=== PATIENT | female | born 1945 | race African-American/Black ===

== ENCOUNTER 2016-04-17 10:21 | Emergency (ER) | payer MEDICARE, MEDICAID ==
--- NOTE | 2016-04-17 10:37 | ER Document Report ---
ED Medical Screen (RME) - General Stated Complaint: WEAKNESS Mode of Arrival: Ambulatory Information source: Patient Notes: 70-year-old female presents emergency department complaining of generalized weakness, dysuria, and states "have bumps on my private parts", over the last month. Denies vaginal bleeding or discharge. I have greeted and performed a rapid initial assessment of this patient. A comprehensive ED assessment and evaluation of the patient, analysis of test results and completion of the medical decision making process will be conducted by additional ED providers. TRAVEL OUTSIDE OF THE [place] IN LAST 30 DAYS: No - Related Data Allergies/Adverse Reactions: aluminum [Aluminum] Allergy (Intermediate, Verified 08/25/14 10:57) aspirin [Aspirin] Allergy (Intermediate, Verified 08/25/14 10:57) Sulfa (Sulfonamide Antibiotics) Allergy (Verified 08/25/14 10:57) Past Medical History - Past Medical History Cardiac Medical History: Reports: Hx Hypercholesterolemia, Hx Hypertension Pulmonary Medical History: Reports: Hx Asthma, Hx Bronchitis GI Medical History: Reports: Hx Gastroesophageal Reflux Disease Musculoskeltal Medical History: Reports Hx Arthritis Past Surgical History: Reports: Hx Hysterectomy, Hx Orthopedic Surgery - left foot - Immunizations Immunizations up to date: Yes Hx Diphtheria, Pertussis, Tetanus Vaccination: Yes Physical Exam - General General appearance: Appears well, Alert In distress: None - Respiratory Respiratory status: No respiratory distress - Cardiovascular Rhythm: Regular Pulses: Normal: Radial
[2016-04-17 11:29] LABS: APPEARANCE,URINE SLIGHTLY-CLOUDY; BILIRUBIN,URINE NEGATIVE (NEGATIVE); GLUCOSE, URINE NEGATIVE (NEGATIVE); KETONES,URINE NEGATIVE (NEGATIVE); LEUKOCYTE ESTERASE,URINE TRACE (NEGATIVE); NITRITE,URINE NEGATIVE (NEGATIVE); PROTEIN,URINE NEGATIVE (NEGATIVE); URINE SPECIFIC GRAVITY 1.016; UROBILINOGEN,URINE NEGATIVE mg/dL (<2.0)
[2016-04-17 12:38] LABS: ABSOLUTE EOSINOPHILS # (AUTO) 0.2 10^3/uL (0.0-0.6); ABSOLUTE LYMPHOCYTES (AUTO) 1.1 10^3/uL (0.5-4.7); ABSOLUTE MONOCYTES (AUTO) 0.5 10^3/uL (0.1-1.4); ABSOLUTE NEUT (AUTO) 2.3 10^3/uL (1.7-8.2); EOSINOPHILS % (AUTO) 5.6 % (0-6); HEMATOCRIT 37.5 % (36.0-47.0); HEMOGLOBIN 12.5 g/dL (12.0-15.5); LYMPHOCYTES % (AUTO) 26.8 % (13-45); MEAN CORPUSCULAR HEMOGLOBIN 30.5 pg (27.0-33.4); MEAN CORPUSCULAR HGB CONC 33.3 g/dL (32.0-36.0); MEAN CORPUSCULAR VOLUME 92 fl (80-97); MONOCYTES % (AUTO) 11.3 % (3-13); RED BLOOD COUNT 4.09 10^6/uL (3.72-5.28); RED CELL DISTRIBUTION WIDTH 13.7 % (11.5-14.0); SEGMENTED NEUTROPHILS % (AUTO) 55.3 % (42-78); WHITE BLOOD COUNT 4.2 10^3/uL (4.0-10.5)
--- NOTE | 2016-04-17 13:35 | ER Document Report ---
ED General - General Chief Complaint: Urinary Problem Stated Complaint: WEAKNESS Mode of Arrival: Ambulatory Information source: Patient Notes: Patient presents to the emergency department with complaints of feeling weak all over her body and some bumps on her private area that hurts every time she voids. She denies fever vomiting diarrhea. She reports that she has been cleaning the bumps with alcohol. Patient does report urinary frequency. Patient was supposed to be fitted for his sleep apnea machine today at 2:00 ordered by . firestop/containment worker at bedside reports patient has appointment with pcp, [facility], [place], next Thursday for same symptoms. TRAVEL OUTSIDE OF THE [place] IN LAST 30 DAYS: No - HPI Onset: Other - 2 weeks Onset/Duration: Persistent Quality of pain: Other - sore Severity: Severe Pain Level: 4 Associated symptoms: Weakness Exacerbated by: Denies Relieved by: Denies Similar symptoms previously: No Recently seen / treated by doctor: No - Related Data Allergies/Adverse Reactions: aluminum [Aluminum] Allergy (Intermediate, Verified 04/17/16 10:35) aspirin [Aspirin] Allergy (Intermediate, Verified 04/17/16 10:35) Sulfa (Sulfonamide Antibiotics) Allergy (Verified 04/17/16 10:35) Past Medical History - General Information source: Patient - Social History Smoking Status: Never Smoker Chew tobacco use (# tins/day): No Frequency of alcohol use: None Drug Abuse: None Lives with: Alone Family History: Reviewed & Not Pertinent Patient has suicidal ideation: No Patient has homicidal ideation: No - Past Medical History Cardiac Medical History: Reports: Hx Hypercholesterolemia, Hx Hypertension Pulmonary Medical History: Reports: Hx Asthma, Hx Bronchitis Renal/ Medical History: Denies: Hx Peritoneal Dialysis GI Medical History: Reports: Hx Gastroesophageal Reflux Disease Musculoskeltal Medical History: Reports Hx Arthritis Past Surgical History: Reports: Hx Hysterectomy, Hx Orthopedic Surgery - left foot - Immunizations Immunizations up to date: Yes Hx Diphtheria, Pertussis, Tetanus Vaccination: Yes Hx Pneumococcal Vaccination: 03/16/09 Review of Systems - Review of Systems Notes: Review HPI for review of systems., All other systems negative Physical Exam - Vital signs Vitals: Temp Pulse Resp BP Pulse Ox 97.5 F 71 20 102/64 99 04/17/16 10:40 04/17/16 10:40 04/17/16 10:40 04/17/16 10:40 04/17/16 10:40 - Notes Notes: PHYSICAL EXAMINATION: GENERAL: Well-appearing and in no acute distress nontoxic looking HEAD: Atraumatic, normocephalic. EYES: Pupils equal round and reactive to light, extraocular movements intact, sclera anicteric, conjunctiva are normal. ENT: nares patent, oropharynx clear without exudates. Moist mucous membranes. NECK: Normal range of motion, supple without lymphadenopathy LUNGS: CTAB and equal. No wheezes rales or rhonchi. HEART: Regular rate and rhythm without murmurs ABDOMEN: Soft, no tenderness. No guarding, no rebound BACK: Denies pain EXTREMITIES: Normal range of motion, no pitting edema. No cyanosis. NEUROLOGICAL: Cranial nerves grossly intact. Normal sensory/motor exams. PSYCH: Normal mood, normal affect. SKIN: Warm, Dry, normal turgor, no rashes or lesions noted - Genitourinary External exam: Normal - pt points to left labia area where "bumps" are, no obvious abscess, no irritation, no swelling/warmth, no induration noted Course - Re-evaluation Re-evalutation: 04/17/16 14:17 Patient's older adult social work specialist is at the bedside. Patient and older adult social work specialist updated on all labs. Patient ate almost 75% of her lunch. She is talking in clear voice alert and oriented, answering all questions appropriate. Urine with leukocytes and patient complains of urinary frequency will treat her for UTI. denies abdominal pain. 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 Pickett. 04/17/16 14:53 I have consulted the attending provider dr jc per [facility] guidelines - Vital Signs Vital signs: Temp Pulse Resp BP Pulse Ox 98.2 F 66 16 102/58 L 99 04/17/16 14:55 04/17/16 14:55 04/17/16 14:55 04/17/16 14:55 04/17/16 14:55 - Laboratory Result Diagrams: 04/17/16 12:25 04/17/16 13:58 Laboratory results interpreted by me: 04/17/16 10:56 Ur Leukocyte Esterase TRACE H Urine Ascorbic Acid 40 H Discharge - Discharge Clinical Impression: Weakness, Vaginal irritation Urinary tract infection Qualifiers: Urinary tract infection type: site unspecified Hematuria presence: without hematuria Qualified Code(s): N39.0 - Urinary tract infection, site not specified Condition: Stable Disposition: HOME, SELF-CARE Instructions: Urinary Tract Infection ([facility]), Urinary Anesthetic Agent ([facility]), Ciprofloxacin ([facility]) Additional Instructions: *You have been evaluated for weakness, urinary frequency, UTI *Take medication as prescribed *Clean yourself with a warm cloth, do not use alcohol *Push fluids *Follow up with your [facility] as scheduled Apr.22 *Plan urine recheck in one week *Return to ED for worsening condition, changes, needs Prescriptions: Ciprofloxacin HCl [Cipro 500 mg Tablet] 500 mg PO BID #10 tablet Referrals: [facility] [Provider Group] - 04/22/16
[2016-04-17 14:26] LABS: ALANINE AMINOTRANSFERASE 25 U/L (9-52); ALKALINE PHOSPHATASE 51 U/L (38-126); ANION GAP 11 (5-19); ASPARTATE AMINO TRANSFERASE 25 U/L (14-36); BILIRUBIN,TOTAL 0.3 mg/dL (0.2-1.3); BLOOD UREA NITROGEN 20 mg/dL (7-20); CALCIUM 9.5 mg/dL (8.4-10.2); CARBON DIOXIDE 27 mmol/L (22-30); CHLORIDE 105 mmol/L (98-107); CREATININE RESULT 0.65 mg/dL (0.52-1.25); GLUCOSE 79 mg/dL (75-110); POTASSIUM 4.2 mmol/L (3.6-5.0); SODIUM 142.7 mmol/L (137-145); TOTAL PROTEIN 6.5 g/dL (6.3-8.2)
[2016-04-17 15:01] VITALS: BP 102/58
== END 2016-04-17 15:12 | disposition home or self-care (01) ==
LOC: ER 10:21
DX: N39.0 Urinary tract infection, site not specified (principal); R53.1 Weakness; N89.8 Other specified noninflammatory disorders of vagina; D72.829 Elevated white blood cell count, unspecified; R35.0 Frequency of micturition; J45.909 Unspecified asthma, uncomplicated; I10 Essential (primary) hypertension; Z88.6 Allergy status to analgesic agent; Z88.2 Allergy status to sulfonamides; Z91.048 Other nonmedicinal substance allergy status; Z90.710 Acquired absence of both cervix and uterus
CPT/HCPCS: 36415; 80053; 81001; 85025; 87086; 99285

== ENCOUNTER → 2016-04-24 | Outpatient (CLI) | payer MEDICARE, MEDICAID ==
[2016-04-24 09:43] LABS: ABSOLUTE BASOPHILS # (AUTO) 0.1 10^3/uL (0.0-0.2); ABSOLUTE EOSINOPHILS # (AUTO) 0.2 10^3/uL (0.0-0.6); ABSOLUTE LYMPHOCYTES (AUTO) 0.9 10^3/uL (0.5-4.7); ABSOLUTE MONOCYTES (AUTO) 0.6 10^3/uL (0.1-1.4); ABSOLUTE NEUT (AUTO) 3.6 10^3/uL (1.7-8.2); EOSINOPHILS % (AUTO) 4.3 % (0-6); HEMATOCRIT 38.4 % (36.0-47.0); HEMOGLOBIN 12.7 g/dL (12.0-15.5); HGB HCT DIFFERENCE -0.3; LYMPHOCYTES % (AUTO) 16.2 % (13-45); MEAN CORPUSCULAR HEMOGLOBIN 30.2 pg (27.0-33.4); MEAN CORPUSCULAR VOLUME 92 fl (80-97); MONOCYTES % (AUTO) 10.8 % (3-13); RED BLOOD COUNT 4.19 10^6/uL (3.72-5.28); RED CELL DISTRIBUTION WIDTH 13.7 % (11.5-14.0); SEGMENTED NEUTROPHILS % (AUTO) 67.7 % (42-78); WHITE BLOOD COUNT 5.4 10^3/uL (4.0-10.5)
[2016-04-24 10:10] LABS: ALANINE AMINOTRANSFERASE 30 U/L (9-52); ALBUMIN 4.1 g/dL (3.5-5.0); ALKALINE PHOSPHATASE 48 U/L (38-126); ANION GAP 8 (5-19); ASPARTATE AMINO TRANSFERASE 26 U/L (14-36); BILIRUBIN,TOTAL 0.7 mg/dL (0.2-1.3); BLOOD UREA NITROGEN 18 mg/dL (7-20); CALCIUM 9.5 mg/dL (8.4-10.2); CARBON DIOXIDE 29 mmol/L (22-30); CHLORIDE 105 mmol/L (98-107); CHOLESTEROL 214.25 mg/dL (0-200); CREATININE RESULT 0.71 mg/dL (0.52-1.25); Direct HDL 83 mg/dL (>40); GLUCOSE 68 mg/dL (75-110); POTASSIUM 4.4 mmol/L (3.6-5.0); SODIUM 141.7 mmol/L (137-145); TOTAL PROTEIN 6.9 g/dL (6.3-8.2); TRIGLYCERIDES 77 mg/dL (<150)
[2016-04-24 10:21] LABS: DIRECT LDL 113 mg/dL (<100)
[2016-04-24 11:04] LABS: ERYTHROCYTE SEDIMENTATION RATE 12 mm/hr (0-30)
--- NOTE | 2016-04-24 13:23 | EKG REPORT ---
SEVERITY:- BORDERLINE ECG - SINUS RHYTHM BORDERLINE T ABNORMALITIES, ANTERIOR LEADS : Confirmed by: Fabrice Figueroa MD 24-Apr-2016 13:23:06
[2016-04-27 12:36] LABS: JO-1 ANTIBODY <0.2 AI (0.0-0.9)
== END ==
LOC: OD 08:43
DX: G30.8 Other Alzheimer's disease (principal); F02.81 Dementia in other diseases classified elsewhere, unspecified severity, with behavioral disturbance; N39.41 Urge incontinence; Z79.899 Other long term (current) drug therapy; R06.02 Shortness of breath
CPT/HCPCS: 36415; 71020; 80053; 80061; 82607; 83036; 84443; 85025; 85652; 86038; 86225; 86235; 93005; 93010

== ENCOUNTER → 2016-05-05 | Outpatient (CLI) | payer MEDICARE, MEDICAID | LOC: WI 09:05 | DX: N64.4 Mastodynia (principal) | CPT/HCPCS: 76641; G0204; 77066 ==

== ENCOUNTER 2016-05-20 05:37 | Emergency (ER) | payer MEDICARE, MEDICAID ==
--- NOTE | 2016-05-20 06:33 | ER Document Report ---
ED GI/ - General Mode of Arrival: Ambulatory Information source: Patient TRAVEL OUTSIDE OF THE [place] IN LAST 30 DAYS: No - HPI Patient complains to provider of: Other - see narrative Onset: Other - x2 months Timing/Duration: Persistent, Worse Quality of pain: Burning Location: Vaginal Similar symptoms previously: Yes Recently seen / treated by doctor: Yes - General Chief Complaint: Vaginal Pain Stated Complaint: URINARY ISSUES Notes: Patient is a 70-year-old female that presents to the emergency department today with complaints of vaginal irritation. Patient states that her vaginal area "[place], stings, and itches". Patient complains of dysuria. She states that she has had the symptoms for approximately 2 months and that it has been progressively getting worse. Patient states one month ago she was seen by her primary care physician's office for this but was not prescribed anything and she "cannot remember what was wrong". (PORSHA ANDRADE) - Related Data Allergies/Adverse Reactions: aluminum [Aluminum] Allergy (Intermediate, Verified 05/20/16 05:38) aspirin [Aspirin] Allergy (Intermediate, Verified 05/20/16 05:38) Sulfa (Sulfonamide Antibiotics) Allergy (Verified 05/20/16 05:38) Past Medical History - General Information source: Patient, [facility] Records - Social History Smoking Status: Former Smoker Cigarette use (# per day): No Chew tobacco use (# tins/day): No Frequency of alcohol use: None Drug Abuse: None Lives with: Family Family History: Reviewed & Not Pertinent Patient has suicidal ideation: No Patient has homicidal ideation: No - Past Medical History Cardiac Medical History: Reports: Hx Hypercholesterolemia, Hx Hypertension Pulmonary Medical History: Reports: Hx Asthma, Hx Bronchitis GI Medical History: Reports: Hx Gastroesophageal Reflux Disease Musculoskeltal Medical History: Reports Hx Arthritis Past Surgical History: Reports: Hx Hysterectomy, Hx Orthopedic Surgery - left foot - Immunizations Immunizations up to date: Yes Hx Diphtheria, Pertussis, Tetanus Vaccination: Yes Hx Pneumococcal Vaccination: 03/16/09 Review of Systems - Review of Systems Constitutional: No symptoms reported EENT: No symptoms reported Cardiovascular: No symptoms reported Respiratory: No symptoms reported Gastrointestinal: No symptoms reported Genitourinary: See HPI, Burning Female Genitourinary: See HPI, Other - vaginal itching Musculoskeletal: No symptoms reported Skin: No symptoms reported Hematologic/Lymphatic: No symptoms reported Neurological/Psychological: No symptoms reported -: Yes All other systems reviewed and negative Physical Exam - General General appearance: Appears well, Alert In distress: None - HEENT Head: Normocephalic, Atraumatic Eyes: Normal Extraocular movements intact: Yes - Respiratory Respiratory status: No respiratory distress Chest status: Nontender Breath sounds: Normal - Cardiovascular Rhythm: Regular Heart sounds: Normal auscultation Murmur: No - Abdominal Inspection: Normal Distension: No distension Tenderness: Nontender - Genitourinary External exam: Normal, Other - no lesions, skin break down, or swelling. No: Lesions, Laceration, Bruising - Extremities General upper extremity: Normal inspection, Normal ROM. No: Edema General lower extremity: Normal inspection, Normal ROM. No: Edema - Neurological Neuro grossly intact: Yes Cognition: Normal Speech: Normal - Psychological Associated symptoms: Normal affect, Normal mood - Skin Skin Temperature: Warm Skin Moisture: Dry Skin Color: Normal - Vital signs Vitals: Temp Pulse Resp BP Pulse Ox 97.4 F 66 16 116/83 100 05/20/16 05:42 05/20/16 05:42 05/20/16 05:42 05/20/16 05:42 05/20/16 05:42 Discharge - Discharge Clinical Impression: introitus pain Condition: Stable Disposition: HOME, SELF-CARE Additional Instructions: Your vaginal discomfort may be caused by age related atrophy. There may also be some yeast involvement but it is difficult to tell. You will be given a combination steroid and anti-fungal cream to use on the area to see if it improves how it feels. You should follow-up with [facility] for a more thorough examination and evaluation of your problem. Prescriptions: Nystatin/Triamcin [Mycolog-II Cream] 1 applic TP TID #30 tube Referrals: [facility] [Provider Group] - Follow up in 1 week Scribe Attestation: 05/20/16 07:33 I personally performed the services described in the documentation, reviewed and edited the documentation which was dictated to the scribe in my presence, and it accurately records my words and actions. (DEANDRA ARCHULETA) Scribe Documentation - Scribe Written by Dalia:: Dalia Ballard, 05/20/2016 0758 acting as scribe for :: Vidhi
[2016-05-20 06:49] LABS: APPEARANCE,URINE CLEAR; BILIRUBIN,URINE NEGATIVE (NEGATIVE); GLUCOSE, URINE NEGATIVE (NEGATIVE); KETONES,URINE NEGATIVE (NEGATIVE); LEUKOCYTE ESTERASE,URINE TRACE (NEGATIVE); NITRITE,URINE NEGATIVE (NEGATIVE); PROTEIN,URINE NEGATIVE (NEGATIVE); URINE SPECIFIC GRAVITY 1.019; UROBILINOGEN,URINE NEGATIVE mg/dL (<2.0)
[2016-05-20 09:01] VITALS: BP 121/79
== END 2016-05-20 08:00 | disposition home or self-care (01) ==
LOC: ER 05:37
DX: R10.2 Pelvic and perineal pain (principal); R39.198 Other difficulties with micturition; Z87.891 Personal history of nicotine dependence
CPT/HCPCS: 81001; 99283

== ENCOUNTER 2016-08-13 10:47 | Emergency (ER) | payer MEDICARE, MEDICAID ==
--- NOTE | 2016-08-13 11:16 | ER Document Report ---
ED Medical Screen (RME) - General Chief Complaint: Chemical Exposure Stated Complaint: SORE THROAT Time Seen by Provider: 08/13/16 11:10 Mode of Arrival: Ambulatory Information source: Patient Notes: This is a 71-year-old female with multiple medical problems to include hypertension and hyperlipidemia who presents with several complaints this morning. She states that she felt well until about an hour ago as she was leaving the [facility]. She states that she smelled a "bad odor". At this time she developed a headache as well as bilateral ear pain throat pain and some chest pain. She states she feels somewhat dizzy. No nausea or vomiting however she is spitting into a bag. She is somewhat of a poor historian. I have greeted and performed a rapid initial assessment of this patient. A comprehensive ED assessment and evaluation of the patient, analysis of test results and completion of the medical decision making process will be conducted by additional ED providers. TRAVEL OUTSIDE OF THE [place] IN LAST 30 DAYS: No - Related Data Allergies/Adverse Reactions: aluminum [Aluminum] Allergy (Intermediate, Verified 08/13/16 11:03) aspirin [Aspirin] Allergy (Intermediate, Verified 08/13/16 11:03) Sulfa (Sulfonamide Antibiotics) Allergy (Verified 08/13/16 11:03) Past Medical History - Past Medical History Cardiac Medical History: Reports: Hx Hypercholesterolemia, Hx Hypertension Pulmonary Medical History: Reports: Hx Asthma, Hx Bronchitis Renal/ Medical History: Denies: Hx Peritoneal Dialysis GI Medical History: Reports: Hx Gastroesophageal Reflux Disease Musculoskeltal Medical History: Reports Hx Arthritis Past Surgical History: Reports: Hx Hysterectomy, Hx Orthopedic Surgery - left foot - Immunizations Immunizations up to date: Yes Hx Diphtheria, Pertussis, Tetanus Vaccination: Yes Physical Exam - Vital signs Vitals: Temp Pulse Resp BP Pulse Ox 98.9 F 77 16 107/70 97 08/13/16 10:54 08/13/16 10:54 08/13/16 10:54 08/13/16 10:54 08/13/16 10:54 - General Notes: Frail elderly female who is pleasant and conversant and soft-spoken. Tolerating her secretions but occasionally spitting into a bag - Respiratory Respiratory status: No respiratory distress Breath sounds: Normal. No: Rales, Rhonchi, Wheezing - Cardiovascular Rhythm: Regular Heart sounds: Normal auscultation, S1 appreciated, S2 appreciated Course - Vital Signs Vital signs: Temp Pulse Resp BP Pulse Ox 98.9 F 77 16 107/70 97 08/13/16 10:54 08/13/16 10:54 08/13/16 10:54 08/13/16 10:54 08/13/16 10:54
--- NOTE | 2016-08-13 11:40 | ER Document Report ---
ED General - General Mode of Arrival: Ambulatory TRAVEL OUTSIDE OF THE [place] IN LAST 30 DAYS: No - HPI Onset: Just prior to arrival - Refer to HPI notes Similar symptoms previously: No Recently seen / treated by doctor: No <ROSINA SNELL - Last Filed: 08/13/16 11:55> <DEANDRA ARCHULETA - Last Filed: 08/13/16 13:23> - General Chief Complaint: Chemical Exposure Stated Complaint: SORE THROAT Time Seen by Provider: 08/13/16 11:10 Notes: Patient is a 71-year-old female presenting to the emergency department for multiple complaints. Patient states she was at the [facility] walking around the back of the building when she suddenly smiled a bad odor. Patient states she then had a headache, bilateral ear pain, sore throat, chest pain and dizziness. Patient denies any nausea or vomiting. Patient is a poor historian. Patient states she does not have a primary care physician. (ROSINA SNELL) - Related Data Allergies/Adverse Reactions: aluminum [Aluminum] Allergy (Intermediate, Verified 08/13/16 11:03) aspirin [Aspirin] Allergy (Intermediate, Verified 08/13/16 11:03) Sulfa (Sulfonamide Antibiotics) Allergy (Verified 08/13/16 11:03) Past Medical History - General Information source: Patient - Social History Smoking Status: Unknown if Ever Smoked Family History: None Patient has suicidal ideation: No Patient has homicidal ideation: No - Past Medical History Cardiac Medical History: Reports: Hx Hypercholesterolemia, Hx Hypertension Pulmonary Medical History: Reports: Hx Asthma, Hx Bronchitis GI Medical History: Reports: Hx Gastroesophageal Reflux Disease Musculoskeltal Medical History: Reports Hx Arthritis Past Surgical History: Reports: Hx Hysterectomy, Hx Orthopedic Surgery - left foot - Immunizations Immunizations up to date: Yes Hx Diphtheria, Pertussis, Tetanus Vaccination: Yes Hx Pneumococcal Vaccination: 03/16/09 <ROSINA SNELL - Last Filed: 08/13/16 11:55> Review of Systems - Review of Systems Constitutional: No symptoms reported EENT: See HPI Cardiovascular: See HPI Respiratory: No symptoms reported Gastrointestinal: No symptoms reported Genitourinary: No symptoms reported Female Genitourinary: No symptoms reported Musculoskeletal: No symptoms reported Skin: No symptoms reported Hematologic/Lymphatic: No symptoms reported Neurological/Psychological: See HPI, Headaches -: Yes All other systems reviewed and negative <ROSINA SNELL - Last Filed: 08/13/16 11:55> Physical Exam - Vital signs Interpretation: Normal - General General appearance: Appears well, Alert In distress: Mild - HEENT Head: Normocephalic, Atraumatic Eyes: Normal Pupils: PERRL Mucous membranes: Moist - Respiratory Respiratory status: No respiratory distress Chest status: Nontender Breath sounds: Normal Chest palpation: Normal - Cardiovascular Rhythm: Regular Heart sounds: Normal auscultation Murmur: No - Abdominal Inspection: Normal Distension: No distension Bowel sounds: Normal Tenderness: Nontender Organomegaly: No organomegaly - Back Back: Normal, Nontender - Extremities General upper extremity: Normal inspection, Normal ROM, Normal strength General lower extremity: Normal inspection, Edema - lower extremities are somewhat puffy but there is no pitting edema with palpation, Normal ROM, Normal strength - Neurological Neuro grossly intact: Yes Cognition: Normal Orientation: AAOx4 [place] Coma Scale Eye Opening: Spontaneous [place] Coma Scale Verbal: Oriented [place] Coma Scale Motor: Obeys Commands [place] Coma Scale Total: 15 Speech: Normal - Psychological Associated symptoms: Normal affect, Normal mood - Skin Skin Temperature: Warm Skin Moisture: Dry <WILFRED SNELLINE - Last Filed: 08/13/16 11:55> <DEANDRA ARCHULETA - Last Filed: 08/13/16 13:23> - Vital signs Vitals: Temp Pulse Resp BP Pulse Ox 98.9 F 77 16 107/70 97 08/13/16 10:54 08/13/16 10:54 08/13/16 10:54 08/13/16 10:54 08/13/16 10:54 Course - Laboratory Result Diagrams: 08/13/16 11:45 08/13/16 11:45 <WILFRED SNELLINE - Last Filed: 08/13/16 11:55> - Laboratory Result Diagrams: 08/13/16 11:45 08/13/16 11:45 - Diagnostic Test Radiology reviewed: Image reviewed, Reports reviewed - Chest x-ray is normal - EKG Interpretation by Ms EKG shows normal: Sinus rhythm, Intervals, QRS Complexes, ST-T Waves. abnormal : [place] - Borderline left axis deviation Rate: Normal - 67 Rhythm: NSR <DEANDRA ARCHULETA - Last Filed: 08/13/16 13:23> - Vital Signs Vital signs: Temp Pulse Resp BP Pulse Ox 98.9 F 77 16 107/70 97 08/13/16 10:54 08/13/16 10:54 08/13/16 11:13 08/13/16 10:54 08/13/16 10:54 - Laboratory Laboratory results interpreted by me: 08/13/16 08/13/16 11:45 12:00 Chloride 108 H BUN 27 H Ur Leukocyte Esterase TRACE H Urine Ascorbic Acid 40 H Discharge <ROSINA SNELL - Last Filed: 08/13/16 11:55> <DEANDRA ARCHULETA - Last Filed: 08/13/16 13:23> - Discharge Clinical Impression: Exposure to noxious odor Condition: Stable Disposition: HOME, SELF-CARE Additional Instructions: No harm was caused by the exposure to the bad odor you smelled today. You should continue taking your regular medications. Rest today. Follow-up with your primary care medical doctor if any further problems. RETURN TO THE EMERGENCY ROOM IF ANY NEW OR WORSENING SYMPTOMS. Scribe Attestation: 08/13/16 13:23 I personally performed the services described in the documentation, reviewed and edited the documentation which was dictated to the scribe in my presence, and it accurately records my words and actions. (DEANDRA ARCHULETA) Scribe Documentation - Scribe Written by Dalia:: Dalia Pabon, 08/13/16 11:54 acting as scribe for :: Vidhi <ROSINA SNELL - Last Filed: 08/13/16 11:55>
[2016-08-13 11:58] LABS: ABSOLUTE BASOPHILS # (AUTO) 0.1 10^3/uL (0.0-0.2); ABSOLUTE EOSINOPHILS # (AUTO) 0.1 10^3/uL (0.0-0.6); ABSOLUTE LYMPHOCYTES (AUTO) 0.7 10^3/uL (0.5-4.7); ABSOLUTE MONOCYTES (AUTO) 0.5 10^3/uL (0.1-1.4); ABSOLUTE NEUT (AUTO) 3.5 10^3/uL (1.7-8.2); BASOPHILS % (AUTO) 1.4 % (0-2); EOSINOPHILS % (AUTO) 1.8 % (0-6); HEMATOCRIT 39.4 % (36.0-47.0); HGB HCT DIFFERENCE -0.4; LYMPHOCYTES % (AUTO) 14.5 % (13-45); MEAN CORPUSCULAR HEMOGLOBIN 30.5 pg (27.0-33.4); MEAN CORPUSCULAR HGB CONC 32.9 g/dL (32.0-36.0); MEAN CORPUSCULAR VOLUME 93 fl (80-97); MONOCYTES % (AUTO) 9.7 % (3-13); RED BLOOD COUNT 4.25 10^6/uL (3.72-5.28); RED CELL DISTRIBUTION WIDTH 13.9 % (11.5-14.0); SEGMENTED NEUTROPHILS % (AUTO) 72.6 % (42-78); WHITE BLOOD COUNT 4.8 10^3/uL (4.0-10.5)
[2016-08-13 12:11] LABS: ALANINE AMINOTRANSFERASE 28 U/L (9-52); ALBUMIN 3.8 g/dL (3.5-5.0); ALKALINE PHOSPHATASE 42 U/L (38-126); ANION GAP 8 (5-19); ASPARTATE AMINO TRANSFERASE 23 U/L (14-36); BILIRUBIN,DIRECT 0.2 mg/dL (0.0-0.4); BILIRUBIN,TOTAL 0.4 mg/dL (0.2-1.3); BLOOD UREA NITROGEN 27 mg/dL (7-20); CALCIUM 9.7 mg/dL (8.4-10.2); CARBON DIOXIDE 27 mmol/L (22-30); CHLORIDE 108 mmol/L (98-107); CREATININE RESULT 0.74 mg/dL (0.52-1.25); GLUCOSE 80 mg/dL (75-110); POTASSIUM 4.6 mmol/L (3.6-5.0); SODIUM 142.8 mmol/L (137-145); TOTAL PROTEIN 6.7 g/dL (6.3-8.2)
--- NOTE | 2016-08-13 12:12 | RADIOLOGY REPORT (SQ) ---
EXAM DESCRIPTION: CHEST SINGLE VIEW COMPLETED DATE/TIME: 08/13/2016 12:02 pm REASON FOR STUDY: chest pain COMPARISON: 04/24/2016. EXAM PARAMETERS: NUMBER OF VIEWS: One view. TECHNIQUE: Single frontal radiographic view of the chest acquired. RADIATION DOSE: NA LIMITATIONS: None. FINDINGS: LUNGS AND PLEURA: No opacities, masses or pneumothorax. No pleural effusion. MEDIASTINUM AND HILAR STRUCTURES: No masses. Contour normal. HEART AND VASCULAR STRUCTURES: Heart normal in size. Normal vasculature. BONES: No acute findings. HARDWARE: None in the chest. OTHER: No other significant finding. IMPRESSION: NO ACUTE RADIOGRAPHIC FINDING IN THE CHEST. TECHNICAL DOCUMENTATION: JOB ID: [id number]
[2016-08-13 12:22] LABS: APPEARANCE,URINE SLIGHTLY-CLOUDY; BILIRUBIN,URINE NEGATIVE (NEGATIVE); GLUCOSE, URINE NEGATIVE (NEGATIVE); KETONES,URINE NEGATIVE (NEGATIVE); LEUKOCYTE ESTERASE,URINE TRACE (NEGATIVE); NITRITE,URINE NEGATIVE (NEGATIVE); PROTEIN,URINE NEGATIVE (NEGATIVE); URINE SPECIFIC GRAVITY 1.027; UROBILINOGEN,URINE NEGATIVE mg/dL (<2.0)
[2016-08-13 14:03] VITALS: BP 118/70
--- NOTE | 2016-08-14 10:00 | EKG REPORT ---
SEVERITY:- OTHERWISE NORMAL ECG - SINUS RHYTHM BORDERLINE LEFT AXIS DEVIATION : Confirmed by: Stu Gerard 14-Aug-2016 09:59:34
== END 2016-08-13 14:03 | disposition home or self-care (01) ==
LOC: EDBD → ER 10:47
DX: T75.89XA Other specified effects of external causes, initial encounter (principal); R51 Headache; H92.03 Otalgia, bilateral; J02.9 Acute pharyngitis, unspecified; R07.9 Chest pain, unspecified; R42 Dizziness and giddiness; X58.XXXA Exposure to other specified factors, initial encounter; Y93.01 Activity, walking, marching and hiking; Y92.89 Other specified places as the place of occurrence of the external cause; I10 Essential (primary) hypertension; J45.909 Unspecified asthma, uncomplicated; Z88.6 Allergy status to analgesic agent; Z88.2 Allergy status to sulfonamides; Z91.048 Other nonmedicinal substance allergy status
CPT/HCPCS: 36415; 71010; 80053; 81001; 85025; 93005; 93010; 99284

== ENCOUNTER 2016-09-09 09:27 | Emergency (ER) | payer MEDICARE, MEDICAID ==
[2016-09-09 09:35] VITALS: BP 103/74
--- NOTE | 2016-09-09 10:02 | ER Document Report ---
HPI - HPI Patient complains to provider of: Cough congestion sore throat for about a month. Onset: Other Onset/Duration: Intermittent Quality of pain: Achy Severity: Moderate Pain Level: 4 Context: 71-year-old female presents to ED for cough congestion sore throat for about a month. She states it is getting worse. Denies any fever. She has not been to a doctor in over a year because the doctor told her that she was have crazy and she did not want to go back to him to be told she was crazy. Associated Symptoms: Nonproductive cough, Rhinnorhea, Sinus pain/drainage, Sore throat Exacerbated by: Denies Relieved by: Denies Similar symptoms previously: Yes Recently seen / treated by doctor: No - ROS ROS below otherwise negative: Yes - CONSTITUTIONAL Constitutional: DENIES: Fever, Chills - EENT EENT: REPORTS: Sore Throat, Nasal Drainage-Purulent, Congestion - NEURO Neurology: DENIES: Headache, Weakness, Vision blurred, Dizzinesss / Vertigo - CARDIOVASCULAR Cardiovascular: DENIES: Chest pain - RESPIRATORY Respiratory: REPORTS: Coughing. DENIES: Trouble Breathing - GASTROINTESTINAL Gastrointestinal: DENIES: Abdominal Pain, Nausea, Patient vomiting, Diarrhea, Constipation, Black / Bloody Stools - URINARY Urinary: DENIES: Dysuria, Urgency, Frequency - REPRODUCTIVE Reproductive: DENIES: :, Postmenopausal, Abnormal bleeding / discharge - MUSCULOSKELETAL Musculoskeletal: DENIES: Extremity pain, Back Pain, Neck Pain, Swelling - DERM Skin Color: Normal Skin Problems: None Past Medical History - General Information source: Patient - Social History Smoking Status: Never Smoker Cigarette use (# per day): No Chew tobacco use (# tins/day): No Smoking Education Provided: No Frequency of alcohol use: None Drug Abuse: None Lives with: Alone Family History: Hypertension Patient has suicidal ideation: No Patient has homicidal ideation: No - Past Medical History Cardiac Medical History: Reports: Hx Hypercholesterolemia, Hx Hypertension Pulmonary Medical History: Reports: Hx Asthma, Hx Bronchitis EENT Medical History: Reports: None Neurological Medical History: Reports: None Endocrine Medical History: Reports: None Renal/ Medical History: Reports: None Malignancy Medical History: Reports: None GI Medical History: Reports: Hx Gastroesophageal Reflux Disease Musculoskeltal Medical History: Reports Hx Arthritis, Reports Hx Musculoskeletal Trauma Skin Medical History: Reports None Psychiatric Medical History: Reports: Other - She states the doctor told her she was half crazy but she does not know why Traumatic Medical History: Reports: None Infectious Medical History: Reports: None Past Surgical History: Reports: Hx Hysterectomy, Hx Orthopedic Surgery - left foot - Immunizations Immunizations up to date: Yes Hx Diphtheria, Pertussis, Tetanus Vaccination: Yes Hx Pneumococcal Vaccination: 03/16/09 Vertical Provider Document - CONSTITUTIONAL Agree With Documented VS: Yes Exam Limitations: No Limitations General Appearance: WD/WN, No Apparent Distress - INFECTION CONTROL TRAVEL OUTSIDE OF THE [place] IN LAST 30 DAYS: No - HEENT HEENT: Atraumatic, Normocephalic, PERRLA. negative: Normal ENT Exam - Nasal drainage postnasal drip nonproductive cough at this time - RESPIRATORY Respiratory: Breath Sounds Normal O2 Sat by Pulse Oximetry: 99 - CARDIOVASCULAR Cardiovascular: Regular Rate, Regular Rhythm, No Murmur - GI/ABDOMEN Gastrointestinal: Abdomen Soft, Abdomen Non-Tender, No Organomegaly, Normal Bowel Sounds - BACK Back: Normal Inspection - MUSCULOSKELETAL/EXTREMETIES Musculoskeletal/Extremeties: MAEW, FROM, Non-Tender - NEURO Level of Consciousness: Awake, Alert, Appropriate - DERM Integumentary: Warm, Dry, No Rash Course - Re-evaluation Re-evalutation: 09/09/16 11:00 X-rays and labs with patient. Patient was treated with some Tylenol. Patient was given a list of local doctors and she states she did not want to go back to her previous doctor. She was not able to tell me what his name was. Patient discharged home. - Vital Signs Vital signs: Temp Pulse Resp BP Pulse Ox 98.3 F 65 16 103/74 99 09/09/16 09:33 09/09/16 09:33 09/09/16 09:33 09/09/16 09:33 09/09/16 09:33 - Diagnostic Test Radiology reviewed: Image reviewed, Reports reviewed Discharge - Discharge Clinical Impression: Sore throat (viral), concern about her urine neg ua URI (upper respiratory infection) Qualifiers: URI type: unspecified URI Qualified Code(s): J06.9 - Acute upper respiratory infection, unspecified Condition: Stable Disposition: HOME, SELF-CARE Instructions: Family Physicians / Practices Additional Instructions: UPPER RESPIRATORY ILLNESS: You have a viral infection of the respiratory passages -- a "cold." This common infection causes nasal congestion, drainage, and often sore throat and cough. It is highly contagious. The disease usually lasts about 10 to 14 days. There is no "cure" for the viral infection -- it must run its course. If there is a complication, such as bacterial infection in the nose, sinuses, middle ear, or bronchial tubes, antibiotics may be required. The antibiotics won't affect the virus. Drink plenty of fluids. A humidifier may help. An expectorant medication or decongestant may make you more comfortable. Use acetaminophen or ibuprofen for fever or aches. See the doctor if fever persists over two days, if there is any significant worsening of your symptoms, or if you simply fail to improve as expected. SORE THROAT: Sore throats may be caused by viruses, bacteria, or fungi. Most are due to a virus, and must get better on their own. Bacterial sore throats, particularly those due to "strep," need treatment with antibiotics. If an antibiotic is prescribed, be sure to take the medication for a full 10 days. Failure to take the antibiotic can result in complications such as rheumatic fever. Sometimes, an injection of antibiotics is given instead of pills or liquid. This single "shot" is equal in effectiveness to the oral medication. To relieve symptoms, take acetaminophen for pain. Sip clear liquids frequently, or eat popsicles or ice chips. Anesthetic sprays or lozenges may help. Make sure the air in the room is not too dry. Avoid using decongestants or antihistamines. Call the doctor if there is no improvement in two days, or if you have difficulty breathing, increasing throat pain, high fever, rash, or frequent vomiting. DECONGESTANT MEDICATION: A decongestant medicine has been prescribed. Often this medicine is combined in the same tablet with an antihistamine or expectorant. This type of medicine is helpful in treating a bad cold or sinus condition, as well as in treatment of the nasal congestion of hay fever. It is not of much benefit for lung infections. Decongestant medicines are related to stimulants. They can cause an increase in blood pressure and heart rate. Persons with heart disease and high blood pressure should not take decongestants without discussing this with the physician. If you develop palpitations, chest pain, headache, or tremors, stop the medicine and consult your physician. COUGH-SUPPRESSANT & EXPECTORANT MEDICATION: You are to use a cough medication as needed for relief of symptoms. This medicine is a combination of an expectorant (to make the mucous thinner and more easily "coughed up") and a cough suppressant (to reduce the frequency of coughing). The cough-suppressant medicine is related to narcotics. You may experience mild nausea and sleepiness. Some patients who are very sensitive to narcotics may have stomach pain from this medicine. Taking the medicine with food reduces these side effects. Do not drive or work with machinery until you know how this medicine affects you. The expectorant should have no side effects. Iodine-containing expectorants (such as organidin) should not be taken by persons with active thyroid disease unless approved by your doctor. Call the doctor if you develop shortness of breath, hives, rash, itching, lightheadedness, or severe nausea and vomiting. USE OF ACETAMINOPHEN (Tylenol): Acetaminophen may be taken for pain relief or fever control. It's much safer than aspirin, offering a wider range of "safe" dosages. It is safe during . Some brand names are Tylenol, Panadol, Datril, Anacin 3, Tempra, and Liquiprin. Acetaminophen can be repeated every four hours. The following are maximum recommended dosages: >89 pounds or adults 650 mg to 900 mg Acetaminophen can be repeated every four hours. Maximum dose not to exceed 4000 mg a day. FOLLOW-UP CARE: If you have been referred to a physician for follow-up care, call the physician s office for an appointment as you were instructed or within the next two days. If you experience worsening or a significant change in your symptoms, notify the physician immediately or return to the Emergency Department at any time for re-evaluation.
--- NOTE | 2016-09-09 10:43 | RADIOLOGY REPORT (SQ) ---
EXAM DESCRIPTION: CHEST PA/LAT COMPLETED DATE/TIME: 09/09/2016 10:34 am REASON FOR STUDY: cough congestion COMPARISON: 09/21/2015 TECHNIQUE: Frontal and lateral radiographic views of the chest acquired. NUMBER OF VIEWS: Two view. LIMITATIONS: None. FINDINGS: LUNGS AND PLEURA: No opacities, masses or pneumothorax. No pleural effusion. Some overexp ansion the lung junior again noted. MEDIASTINUM AND HILAR STRUCTURES: No masses or contour abnormalities. HEART AND VASCULAR STRUCTURES: Heart normal size. No evidence for failure. BONES: Slight kyphosis thoracic spine. HARDWARE: None in the chest. OTHER: No other significant finding. IMPRESSION: No acute infiltrates. TECHNICAL DOCUMENTATION: JOB ID: [id number] [employer]- All Rights Reserved
[2016-09-09 10:44] LABS: APPEARANCE,URINE SLIGHTLY-CLOUDY; BILIRUBIN,URINE NEGATIVE (NEGATIVE); GLUCOSE, URINE NEGATIVE (NEGATIVE); KETONES,URINE NEGATIVE (NEGATIVE); LEUKOCYTE ESTERASE,URINE NEGATIVE (NEGATIVE); NITRITE,URINE NEGATIVE (NEGATIVE); PROTEIN,URINE NEGATIVE (NEGATIVE); URINE SPECIFIC GRAVITY 1.027; UROBILINOGEN,URINE NEGATIVE mg/dL (<2.0)
[2016-09-09] MEDS ORDERED: ACETAMINOPHEN 325 MG TABLET PO ONE (10:59)
== END 2016-09-09 11:05 | disposition home or self-care (01) ==
LOC: EDBD → ER 09:27
DX: J02.9 Acute pharyngitis, unspecified (principal); J06.9 Acute upper respiratory infection, unspecified; E78.00 Pure hypercholesterolemia, unspecified; I10 Essential (primary) hypertension; K21.9 Gastro-esophageal reflux disease without esophagitis
CPT/HCPCS: 99283; 87070; 87880; 87077; 81001; 71020; A9270

== ENCOUNTER 2016-09-16 10:34 | Emergency (ER) | payer MEDICARE, MEDICAID ==
[2016-09-16 10:46] VITALS: BP 115/78
--- NOTE | 2016-09-16 10:48 | ER Document Report ---
ED Skin Rash/Insect Bite/Abscs - General Chief Complaint: Foot Pain Stated Complaint: LEFT FOOT PAIN Time Seen by Provider: 09/16/16 10:41 Notes: The patient is a 71-year-old female who presents with a wound on the top of her left foot over the past 2 days. She thinks she scraped it across a bedpost. No history of diabetes. Denies redness, discharge, fevers, numbness or tingling. TRAVEL OUTSIDE OF THE [place] IN LAST 30 DAYS: No - Related Data Allergies/Adverse Reactions: aluminum [Aluminum] Allergy (Intermediate, Verified 09/09/16 09:32) aspirin [Aspirin] Allergy (Intermediate, Verified 09/09/16 09:32) Sulfa (Sulfonamide Antibiotics) Allergy (Verified 09/09/16 09:32) Past Medical History - General Information source: Patient - Social History Smoking Status: Unknown if Ever Smoked Family History: Hypertension Patient has suicidal ideation: No Patient has homicidal ideation: No - Past Medical History Cardiac Medical History: Reports: Hx Hypercholesterolemia, Hx Hypertension Pulmonary Medical History: Reports: Hx Asthma, Hx Bronchitis Renal/ Medical History: Denies: Hx Peritoneal Dialysis GI Medical History: Reports: Hx Gastroesophageal Reflux Disease Musculoskeltal Medical History: Reports Hx Arthritis, Reports Hx Musculoskeletal Trauma Past Surgical History: Reports: Hx Hysterectomy, Hx Orthopedic Surgery - left foot - Immunizations Immunizations up to date: Yes Hx Diphtheria, Pertussis, Tetanus Vaccination: Yes Hx Pneumococcal Vaccination: 03/16/09 Review of Systems - Review of Systems Notes: REVIEW OF SYSTEMS: CONSTITUTIONAL: -fevers, -chills EENT: -eye pain, -difficulty swallowing, -nasal congestion CARDIOVASCULAR:-chest pain, -syncope. RESPIRATORY: -cough, -SOB GASTROINTESTINAL: -abdominal pain, - nausea, -vomiting, -diarrhea GENITOURINARY: -dysuria, -hematuria MUSCULOSKELETAL: -back pain, -neck pain SKIN: +left foot skin avulsion HEMATOLOGIC: -easy bruising or bleeding. LYMPHATIC: -swollen, enlarged glands. NEUROLOGICAL: -altered mental status or loss of consciousness, -headache, - neurologic symptoms PSYCHIATRIC: -anxiety, -depression. ALL OTHER SYSTEMS REVIEWED AND NEGATIVE. Physical Exam - Vital signs Vitals: Temp Pulse Resp BP Pulse Ox 98.1 F 71 14 96/66 L 97 09/16/16 10:40 09/16/16 10:40 09/16/16 10:40 09/16/16 10:40 09/16/16 10:40 - Notes Notes: PHYSICAL EXAMINATION: GENERAL: Well-appearing, well-nourished and in no acute distress. HEAD: Atraumatic, normocephalic. EYES: Pupils equal round and reactive to light, extraocular movements intact, sclera anicteric, conjunctiva are normal. ENT: nares patent, oropharynx clear without exudates. Moist mucous membranes. NECK: Normal range of motion, supple without lymphadenopathy LUNGS: Breath sounds clear to auscultation bilaterally and equal. No wheezes rales or rhonchi. HEART: Regular rate and rhythm without murmurs ABDOMEN: Soft, nontender, normoactive bowel sounds. No guarding, no rebound. No masses appreciated. EXTREMITIES: Normal range of motion, no pitting or edema. No cyanosis. NEUROLOGICAL: Cranial nerves grossly intact. Normal speech, normal gait. Normal sensory and motor exams. PSYCH: Normal mood, normal affect. SKIN: Superficial skin avulsion over dorsal surface of left foot Course - Re-evaluation Re-evalutation: Patient with superficial skin avulsion over dorsal surface of left foot. Bacitracin applied and wound wrapped. Instructed her about wound care and given return precautions. - Vital Signs Vital signs: Temp Pulse Resp BP Pulse Ox 98.1 F 71 14 115/78 97 09/16/16 10:40 09/16/16 10:40 09/16/16 10:40 09/16/16 10:45 09/16/16 10:40 Discharge - Discharge Clinical Impression: Avulsion of skin Condition: Stable Disposition: HOME, SELF-CARE Additional Instructions: Apply bacitracin to your wound and keep it clean. Return to the ER if you notice any signs of infection, including redness, fevers or discharge from the wound.
[2016-09-16] MEDS ORDERED: BACITRACIN ZINC OINTMENT 15 GM TP ONE (10:53)
== END 2016-09-16 10:49 | disposition home or self-care (01) ==
LOC: EDBD 10:34 → ER 10:34
DX: S91.302A Unspecified open wound, left foot, initial encounter (principal); X58.XXXA Exposure to other specified factors, initial encounter; I10 Essential (primary) hypertension; J45.909 Unspecified asthma, uncomplicated; Z88.6 Allergy status to analgesic agent; Z88.2 Allergy status to sulfonamides; Z91.048 Other nonmedicinal substance allergy status
CPT/HCPCS: 99283; J3490

== ENCOUNTER 2016-10-13 11:32 | Emergency (ER) | payer MEDICARE, MEDICAID ==
--- NOTE | 2016-10-13 12:01 | ER Document Report ---
ED Medical Screen (RME) - General Chief Complaint: Urinary Frequency Stated Complaint: ALL OVER PAIN Time Seen by Provider: 10/13/16 11:58 Notes: Patient presents with multiple complaints. Patient states that her throat hurts and she has trouble talking. Also states she has nausea and abdominal pain. She also states that she has generalized weakness. She states she does not have a primary care physician. She states that her primary care physician told her that she was "crazy". She states that her primary care physician tried to place her in a chcf and therefore she no longer goes to her primary care physician. Patient states the main reason she came today was because she wanted to know if she could take TheraFlu for her throat. She denies taking any medications prescribed by a physician. 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 TRAVEL OUTSIDE OF THE [place] IN LAST 30 DAYS: No - Related Data Allergies/Adverse Reactions: aluminum [Aluminum] Allergy (Intermediate, Verified 10/13/16 11:43) aspirin [Aspirin] Allergy (Intermediate, Verified 10/13/16 11:43) Sulfa (Sulfonamide Antibiotics) Allergy (Verified 10/13/16 11:43) Past Medical History - Past Medical History Cardiac Medical History: Reports: Hx Hypercholesterolemia, Hx Hypertension Pulmonary Medical History: Reports: Hx Asthma, Hx Bronchitis Renal/ Medical History: Denies: Hx Peritoneal Dialysis GI Medical History: Reports: Hx Gastroesophageal Reflux Disease Musculoskeltal Medical History: Reports Hx Arthritis, Reports Hx Musculoskeletal Trauma Past Surgical History: Reports: Hx Hysterectomy, Hx Orthopedic Surgery - left foot - Immunizations Immunizations up to date: Yes Hx Diphtheria, Pertussis, Tetanus Vaccination: Yes Physical Exam - Vital signs Vitals: Temp Pulse Resp BP Pulse Ox 97.9 F 77 20 98/66 L 99 10/13/16 11:44 10/13/16 11:44 10/13/16 11:44 10/13/16 11:44 10/13/16 11:44 Course - Vital Signs Vital signs: Temp Pulse Resp BP Pulse Ox 97.9 F 77 20 98/66 L 99 10/13/16 11:44 10/13/16 11:44 10/13/16 11:44 10/13/16 11:44 10/13/16 11:44
[2016-10-13 12:36] LABS: ABSOLUTE EOSINOPHILS # (AUTO) 0.1 10^3/uL (0.0-0.6); ABSOLUTE LYMPHOCYTES (AUTO) 1.1 10^3/uL (0.5-4.7); ABSOLUTE MONOCYTES (AUTO) 0.6 10^3/uL (0.1-1.4); ABSOLUTE NEUT (AUTO) 4.2 10^3/uL (1.7-8.2); BASOPHILS % (AUTO) 0.4 % (0-2); EOSINOPHILS % (AUTO) 1.9 % (0-6); HEMATOCRIT 38.6 % (36.0-47.0); HEMOGLOBIN 13.2 g/dL (12.0-15.5); LYMPHOCYTES % (AUTO) 18.9 % (13-45); MEAN CORPUSCULAR HEMOGLOBIN 31.5 pg (27.0-33.4); MEAN CORPUSCULAR HGB CONC 34.1 g/dL (32.0-36.0); MEAN CORPUSCULAR VOLUME 92 fl (80-97); MONOCYTES % (AUTO) 9.1 % (3-13); RED BLOOD COUNT 4.18 10^6/uL (3.72-5.28); RED CELL DISTRIBUTION WIDTH 14.3 % (11.5-14.0); SEGMENTED NEUTROPHILS % (AUTO) 69.7 % (42-78); WHITE BLOOD COUNT 6.1 10^3/uL (4.0-10.5)
[2016-10-13 12:58] LABS: ALANINE AMINOTRANSFERASE 26 U/L (9-52); ALKALINE PHOSPHATASE 43 U/L (38-126); ANION GAP 8 (5-19); ASPARTATE AMINO TRANSFERASE 23 U/L (14-36); BILIRUBIN,DIRECT 0.2 mg/dL (0.0-0.4); BILIRUBIN,TOTAL 0.4 mg/dL (0.2-1.3); BLOOD UREA NITROGEN 28 mg/dL (7-20); CALCIUM 9.5 mg/dL (8.4-10.2); CARBON DIOXIDE 28 mmol/L (22-30); CHLORIDE 105 mmol/L (98-107); CREATININE RESULT 0.78 mg/dL (0.52-1.25); GLUCOSE 85 mg/dL (75-110); POTASSIUM 4.7 mmol/L (3.6-5.0); SODIUM 140.6 mmol/L (137-145); TOTAL PROTEIN 6.9 g/dL (6.3-8.2)
--- NOTE | 2016-10-13 13:52 | ER Document Report ---
ED General - General Chief Complaint: Urinary Frequency Stated Complaint: ALL OVER PAIN Time Seen by Provider: 10/13/16 11:58 Mode of Arrival: Medic Information source: Patient Notes: 71-year-old female presents with complaints of generalized body aches and urinary frequency. Patient denies any fevers or chills nausea vomiting or diarrhea. Patient states on arrival to the emergency department all her body aches have since resolved and she has not concerns TRAVEL OUTSIDE OF THE [place] IN LAST 30 DAYS: No - HPI Onset: Just prior to arrival Onset/Duration: Sudden Quality of pain: Achy Severity: Mild Pain Level: 1 Associated symptoms: Body/muscle aches Exacerbated by: Denies Relieved by: Denies Similar symptoms previously: No Recently seen / treated by doctor: No - Related Data Allergies/Adverse Reactions: aluminum [Aluminum] Allergy (Intermediate, Verified 10/13/16 11:43) aspirin [Aspirin] Allergy (Intermediate, Verified 10/13/16 11:43) Sulfa (Sulfonamide Antibiotics) Allergy (Verified 10/13/16 11:43) Past Medical History - Social History Smoking Status: Never Smoker Cigarette use (# per day): No Chew tobacco use (# tins/day): No Smoking Education Provided: No Frequency of alcohol use: None Drug Abuse: None Family History: Hypertension - Past Medical History Cardiac Medical History: Reports: Hx Hypercholesterolemia, Hx Hypertension Pulmonary Medical History: Reports: Hx Asthma, Hx Bronchitis Renal/ Medical History: Denies: Hx Peritoneal Dialysis GI Medical History: Reports: Hx Gastroesophageal Reflux Disease Musculoskeltal Medical History: Reports Hx Arthritis, Reports Hx Musculoskeletal Trauma Past Surgical History: Reports: Hx Hysterectomy, Hx Orthopedic Surgery - left foot - Immunizations Immunizations up to date: Yes Hx Diphtheria, Pertussis, Tetanus Vaccination: Yes Hx Pneumococcal Vaccination: 03/16/09 Review of Systems - Review of Systems Notes: REVIEW OF SYSTEMS: CONSTITUTIONAL : Denies fever, chills, or sweats. Denies recent illness. EENT: Denies eye, ear, throat, or mouth pain or symptoms. Denies nasal or sinus congestion or discharge. Denies throat, tongue, or mouth swelling or difficulty swallowing. CARDIOVASCULAR: Denies chest pain. Denies palpitations or racing or irregular heart beat. Denies ankle edema. RESPIRATORY: Denies cough, cold, or chest congestion. Denies shortness of breath, difficulty breathing, or wheezing. GASTROINTESTINAL: Denies abdominal pain or distention. Denies nausea, vomiting , or diarrhea. Denies blood in vomitus, stools, or per rectum. Denies black, tarry stools. Denies constipation. GENITOURINARY: Admits to urinary frequency g, frequency, blood in urine, or discharge. FEMALE GENITOURINARY: Denies vaginal bleeding, heavy or abnormal periods, irregular periods. Denies vaginal discharge or odor. MUSCULOSKELETAL: Admits to body aches SKIN: Denies rash, lesions or sores. HEMATOLOGIC : Denies easy bruising or bleeding. LYMPHATIC: Denies swollen, enlarged glands. NEUROLOGICAL: Denies confusion or altered mental status. Denies passing out or loss of consciousness. Denies dizziness or lightheadedness. Denies headache. Denies weakness or paralysis or loss of use of either side. Denies problems with gait or speech. Denies sensory loss, numbness, or tingling. Denies seizures. PSYCHIATRIC: Denies anxiety or stress. Denies depression, suicidal ideation, or homicidal ideation. ALL OTHER SYSTEMS REVIEWED AND NEGATIVE. PHYSICAL EXAMINATION: GENERAL: Well-appearing, well-nourished and in no acute distress. HEAD: Atraumatic, normocephalic. EYES: Pupils equal round and reactive to light, extraocular movements intact, conjunctiva are normal. ENT: Nares patent, oropharynx clear without exudates. Moist mucous membranes. NECK: Normal range of motion, supple without lymphadenopathy LUNGS: Breath sounds clear to auscultation bilaterally and equal. No wheezes rales or rhonchi. HEART: Regular rate and rhythm without murmurs ABDOMEN: Soft, nontender, nondistended abdomen. No guarding, no rebound. No masses appreciated. Female : deferred Musculoskeletal: Normal range of motion, no pitting or edema. No cyanosis. NEUROLOGICAL: Cranial nerves grossly intact. Normal speech, normal gait. Normal sensory, motor exams PSYCH: Normal mood, normal affect. SKIN: Warm, Dry, normal turgor, no rashes or lesions noted. Dictation was performed using [email or web address] recognition software Physical Exam - Vital signs Vitals: Temp Pulse Resp BP Pulse Ox 97.9 F 77 20 98/66 L 99 10/13/16 11:44 10/13/16 11:44 10/13/16 11:44 10/13/16 11:44 10/13/16 11:44 Course - Re-evaluation Re-evalutation: 10/13/16 13:52 pt notes no body aches at this time, pt denies any other symptoms at this time labs are normal , ua pending 10/13/16 16:17 Urinalysis no no significant abnormality, I am unsure of the cause of patient's symptoms but they have since resolved. I believe she is stable for discharge patient is happy with this plan After performing a Medical Screening Examination, I estimate there is LOW risk for ACUTE CORONARY SYNDROME, RESPIRATORY FAILURE, SEPSIS OR MENINGITIS, thus I consider the discharge disposition reasonable. I have reevaluated this patient multiple times and no significant life threatening changes are noted. The patient and I have discussed the diagnosis and risks, and we agree with discharging home with close follow-up. We also discussed returning to the Emergency Department immediately if new or worsening symptoms occur. We have discussed the symptoms which are most concerning (e.g., changing or worsening pain, trouble swallowing or breathing, neck stiffness, fever) that necessitate immediate return. - Vital Signs Vital signs: Temp Pulse Resp BP Pulse Ox 97.6 F 57 L 16 126/72 H 100 10/13/16 14:41 10/13/16 14:41 10/13/16 14:41 10/13/16 14:41 10/13/16 14:41 - Laboratory Result Diagrams: 10/13/16 12:15 10/13/16 12:15 Laboratory results interpreted by me: 10/13/16 10/13/16 10/13/16 12:15 12:15 13:41 RDW 14.3 H BUN 28 H Urine Ascorbic Acid 40 H Discharge - Discharge Clinical Impression: Body aches, Urinary frequency Condition: Stable Disposition: HOME, SELF-CARE Instructions: Myalagia (Muscle Pain) (OM) Referrals: MERCEDES MAZARIEGOS, [Primary Care Provider] - Follow up tomorrow
[2016-10-13 14:04] LABS: APPEARANCE,URINE SLIGHTLY-CLOUDY; BILIRUBIN,URINE NEGATIVE (NEGATIVE); GLUCOSE, URINE NEGATIVE (NEGATIVE); KETONES,URINE NEGATIVE (NEGATIVE); LEUKOCYTE ESTERASE,URINE NEGATIVE (NEGATIVE); NITRITE,URINE NEGATIVE (NEGATIVE); PROTEIN,URINE NEGATIVE (NEGATIVE); UROBILINOGEN,URINE NEGATIVE mg/dL (<2.0)
[2016-10-13 14:42] VITALS: BP 126/72
== END 2016-10-13 14:41 | disposition home or self-care (01) ==
LOC: ER 11:32
DX: R35.0 Frequency of micturition (principal); M79.1 Myalgia
CPT/HCPCS: 36415; 51701; 80053; 81001; 85025; 99283

== ENCOUNTER 2016-11-05 12:33 | Emergency (ER) | payer MEDICARE, MEDICAID ==
[2016-11-05 13:55] LABS: ABSOLUTE EOSINOPHILS # (AUTO) 0.1 10^3/uL (0.0-0.6); ABSOLUTE LYMPHOCYTES (AUTO) 0.9 10^3/uL (0.5-4.7); ABSOLUTE MONOCYTES (AUTO) 0.5 10^3/uL (0.1-1.4); ABSOLUTE NEUT (AUTO) 3.3 10^3/uL (1.7-8.2); BASOPHILS % (AUTO) 0.8 % (0-2); EOSINOPHILS % (AUTO) 2.2 % (0-6); HEMATOCRIT 38.1 % (36.0-47.0); HEMOGLOBIN 12.6 g/dL (12.0-15.5); HGB HCT DIFFERENCE -0.3; LYMPHOCYTES % (AUTO) 17.7 % (13-45); MEAN CORPUSCULAR HEMOGLOBIN 31.1 pg (27.0-33.4); MEAN CORPUSCULAR HGB CONC 33.2 g/dL (32.0-36.0); MEAN CORPUSCULAR VOLUME 94 fl (80-97); MONOCYTES % (AUTO) 10.8 % (3-13); RED BLOOD COUNT 4.07 10^6/uL (3.72-5.28); RED CELL DISTRIBUTION WIDTH 14.2 % (11.5-14.0); SEGMENTED NEUTROPHILS % (AUTO) 68.5 % (42-78); WHITE BLOOD COUNT 4.9 10^3/uL (4.0-10.5)
[2016-11-05 14:19] LABS: ALANINE AMINOTRANSFERASE 25 U/L (9-52); ALBUMIN 4.1 g/dL (3.5-5.0); ALKALINE PHOSPHATASE 46 U/L (38-126); ANION GAP 10 (5-19); ASPARTATE AMINO TRANSFERASE 20 U/L (14-36); BILIRUBIN,DIRECT 0.3 mg/dL (0.0-0.4); BILIRUBIN,TOTAL 0.3 mg/dL (0.2-1.3); BLOOD UREA NITROGEN 27 mg/dL (7-20); CALCIUM 9.6 mg/dL (8.4-10.2); CARBON DIOXIDE 25 mmol/L (22-30); CHLORIDE 108 mmol/L (98-107); CREATININE RESULT 0.78 mg/dL (0.52-1.25); GLUCOSE 75 mg/dL (75-110); POTASSIUM 4.3 mmol/L (3.6-5.0); SODIUM 142.5 mmol/L (137-145); TOTAL PROTEIN 6.9 g/dL (6.3-8.2)
[2016-11-05 17:17] LABS: APPEARANCE,URINE CLEAR; BILIRUBIN,URINE NEGATIVE (NEGATIVE); GLUCOSE, URINE NEGATIVE (NEGATIVE); KETONES,URINE NEGATIVE (NEGATIVE); LEUKOCYTE ESTERASE,URINE NEGATIVE (NEGATIVE); NITRITE,URINE NEGATIVE (NEGATIVE); PROTEIN,URINE NEGATIVE (NEGATIVE); URINE SPECIFIC GRAVITY 1.009; UROBILINOGEN,URINE NEGATIVE mg/dL (<2.0)
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
[2016-11-05 17:56] VITALS: BP 146/80
== END 2016-11-05 17:56 | disposition home or self-care (01) ==
LOC: ER 12:33
DX: R53.1 Weakness (principal); R09.82 Postnasal drip; R53.81 Other malaise; R07.0 Pain in throat; J45.909 Unspecified asthma, uncomplicated; I10 Essential (primary) hypertension; Z88.6 Allergy status to analgesic agent; Z88.2 Allergy status to sulfonamides; Z91.048 Other nonmedicinal substance allergy status
CPT/HCPCS: 36415; 80053; 81001; 85025; 99283

== ENCOUNTER 2016-11-20 16:47 | Emergency (ER) | payer MEDICARE, MEDICAID ==
[2016-11-20 17:50] LABS: ABSOLUTE EOSINOPHILS # (AUTO) 0.1 10^3/uL (0.0-0.6); ABSOLUTE LYMPHOCYTES (AUTO) 1.1 10^3/uL (0.5-4.7); ABSOLUTE MONOCYTES (AUTO) 0.5 10^3/uL (0.1-1.4); ABSOLUTE NEUT (AUTO) 3.1 10^3/uL (1.7-8.2); BASOPHILS % (AUTO) 0.8 % (0-2); EOSINOPHILS % (AUTO) 1.5 % (0-6); HEMATOCRIT 41.2 % (36.0-47.0); HEMOGLOBIN 13.4 g/dL (12.0-15.5); LYMPHOCYTES % (AUTO) 22.4 % (13-45); MEAN CORPUSCULAR HEMOGLOBIN 30.5 pg (27.0-33.4); MEAN CORPUSCULAR HGB CONC 32.4 g/dL (32.0-36.0); MEAN CORPUSCULAR VOLUME 94 fl (80-97); MONOCYTES % (AUTO) 9.6 % (3-13); RED BLOOD COUNT 4.38 10^6/uL (3.72-5.28); RED CELL DISTRIBUTION WIDTH 14.3 % (11.5-14.0); SEGMENTED NEUTROPHILS % (AUTO) 65.7 % (42-78); WHITE BLOOD COUNT 4.7 10^3/uL (4.0-10.5)
[2016-11-20 17:56] LABS: APPEARANCE,URINE CLEAR; BILIRUBIN,URINE NEGATIVE (NEGATIVE); GLUCOSE, URINE NEGATIVE (NEGATIVE); KETONES,URINE NEGATIVE (NEGATIVE); LEUKOCYTE ESTERASE,URINE NEGATIVE (NEGATIVE); NITRITE,URINE NEGATIVE (NEGATIVE); PROTEIN,URINE NEGATIVE (NEGATIVE); URINE SPECIFIC GRAVITY 1.008; UROBILINOGEN,URINE NEGATIVE mg/dL (<2.0)
[2016-11-20 18:10] LABS: ALANINE AMINOTRANSFERASE 27 U/L (9-52); ALBUMIN 4.2 g/dL (3.5-5.0); ALKALINE PHOSPHATASE 52 U/L (38-126); ANION GAP 12 (5-19); ASPARTATE AMINO TRANSFERASE 22 U/L (14-36); BILIRUBIN,DIRECT 0.3 mg/dL (0.0-0.4); BILIRUBIN,TOTAL 0.5 mg/dL (0.2-1.3); BLOOD UREA NITROGEN 16 mg/dL (7-20); CARBON DIOXIDE 25 mmol/L (22-30); CHLORIDE 102 mmol/L (98-107); CREATININE RESULT 0.71 mg/dL (0.52-1.25); GLUCOSE 82 mg/dL (75-110); POTASSIUM 4.3 mmol/L (3.6-5.0); SODIUM 139.4 mmol/L (137-145)
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
[2016-11-20 18:45] VITALS: BP 134/82
== END 2016-11-20 18:45 | disposition home or self-care (01) ==
LOC: ER 16:47
DX: R53.1 Weakness (principal); R10.9 Unspecified abdominal pain; R51 Headache; R53.83 Other fatigue
CPT/HCPCS: 36415; 80053; 81001; 85025; 99284

== ENCOUNTER 2016-12-03 14:34 | Emergency (ER) | payer MEDICARE, MEDICAID ==
--- NOTE | 2016-12-03 16:49 | ER Document Report ---
ED General - General Chief Complaint: Abdominal Pain Stated Complaint: NECK PAIN Time Seen by Provider: 12/03/16 16:46 Mode of Arrival: Ambulatory Information source: Patient Notes: Patient complains of various pains. She states that both eyes hurt her stomach hurts her left leg hurts and her neck hurts. She denies any vomiting or diarrhea. She also states that her breasts hurt. Patient states that she has not seen her primary care physician since her last visit. She states she is also had some congestion. The symptoms have been intermittent. Patient does not know of anything that makes them better or worse. She denies any radiation of the pain. The pain is mild to moderate. TRAVEL OUTSIDE OF THE [place] IN LAST 30 DAYS: No - Related Data Allergies/Adverse Reactions: aluminum [Aluminum] Allergy (Intermediate, Verified 12/03/16 14:54) aspirin [Aspirin] Allergy (Intermediate, Verified 12/03/16 14:54) Sulfa (Sulfonamide Antibiotics) Allergy (Verified 12/03/16 14:54) Past Medical History - General Information source: Patient - Social History Smoking Status: Never Smoker Cigarette use (# per day): No Chew tobacco use (# tins/day): No Frequency of alcohol use: None Drug Abuse: None Lives with: Alone Family History: Reviewed & Not Pertinent, Hypertension - Past Medical History Cardiac Medical History: Reports: Hx Hypercholesterolemia, Hx Hypertension Pulmonary Medical History: Reports: Hx Asthma, Hx Bronchitis Renal/ Medical History: Denies: Hx Peritoneal Dialysis GI Medical History: Reports: Hx Gastroesophageal Reflux Disease Musculoskeltal Medical History: Reports Hx Arthritis, Reports Hx Musculoskeletal Trauma Past Surgical History: Reports: Hx Hysterectomy, Hx Orthopedic Surgery - left foot - Immunizations Immunizations up to date: Yes Hx Diphtheria, Pertussis, Tetanus Vaccination: Yes Hx Pneumococcal Vaccination: 03/16/09 Review of Systems - Review of Systems Constitutional: Malaise, Weakness. denies: Chills, Fever EENT: Eye pain Cardiovascular: denies: Syncope, Dizziness Respiratory: denies: Cough, Short of breath Physical Exam - Vital signs Vitals: Temp Pulse Resp BP Pulse Ox 98.6 F 63 14 116/77 99 12/03/16 14:51 12/03/16 14:51 12/03/16 14:51 12/03/16 14:51 12/03/16 14:51 Interpretation: Normal - General General appearance: Appears well, Alert - HEENT Head: Normocephalic, Atraumatic Eyes: Normal Pupils: PERRL - Respiratory Respiratory status: No respiratory distress Chest status: Nontender Breath sounds: Normal Chest palpation: Normal - Cardiovascular Rhythm: Regular Heart sounds: Normal auscultation Murmur: No - Abdominal Inspection: Normal Distension: No distension Bowel sounds: Normal Tenderness: Nontender Organomegaly: No organomegaly - Back Back: Normal, Nontender - Extremities General upper extremity: Normal inspection, Nontender, Normal color, Normal ROM , Normal temperature General lower extremity: Normal inspection, Nontender, Normal color, Normal ROM , Normal temperature, Normal weight bearing. No: Lizzy's sign - Neurological Neuro grossly intact: Yes Cognition: Normal Orientation: AAOx4 Watson Coma Scale Eye Opening: Spontaneous Watson Coma Scale Verbal: Oriented Watson Coma Scale Motor: Obeys Commands Tristian Coma Scale Total: 15 Speech: Normal Motor strength normal: LUE, RUE, LLE, RLE Sensory: Normal - Psychological Associated symptoms: Normal affect, Normal mood - Skin Skin Temperature: Warm Skin Moisture: Dry Skin Color: Normal Course - Vital Signs Vital signs: Temp Pulse Resp BP Pulse Ox 98.6 F 63 14 116/77 99 12/03/16 14:51 12/03/16 14:51 12/03/16 14:51 12/03/16 14:51 12/03/16 14:51 Discharge - Discharge Clinical Impression: Abdominal pain Condition: Stable Disposition: HOME, SELF-CARE Instructions: Abdominal Pain ([facility]) Additional Instructions: Please follow-up with your primary care physician as soon as possible. Please discuss your breast pain with your primary doctor at your next visit.
[2016-12-03 17:31] VITALS: BP 132/88
== END 2016-12-03 17:03 | disposition home or self-care (01) ==
LOC: ER 14:34
DX: R10.9 Unspecified abdominal pain (principal); M54.2 Cervicalgia; R09.81 Nasal congestion
CPT/HCPCS: 99283

== ENCOUNTER 2016-12-06 12:30 | Emergency (ER) | payer OTHER, MEDICARE, MEDICAID ==
[2016-12-06] MEDS ORDERED: NORMAL SALINE 1000 ML 1,000 ML IV ONE (12:35)
[2016-12-06] MEDS ORDERED: NORMAL SALINE 500 ML IV ONE (12:35)
[2016-12-06 13:23] LABS: ABSOLUTE EOSINOPHILS # (AUTO) 0.1 10^3/uL (0.0-0.6); ABSOLUTE MONOCYTES (AUTO) 0.6 10^3/uL (0.1-1.4); ABSOLUTE NEUT (AUTO) 3.1 10^3/uL (1.7-8.2); BASOPHILS % (AUTO) 0.9 % (0-2); EOSINOPHILS % (AUTO) 1.9 % (0-6); HEMATOCRIT 37.1 % (36.0-47.0); HEMOGLOBIN 12.7 g/dL (12.0-15.5); LYMPHOCYTES % (AUTO) 20.2 % (13-45); MEAN CORPUSCULAR HEMOGLOBIN 31.5 pg (27.0-33.4); MEAN CORPUSCULAR HGB CONC 34.2 g/dL (32.0-36.0); MEAN CORPUSCULAR VOLUME 92 fl (80-97); RED BLOOD COUNT 4.03 10^6/uL (3.72-5.28); RED CELL DISTRIBUTION WIDTH 14.4 % (11.5-14.0); WHITE BLOOD COUNT 4.8 10^3/uL (4.0-10.5)
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
[2016-12-06 14:26] LABS: ALANINE AMINOTRANSFERASE 28 U/L (9-52); ALBUMIN 3.8 g/dL (3.5-5.0); ALKALINE PHOSPHATASE 41 U/L (38-126); ANION GAP 9 (5-19); ASPARTATE AMINO TRANSFERASE 27 U/L (14-36); BILIRUBIN,DIRECT 0.3 mg/dL (0.0-0.4); BILIRUBIN,TOTAL 0.5 mg/dL (0.2-1.3); BLOOD UREA NITROGEN 25 mg/dL (7-20); CALCIUM 9.7 mg/dL (8.4-10.2); CARBON DIOXIDE 26 mmol/L (22-30); CHLORIDE 106 mmol/L (98-107); CREATININE RESULT 0.73 mg/dL (0.52-1.25); GLUCOSE 76 mg/dL (75-110); LIPASE 149.3 U/L (23-300); POTASSIUM 5.1 mmol/L (3.6-5.0); SODIUM 140.9 mmol/L (137-145); TOTAL PROTEIN 6.5 g/dL (6.3-8.2)
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
--- NOTE | 2016-12-06 17:02 | EKG REPORT ---
SEVERITY:- BORDERLINE ECG - SINUS RHYTHM BORDERLINE LEFT AXIS DEVIATION BORDERLINE T ABNORMALITIES, ANTERIOR LEADS : Confirmed by: Fabrice Figueroa MD 06-Dec-2016 17:01:26
[2016-12-06] MEDS ORDERED: ACETAMINOPHEN 325 MG TABLET PO ONE (17:51)
[2016-12-06 20:37] LABS: APPEARANCE,URINE SLIGHTLY-CLOUDY; BILIRUBIN,URINE NEGATIVE (NEGATIVE); GLUCOSE, URINE NEGATIVE (NEGATIVE); KETONES,URINE 20 mg/dL (NEGATIVE); LEUKOCYTE ESTERASE,URINE NEGATIVE (NEGATIVE); NITRITE,URINE NEGATIVE (NEGATIVE); PROTEIN,URINE 30 mg/dL (NEGATIVE); URINE SPECIFIC GRAVITY 1.028; UROBILINOGEN,URINE NEGATIVE mg/dL (<2.0)
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
[2016-12-06 22:54] VITALS: BP 124/61
== END 2016-12-06 21:35 | disposition home or self-care (01) ==
LOC: ER 12:30
DX: F01.50 Vascular dementia, unspecified severity, without behavioral disturbance, psychotic disturbance, mood disturbance, and anxiety (principal); R07.9 Chest pain, unspecified; V87.7XXA Person injured in collision between other specified motor vehicles (traffic), initial encounter
CPT/HCPCS: 93005; 99285; 96360; 36415; 83690; 85025; 80053; 81001; 84484; 71010; 73560; 70450; 72125; 93010; J7030; J7040

== ENCOUNTER 2016-12-17 16:09 | Emergency (ER) | payer MEDICARE, MEDICAID ==
[2016-12-17] MEDS ORDERED: NORMAL SALINE 1000 ML 1,000 ML IV PRN (16:27)
--- NOTE | 2016-12-17 16:27 | ER Document Report ---
ED Medical Screen (RME) - General Chief Complaint: Cough Stated Complaint: COUGH Time Seen by Provider: 12/17/16 16:17 Mode of Arrival: Ambulatory Information source: Patient TRAVEL OUTSIDE OF THE [place] IN LAST 30 DAYS: No - HPI Patient complains to provider of: Chest pain, cough, dysuria, body aches Notes: 12/17/16 16:27 Patient is a 71-year-old female presenting to the emergency room for 2 week history of chest pain with nonproductive cough, body aches and dysuria - Related Data Allergies/Adverse Reactions: aluminum [Aluminum] Allergy (Intermediate, Verified 12/17/16 16:16) aspirin [Aspirin] Allergy (Intermediate, Verified 12/17/16 16:16) Sulfa (Sulfonamide Antibiotics) Allergy (Verified 12/17/16 16:16) Past Medical History - Social History Chew tobacco use (# tins/day): No Frequency of alcohol use: None Drug Abuse: None - Past Medical History Cardiac Medical History: Reports: Hx Hypercholesterolemia, Hx Hypertension Pulmonary Medical History: Reports: Hx Asthma, Hx Bronchitis Renal/ Medical History: Denies: Hx Peritoneal Dialysis GI Medical History: Reports: Hx Gastroesophageal Reflux Disease Musculoskeltal Medical History: Reports Hx Arthritis, Reports Hx Musculoskeletal Trauma Past Surgical History: Reports: Hx Hysterectomy, Hx Orthopedic Surgery - left foot - Immunizations Immunizations up to date: Yes Hx Diphtheria, Pertussis, Tetanus Vaccination: Yes History of Influenza Vaccine for 12/2016 - 05/2017 Season: No Physical Exam - Vital signs Vitals: Temp Pulse Resp BP Pulse Ox 98.2 F 71 14 99/71 L 98 12/17/16 16:16 12/17/16 16:16 12/17/16 16:16 12/17/16 16:16 12/17/16 16:16 Course - Vital Signs Vital signs: Temp Pulse Resp BP Pulse Ox 98.2 F 71 14 99/71 L 98 12/17/16 16:16 12/17/16 16:16 12/17/16 16:16 12/17/16 16:16 12/17/16 16:16
[2016-12-17 17:33] LABS: ABSOLUTE EOSINOPHILS # (AUTO) 0.1 10^3/uL (0.0-0.6); ABSOLUTE LYMPHOCYTES (AUTO) 1.4 10^3/uL (0.5-4.7); ABSOLUTE MONOCYTES (AUTO) 0.5 10^3/uL (0.1-1.4); BASOPHILS % (AUTO) 0.9 % (0-2); EOSINOPHILS % (AUTO) 2.5 % (0-6); HEMATOCRIT 39.2 % (36.0-47.0); HEMOGLOBIN 13.3 g/dL (12.0-15.5); HGB HCT DIFFERENCE 0.7; LYMPHOCYTES % (AUTO) 26.8 % (13-45); MEAN CORPUSCULAR HEMOGLOBIN 31.1 pg (27.0-33.4); MEAN CORPUSCULAR HGB CONC 33.8 g/dL (32.0-36.0); MEAN CORPUSCULAR VOLUME 92 fl (80-97); MONOCYTES % (AUTO) 10.2 % (3-13); RED BLOOD COUNT 4.26 10^6/uL (3.72-5.28); RED CELL DISTRIBUTION WIDTH 13.8 % (11.5-14.0); SEGMENTED NEUTROPHILS % (AUTO) 59.6 % (42-78)
[2016-12-17 17:50] LABS: ALANINE AMINOTRANSFERASE 26 U/L (9-52); ALBUMIN 4.3 g/dL (3.5-5.0); ALKALINE PHOSPHATASE 43 U/L (38-126); ANION GAP 8 (5-19); ASPARTATE AMINO TRANSFERASE 27 U/L (14-36); BILIRUBIN,DIRECT 0.4 mg/dL (0.0-0.4); BILIRUBIN,TOTAL 0.6 mg/dL (0.2-1.3); BLOOD UREA NITROGEN 21 mg/dL (7-20); CALCIUM 10.2 mg/dL (8.4-10.2); CARBON DIOXIDE 27 mmol/L (22-30); CHLORIDE 104 mmol/L (98-107); CREATINE KINASE 131 U/L (30-135); CREATININE RESULT 0.66 mg/dL (0.52-1.25); GLUCOSE 91 mg/dL (75-110); LIPASE 201.4 U/L (23-300); POTASSIUM 5.1 mmol/L (3.6-5.0); SODIUM 138.9 mmol/L (137-145); TOTAL PROTEIN 7.2 g/dL (6.3-8.2)
[2016-12-17 18:14] LABS: CREATINE KINASE MB 0.96 ng/mL (<4.55)
[2016-12-17 18:16] LABS: TROPONIN I < 0.012 ng/mL
--- NOTE | 2016-12-17 18:26 | RADIOLOGY REPORT (SQ) ---
EXAM DESCRIPTION: CHEST PA/LAT COMPLETED DATE/TIME: 12/17/2016 6:18 pm REASON FOR STUDY: cough COMPARISON: 09/09/2016 EXAM PARAMETERS: NUMBER OF VIEWS: two views TECHNIQUE: Digital Frontal and Lateral radiographic views of the chest acquired. RADIATION DOSE: NA LIMITATIONS: none FINDINGS: LUNGS AND PLEURA: The lungs are hyperexpanded. There are no infiltrates or effusions. Th ere is no mass. MEDIASTINUM AND HILAR STRUCTURES: No masses or contour abnormalities. HEART AND VASCULAR STRUCTURES: Heart normal size. No evidence for failure. BONES: No acute findings. HARDWARE: None in the chest. OTHER: No other significant finding. IMPRESSION: NO SIGNIFICANT RADIOGRAPHIC FINDING IN THE CHEST. TECHNICAL DOCUMENTATION: JOB ID: [id number] [employer]- All Rights Reserved
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
[2016-12-17 20:53] LABS: APPEARANCE,URINE CLOUDY; BILIRUBIN,URINE NEGATIVE (NEGATIVE); GLUCOSE, URINE NEGATIVE (NEGATIVE); KETONES,URINE NEGATIVE (NEGATIVE); LEUKOCYTE ESTERASE,URINE TRACE (NEGATIVE); NITRITE,URINE NEGATIVE (NEGATIVE); PROTEIN,URINE NEGATIVE (NEGATIVE); URINE SPECIFIC GRAVITY 1.019; UROBILINOGEN,URINE NEGATIVE mg/dL (<2.0)
[2016-12-17] MEDS ORDERED: DEXAMETHASONE 4 MG TABLET PO ONE (21:00)
[2016-12-17 22:12] VITALS: BP 123/81
== END 2016-12-17 22:12 | disposition home or self-care (01) ==
LOC: ER 16:09
DX: R07.89 Other chest pain (principal); J45.909 Unspecified asthma, uncomplicated; I10 Essential (primary) hypertension; Z88.6 Allergy status to analgesic agent; Z88.8 Allergy status to other drugs, medicaments and biological substances; Z91.048 Other nonmedicinal substance allergy status
CPT/HCPCS: 99284; 96360; 36415; 87086; 82553; 82550; 83690; 85025; 87088; 80053; 81001; 84484; 87186; 71020; A9270; J7030

== ENCOUNTER 2016-12-18 04:59 | Emergency (ER) | payer MEDICARE, MEDICAID ==
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
--- NOTE | 2016-12-18 09:14 | EKG REPORT ---
SEVERITY:- BORDERLINE ECG - SINUS RHYTHM BORDERLINE LEFT AXIS DEVIATION BORDERLINE R WAVE PROGRESSION, ANTERIOR LEADS BORDERLINE T ABNORMALITIES, DIFFUSE LEADS : Confirmed by: Tea Foley MD 18-Dec-2016 09:13:48
[2016-12-18 12:51] VITALS: BP 118/62
== END 2016-12-18 12:51 | disposition home or self-care (01) ==
LOC: ER 04:59
DX: R07.89 Other chest pain (principal); F03.90 Unspecified dementia, unspecified severity, without behavioral disturbance, psychotic disturbance, mood disturbance, and anxiety; R42 Dizziness and giddiness; E78.00 Pure hypercholesterolemia, unspecified; I10 Essential (primary) hypertension; Z88.6 Allergy status to analgesic agent; Z88.2 Allergy status to sulfonamides; Z90.710 Acquired absence of both cervix and uterus
CPT/HCPCS: 93005; 93010; 99283

== ENCOUNTER 2017-03-18 10:15 | Emergency (ER) | payer MEDICARE, MEDICAID ==
[2017-03-18] MEDS ORDERED: NORMAL SALINE 1000 ML 1,000 ML IV ONE (11:39)
--- NOTE | 2017-03-18 11:41 | ER Document Report ---
ED Medical Screen (RME) - General Chief Complaint: General Weakness Stated Complaint: WEAKNESS Time Seen by Provider: 03/18/17 11:38 Notes: Patient states that she has no heat in her house. She states she went to the [employer] to get assistance. She states while she was there she felt very weak and had generalized pain and felt that she may pass out. She denies any vomiting or diarrhea but does have nausea. TRAVEL OUTSIDE OF THE [place] IN LAST 30 DAYS: No - Related Data Allergies/Adverse Reactions: aluminum [Aluminum] Allergy (Intermediate, Verified 03/18/17 10:22) aspirin [Aspirin] Allergy (Intermediate, Verified 03/18/17 10:22) Sulfa (Sulfonamide Antibiotics) Allergy (Verified 03/18/17 10:22) Past Medical History - Past Medical History Cardiac Medical History: Reports: Hx Hypercholesterolemia, Hx Hypertension Pulmonary Medical History: Reports: Hx Asthma, Hx Bronchitis Renal/ Medical History: Denies: Hx Peritoneal Dialysis GI Medical History: Reports: Hx Gastroesophageal Reflux Disease Musculoskeltal Medical History: Reports Hx Arthritis, Reports Hx Musculoskeletal Trauma Past Surgical History: Reports: Hx Hysterectomy, Hx Orthopedic Surgery - left foot - Immunizations Immunizations up to date: Yes Hx Diphtheria, Pertussis, Tetanus Vaccination: Yes History of Influenza Vaccine for 12/2016 - 05/2017 Season: No Physical Exam - Vital signs Vitals: Temp Pulse Resp BP Pulse Ox 98.4 F 73 20 95/60 L 97 03/18/17 10:29 03/18/17 10:29 03/18/17 10:29 03/18/17 10:29 03/18/17 10:29 Course - Vital Signs Vital signs: Temp Pulse Resp BP Pulse Ox 98.4 F 73 20 95/60 L 97 03/18/17 10:29 03/18/17 10:29 03/18/17 10:29 03/18/17 10:29 03/18/17 10:29 Doctor's Discharge - Discharge Referrals: CAIT YAO MD [Primary Care Provider] - Follow up as needed
[2017-03-18 12:30] LABS: ABSOLUTE EOSINOPHILS # (AUTO) 0.1 10^3/uL (0.0-0.6); ABSOLUTE LYMPHOCYTES (AUTO) 0.9 10^3/uL (0.5-4.7); ABSOLUTE MONOCYTES (AUTO) 0.5 10^3/uL (0.1-1.4); ABSOLUTE NEUT (AUTO) 3.5 10^3/uL (1.7-8.2); BASOPHILS % (AUTO) 0.8 % (0-2); EOSINOPHILS % (AUTO) 2.6 % (0-6); HEMOGLOBIN 13.1 g/dL (12.0-15.5); LYMPHOCYTES % (AUTO) 18.2 % (13-45); MEAN CORPUSCULAR HEMOGLOBIN 30.4 pg (27.0-33.4); MEAN CORPUSCULAR HGB CONC 33.5 g/dL (32.0-36.0); MEAN CORPUSCULAR VOLUME 91 fl (80-97); MONOCYTES % (AUTO) 10.3 % (3-13); PLATELET COUNT 283 10^3/uL (150-450); SEGMENTED NEUTROPHILS % (AUTO) 68.1 % (42-78); TOTAL CELLS COUNTED % (AUTO) 100 %; WHITE BLOOD COUNT 5.1 10^3/uL (4.0-10.5)
[2017-03-18 12:49] LABS: ALANINE AMINOTRANSFERASE 22 U/L (9-52); ALBUMIN 3.8 g/dL (3.5-5.0); ALKALINE PHOSPHATASE 46 U/L (38-126); ANION GAP 8 (5-19); ASPARTATE AMINO TRANSFERASE 21 U/L (14-36); BILIRUBIN,DIRECT 0.2 mg/dL (0.0-0.4); BILIRUBIN,TOTAL 0.3 mg/dL (0.2-1.3); BLOOD UREA NITROGEN 21 mg/dL (7-20); CALCIUM 10.3 mg/dL (8.4-10.2); CARBON DIOXIDE 30 mmol/L (22-30); CHLORIDE 104 mmol/L (98-107); GLUCOSE 69 mg/dL (75-110); POTASSIUM 4.7 mmol/L (3.6-5.0); SODIUM 142.1 mmol/L (137-145); TOTAL PROTEIN 6.3 g/dL (6.3-8.2)
--- NOTE | 2017-03-18 14:00 | RADIOLOGY REPORT (SQ) ---
EXAM DESCRIPTION: CHEST PA/LAT COMPLETED DATE/TIME: 03/18/2017 12:56 pm REASON FOR STUDY: weak/low bp COMPARISON: Chest films 12/17/2016, 12/06/2016, 09/09/2016, 04/18/2015 EXAM PARAMETERS: NUMBER OF VIEWS: two views TECHNIQUE: Digital Frontal and Lateral radiographic views of the chest acquired. RADIATION DOSE: NA LIMITATIONS: none FINDINGS: LUNGS AND PLEURA: No opacities, masses or pneumothorax. No pleural effusion. MEDIASTINUM AND HILAR STRUCTURES: No masses or contour abnormalities. HEART AND VASCULAR STRUCTURES: Heart normal size. No evidence for failure. BONES: Osteopenic HARDWARE: None in the chest. OTHER: No other significant finding. IMPRESSION: NO SIGNIFICANT RADIOGRAPHIC FINDING IN THE CHEST. TECHNICAL DOCUMENTATION: JOB ID: [id number] [employer]- All Rights Reserved
[2017-03-18 14:49] LABS: APPEARANCE,URINE SLIGHTLY-CLOUDY; BILIRUBIN,URINE NEGATIVE (NEGATIVE); COLOR,URINE YELLOW; GLUCOSE, URINE NEGATIVE (NEGATIVE); KETONES,URINE NEGATIVE (NEGATIVE); LEUKOCYTE ESTERASE,URINE TRACE (NEGATIVE); NITRITE,URINE NEGATIVE (NEGATIVE); PROTEIN,URINE NEGATIVE (NEGATIVE); URINE SPECIFIC GRAVITY 1.025; UROBILINOGEN,URINE NEGATIVE mg/dL (<2.0)
--- NOTE | 2017-03-18 15:43 | ER Document Report ---
ED General - General Chief Complaint: General Weakness Stated Complaint: WEAKNESS Time Seen by Provider: 03/18/17 11:38 Notes: 71-year-old lady with multiple ED visits presents with generalized weakness. She is unable to fully characterize secondary to dementia. She was eating and drinking normally today, had normal urination without pain, denies headache shortness pain shortness of breath. She was seen in triage and some basic workup was ordered. She was observed in the ED for several hours after this, and I saw her after her lab results have been returned. TRAVEL OUTSIDE OF THE [place] IN LAST 30 DAYS: No - Related Data Allergies/Adverse Reactions: aluminum [Aluminum] Allergy (Intermediate, Verified 03/18/17 10:22) aspirin [Aspirin] Allergy (Intermediate, Verified 03/18/17 10:22) Sulfa (Sulfonamide Antibiotics) Allergy (Verified 03/18/17 10:22) Past Medical History - Social History Smoking Status: Never Smoker Chew tobacco use (# tins/day): No Frequency of alcohol use: None Drug Abuse: None Family History: Reviewed & Not Pertinent, Hypertension Patient has suicidal ideation: No Patient has homicidal ideation: No - Past Medical History Cardiac Medical History: Reports: Hx Hypercholesterolemia, Hx Hypertension Pulmonary Medical History: Reports: Hx Asthma, Hx Bronchitis Renal/ Medical History: Denies: Hx Peritoneal Dialysis GI Medical History: Reports: Hx Gastroesophageal Reflux Disease Musculoskeltal Medical History: Reports Hx Arthritis, Reports Hx Musculoskeletal Trauma Past Surgical History: Reports: Hx Hysterectomy, Hx Orthopedic Surgery - left foot - Immunizations Immunizations up to date: Yes Hx Diphtheria, Pertussis, Tetanus Vaccination: Yes Hx Pneumococcal Vaccination: 03/16/09 Review of Systems - Review of Systems Notes: REVIEW OF SYSTEMS GEN: Generalized weakness ENT: Denies sore throat, nasal discharge, ear pain EYES: Denies blurry vision, eye pain, discharge CV: Denies chest pain, palpitations, edema RESP: Denies cough, shortness of breath, wheezing GI: Denies abdominal pain, nausea, vomiting, diarrhea MSK: Denies joint pain/swelling, edema, SKIN: Denies rash, skin lesions LYMPH: Denies swollen glands/lymph nodes NEURO: Denies headache, focal weakness or numbness, dizziness PSYCH: Denies depression, suicidal or homicidal ideation PHYSICAL EXAMINATION General: No acute distress, well-nourished Head: Atraumatic, normocephalic ENT: Mouth normal, oropharynx moist, no exudates or tonsillar enlargement Eyes: Conjunctiva normal, pupils equal, lids normal Neck: No JVD, supple, no guarding CVS: Normal rate, regular rhythm, no murmurs Resp: No resp distress, equal and normal breath sounds bilaterally GI: Nondistended, soft, no tenderness to palpation, no rebound or guarding Ext: No deformities, no edema, normal range of motion in upper and lower ext Back: No CVA or midline TTP Skin: No rash, warm Lymphatic: No lymphadeopathy noted Neuro: Awake, alert. Face symmetric. GCS 15. Physical Exam - Vital signs Vitals: Temp Pulse Resp BP Pulse Ox 98.4 F 73 20 95/60 L 97 03/18/17 10:03/18/17 10:03/18/17 10:03/18/17 10:03/18/17 10:29 Course - Re-evaluation Re-evalutation: 03/18/17 15:42 71-year-old lady with frequent ED visits presents with fatigue. She has normal vital signs now although she was relatively hypotensive at triage. Extensive laboratory workup ordered at triage is negative. Neurologic exam is nonfocal. She seems to be at her baseline based on reading her chart. Differential would include fatigue dehydration dementia. Patient is stable for discharge at this time and does not require further workup. I have discussed with the patient there likely diagnosis, aftercare plan, follow-up plans and my usual and customary return precautions. They verbalized understanding of this. - Vital Signs Vital signs: Temp Pulse Resp BP Pulse Ox 98.4 F 73 20 95/60 L 97 03/18/17 10:29 03/18/17 10:29 03/18/17 10:29 03/18/17 10:03/18/17 10:29 - Laboratory Result Diagrams: 03/18/17 12:00 03/18/17 12:00 Laboratory results interpreted by me: 03/18/17 03/18/17 12:00 14:10 BUN 21 H Glucose 69 L Calcium 10.3 H Ur Leukocyte Esterase TRACE H - Diagnostic Test Radiology reviewed: Image reviewed, Reports reviewed Discharge - Discharge Clinical Impression: Fatigue Qualifiers: Fatigue type: other Qualified Code(s): R53.83 - Other fatigue Condition: Good Disposition: HOME, SELF-CARE Instructions: Weakness ([facility]) Referrals: CAIT YAO MD [Primary Care Provider] - Follow up as needed
[2017-03-18 16:47] VITALS: BP 122/73
--- NOTE | 2017-03-18 19:10 | EKG REPORT ---
SEVERITY:- NORMAL ECG - SINUS RHYTHM : Confirmed by: Stu Gerard 18-Mar-2017 19:09:52
== END 2017-03-18 16:45 | disposition home or self-care (01) ==
LOC: ER 10:15
DX: R53.83 Other fatigue (principal); R53.1 Weakness
CPT/HCPCS: 93005; 99285; 96360; 36415; 85025; 80053; 81001; 84484; 71046; 93010; J7030

== ENCOUNTER 2017-05-26 13:56 | Emergency (ER) | payer MEDICARE, MEDICAID ==
--- NOTE | 2017-05-26 14:28 | ER Document Report ---
ED Medical Screen (RME) - General Chief Complaint: Headache Stated Complaint: HEAD PAIN, WEAKNESS, DIZZY Time Seen by Provider: 05/26/17 14:21 Mode of Arrival: Wheelchair Information source: Patient Notes: 71-year-old female who is been here multiple times with similar eyes generalized complaints presents with complaints of headache neck soreness abdominal pain generalized malaise. Patient is unclear of when the symptoms started states she does not feel good I have greeted and performed a rapid initial assessment of this patient. A comprehensive ED assessment and evaluation of the patient, analysis of test results and completion of the medical decision making process will be conducted by additional ED providers. PHYSICAL EXAMINATION: GENERAL: Well-appearing, well-nourished and in no acute distress. HEAD: Atraumatic, normocephalic. EYES: Pupils equal round extraocular movements intact, conjunctiva are normal. ENT: Nares patent NECK: Normal range of motion LUNGS: No respiratory distress Musculoskeletal: Normal range of motion NEUROLOGICAL: Normal speech, normal gait. PSYCH: Normal mood, normal affect. SKIN: Warm, Dry, normal turgor, no rashes or lesions noted. TRAVEL OUTSIDE OF THE [place] IN LAST 30 DAYS: No - Related Data Allergies/Adverse Reactions: aluminum [Aluminum] Allergy (Intermediate, Verified 05/26/17 14:00) aspirin [Aspirin] Allergy (Intermediate, Verified 05/26/17 14:00) Sulfa (Sulfonamide Antibiotics) Allergy (Verified 05/26/17 14:00) Past Medical History - Social History Chew tobacco use (# tins/day): No Frequency of alcohol use: None Drug Abuse: None - Past Medical History Cardiac Medical History: Reports: Hx Hypercholesterolemia, Hx Hypertension Pulmonary Medical History: Reports: Hx Asthma, Hx Bronchitis Renal/ Medical History: Denies: Hx Peritoneal Dialysis GI Medical History: Reports: Hx Gastroesophageal Reflux Disease Musculoskeltal Medical History: Reports Hx Arthritis, Reports Hx Musculoskeletal Trauma Past Surgical History: Reports: Hx Hysterectomy, Hx Orthopedic Surgery - left foot - Immunizations Immunizations up to date: Yes Hx Diphtheria, Pertussis, Tetanus Vaccination: Yes History of Influenza Vaccine for 12/2016 - 05/2017 Season: No Physical Exam - Vital signs Vitals: Temp Pulse Resp BP Pulse Ox 97.8 F 62 16 124/71 98 05/26/17 14:01 05/26/17 14:01 05/26/17 14:01 05/26/17 14:01 05/26/17 14:01 Course - Vital Signs Vital signs: Temp Pulse Resp BP Pulse Ox 97.8 F 62 16 124/71 98 05/26/17 14:01 05/26/17 14:01 05/26/17 14:01 05/26/17 14:01 05/26/17 14:01 Doctor's Discharge - Discharge Referrals: CAIT YAO MD [Primary Care Provider] - Follow up as needed
[2017-05-26 15:00] LABS: ABSOLUTE EOSINOPHILS # (AUTO) 0.1 10^3/uL (0.0-0.6); ABSOLUTE MONOCYTES (AUTO) 0.4 10^3/uL (0.1-1.4); EOSINOPHILS % (AUTO) 2.2 % (0-6); HEMATOCRIT 38.3 % (36.0-47.0); HEMOGLOBIN 12.5 g/dL (12.0-15.5); LYMPHOCYTES % (AUTO) 21.4 % (13-45); MEAN CORPUSCULAR HEMOGLOBIN 30.1 pg (27.0-33.4); MEAN CORPUSCULAR HGB CONC 32.7 g/dL (32.0-36.0); MEAN CORPUSCULAR VOLUME 92 fl (80-97); MONOCYTES % (AUTO) 9.9 % (3-13); PLATELET COUNT 200 10^3/uL (150-450); RED BLOOD COUNT 4.15 10^6/uL (3.72-5.28); RED CELL DISTRIBUTION WIDTH 14.5 % (11.5-14.0); SEGMENTED NEUTROPHILS % (AUTO) 65.5 % (42-78); TOTAL CELLS COUNTED % (AUTO) 100 %; WHITE BLOOD COUNT 4.5 10^3/uL (4.0-10.5)
[2017-05-26] MEDS ORDERED: PROCHLORPERAZINE EDISYLATE INJ 10 MG/2 ML VIAL IV ONE (15:10)
[2017-05-26] MEDS ORDERED: NORMAL SALINE 500 ML IV ONE (15:10)
[2017-05-26] MEDS ORDERED: ONDANSETRON HCL INJ/PF 4 MG/2 ML SDV IV ONE (15:10)
[2017-05-26 15:44] LABS: ALANINE AMINOTRANSFERASE 32 U/L (9-52); ALBUMIN 3.9 g/dL (3.5-5.0); ALKALINE PHOSPHATASE 42 U/L (38-126); ANION GAP 8 (5-19); ASPARTATE AMINO TRANSFERASE 21 U/L (14-36); BILIRUBIN,DIRECT 0.1 mg/dL (0.0-0.4); BILIRUBIN,TOTAL 0.4 mg/dL (0.2-1.3); BLOOD UREA NITROGEN 24 mg/dL (7-20); CALCIUM 9.7 mg/dL (8.4-10.2); CARBON DIOXIDE 27 mmol/L (22-30); CHLORIDE 105 mmol/L (98-107); GLUCOSE 85 mg/dL (75-110); POTASSIUM 4.3 mmol/L (3.6-5.0); SODIUM 139.8 mmol/L (137-145); TOTAL PROTEIN 6.4 g/dL (6.3-8.2)
[2017-05-26 16:10] LABS: APPEARANCE,URINE SLIGHTLY-CLOUDY; BILIRUBIN,URINE NEGATIVE (NEGATIVE); COLOR,URINE YELLOW; GLUCOSE, URINE NEGATIVE (NEGATIVE); KETONES,URINE TRACE mg/dL (NEGATIVE); LEUKOCYTE ESTERASE,URINE MODERATE (NEGATIVE); NITRITE,URINE NEGATIVE (NEGATIVE); PROTEIN,URINE NEGATIVE (NEGATIVE); UROBILINOGEN,URINE NEGATIVE mg/dL (<2.0)
--- NOTE | 2017-05-26 16:13 | ER Document Report ---
ED General - General Chief Complaint: Headache Stated Complaint: HEAD PAIN, WEAKNESS, DIZZY Time Seen by Provider: 05/26/17 14:21 Mode of Arrival: Wheelchair TRAVEL OUTSIDE OF THE [place] IN LAST 30 DAYS: No - HPI Patient complains to provider of: Headache Notes: Patient coming in for evaluation of headache feeling unwell nausea vomiting. States ongoing for the last 3 days. Patient's also having some intermittent dizziness. States symptoms similar to previous visits. Denies any trauma denies any fevers chills patient resting comfortably upon my evaluation denies any changes to her medications. Patient moving all 4 extremities no signs of significant pathology nontoxic upon my evaluation - Related Data Allergies/Adverse Reactions: aluminum [Aluminum] Allergy (Intermediate, Verified 05/26/17 14:00) aspirin [Aspirin] Allergy (Intermediate, Verified 05/26/17 14:00) Sulfa (Sulfonamide Antibiotics) Allergy (Verified 05/26/17 14:00) Past Medical History - General Information source: Patient - Social History Smoking Status: Never Smoker Chew tobacco use (# tins/day): No Frequency of alcohol use: None Drug Abuse: None Family History: Reviewed & Not Pertinent, Hypertension Patient has suicidal ideation: No Patient has homicidal ideation: No - Past Medical History Cardiac Medical History: Reports: Hx Hypercholesterolemia, Hx Hypertension Pulmonary Medical History: Reports: Hx Asthma, Hx Bronchitis Renal/ Medical History: Denies: Hx Peritoneal Dialysis GI Medical History: Reports: Hx Gastroesophageal Reflux Disease Musculoskeltal Medical History: Reports Hx Arthritis, Reports Hx Musculoskeletal Trauma Past Surgical History: Reports: Hx Hysterectomy, Hx Orthopedic Surgery - left foot - Immunizations Immunizations up to date: Yes Hx Diphtheria, Pertussis, Tetanus Vaccination: Yes Hx Pneumococcal Vaccination: 03/16/09 Review of Systems - Review of Systems Constitutional: No symptoms reported EENT: No symptoms reported Cardiovascular: No symptoms reported Respiratory: No symptoms reported Gastrointestinal: Nausea, Vomiting Genitourinary: No symptoms reported Female Genitourinary: No symptoms reported Musculoskeletal: No symptoms reported Skin: No symptoms reported Hematologic/Lymphatic: No symptoms reported Neurological/Psychological: No symptoms reported -: Yes All other systems reviewed and negative Physical Exam - Vital signs Vitals: Temp Pulse Resp BP Pulse Ox 97.8 F 62 16 124/71 98 05/26/17 14:01 05/26/17 14:01 05/26/17 14:01 05/26/17 14:01 05/26/17 14:01 Interpretation: Normal - General General appearance: Appears well, Alert - HEENT Head: Normocephalic, Atraumatic Eyes: Normal Pupils: PERRL - Respiratory Respiratory status: No respiratory distress Chest status: Nontender Breath sounds: Normal Chest palpation: Normal - Cardiovascular Rhythm: Regular Heart sounds: Normal auscultation Murmur: No - Abdominal Inspection: Normal Distension: No distension Bowel sounds: Normal Tenderness: Nontender Organomegaly: No organomegaly - Back Back: Normal, Nontender - Extremities General upper extremity: Normal inspection, Nontender, Normal color, Normal ROM , Normal temperature General lower extremity: Normal inspection, Nontender, Normal color, Normal ROM , Normal temperature, Normal weight bearing. No: Lizzy's sign - Neurological Neuro grossly intact: Yes Cognition: Normal Orientation: AAOx4 [place] Coma Scale Eye Opening: Spontaneous [place] Coma Scale Verbal: Oriented [place] Coma Scale Motor: Obeys Commands [place] Coma Scale Total: 15 Speech: Normal Motor strength normal: LUE, RUE, LLE, RLE Sensory: Normal - Psychological Associated symptoms: Normal affect, Normal mood - Skin Skin Temperature: Warm Skin Moisture: Dry Skin Color: Normal Course - Re-evaluation Re-evalutation: 05/26/17 16:16 Patient laboratory studies not show any significant pathology except for leukocyte esterase and a few white blood cells on her urinalysis reviewed previous urinalysis and urine culture she had similar findings last year and actually did grow out E. coli which may be related to her symptoms. Because of documented dementia will go ahead and treat the patient with Keflex will send urine culture. Otherwise laboratory studies look within normal limits. Patient will be discharged home. - Vital Signs Vital signs: Temp Pulse Resp BP Pulse Ox 98.1 F 61 16 125/69 100 05/26/17 19:09 05/26/17 19:09 05/26/17 19:09 05/26/17 19:09 05/26/17 19:09 - Laboratory Result Diagrams: 05/26/17 14:48 05/26/17 14:48 Laboratory results interpreted by me: 05/26/17 05/26/17 05/26/17 14:48 14:48 15:06 RDW 14.5 H BUN 24 H Urine Ketones TRACE H Ur Leukocyte Esterase MODERATE H Urine Ascorbic Acid 40 H Discharge - Discharge Clinical Impression: Feeling unwell UTI (urinary tract infection) Qualifiers: Urinary tract infection type: site unspecified Hematuria presence: without hematuria Qualified Code(s): N39.0 - Urinary tract infection, site not specified Disposition: HOME, SELF-CARE Instructions: Cephalexin ([facility]), Urinary Tract Infection ([facility]), Weakness ([facility]) Additional Instructions: Laboratory studies did not show any critcal etiology for your symptoms. You did have what looks to be a slight urinary tract infection along with some dehydration.. We will start you on a antibiotic and also sending home with nausea medication. Please continue fluid intake to stay hydrated. Return to ER symptoms worsen follow-up with your primary care physician. SHe may take Tylenol for pain control Prescriptions: Ondansetron [Zofran Odt 4 mg Tablet] 4 mg PO Q4HP PRN #30 tab.rapdis PRN Reason: Cephalexin Monohydrate [Keflex 500 mg Capsule] 500 mg PO QID #20 capsule Referrals: CAIT YAO MD [Primary Care Provider] - Follow up as needed
[2017-05-26] MEDS ORDERED: CEPHALEXIN 500 MG CAPSULE PO ONE (16:15)
[2017-05-26 19:11] VITALS: BP 125/69
--- NOTE | 2017-05-26 20:00 | EKG REPORT ---
SEVERITY:- BORDERLINE ECG - SINUS RHYTHM BORDERLINE T ABNORMALITIES, DIFFUSE LEADS : Confirmed by: Fabrice Figueroa MD 26-May-2017 19:59:57
== END 2017-05-26 19:10 | disposition home or self-care (01) ==
LOC: ER 13:56
DX: R51 Headache (principal); N39.0 Urinary tract infection, site not specified; R11.2 Nausea with vomiting, unspecified; R42 Dizziness and giddiness; I10 Essential (primary) hypertension; J45.909 Unspecified asthma, uncomplicated; F03.90 Unspecified dementia, unspecified severity, without behavioral disturbance, psychotic disturbance, mood disturbance, and anxiety; Z91.048 Other nonmedicinal substance allergy status; Z88.6 Allergy status to analgesic agent; Z88.2 Allergy status to sulfonamides
CPT/HCPCS: 93005; 99285; 96361; 96374; 96375; 36415; 87086; 85025; 87088; 80053; 81001; 87186; 93010; A9270; J0780; J2405; J7040

== ENCOUNTER 2017-06-13 14:56 | Emergency (ER) | payer MEDICARE, MEDICAID ==
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
[2017-06-13 16:56] LABS: ABSOLUTE EOSINOPHILS # (AUTO) 0.1 10^3/uL (0.0-0.6); ABSOLUTE MONOCYTES (AUTO) 0.6 10^3/uL (0.1-1.4); ABSOLUTE NEUT (AUTO) 5.1 10^3/uL (1.7-8.2); BASOPHILS % (AUTO) 0.5 % (0-2); EOSINOPHILS % (AUTO) 1.5 % (0-6); HEMOGLOBIN 13.1 g/dL (12.0-15.5); LYMPHOCYTES % (AUTO) 14.6 % (13-45); MEAN CORPUSCULAR HEMOGLOBIN 30.5 pg (27.0-33.4); MEAN CORPUSCULAR HGB CONC 32.9 g/dL (32.0-36.0); MEAN CORPUSCULAR VOLUME 93 fl (80-97); MONOCYTES % (AUTO) 9.1 % (3-13); PLATELET COUNT 234 10^3/uL (150-450); RED BLOOD COUNT 4.31 10^6/uL (3.72-5.28); RED CELL DISTRIBUTION WIDTH 14.4 % (11.5-14.0); SEGMENTED NEUTROPHILS % (AUTO) 74.3 % (42-78); TOTAL CELLS COUNTED % (AUTO) 100 %; WHITE BLOOD COUNT 6.9 10^3/uL (4.0-10.5)
[2017-06-13 17:18] LABS: ALANINE AMINOTRANSFERASE 26 U/L (9-52); ALBUMIN 3.9 g/dL (3.5-5.0); ALKALINE PHOSPHATASE 41 U/L (38-126); ANION GAP 6 (5-19); ASPARTATE AMINO TRANSFERASE 19 U/L (14-36); BILIRUBIN,DIRECT 0.1 mg/dL (0.0-0.4); BILIRUBIN,TOTAL 0.3 mg/dL (0.2-1.3); BLOOD UREA NITROGEN 21 mg/dL (7-20); CALCIUM 9.8 mg/dL (8.4-10.2); CARBON DIOXIDE 30 mmol/L (22-30); CHLORIDE 107 mmol/L (98-107); GLUCOSE 94 mg/dL (75-110); SODIUM 143.4 mmol/L (137-145); TOTAL PROTEIN 6.4 g/dL (6.3-8.2)
[2017-06-13 17:19] LABS: APPEARANCE,URINE CLEAR; COLOR,URINE YELLOW; GLUCOSE, URINE NEGATIVE (NEGATIVE)
[2017-06-13 17:20] LABS: BILIRUBIN,URINE NEGATIVE (NEGATIVE); KETONES,URINE NEGATIVE (NEGATIVE); LEUKOCYTE ESTERASE,URINE NEGATIVE (NEGATIVE); NITRITE,URINE NEGATIVE (NEGATIVE); PROTEIN,URINE NEGATIVE (NEGATIVE); URINE SPECIFIC GRAVITY 1.027; UROBILINOGEN,URINE NEGATIVE mg/dL (<2.0)
[2017-06-13 17:47] VITALS: BP 120/69
== END 2017-06-13 17:51 | disposition home or self-care (01) ==
LOC: ER 14:56
DX: M54.9 Dorsalgia, unspecified (principal); M54.2 Cervicalgia; J02.9 Acute pharyngitis, unspecified; R10.9 Unspecified abdominal pain; M79.1 Myalgia; G89.29 Other chronic pain; I10 Essential (primary) hypertension; R35.0 Frequency of micturition; J45.909 Unspecified asthma, uncomplicated; Z91.048 Other nonmedicinal substance allergy status; Z88.6 Allergy status to analgesic agent; Z88.2 Allergy status to sulfonamides
CPT/HCPCS: 36415; 80053; 81001; 85025; 99283

== ENCOUNTER 2017-06-27 11:05 | Emergency (ER) | payer MEDICARE, MEDICAID ==
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
[2017-06-27 13:48] LABS: APPEARANCE,URINE CLOUDY; BILIRUBIN,URINE NEGATIVE (NEGATIVE); COLOR,URINE BROWN; GLUCOSE, URINE NEGATIVE (NEGATIVE); KETONES,URINE NEGATIVE (NEGATIVE); LEUKOCYTE ESTERASE,URINE MODERATE (NEGATIVE); NITRITE,URINE NEGATIVE (NEGATIVE); PROTEIN,URINE 100 mg/dL (NEGATIVE); URINE SPECIFIC GRAVITY 1.017; UROBILINOGEN,URINE NEGATIVE mg/dL (<2.0)
[2017-06-27] MEDS ORDERED: CEFTRIAXONE INJ 1000 MG VIAL IM ONE (14:25)
[2017-06-27] MEDS ORDERED: LIDOCAINE 1% INJ-PF (10 MG/ML) 30 ML SDV INFIL ONE (14:25)
--- NOTE | 2017-06-27 14:27 | ER Document Report ---
ED General - General Chief Complaint: Urinary Problem Stated Complaint: BLOOD IN URINE Time Seen by Provider: 06/27/17 11:17 TRAVEL OUTSIDE OF THE [place] IN LAST 30 DAYS: No - HPI Patient complains to provider of: Hematuria Notes: Patient coming in for hematuria. Patient denies fevers chills nausea vomiting diarrhea denies any flank pain. Patient otherwise looks very well upon my evaluation. Patient states this see her doctor a few days agoHad a urinalysis performed which here in the ER came reviewed the urine culture does show infection. Patient is unaware if she started any antibiotics. Urine culture done on the shows Proteus species. - Related Data Allergies/Adverse Reactions: aluminum [Aluminum] Allergy (Intermediate, Verified 06/27/17 11:22) aspirin [Aspirin] Allergy (Intermediate, Verified 06/27/17 11:22) iodine Allergy (Verified 06/27/17 11:22) Sulfa (Sulfonamide Antibiotics) Allergy (Verified 06/27/17 11:22) Past Medical History - Social History Smoking Status: Never Smoker Chew tobacco use (# tins/day): No Frequency of alcohol use: None Drug Abuse: None Family History: Reviewed & Not Pertinent, Hypertension Patient has suicidal ideation: No Patient has homicidal ideation: No - Past Medical History Cardiac Medical History: Reports: Hx Hypercholesterolemia, Hx Hypertension Pulmonary Medical History: Reports: Hx Asthma, Hx Bronchitis Renal/ Medical History: Denies: Hx Peritoneal Dialysis GI Medical History: Reports: Hx Gastroesophageal Reflux Disease Musculoskeltal Medical History: Reports Hx Arthritis, Reports Hx Musculoskeletal Trauma Past Surgical History: Reports: Hx Hysterectomy, Hx Orthopedic Surgery - left foot - Immunizations Immunizations up to date: Yes Hx Diphtheria, Pertussis, Tetanus Vaccination: Yes Hx Pneumococcal Vaccination: 03/16/09 Review of Systems - Review of Systems Constitutional: No symptoms reported EENT: No symptoms reported Cardiovascular: No symptoms reported Respiratory: No symptoms reported Gastrointestinal: No symptoms reported Genitourinary: No symptoms reported Female Genitourinary: No symptoms reported Musculoskeletal: No symptoms reported Skin: No symptoms reported Hematologic/Lymphatic: No symptoms reported Neurological/Psychological: No symptoms reported Physical Exam - Vital signs Vitals: Temp Pulse Resp BP Pulse Ox 98.1 F 66 16 109/63 97 06/27/17 11:11 06/27/17 11:11 06/27/17 11:11 06/27/17 11:11 06/27/17 11:11 Interpretation: Normal - General General appearance: Appears well, Alert - HEENT Head: Normocephalic, Atraumatic Eyes: Normal Pupils: PERRL - Respiratory Respiratory status: No respiratory distress Chest status: Nontender Breath sounds: Normal Chest palpation: Normal - Cardiovascular Rhythm: Regular Heart sounds: Normal auscultation Murmur: No - Abdominal Inspection: Normal Distension: No distension Bowel sounds: Normal Tenderness: Nontender Organomegaly: No organomegaly - Back Back: Normal, Nontender - Extremities General upper extremity: Normal inspection, Nontender, Normal color, Normal ROM , Normal temperature General lower extremity: Normal inspection, Nontender, Normal color, Normal ROM , Normal temperature, Normal weight bearing. No: Lizzy's sign - Neurological Neuro grossly intact: Yes Cognition: Normal Orientation: AAOx4 [place] Coma Scale Eye Opening: Spontaneous [place] Coma Scale Verbal: Oriented [place] Coma Scale Motor: Obeys Commands [place] Coma Scale Total: 15 Speech: Normal Motor strength normal: LUE, RUE, LLE, RLE Sensory: Normal - Psychological Associated symptoms: Normal affect, Normal mood - Skin Skin Temperature: Warm Skin Moisture: Dry Skin Color: Normal Course - Re-evaluation Re-evalutation: 06/27/17 15:14 Patient with hematuria along with greater than 182 WBCs and we will reculture this urine I will go ahead and start the patient on Keflex as it is sensitive according to the last culture 2 days ago and will also give the patient a dose of IM Rocephin. Again patient has no CVA tenderness no fevers otherwise looks nontoxic here in ER good candidate for outpatient treatment of her urinary tract infection patient is to follow-up with your PCP for further evaluation - Vital Signs Vital signs: Temp Pulse Resp BP Pulse Ox 98.1 F 66 16 109/63 97 06/27/17 11:11 06/27/17 11:11 06/27/17 11:11 06/27/17 11:11 06/27/17 11:11 - Laboratory Laboratory results interpreted by me: 06/27/17 13:13 Urine Protein 100 H Urine Blood LARGE H Ur Leukocyte Esterase MODERATE H Urine Ascorbic Acid 40 H Discharge - Discharge Clinical Impression: UTI (urinary tract infection) Qualifiers: Urinary tract infection type: site unspecified Hematuria presence: with hematuria Qualified Code(s): N39.0 - Urinary tract infection, site not specified Condition: Good Disposition: HOME, SELF-CARE Instructions: Cephalexin ([facility]), Urinary Tract Infection ([facility]) Additional Instructions: Your urinalysis today shows signs of blood along with possible infection. He recently had a urine culture performed which does show infection. I will send another culture and we will place you on antibiotic called Keflex. Please take on the Keflex until it is gone. Make sure that you follow-up with your primary care physician for further evaluation. Prescriptions: Cephalexin Monohydrate [Keflex 500 mg Capsule] 500 mg PO Q6H 10 Days capsule
[2017-06-27 15:21] VITALS: BP 127/76
== END 2017-06-27 15:20 | disposition home or self-care (01) ==
LOC: ER 11:05
DX: N39.0 Urinary tract infection, site not specified (principal); R31.9 Hematuria, unspecified; E78.00 Pure hypercholesterolemia, unspecified; I10 Essential (primary) hypertension; Z88.6 Allergy status to analgesic agent; Z88.2 Allergy status to sulfonamides; Z90.710 Acquired absence of both cervix and uterus
CPT/HCPCS: 99284; 96372; 51701; 81001; J0696

== ENCOUNTER 2017-07-14 13:32 | Emergency (ER) | payer MEDICARE, MEDICAID ==
[2017-07-14 13:38] VITALS: BP 115/74
[2017-07-14] MEDS ORDERED: IBUPROFEN 600 MG TABLET PO ONE (14:05)
[2017-07-14] MEDS ORDERED: ACETAMINOPHEN 325 MG TABLET PO ONE (14:05)
--- NOTE | 2017-07-14 14:10 | ER Document Report ---
ED Neck/Back Problem - General Chief Complaint: Neck Pain < 24hrs old Stated Complaint: NECK PAIN Time Seen by Provider: 07/14/17 14:02 Notes: Patient is a 72-year-old female who presents with bilateral lateral neck pain after waking up. She says the pain is worse when she looks either way or when she touches her lateral neck. She denies numbness, tingling, head injury, difficulty walking, fevers, rash, chest pain or shortness of breath. TRAVEL OUTSIDE OF THE [place] IN LAST 30 DAYS: No - Related Data Allergies/Adverse Reactions: aluminum [Aluminum] Allergy (Intermediate, Verified 07/14/17 13:33) aspirin [Aspirin] Allergy (Intermediate, Verified 07/14/17 13:33) iodine Allergy (Verified 07/14/17 13:33) Sulfa (Sulfonamide Antibiotics) Allergy (Verified 07/14/17 13:33) Home Medications: multivitamin Past Medical History - General Information source: Patient - Social History Smoking Status: Never Smoker Chew tobacco use (# tins/day): No Frequency of alcohol use: None Drug Abuse: None Family History: Reviewed & Not Pertinent, Hypertension Patient has suicidal ideation: No Patient has homicidal ideation: No - Past Medical History Cardiac Medical History: Reports: Hx Hypercholesterolemia, Hx Hypertension Pulmonary Medical History: Reports: Hx Asthma, Hx Bronchitis Renal/ Medical History: Denies: Hx Peritoneal Dialysis GI Medical History: Reports: Hx Gastroesophageal Reflux Disease Musculoskeltal Medical History: Reports Hx Arthritis, Reports Hx Musculoskeletal Trauma Past Surgical History: Reports: Hx Hysterectomy, Hx Orthopedic Surgery - left foot - Immunizations Immunizations up to date: Yes Hx Diphtheria, Pertussis, Tetanus Vaccination: Yes Hx Pneumococcal Vaccination: 03/16/09 Review of Systems - Review of Systems Notes: REVIEW OF SYSTEMS: CONSTITUTIONAL: -fevers, -chills EENT: -eye pain, -difficulty swallowing, -nasal congestion CARDIOVASCULAR: -chest pain, -syncope. RESPIRATORY: -cough, -SOB GASTROINTESTINAL: -abdominal pain, -nausea, -vomiting, -diarrhea GENITOURINARY: -dysuria, -hematuria MUSCULOSKELETAL: -back pain, +neck pain SKIN: -rash or skin lesions. HEMATOLOGIC: -easy bruising or bleeding. LYMPHATIC: -swollen, enlarged glands. NEUROLOGICAL: -altered mental status or loss of consciousness, -headache, - neurologic symptoms PSYCHIATRIC: -anxiety, -depression. ALL OTHER SYSTEMS REVIEWED AND NEGATIVE. Physical Exam - Vital signs Vitals: Temp Pulse Resp BP Pulse Ox 98.7 F 59 L 16 115/74 98 07/14/17 13:37 07/14/17 13:37 07/14/17 13:37 07/14/17 13:37 07/14/17 13:37 - Notes Notes: PHYSICAL EXAMINATION: GENERAL: Well-appearing, well-nourished and in no acute distress. HEAD: Atraumatic, normocephalic. EYES: Pupils equal round and reactive to light, extraocular movements intact, sclera anicteric, conjunctiva are normal. ENT: nares patent, oropharynx clear without exudates. Moist mucous membranes. NECK: Normal range of motion, supple without lymphadenopathy, tenderness over bilateral upper traps, no midline tenderness. No bruits. LUNGS: Breath sounds clear to auscultation bilaterally and equal. No wheezes rales or rhonchi. HEART: Regular rate and rhythm without murmurs ABDOMEN: Soft, nontender, normoactive bowel sounds. No guarding, no rebound. No masses appreciated. EXTREMITIES: Normal range of motion, no pitting or edema. No cyanosis. Strong distal pulses. NEUROLOGICAL: Cranial nerves grossly intact. Normal speech, normal gait. Normal sensory and motor exams. PSYCH: Normal mood, normal affect. SKIN: Warm, Dry, normal turgor, no rashes or lesions noted. Course - Re-evaluation Re-evalutation: Patient's pain is consistent with neck strain started after she was sleeping. She has tenderness over bilateral upper traps. No midline tenderness and she does not have bruits to suggest carotid injury. Strong distal pulses. Instructed patient about using Tylenol, anti-inflammatories and heating pads to help with her symptoms. - Vital Signs Vital signs: Temp Pulse Resp BP Pulse Ox 98.7 F 59 L 16 115/74 98 07/14/17 13:37 07/14/17 13:37 07/14/17 13:37 07/14/17 13:37 07/14/17 13:37 Discharge - Discharge Clinical Impression: Strain of neck Qualifiers: Encounter type: initial encounter Qualified Code(s): S16.1XXA - Strain of muscle, fascia and tendon at neck level, initial encounter Condition: Stable Disposition: HOME, SELF-CARE Additional Instructions: Neck Injury (Cervical Strain) You have a neck strain. This is an injury to the muscles and ligaments in the neck. There is no evidence of a fracture of the neck bones. Also, no injury to the spinal cord or nerve roots was detected. Usually, stiffness and pain INCREASE for the first 24-48 hours after the injury. The pain will gradually resolve and the neck will become more mobile. Most patients are back at work or school within a few days. Typically, complete healing takes about two or three weeks. The usual initial treatment is rest and cold packs. A neck collar may be placed to keep the muscles of the neck at rest. Antiinflammatory and muscle relaxing medication are often used to reduce the spasm and irritation. You should call the doctor, or go to the hospital, if you develop numbness or weakness in any extremity, problems with your bladder or bowel, or pain radiating down the arms.
== END 2017-07-14 14:13 | disposition home or self-care (01) ==
LOC: ER 13:32
DX: S16.1XXA Strain of muscle, fascia and tendon at neck level, initial encounter (principal); M54.2 Cervicalgia; X58.XXXA Exposure to other specified factors, initial encounter; I10 Essential (primary) hypertension; J45.909 Unspecified asthma, uncomplicated; Z88.8 Allergy status to other drugs, medicaments and biological substances; Z88.6 Allergy status to analgesic agent; Z88.2 Allergy status to sulfonamides
CPT/HCPCS: 99283; A9270 ×2

== ENCOUNTER 2017-08-21 16:31 | Emergency (ER) | payer MEDICARE, MEDICAID ==
[2017-08-21 16:38] VITALS: BP 106/75
[2017-08-21 18:42] LABS: ABSOLUTE BASOPHILS # (AUTO) 0.1 10^3/uL (0.0-0.2); ABSOLUTE EOSINOPHILS # (AUTO) 0.1 10^3/uL (0.0-0.6); ABSOLUTE LYMPHOCYTES (AUTO) 1.3 10^3/uL (0.5-4.7); ABSOLUTE MONOCYTES (AUTO) 0.5 10^3/uL (0.1-1.4); ABSOLUTE NEUT (AUTO) 2.9 10^3/uL (1.7-8.2); BASOPHILS % (AUTO) 1.1 % (0-2); EOSINOPHILS % (AUTO) 2.4 % (0-6); HEMATOCRIT 38.8 % (36.0-47.0); HEMOGLOBIN 13.2 g/dL (12.0-15.5); LYMPHOCYTES % (AUTO) 26.1 % (13-45); MEAN CORPUSCULAR HEMOGLOBIN 30.9 pg (27.0-33.4); MEAN CORPUSCULAR VOLUME 91 fl (80-97); MONOCYTES % (AUTO) 10.1 % (3-13); PLATELET COUNT 220 10^3/uL (150-450); RED BLOOD COUNT 4.26 10^6/uL (3.72-5.28); RED CELL DISTRIBUTION WIDTH 15.1 % (11.5-14.0); SEGMENTED NEUTROPHILS % (AUTO) 60.3 % (42-78); TOTAL CELLS COUNTED % (AUTO) 100 %; WHITE BLOOD COUNT 4.8 10^3/uL (4.0-10.5)
--- NOTE | 2017-08-21 19:02 | ER Document Report ---
ED General - General Chief Complaint: Sore Throat Stated Complaint: SORE THROAT/ABDOMINAL PAIN Time Seen by Provider: 08/21/17 18:06 Mode of Arrival: Ambulatory Notes: Vision is a 72-year-old female that has 2 complaints. She states that she has had a sore throat with some mild congestion for 3 weeks as well as some intermittent diffuse abdominal discomfort. She states that the pain has no obvious aggravating or relieving factors. She states she has pain either before or after she eats and therefore is not related to food. She denies any dysuria, diarrhea, with 2 normal light-colored brown stools today. Patient denies any back pain, with a history of a hysterectomy. Patient denies any chest pain at this time. She denies any shortness of breath. Regarding her throat, the patient states she feels as if she has had a sore throat for 3 weeks. She has had no fever. She is able to swallow and actually states she drank 2 cups of water while she was here in the emergency department before I evaluated her. She feels like there is "phlegm". She denies any feeling of swelling. She denies any lip swelling, facial swelling, or posterior neck pain. TRAVEL OUTSIDE OF THE [place] IN LAST 30 DAYS: No - HPI Onset: Other - See above Onset/Duration: Gradual Quality of pain: No pain Severity: Mild Pain Level: 1 Associated symptoms: Other - See above Exacerbated by: Denies Relieved by: Denies Similar symptoms previously: Yes Recently seen / treated by doctor: No - Related Data Allergies/Adverse Reactions: aluminum [Aluminum] Allergy (Intermediate, Verified 08/21/17 16:33) aspirin [Aspirin] Allergy (Intermediate, Verified 08/21/17 16:33) iodine Allergy (Verified 08/21/17 16:33) Sulfa (Sulfonamide Antibiotics) Allergy (Verified 08/21/17 16:33) Past Medical History - General Information source: Patient - Social History Smoking Status: Unknown if Ever Smoked Cigarette use (# per day): No Chew tobacco use (# tins/day): No Smoking Education Provided: No Frequency of alcohol use: None Family History: Reviewed & Not Pertinent, Hypertension - Past Medical History Cardiac Medical History: Reports: Hx Hypercholesterolemia, Hx Hypertension Pulmonary Medical History: Reports: Hx Asthma, Hx Bronchitis Renal/ Medical History: Denies: Hx Peritoneal Dialysis GI Medical History: Reports: Hx Gastroesophageal Reflux Disease Musculoskeltal Medical History: Reports Hx Arthritis, Reports Hx Musculoskeletal Trauma Past Surgical History: Reports: Hx Hysterectomy, Hx Orthopedic Surgery - left foot - Immunizations Immunizations up to date: Yes Hx Diphtheria, Pertussis, Tetanus Vaccination: Yes Hx Pneumococcal Vaccination: 03/16/09 Review of Systems - Review of Systems Constitutional: denies: Fever EENT: Nose congestion. denies: Eye discharge, Nose discharge Cardiovascular: denies: Chest pain, Palpitations Respiratory: denies: Short of breath Gastrointestinal: denies: Vomiting Genitourinary: denies: Dysuria Musculoskeletal: denies: Leg swelling Skin: Other - no hives. denies: Rash Neurological/Psychological: Other - no slurred speech -: Yes All other systems reviewed and negative Physical Exam - Vital signs Vitals: Temp Pulse Resp BP Pulse Ox 98.4 F 70 16 106/75 98 08/21/17 16:36 08/21/17 16:36 08/21/17 16:36 08/21/17 16:36 08/21/17 16:36 Notes: Reviewed vital signs and nursing note as charted by RN. CONSTITUTIONAL: Alert and oriented and responds appropriately to questions. Well -appearing; well-nourished HEAD: Normocephalic; atraumatic EYES: PERRL; Conjunctivae clear, sclerae non-icteric ENT: Normal nose; no rhinorrhea; moist mucous membranes; I do not detect any lip swelling, tongue swelling, or posterior pharyngeal swelling. No peritonsillar swelling noted. Midline uvula. Minimal erythema with no obvious exudate NECK: Supple without meningismus; non-tender; no cervical or supraclavicular lymphadenopathy, no masses CARD: Regular rate and rhythm; no murmurs, no clicks, no rubs, no gallops; symmetric distal pulses RESP: Normal chest excursion without splinting or tachypnea; breath sounds clear and equal bilaterally; no wheezes, no rhonchi, no rales ABD/GI: Normal bowel sounds; mildly distended; minimally tender to all 4 quadrants of the abdomen, no rebound, no guarding; no palpable organomegaly, abdominal bruits or masses BACK: The back appears normal and is non-tender to palpation, there is no CVA tenderness GI/: With athletic team physician present I performed a rectal examination. No gross blood. Hemoccult is pending. No pain with digital insertion EXT: Normal ROM in all joints; non-tender to palpation, no edema SKIN: Normal color for age and race; warm; no acute lesions noted NEURO: Moves all extremities equally; Motor and sensory function intact PSYCH: The patient's mood and manner are appropriate. Grooming and personal hygiene are appropriate. Course - Re-evaluation Re-evalutation: Given the above history and physical examination, I will order basic labs, EKG, liver panel, lipase, urinalysis, rapid strep, and a CT scan of the abdomen and pelvis. I do not have any distinct focal mass of the tenderness on my examination of the abdomen. Given the patient's age, I will proceed directly to CT scan. Regarding the patient's throat, I do not see any obvious allergic reaction signs , lymphadenopathy, neck stiffness, posterior pharyngeal lesions. I did perform a rapid strep. 08/21/17 19:02 EKG shows a heart of 58, normal sinus rhythm, poor R-wave progression, flattening T waves inferiorly and laterally. Previous EKG shows no appreciable change. - Vital Signs Vital signs: Temp Pulse Resp BP Pulse Ox 98.4 F 70 16 106/75 98 08/21/17 16:36 08/21/17 16:36 08/21/17 16:36 08/21/17 16:36 08/21/17 16:36 - Laboratory Result Diagrams: 08/21/17 18:09 08/21/17 18:09 Laboratory results interpreted by me: 08/21/17 18:09 RDW 15.1 H
[2017-08-21 20:02] LABS: APPEARANCE,URINE CLEAR; BILIRUBIN,URINE NEGATIVE (NEGATIVE); COLOR,URINE STRAW; GLUCOSE, URINE NEGATIVE (NEGATIVE); KETONES,URINE NEGATIVE (NEGATIVE); LEUKOCYTE ESTERASE,URINE LARGE (NEGATIVE); NITRITE,URINE NEGATIVE (NEGATIVE); PROTEIN,URINE NEGATIVE (NEGATIVE); URINE SPECIFIC GRAVITY 1.008; UROBILINOGEN,URINE NEGATIVE mg/dL (<2.0)
--- NOTE | 2017-08-21 20:21 | RADIOLOGY REPORT (SQ) ---
EXAM DESCRIPTION: CT ABD/PELVIS NO ORAL OR IV COMPLETED DATE/TIME: 08/21/2017 8:03 pm REASON FOR STUDY: 41, abdominal pain diffusely COMPARISON: 02/05/2013 TECHNIQUE: CT scan of the abdomen and pelvis performed without intravenous or oral contrast. Images reviewed with lung, soft tissue, and bone windows. Reconstructed coronal and sagittal MPR images revi ewed. All images stored on PACS. All CT scanners at this facility use dose modulation, iterative reconstruction, and/or weight based d osing when appropriate to reduce radiation dose to as low as reasonably achievable (ALARA). [facility]: Dose Right [facility]: CareDose [facility]: Dose Right [facility]: Teradose 4D [facility]: Smart [employer] RADIATION DOSE: CT Rad equipment meets quality standard of care and radiation dose reduction techniq ues were employed. CTDIvol: 5.2 mGy. DLP: 241 mGy-cm.mGy. LIMITATIONS: None. FINDINGS: LOWER CHEST: No significant findings. No nodules or infiltrates. NON-CONTRASTED LIVER, SPLEEN, ADRENALS: Evaluation limited by lack of IV contrast. No identified sign ificant masses. PANCREAS: No masses. No peripancreatic inflammatory changes. GALLBLADDER: No identified stones by CT criteria. No inflammatory changes to suggest cholecystitis. RIGHT KIDNEY AND URETER: No suspicious masses. Assessment limited by lack of IV contrast. No signif icant calcifications. No hydronephrosis or hydroureter. LEFT KIDNEY AND URETER: No suspicious masses. Assessment limited by lack of IV contrast. No signifi cant calcifications. No hydronephrosis or hydroureter. AORTA AND RETROPERITONEUM: Atherosclerotic calcifications. No aneurysm. No retroperitoneal masses or adenopathy. BOWEL AND PERITONEAL CAVITY: Moderate to severe fecal retention. No obvious masses or inflammatory c hanges. No free fluid. APPENDIX: Normal. PELVIS, BLADDER, AND ABDOMINAL WALL:No abnormal masses. No free fluid. Bladder normal. BONES: Stable degenerative change including grade 1 anterolisthesis of L4 on L5. No fracture or susp icious osseous lesion. OTHER: No other significant finding. IMPRESSION: MODERATE TO SEVERE FECAL RETENTION. NO DEFINITE ACUTE INFLAMMATORY CHANGE. NO URINARY TRACT CALCULI OR HYDRONEPHROSIS. CHRONIC CHANGES ABOVE. COMMENT: Quality ID # [id number]: Final reports with documentation of one or more dose reduction techniques (e.g., Automated exposure control, adjustment of the mA and/or kV according to patient size, use of iterative reconstruction technique) TECHNICAL DOCUMENTATION: JOB ID: [id number] [employer]- All Rights Reserved Reading location - IP/workstation name: [email or web address]
[2017-08-21] MEDS ORDERED: MINERAL OIL 30 ML UDCUP PR ONE (21:09)
[2017-08-21] MEDS ORDERED: LACTULOSE SYRUP 20 GM/30 ML UDCUP PO ONE (21:09)
[2017-08-21 21:19] LABS: ALANINE AMINOTRANSFERASE 21 U/L (9-52); ALBUMIN 3.7 g/dL (3.5-5.0); ALKALINE PHOSPHATASE 41 U/L (38-126); ANION GAP 8 (5-19); ASPARTATE AMINO TRANSFERASE 26 U/L (14-36); BILIRUBIN,DIRECT 0.2 mg/dL (0.0-0.4); BILIRUBIN,TOTAL 0.4 mg/dL (0.2-1.3); BLOOD UREA NITROGEN 17 mg/dL (7-20); CALCIUM 9.5 mg/dL (8.4-10.2); CARBON DIOXIDE 29 mmol/L (22-30); CHLORIDE 101 mmol/L (98-107); GLUCOSE 81 mg/dL (75-110); LIPASE 229.7 U/L (23-300); POTASSIUM 4.5 mmol/L (3.6-5.0); SODIUM 137.8 mmol/L (137-145); TOTAL PROTEIN 6.5 g/dL (6.3-8.2)
--- NOTE | 2017-08-21 21:30 | ER Document Report ---
Doctor's Note Notes: 08/21/17 21:29 The patient was seen originally by Dr. Romero for sore throat and abdominal pain. Her evaluation is essentially unremarkable with the exception that her CT scan does show severe fecal retention. Her urinalysis does also show findings consistent with a possible urinary tract infection although she denies dysuria. A urine culture has been sent but will withhold antibiotics at this time point as I believe the risks outweigh the benefits. Patient has received lactulose as well as a enema here in the emergency department with relief of some of her abdominal pain and stool impaction. I have recommended a MiraLAX prep at home as well as close outpatient follow-up. At this time will discharge with return precautions and follow-up recommendations. Verbal discharge instructions given a the bedside and opportunity for questions given. Medication warnings reviewed. Patient is in agreement with this plan and has verbalized understanding of return precautions and the need for primary care follow-up in the next 24-72 hours.
--- NOTE | 2017-08-22 16:23 | EKG REPORT ---
SEVERITY:- BORDERLINE ECG - SINUS RHYTHM CONSIDER ANTERIOR INFARCT : Confirmed by: Tea Foley MD 22-Aug-2017 16:21:38
== END 2017-08-21 23:33 | disposition home or self-care (01) ==
LOC: ER 16:31
DX: J02.9 Acute pharyngitis, unspecified (principal); R10.84 Generalized abdominal pain; K59.00 Constipation, unspecified; R09.81 Nasal congestion; E78.00 Pure hypercholesterolemia, unspecified; I10 Essential (primary) hypertension; Z88.2 Allergy status to sulfonamides; Z88.6 Allergy status to analgesic agent; Z90.710 Acquired absence of both cervix and uterus
CPT/HCPCS: 93005; 99284; 36415; 87070; 87086; 87880; 83605; 83690; 85025; 82272; 87077; 87088; 80053; 81001; 84484; 87186; 74176; 93010; A9270; J3490

== ENCOUNTER → 2017-08-28 | Outpatient (CLI) | payer MEDICARE, MEDICAID ==
[2017-08-28 07:40] LABS: ABSOLUTE EOSINOPHILS # (AUTO) 0.1 10^3/uL (0.0-0.6); ABSOLUTE LYMPHOCYTES (AUTO) 0.9 10^3/uL (0.5-4.7); ABSOLUTE MONOCYTES (AUTO) 0.5 10^3/uL (0.1-1.4); ABSOLUTE NEUT (AUTO) 2.7 10^3/uL (1.7-8.2); BASOPHILS % (AUTO) 0.9 % (0-2); EOSINOPHILS % (AUTO) 2.7 % (0-6); HEMATOCRIT 37.9 % (36.0-47.0); HEMOGLOBIN 12.7 g/dL (12.0-15.5); LYMPHOCYTES % (AUTO) 21.3 % (13-45); MEAN CORPUSCULAR HEMOGLOBIN 30.7 pg (27.0-33.4); MEAN CORPUSCULAR HGB CONC 33.5 g/dL (32.0-36.0); MEAN CORPUSCULAR VOLUME 92 fl (80-97); PLATELET COUNT 191 10^3/uL (150-450); RED BLOOD COUNT 4.13 10^6/uL (3.72-5.28); RED CELL DISTRIBUTION WIDTH 14.5 % (11.5-14.0); SEGMENTED NEUTROPHILS % (AUTO) 64.1 % (42-78); TOTAL CELLS COUNTED % (AUTO) 100 %; WHITE BLOOD COUNT 4.2 10^3/uL (4.0-10.5)
[2017-08-28 08:00] LABS: BLOOD UREA NITROGEN 21 mg/dL (7-20); CALCIUM 9.5 mg/dL (8.4-10.2); GLUCOSE 76 mg/dL (75-110)
[2017-08-28 08:01] LABS: ALANINE AMINOTRANSFERASE 28 U/L (9-52); ALBUMIN 4.1 g/dL (3.5-5.0); ALKALINE PHOSPHATASE 40 U/L (38-126); ANION GAP 7 (5-19); ASPARTATE AMINO TRANSFERASE 29 U/L (14-36); BILIRUBIN,DIRECT 0.2 mg/dL (0.0-0.4); BILIRUBIN,TOTAL 0.5 mg/dL (0.2-1.3); CARBON DIOXIDE 29 mmol/L (22-30); CHLORIDE 106 mmol/L (98-107); CHOLESTEROL 199.57 mg/dL (0-200); POTASSIUM 4.5 mmol/L (3.6-5.0); SODIUM 141.7 mmol/L (137-145); TOTAL PROTEIN 6.8 g/dL (6.3-8.2); TRIGLYCERIDES 57 mg/dL (<150)
[2017-08-28 08:11] LABS: DIRECT LDL 101 mg/dL (<100)
== END ==
LOC: LAB 07:14
PROVIDERS: ATTEND Family Medicine Geriatric Medicine
DX: I10 Essential (primary) hypertension (principal); Z79.899 Other long term (current) drug therapy; E55.9 Vitamin D deficiency, unspecified
CPT/HCPCS: 36415; 80053; 80061; 82306; 84443; 85025

== ENCOUNTER 2017-09-05 11:10 | Emergency (ER) | payer MEDICARE, MEDICAID ==
[2017-09-05 11:16] VITALS: BP 120/65
--- NOTE | 2017-09-05 11:51 | ER Document Report ---
ED Medical Screen (RME) - General Chief Complaint: Productive Cough Stated Complaint: COUGH Time Seen by Provider: 09/05/17 11:17 Mode of Arrival: Ambulatory Information source: Patient Notes: 72-year-old female presents with complaints of productive cough of one-month duration hand pain foot pain for 2 month duration patient noted to be here multiple times with similar types of complaints and extensive history of anxiety I have greeted and performed a rapid initial assessment of this patient. A comprehensive ED assessment and evaluation of the patient, analysis of test results and completion of the medical decision making process will be conducted by additional ED providers. PHYSICAL EXAMINATION: GENERAL: Well-appearing, well-nourished and in no acute distress. HEAD: Atraumatic, normocephalic. EYES: Pupils equal round extraocular movements intact, conjunctiva are normal. ENT: Nares patent NECK: Normal range of motion LUNGS: No respiratory distress Musculoskeletal: Normal range of motion NEUROLOGICAL: Normal speech, normal gait. PSYCH: Normal mood, normal affect. SKIN: Warm, Dry, normal turgor, no rashes or lesions noted. TRAVEL OUTSIDE OF THE [place] IN LAST 30 DAYS: No - Related Data Allergies/Adverse Reactions: aluminum [Aluminum] Allergy (Intermediate, Verified 09/05/17 11:11) aspirin [Aspirin] Allergy (Intermediate, Verified 09/05/17 11:11) iodine Allergy (Verified 09/05/17 11:11) Sulfa (Sulfonamide Antibiotics) Allergy (Verified 09/05/17 11:11) Past Medical History - Social History Chew tobacco use (# tins/day): No Frequency of alcohol use: None Drug Abuse: None - Past Medical History Cardiac Medical History: Reports: Hx Hypercholesterolemia, Hx Hypertension Pulmonary Medical History: Reports: Hx Asthma, Hx Bronchitis Renal/ Medical History: Denies: Hx Peritoneal Dialysis GI Medical History: Reports: Hx Gastroesophageal Reflux Disease Musculoskeltal Medical History: Reports Hx Arthritis, Reports Hx Musculoskeletal Trauma Past Surgical History: Reports: Hx Hysterectomy, Hx Orthopedic Surgery - left foot - Immunizations Immunizations up to date: Yes Hx Diphtheria, Pertussis, Tetanus Vaccination: Yes History of Influenza Vaccine for 12/2016 - 05/2017 Season: No Physical Exam - Vital signs Vitals: Temp Pulse Resp BP Pulse Ox 97.6 F 62 18 120/65 99 09/05/17 11:15 09/05/17 11:15 09/05/17 11:15 09/05/17 11:15 09/05/17 11:15 Course - Vital Signs Vital signs: Temp Pulse Resp BP Pulse Ox 97.6 F 62 18 120/65 99 09/05/17 11:15 09/05/17 11:15 09/05/17 11:15 09/05/17 11:15 09/05/17 11:15 - Laboratory Result Diagrams: 09/05/17 11:32 09/05/17 11:32 Doctor's Discharge - Discharge Referrals: TRINA GARCIA MD [Primary Care Provider] - Follow up as needed
[2017-09-05 11:52] LABS: ABSOLUTE EOSINOPHILS # (AUTO) 0.2 10^3/uL (0.0-0.6); ABSOLUTE LYMPHOCYTES (AUTO) 0.8 10^3/uL (0.5-4.7); ABSOLUTE MONOCYTES (AUTO) 0.7 10^3/uL (0.1-1.4); ABSOLUTE NEUT (AUTO) 2.4 10^3/uL (1.7-8.2); BASOPHILS % (AUTO) 0.9 % (0-2); EOSINOPHILS % (AUTO) 4.4 % (0-6); HEMATOCRIT 35.4 % (36.0-47.0); LYMPHOCYTES % (AUTO) 18.7 % (13-45); MEAN CORPUSCULAR HEMOGLOBIN 30.6 pg (27.0-33.4); MEAN CORPUSCULAR HGB CONC 33.8 g/dL (32.0-36.0); MEAN CORPUSCULAR VOLUME 91 fl (80-97); MONOCYTES % (AUTO) 17.2 % (3-13); PLATELET COUNT 195 10^3/uL (150-450); RED BLOOD COUNT 3.91 10^6/uL (3.72-5.28); RED CELL DISTRIBUTION WIDTH 14.5 % (11.5-14.0); SEGMENTED NEUTROPHILS % (AUTO) 58.8 % (42-78); TOTAL CELLS COUNTED % (AUTO) 100 %
--- NOTE | 2017-09-05 11:57 | RADIOLOGY REPORT (SQ) ---
EXAM DESCRIPTION: CHEST 2 VIEWS COMPLETED DATE/TIME: 09/05/2017 11:45 am REASON FOR STUDY: productive cough COMPARISON: 06/22/2017 TECHNIQUE: Frontal and lateral radiographic views of the chest acquired. NUMBER OF VIEWS: Two view. LIMITATIONS: None. FINDINGS: LUNGS AND PLEURA: No opacities, masses or pneumothorax. No pleural effusion. MEDIASTINUM AND HILAR STRUCTURES: No masses or contour abnormalities. HEART AND VASCULAR STRUCTURES: Heart normal size. No evidence for failure. BONES: No acute findings. HARDWARE: None in the chest. OTHER: No other significant finding. IMPRESSION: NO SIGNIFICANT RADIOGRAPHIC FINDING IN THE CHEST. TECHNICAL DOCUMENTATION: JOB ID: [id number] [employer]- All Rights Reserved Reading location - IP/workstation name: [email or web address]
[2017-09-05 12:13] LABS: ALANINE AMINOTRANSFERASE 24 U/L (9-52); ALBUMIN 3.7 g/dL (3.5-5.0); ALKALINE PHOSPHATASE 39 U/L (38-126); ANION GAP 9 (5-19); ASPARTATE AMINO TRANSFERASE 24 U/L (14-36); BILIRUBIN,DIRECT 0.3 mg/dL (0.0-0.4); BILIRUBIN,TOTAL 0.3 mg/dL (0.2-1.3); BLOOD UREA NITROGEN 20 mg/dL (7-20); CALCIUM 9.3 mg/dL (8.4-10.2); CARBON DIOXIDE 27 mmol/L (22-30); CHLORIDE 108 mmol/L (98-107); GLUCOSE 72 mg/dL (75-110); POTASSIUM 4.6 mmol/L (3.6-5.0); SODIUM 143.8 mmol/L (137-145); TOTAL PROTEIN 6.4 g/dL (6.3-8.2)
--- NOTE | 2017-09-05 12:32 | ER Document Report ---
ED Respiratory Problem - General Chief Complaint: Productive Cough Stated Complaint: COUGH Time Seen by Provider: 09/05/17 11:17 Mode of Arrival: Ambulatory Information source: Patient - Rule Notes: Patient is a 72-year-old female who presents to the ER today for approximately 1 month of productive cough, sinus congestion. Patient denies any fevers but admits to chills. Patient denies any shortness of breath or wheezing, denies any history of COPD or asthma. Patient denies any nausea, vomiting, chest pain or diarrhea. She has not taken anything for her symptoms. TRAVEL OUTSIDE OF THE [place] IN LAST 30 DAYS: No - Related Data Allergies/Adverse Reactions: aluminum [Aluminum] Allergy (Intermediate, Verified 09/05/17 11:11) aspirin [Aspirin] Allergy (Intermediate, Verified 09/05/17 11:11) iodine Allergy (Verified 09/05/17 11:11) Sulfa (Sulfonamide Antibiotics) Allergy (Verified 09/05/17 11:11) Past Medical History - General Information source: Patient - Social History Smoking Status: Never Smoker Chew tobacco use (# tins/day): No Frequency of alcohol use: None Drug Abuse: None Family History: Reviewed & Not Pertinent, Hypertension Patient has suicidal ideation: No Patient has homicidal ideation: No - Past Medical History Cardiac Medical History: Reports: Hx Hypercholesterolemia, Hx Hypertension Pulmonary Medical History: Reports: Hx Asthma, Hx Bronchitis Renal/ Medical History: Denies: Hx Peritoneal Dialysis GI Medical History: Reports: Hx Gastroesophageal Reflux Disease Musculoskeltal Medical History: Reports Hx Arthritis, Reports Hx Musculoskeletal Trauma Past Surgical History: Reports: Hx Hysterectomy, Hx Orthopedic Surgery - left foot - Immunizations Immunizations up to date: Yes Hx Diphtheria, Pertussis, Tetanus Vaccination: Yes Hx Pneumococcal Vaccination: 03/16/09 Review of Systems - Review of Systems Constitutional: See HPI EENT: See HPI Cardiovascular: No symptoms reported Respiratory: See HPI Gastrointestinal: No symptoms reported Genitourinary: No symptoms reported Female Genitourinary: No symptoms reported Musculoskeletal: No symptoms reported Skin: No symptoms reported Hematologic/Lymphatic: No symptoms reported Neurological/Psychological: No symptoms reported Physical Exam - Vital signs Vitals: Temp Pulse Resp BP Pulse Ox 97.6 F 62 18 120/65 99 09/05/17 11:15 09/05/17 11:15 09/05/17 11:15 09/05/17 11:15 09/05/17 11:15 - Notes Notes: PHYSICAL EXAMINATION: GENERAL: Well-appearing and in no acute distress. HEAD: Atraumatic, normocephalic. EYES: Pupils equal round and reactive to light, extraocular movements intact, sclera anicteric, conjunctiva are normal. ENT: ear canals without erythema or foreign body, TMs pearly somers with good bony landmarks, nares patent, oropharynx clear without exudates. Moist mucous membranes. NECK: Normal range of motion, supple without lymphadenopathy LUNGS: CTAB and equal. No wheezes rales or rhonchi. HEART: Regular rate and rhythm without murmurs ABDOMEN: Soft, no tenderness. No guarding, no rebound BACK: no vertebral tenderness, normal ROM GI/: no CVA tenderness EXTREMITIES: Normal range of motion, no pitting edema. No cyanosis. NEUROLOGICAL: Cranial nerves grossly intact. Normal sensory/motor exams. PSYCH: Normal mood, normal affect. SKIN: Warm, Dry, normal turgor, no rashes or lesions noted Course - Re-evaluation Re-evalutation: 09/05/17 17:45 Lab work is all unremarkable today, chest x-ray negative for any acute pathology. With 1 month of productive cough I will place patient on antibiotic. I will also provide her with something for the cough. - Vital Signs Vital signs: Temp Pulse Resp BP Pulse Ox 97.6 F 62 18 120/65 99 09/05/17 11:15 09/05/17 11:15 09/05/17 11:15 09/05/17 11:15 09/05/17 11:15 - Laboratory Result Diagrams: 09/05/17 11:32 09/05/17 11:32 Laboratory results interpreted by me: 09/05/17 09/05/17 11:32 11:32 Hct 35.4 L RDW 14.5 H Monocytes % 17.2 H Chloride 108 H Glucose 72 L Discharge - Discharge Clinical Impression: Bronchitis Sinusitis Qualifiers: Sinusitis location: unspecified location Chronicity: acute Recurrence: non- recurrent Qualified Code(s): J01.90 - Acute sinusitis, unspecified Condition: Stable Disposition: HOME, SELF-CARE Additional Instructions: Return immediately for any new or worsening symptoms. Follow up with primary care provider, call tomorrow to make followup appointment. Prescriptions: Azithromycin [Zithromax 250 mg Tablet] 250 mg PO ASDIR PRN #6 tablet PRN Reason: Guaifenesin/D-Methorphan Hb [Robitussin-Dm Syrup 10 Ml Udcup] 10 ml PO Q4 PRN # 120 ml PRN Reason: Referrals: TRINA GARCIA MD [Primary Care Provider] - Follow up as needed
== END 2017-09-05 12:39 | disposition home or self-care (01) ==
LOC: ER 11:10
DX: J01.90 Acute sinusitis, unspecified (principal); J40 Bronchitis, not specified as acute or chronic; I10 Essential (primary) hypertension; E78.00 Pure hypercholesterolemia, unspecified; Z88.6 Allergy status to analgesic agent; Z88.2 Allergy status to sulfonamides; Z90.710 Acquired absence of both cervix and uterus
CPT/HCPCS: 36415; 71046; 80053; 85025; 99283

== ENCOUNTER → 2017-09-22 | Outpatient (CLI) | payer MEDICARE, MEDICAID ==
--- NOTE | 2017-09-22 17:49 | RADIOLOGY REPORT (SQ) ---
EXAM DESCRIPTION: HAND RIGHT 3 VIEWS COMPLETED DATE/TIME: 09/22/2017 4:57 pm REASON FOR STUDY: RIGHT WRIST PAIN M25.531 PAIN IN RIGHT WRIST COMPARISON: None. EXAM PARAMETERS: NUMBER OF VIEWS: Three views. TECHNIQUE: AP, lateral and oblique radiographic images acquired of the right hand. LIMITATIONS: None. FINDINGS: MINERALIZATION: Normal. BONES: No acute fracture or dislocation. No worrisome bone lesions. No significant osteophytes. JOINTS: No erosions. No francisco-articular osteopenia. No chondrocalcinosis. SOFT TISSUES: No swelling. No calcifications. OTHER: No other significant finding. IMPRESSION: NEGATIVE STUDY OF THE RIGHT HAND. NO EXPLANATION FOR PAIN. TECHNICAL DOCUMENTATION: JOB ID: [id number] [employer]- All Rights Reserved Reading location - IP/workstation name: [email or web address]
--- NOTE | 2017-09-22 17:50 | RADIOLOGY REPORT (SQ) ---
EXAM DESCRIPTION: WRIST RIGHT 3 VIEWS COMPLETED DATE/TIME: 09/22/2017 4:57 pm REASON FOR STUDY: RIGHT WRIST PAIN M25.531 PAIN IN RIGHT WRIST COMPARISON: None. NUMBER OF VIEWS: Three views. TECHNIQUE: AP, lateral, and oblique radiographic images acquired of the right wrist. LIMITATIONS: None. FINDINGS: MINERALIZATION: Normal. BONES: No acute fracture or dislocation. No worrisome bone lesions. Normal alignment. No significant osteophytes. JOINTS: No erosions. No francisco-articular osteopenia. No chondrocalcinosis. SOFT TISSUES: No swelling. No calcifications. OTHER: No other significant finding. IMPRESSION: NEGATIVE STUDY OF THE RIGHT WRIST. NO EXPLANATION FOR PAIN. TECHNICAL DOCUMENTATION: JOB ID: [id number] [employer]- All Rights Reserved Reading location - IP/workstation name: [email or web address]
[2017-09-23 07:57] LABS: ALANINE AMINOTRANSFERASE 23 U/L (9-52); CHOLESTEROL 205.06 mg/dL (0-200); TRIGLYCERIDES 63 mg/dL (<150); URIC ACID 2.8 mg/dL (2.5-7.5)
[2017-09-23 08:08] LABS: DIRECT LDL 117 mg/dL (<100)
== END ==
LOC: OD 15:54
PROVIDERS: ATTEND Family Medicine Geriatric Medicine
DX: M25.531 Pain in right wrist (principal); E78.5 Hyperlipidemia, unspecified
CPT/HCPCS: 36415; 80061; 84460; 84550

== ENCOUNTER 2017-10-08 18:05 | Emergency (ER) | payer MEDICARE, MEDICAID ==
[2017-10-08 19:03] LABS: APPEARANCE,URINE CLEAR; BILIRUBIN,URINE NEGATIVE (NEGATIVE); COLOR,URINE YELLOW; GLUCOSE, URINE NEGATIVE (NEGATIVE); KETONES,URINE NEGATIVE (NEGATIVE); LEUKOCYTE ESTERASE,URINE SMALL (NEGATIVE); NITRITE,URINE NEGATIVE (NEGATIVE); PROTEIN,URINE NEGATIVE (NEGATIVE); UROBILINOGEN,URINE NEGATIVE mg/dL (<2.0)
[2017-10-08 19:07] LABS: ABSOLUTE EOSINOPHILS # (AUTO) 0.1 10^3/uL (0.0-0.6); ABSOLUTE LYMPHOCYTES (AUTO) 1.3 10^3/uL (0.5-4.7); ABSOLUTE MONOCYTES (AUTO) 0.5 10^3/uL (0.1-1.4); ABSOLUTE NEUT (AUTO) 2.2 10^3/uL (1.7-8.2); EOSINOPHILS % (AUTO) 2.3 % (0-6); HEMATOCRIT 38.6 % (36.0-47.0); HEMOGLOBIN 12.9 g/dL (12.0-15.5); LYMPHOCYTES % (AUTO) 32.1 % (13-45); MEAN CORPUSCULAR HEMOGLOBIN 30.7 pg (27.0-33.4); MEAN CORPUSCULAR HGB CONC 33.5 g/dL (32.0-36.0); MEAN CORPUSCULAR VOLUME 92 fl (80-97); MONOCYTES % (AUTO) 11.2 % (3-13); PLATELET COUNT 220 10^3/uL (150-450); RED BLOOD COUNT 4.22 10^6/uL (3.72-5.28); RED CELL DISTRIBUTION WIDTH 14.4 % (11.5-14.0); SEGMENTED NEUTROPHILS % (AUTO) 53.4 % (42-78); TOTAL CELLS COUNTED % (AUTO) 100 %; WHITE BLOOD COUNT 4.2 10^3/uL (4.0-10.5)
--- NOTE | 2017-10-08 19:44 | ER Document Report ---
ED General - General Chief Complaint: Shortness Of Breath Stated Complaint: COUGH Time Seen by Provider: 10/08/17 18:16 Mode of Arrival: Ambulatory Information source: Patient Notes: Chief complaint: Sore throat, cough congestion History of complain:( obtained from----patient) 72 years old female presents today with sore throat cough and congestion. Denies any fever chills denies any difficulty in breathing. Denies any chest pain. She also having frequency of urination. No dysuria. Onset: As above gradual Duration: Gradual Severity: Mild to moderate Quality: Unknown Context: Noncontributory Exacerbating factor and relieving factors: As above REVIEW OF SYSTEMS: CONSTITUTIONAL : Denies fever, chills, or sweats. Denies recent illness. EENT: Denies eye, ear, throat, or mouth pain or symptoms. Denies nasal or sinus congestion or discharge. Denies throat, tongue, or mouth swelling or difficulty swallowing. CARDIOVASCULAR: Denies chest pain. Denies palpitations or racing or irregular heart beat. Denies ankle edema. RESPIRATORY: Denies cough, cold, or chest congestion. Denies shortness of breath, difficulty breathing, or wheezing. GASTROINTESTINAL: Denies distention. Denies nausea, vomiting, or diarrhea. Denies blood in vomitus, stools, or per rectum. Denies black, tarry stools. Denies constipation. GENITOURINARY: Denies difficulty urinating, painful urination, burning, frequency, blood in urine, or discharge. FEMALE GENITOURINARY: Denies vaginal bleeding, heavy or abnormal periods, irregular periods. Denies vaginal discharge or odor. MUSCULOSKELETAL: Bilateral lower leg edema SKIN: Denies rash, lesions or sores. HEMATOLOGIC : Denies easy bruising or bleeding. LYMPHATIC: Denies swollen, enlarged glands. NEUROLOGICAL: Denies confusion or altered mental status. Denies passing out or loss of consciousness. Denies dizziness or lightheadedness. Denies headache. Denies weakness or paralysis or loss of use of either side. Denies problems with gait or speech. Denies sensory loss, numbness, or tingling. Denies seizures. PSYCHIATRIC: Denies anxiety or stress. Denies depression, suicidal ideation, or homicidal ideation. ALL OTHER SYSTEMS REVIEWED AND NEGATIVE. PHYSICAL EXAMINATION: GENERAL: Well-appearing, well-nourished and in no acute distress. HEAD: Atraumatic, normocephalic. EYES: Pupils equal round and reactive to light, extraocular movements intact, conjunctiva are normal. ENT: Nares patent, oropharynx clear without exudates. Moist mucous membranes. NECK: Normal range of motion, supple without lymphadenopathy LUNGS: Breath sounds clear to auscultation bilaterally and equal. No wheezes rales or rhonchi. HEART: Regular rate and rhythm without murmurs ABDOMEN: Soft, nontender, nondistended abdomen. No guarding, no rebound. No masses appreciated. Examination of genitals-deferred Musculoskeletal: Bilateral lower leg edema chronic NEUROLOGICAL: Cranial nerves grossly intact. Normal speech, normal gait. Normal sensory, motor exams PSYCH: Normal mood, normal affect. SKIN: Not appear to be dry normal turgor Dictation was performed using [employer] voice recognition software TRAVEL OUTSIDE OF THE [place] IN LAST 30 DAYS: No - HPI Notes: Dictated - Related Data Allergies/Adverse Reactions: aluminum [Aluminum] Allergy (Intermediate, Verified 09/05/17 11:11) aspirin [Aspirin] Allergy (Intermediate, Verified 09/05/17 11:11) iodine Allergy (Verified 09/05/17 11:11) Sulfa (Sulfonamide Antibiotics) Allergy (Verified 09/05/17 11:11) Past Medical History - Social History Smoking Status: Unknown if Ever Smoked Chew tobacco use (# tins/day): No Frequency of alcohol use: None Drug Abuse: None Family History: Reviewed & Not Pertinent, Hypertension Patient has suicidal ideation: No Patient has homicidal ideation: No - Past Medical History Cardiac Medical History: Reports: Hx Hypercholesterolemia, Hx Hypertension Pulmonary Medical History: Reports: Hx Asthma, Hx Bronchitis Renal/ Medical History: Denies: Hx Peritoneal Dialysis GI Medical History: Reports: Hx Gastroesophageal Reflux Disease Musculoskeletal Medical History: Reports Hx Arthritis, Reports Hx Musculoskeletal Trauma Past Surgical History: Reports: Hx Hysterectomy, Hx Orthopedic Surgery - left foot - Immunizations Immunizations up to date: Yes Hx Diphtheria, Pertussis, Tetanus Vaccination: Yes Hx Pneumococcal Vaccination: 03/16/09 Review of Systems - Review of Systems Notes: Dictated Physical Exam - Vital signs Vitals: Temp Pulse Resp BP Pulse Ox 97.5 F 74 16 108/70 98 10/08/17 18:19 10/08/17 18:19 10/08/17 18:19 10/08/17 18:19 10/08/17 18:19 - Notes Notes: Dictated Course - Vital Signs Vital signs: Temp Pulse Resp BP Pulse Ox 97.5 F 74 16 108/70 98 10/08/17 18:19 10/08/17 18:19 10/08/17 18:19 10/08/17 18:19 10/08/17 18:19 - Laboratory Result Diagrams: 10/08/17 18:45 Laboratory results interpreted by me: 10/08/17 10/08/17 18:30 18:45 RDW 14.4 H Ur Leukocyte Esterase SMALL H Urine Ascorbic Acid 40 H Discharge - Discharge Clinical Impression: URI (upper respiratory infection) Pharyngitis Qualifiers: Pharyngitis/tonsillitis etiology: unspecified etiology Qualified Code(s): J02.9 - Acute pharyngitis, unspecified Condition: Fair Disposition: HOME, SELF-CARE Instructions: Upper Respiratory Illness ([facility]) Prescriptions: Amoxicillin 500 mg PO TID #30 capsule Referrals: TRINA GARCIA MD [Primary Care Provider] - Follow up as needed
[2017-10-08 20:15] VITALS: BP 114/75
== END 2017-10-08 20:15 | disposition home or self-care (01) ==
LOC: ER 18:05 → EDBD 18:05 → ER 20:15
DX: J06.9 Acute upper respiratory infection, unspecified (principal); J02.9 Acute pharyngitis, unspecified; R06.02 Shortness of breath; E78.00 Pure hypercholesterolemia, unspecified; I10 Essential (primary) hypertension; Z88.6 Allergy status to analgesic agent; Z88.2 Allergy status to sulfonamides; Z90.710 Acquired absence of both cervix and uterus
CPT/HCPCS: 36415; 81001; 85025; 87070; 87880; 99283

== ENCOUNTER 2017-11-11 08:49 | Emergency (ER) | payer MEDICARE, MEDICAID ==
[2017-11-11 08:55] VITALS: BP 125/74
[2017-11-11] MEDS ORDERED: ACETAMINOPHEN 325 MG TABLET PO ONE (09:16)
--- NOTE | 2017-11-11 09:19 | ER Document Report ---
ED General - General Chief Complaint: Leg Pain Stated Complaint: LEG PAIN, SORE THROAT Time Seen by Provider: 11/11/17 09:15 Mode of Arrival: Ambulatory Information source: Patient Notes: Chief complaint: Sore throat, leg pain History of complain:( obtained from----patient) 72 years old female lives alone , has psychiatric illness, presents today with sore throat, lower back pain and bilateral knee pain. But able to ambulate. No recent injuries. Denies any fever chills. Denies any difficulty in breathing. Denies any other constitutional symptoms. Onset: As above gradual Duration: Last few days Severity: Moderate Quality: Sharp Context: Unknown Exacerbating factor and relieving factors: Walking REVIEW OF SYSTEMS: CONSTITUTIONAL : Denies fever, chills, or sweats. Denies recent illness. EENT: Denies eye, ear, throat, or mouth pain or symptoms. Denies nasal or sinus congestion or discharge. Denies throat, tongue, or mouth swelling or difficulty swallowing. CARDIOVASCULAR: Denies chest pain. Denies palpitations or racing or irregular heart beat. Denies ankle edema. RESPIRATORY: Denies cough, cold, or chest congestion. Denies shortness of breath, difficulty breathing, or wheezing. GASTROINTESTINAL: Denies distention. Denies nausea, vomiting, or diarrhea. Denies blood in vomitus, stools, or per rectum. Denies black, tarry stools. Denies constipation. GENITOURINARY: Denies difficulty urinating, painful urination, burning, frequency, blood in urine, or discharge. FEMALE GENITOURINARY: Denies vaginal bleeding, heavy or abnormal periods, irregular periods. Denies vaginal discharge or odor. MUSCULOSKELETAL: Denies back or neck pain or stiffness. Denies joint pain or swelling. SKIN: Denies rash, lesions or sores. HEMATOLOGIC : Denies easy bruising or bleeding. LYMPHATIC: Denies swollen, enlarged glands. NEUROLOGICAL: Denies confusion or altered mental status. Denies passing out or loss of consciousness. Denies dizziness or lightheadedness. Denies headache. Denies weakness or paralysis or loss of use of either side. Denies problems with gait or speech. Denies sensory loss, numbness, or tingling. Denies seizures. PSYCHIATRIC: ALL OTHER SYSTEMS REVIEWED AND NEGATIVE. PHYSICAL EXAMINATION: GENERAL: Elderly, unhygienic, and in no acute distress. HEAD: Atraumatic, normocephalic. EYES: Pupils equal round and reactive to light, extraocular movements intact, conjunctiva are normal. ENT: Nares patent, oropharynx erythematous without exudates. Moist mucous membranes. NECK: Normal range of motion, supple without lymphadenopathy LUNGS: Breath sounds clear to auscultation bilaterally and equal. No wheezes rales or rhonchi. HEART: Regular rate and rhythm without murmurs ABDOMEN: Soft, nontender, nondistended abdomen. No guarding, no rebound. No masses appreciated. Examination of genitals-deferred Musculoskeletal: Normal range of motion, no pitting or edema. No cyanosis. Bilateral knee shows no swelling no erythema. Able to flex and extend. Bilateral paralumbar muscular tenderness noted. NEUROLOGICAL: Cranial nerves grossly intact. Normal speech, normal gait. Normal sensory, motor exams PSYCH: Normal mood, normal affect. SKIN: Warm, Dry, normal turgor, no rashes or lesions noted. Dictation was performed using [employer] voice recognition software TRAVEL OUTSIDE OF THE [place] IN LAST 30 DAYS: No - HPI Notes: Dictated - Related Data Allergies/Adverse Reactions: aluminum [Aluminum] Allergy (Intermediate, Verified 11/11/17 08:50) aspirin [Aspirin] Allergy (Intermediate, Verified 11/11/17 08:50) iodine Allergy (Verified 11/11/17 08:50) Sulfa (Sulfonamide Antibiotics) Allergy (Verified 11/11/17 08:50) Past Medical History - Social History Smoking Status: Never Smoker Frequency of alcohol use: None Drug Abuse: None Lives with: Alone Family History: Reviewed & Not Pertinent, Hypertension Patient has suicidal ideation: No Patient has homicidal ideation: No - Past Medical History Cardiac Medical History: Reports: Hx Hypercholesterolemia, Hx Hypertension Pulmonary Medical History: Reports: Hx Asthma, Hx Bronchitis Renal/ Medical History: Denies: Hx Peritoneal Dialysis GI Medical History: Reports: Hx Gastroesophageal Reflux Disease Musculoskeletal Medical History: Reports Hx Arthritis, Reports Hx Musculoskeletal Trauma Past Surgical History: Reports: Hx Hysterectomy, Hx Orthopedic Surgery - left foot - Immunizations Immunizations up to date: Yes Hx Diphtheria, Pertussis, Tetanus Vaccination: Yes Hx Pneumococcal Vaccination: 03/16/09 Review of Systems - Review of Systems Notes: Dictated Physical Exam - Vital signs Vitals: Temp Pulse Resp BP Pulse Ox 98.7 F 64 16 125/74 97 11/11/17 08:53 11/11/17 08:53 11/11/17 08:53 11/11/17 08:53 11/11/17 08:53 - Notes Notes: Dictated Course - Vital Signs Vital signs: Temp Pulse Resp BP Pulse Ox 98.7 F 64 16 125/74 97 11/11/17 08:53 11/11/17 08:53 11/11/17 08:53 11/11/17 08:53 11/11/17 08:53 Discharge - Discharge Clinical Impression: Arthritis due to other bacteria, left knee Pharyngitis Qualifiers: Pharyngitis/tonsillitis etiology: unspecified etiology Qualified Code(s): J02.9 - Acute pharyngitis, unspecified Condition: Fair Disposition: HOME, SELF-CARE Instructions: Sore Throat ([facility]), Arthralgia ([facility]) Prescriptions: Amoxicillin 1 tab PO TID #30 tab Hydrocodone/Acetaminophen [Hydrocodon-Acetaminophen 5-325] 1 each PO BID #10 tablet Referrals: TRINA GARCIA MD [Primary Care Provider] - Follow up as needed
== END 2017-11-11 10:12 | disposition home or self-care (01) ==
LOC: ER 08:49
DX: M00.862 Arthritis due to other bacteria, left knee (principal); J02.9 Acute pharyngitis, unspecified; E78.00 Pure hypercholesterolemia, unspecified; I10 Essential (primary) hypertension; Z90.710 Acquired absence of both cervix and uterus; Z88.2 Allergy status to sulfonamides
CPT/HCPCS: 99283; 87070; 87880; A9270

== ENCOUNTER 2017-12-09 17:22 | Emergency (ER) | payer MEDICARE, MEDICAID ==
[2017-12-09] MEDS ORDERED: ALBUTEROL SULFATE 0.083% NEB 2.5 MG/3 ML AMPUL NEB ONE (17:54)
[2017-12-09] MEDS ORDERED: BENZONATATE 100 MG CAPSULE PO ONE (17:55)
[2017-12-09 18:37] LABS: ABSOLUTE EOSINOPHILS # (AUTO) 0.1 10^3/uL (0.0-0.6); ABSOLUTE MONOCYTES (AUTO) 0.5 10^3/uL (0.1-1.4); ABSOLUTE NEUT (AUTO) 2.2 10^3/uL (1.7-8.2); BASOPHILS % (AUTO) 1.1 % (0-2); EOSINOPHILS % (AUTO) 1.4 % (0-6); LYMPHOCYTES % (AUTO) 25.4 % (13-45); MEAN CORPUSCULAR HEMOGLOBIN 30.4 pg (27.0-33.4); MEAN CORPUSCULAR HGB CONC 33.4 g/dL (32.0-36.0); MEAN CORPUSCULAR VOLUME 91 fl (80-97); MONOCYTES % (AUTO) 12.4 % (3-13); PLATELET COUNT 186 10^3/uL (150-450); RED BLOOD COUNT 4.28 10^6/uL (3.72-5.28); RED CELL DISTRIBUTION WIDTH 13.8 % (11.5-14.0); SEGMENTED NEUTROPHILS % (AUTO) 59.7 % (42-78); TOTAL CELLS COUNTED % (AUTO) 100 %; WHITE BLOOD COUNT 3.8 10^3/uL (4.0-10.5)
--- NOTE | 2017-12-09 18:47 | RADIOLOGY REPORT (SQ) ---
EXAM DESCRIPTION: CHEST 2 VIEWS COMPLETED DATE/TIME: 12/09/2017 6:38 pm REASON FOR STUDY: cough COMPARISON: 09/05/2017 EXAM PARAMETERS: NUMBER OF VIEWS: two views TECHNIQUE: Digital Frontal and Lateral radiographic views of the chest acquired. RADIATION DOSE: NA LIMITATIONS: none FINDINGS: LUNGS AND PLEURA: No opacities, masses or pneumothorax. No pleural effusion. MEDIASTINUM AND HILAR STRUCTURES: No masses or contour abnormalities. HEART AND VASCULAR STRUCTURES: Heart normal size. No evidence for failure. BONES: No acute findings. HARDWARE: None in the chest. OTHER: No other significant finding. IMPRESSION: NO ACUTE RADIOGRAPHIC FINDING IN THE CHEST. TECHNICAL DOCUMENTATION: JOB ID: [id number] Door 6- All Rights Reserved Reading location - IP/workstation name: [email or web address]
[2017-12-09 18:58] LABS: ANION GAP 7 (5-19); BLOOD UREA NITROGEN 23 mg/dL (7-20); CALCIUM 9.5 mg/dL (8.4-10.2); CARBON DIOXIDE 29 mmol/L (22-30); CHLORIDE 104 mmol/L (98-107); GLUCOSE 82 mg/dL (75-110); POTASSIUM 4.3 mmol/L (3.6-5.0); SODIUM 139.9 mmol/L (137-145)
[2017-12-09] MEDS ORDERED: ALBUTEROL SULFATE HFA (90 MCG/PUFF) 8 GM MDI (1 MDI/ER DISP) IH PRN (19:15)
[2017-12-09] MEDS ORDERED: AZITHROMYCIN 250 MG TABLET PO ONE (19:15)
--- NOTE | 2017-12-09 19:19 | ER Document Report ---
ED General - General Chief Complaint: Cough Stated Complaint: THROAT PAIN, COUGH Time Seen by Provider: 12/09/17 17:39 Mode of Arrival: Ambulatory Information source: Patient, [facility] Records Notes: 72-year-old female with hypertension, hyperlipidemia, asthma, bronchitis presents with complaint of cough, sore throat. Patient states cough started 6 weeks prior to arrival. She describes it as intermittent, productive. Patient states that she has had associated sore throat. She denies fever, chills. She does state that with coughing only she experiences some chest discomfort that she describes as burning and shortness of breath. Patient denies sick contacts. TRAVEL OUTSIDE OF THE [place] IN LAST 30 DAYS: No - HPI Onset: Other Onset/Duration: Persistent Quality of pain: Burning Severity: Mild Associated symptoms: Chest pain, Productive cough, Shortness of breath Exacerbated by: Denies Relieved by: Denies Similar symptoms previously: Yes Recently seen / treated by doctor: No - Related Data Allergies/Adverse Reactions: aluminum [Aluminum] Allergy (Intermediate, Verified 11/11/17 08:50) aspirin [Aspirin] Allergy (Intermediate, Verified 11/11/17 08:50) iodine Allergy (Verified 11/11/17 08:50) Sulfa (Sulfonamide Antibiotics) Allergy (Verified 11/11/17 08:50) Past Medical History - General Information source: Patient, [facility] Records - Social History Smoking Status: Never Smoker Frequency of alcohol use: None Drug Abuse: None Lives with: Alone Family History: Reviewed & Not Pertinent, Hypertension Patient has suicidal ideation: No Patient has homicidal ideation: No - Past Medical History Cardiac Medical History: Reports: Hx Hypercholesterolemia, Hx Hypertension Pulmonary Medical History: Reports: Hx Asthma, Hx Bronchitis Renal/ Medical History: Denies: Hx Peritoneal Dialysis GI Medical History: Reports: Hx Gastroesophageal Reflux Disease Musculoskeletal Medical History: Reports Hx Arthritis, Reports Hx Musculoskeletal Trauma Past Surgical History: Reports: Hx Hysterectomy, Hx Orthopedic Surgery - left foot - Immunizations Immunizations up to date: Yes Hx Diphtheria, Pertussis, Tetanus Vaccination: Yes Hx Pneumococcal Vaccination: 03/16/09 Review of Systems - Review of Systems Notes: REVIEW OF SYSTEMS: CONSTITUTIONAL : Denies fever, chills, or sweats. Denies recent illness. Denies weight loss, recent hospitalizations. EENT: Denies visual changes, eye pain. Denies sore throat, oral lesions, difficulty swallowing. CARDIOVASCULAR: Denies palpitations. Denies lower extremity edema. RESPIRATORY: + Cough, congestion, shortness of breath GASTROINTESTINAL: Denies abdominal pain or distention. Denies nausea, vomiting , or diarrhea. Denies blood in vomitus, stools, or per rectum. Denies black, tarry stools. Denies constipation. GENITOURINARY: Denies difficulty urinating, painful urination, frequency, blood in urine, or vaginal discharge. MUSCULOSKELETAL: Denies back or neck pain or stiffness. Denies joint pain or swelling. SKIN: Denies rash, lesions or sores. HEMATOLOGIC : Denies easy bruising or bleeding. LYMPHATIC: Denies swollen glands. NEUROLOGICAL: Denies confusion or altered mental status. Denies loss of consciousness. Denies dizziness or lightheadedness. Denies headache. Denies weakness or paralysis. Denies problems difficulty with ambulation, slurred speech. Denies sensory loss, numbness, or tingling. Denies seizures. PSYCHIATRIC: Denies anxiety or stress. Denies depression, suicidal ideation, or homicidal ideation. Denies visual or auditory hallucinations. Physical Exam - Vital signs Vitals: Temp Pulse Resp BP Pulse Ox 98.2 F 64 16 109/76 100 12/09/17 17:43 12/09/17 17:43 12/09/17 17:43 12/09/17 17:43 12/09/17 17:43 Interpretation: Normal. No: Hypoxic - Notes Notes: PHYSICAL EXAMINATION: GENERAL: Well-appearing, well-nourished and in no acute distress. HEAD: Atraumatic, normocephalic. EYES: Pupils equal round and reactive to light, extraocular movements intact, conjunctiva are normal. ENT: Nares patent, oropharynx mild erythema without exudates. Moist mucous membranes. NECK: Normal range of motion, supple + anterior cervical lymphadenopathy LUNGS: No respiratory distress. No accessory muscle use. Mild expiratory wheezing HEART: Regular rate and rhythm without murmurs ABDOMEN: Soft, nontender, nondistended abdomen. No guarding, no rebound. No masses appreciated. Female : deferred Musculoskeletal: Normal range of motion, no pitting or edema. No cyanosis. NEUROLOGICAL: Cranial nerves grossly intact. Normal speech, normal gait. Normal sensory, motor exams PSYCH: Normal mood, normal affect. SKIN: Warm, Dry, normal turgor, no rashes or lesions noted. Course - Re-evaluation Re-evalutation: Laboratory 12/09/17 12/09/17 18:15 18:15 WBC 3.8 L RBC 4.28 Hgb 13.0 Hct 39.0 MCV 91 MCH 30.4 MCHC 33.4 RDW 13.8 Plt Count 186 Seg Neutrophils % 59.7 Lymphocytes % 25.4 Monocytes % 12.4 Eosinophils % 1.4 Basophils % 1.1 Absolute Neutrophils 2.2 Absolute Lymphocytes 1.0 Absolute Monocytes 0.5 Absolute Eosinophils 0.1 Absolute Basophils 0.0 Sodium 139.9 Potassium 4.3 Chloride 104 Carbon Dioxide 29 Anion Gap 7 BUN 23 H Creatinine 0.76 Est GFR ( Amer) > 60 Est GFR (Non-Af Amer) > 60 Glucose 82 Calcium 9.5 Chest X-Ray 12/09/17 17:55 IMPRESSION: NO ACUTE RADIOGRAPHIC FINDING IN THE CHEST. 72-year-old female presents with cough and sore throat that have been present for approximately 6 weeks. Upon arrival vitals were reviewed and within. Patient does not appear toxic or dehydrated. She is in no acute distress. Exam is significant for some mild expiratory wheezing. Patient did undergo an albuterol breathing treatment. Chest x-ray findings discussed with the patient. Exam is consistent with bronchitis. CBC and BMP are unremarkable. Patient provided an albuterol MDI in the department and was started on azithromycin and Tessalon Perles for home. 12/09/17 19:32 Patient received a breathing treatment, Tessalon Perles and azithromycin during her ED course. On reevaluation she reports feeling better. Chest x-ray is without evidence of pneumonia. Patient provided the opportunity to ask questions, and express concerns. Discharge instructions discussed. Patient is agreeable with discharge home. Return indications explained and discussed with the patient who displays understanding. Patient encouraged to return to the emergency department immediately with any concerns. Results were discussed with the patient at this point, after careful consideration I feel that that patient can be discharged from the emergency department, the patient was educated treatments and reasons to return to the emergency department based on their presumed diagnosis as noted above, they were advised to followup with a primary care physician in 2-3 days. Patient was agreeable to plan of care. Dictation on this chart was performed using voice recognition software and may result in unintended grammatical, spelling, syntax or errors. CBC and BMP unremarkable 12/09/17 19:44 12/11/17 08:26 12/11/17 08:26 - Vital Signs Vital signs: Temp Pulse Resp BP Pulse Ox 98.2 F 64 16 118/80 100 12/09/17 17:43 12/09/17 17:43 12/09/17 17:43 12/09/17 19:44 12/09/17 17:43 - Laboratory Result Diagrams: 12/09/17 18:15 12/09/17 18:15 Laboratory results interpreted by me: 12/09/17 12/09/17 18:15 18:15 WBC 3.8 L BUN 23 H - Diagnostic Test Radiology reviewed: Image reviewed, Reports reviewed Discharge - Discharge Clinical Impression: URI with cough and congestion, Lymphadenopathy, Bronchitis Pharyngitis Qualifiers: Pharyngitis/tonsillitis etiology: other specified organisms Qualified Code(s): J02.8 - Acute pharyngitis due to other specified organisms Condition: Good Disposition: HOME, SELF-CARE Instructions: Bronchitis With Bronchospasm (Wheezing) ([facility]), Sore Throat ([facility]) , Upper Respiratory Illness ([facility]), Viral Syndrome ([facility]) Additional Instructions: You were seen for symptoms most consistent with bronchitis. This can take up to 12 weeks to fully resolve. This is generally due to a viral infection. Please follow-up with your primary doctor in the next 2-3 days. Return if you develop worsening cough, vomiting, fever >100.4, pass out, begin coughing blood, or have any other symptoms that are concerning to you. Please use the medications prescribed today as directed. Most prescribed medications have multiple side effects. The safest thing to do is when filling your prescription please speak to your pharmacist regarding possible interactions with your normal home medications and over the counter medications such as Ibuprofen, Tylenol, Benadryl.. If you experience any symptoms that cause you discomfort or concern you should discontinue the medication immediately and return to the emergency room or call your primary care physician. Follow up with your physician tomorrow for further care or return to the ED IMMEDIATELY if symptoms worsen or new concerns occur. If you cannot afford to follow up with your primary care physician a list of low cost clinics have been provided at the end of your discharge papers as well. Prescriptions: Benzonatate [Tessalon Perle 100 mg Capsule] 200 mg PO Q8HP PRN #20 cap PRN Reason: Azithromycin 250 mg PO DAILY #4 tablet Referrals: TRINA GARCIA MD [Primary Care Provider] - Follow up as needed
[2017-12-09 19:44] VITALS: BP 118/80
== END 2017-12-09 19:45 | disposition home or self-care (01) ==
LOC: ER 17:22
DX: J06.9 Acute upper respiratory infection, unspecified (principal); J40 Bronchitis, not specified as acute or chronic; J02.8 Acute pharyngitis due to other specified organisms; R59.1 Generalized enlarged lymph nodes; I10 Essential (primary) hypertension; E78.00 Pure hypercholesterolemia, unspecified; Z88.6 Allergy status to analgesic agent; Z88.2 Allergy status to sulfonamides
CPT/HCPCS: 94640; 99284; 36415; 85025; 80048; 71046; A9270 ×3; J3490

== ENCOUNTER 2017-12-26 11:45 | Emergency (ER) | payer MEDICARE, MEDICAID ==
--- NOTE | 2017-12-26 12:15 | ER Document Report ---
HPI - HPI Patient complains to provider of: Left knee pain Onset: Last week Onset/Duration: Intermittent Pain Level: 3 Context: 72-year-old female who lives alone is complaining of intermittent left knee pain. She points to the superior medial aspect of the knee. She was seen in November 2016 for knee pain in both knee x-rays showed some degenerative changes. No fever. She does ambulate. Associated Symptoms: None Exacerbated by: Walking Relieved by: Denies - ROS ROS below otherwise negative: Yes Systems Reviewed and Negative: Yes All other systems reviewed and negative - REPRODUCTIVE Reproductive: DENIES: : Past Medical History - General Information source: Patient - Social History Smoking Status: Never Smoker Lives with: Alone Family History: Reviewed & Not Pertinent, Hypertension - Past Medical History Cardiac Medical History: Reports: Hx Hypercholesterolemia, Hx Hypertension Pulmonary Medical History: Reports: Hx Asthma, Hx Bronchitis Renal/ Medical History: Denies: Hx Peritoneal Dialysis GI Medical History: Reports: Hx Gastroesophageal Reflux Disease Musculoskeletal Medical History: Reports Hx Arthritis, Reports Hx Musculoskeletal Trauma Past Surgical History: Reports: Hx Hysterectomy, Hx Orthopedic Surgery - left foot - Immunizations Immunizations up to date: Yes Hx Diphtheria, Pertussis, Tetanus Vaccination: Yes Hx Pneumococcal Vaccination: 03/16/09 Vertical Provider Document - CONSTITUTIONAL Agree With Documented VS: Yes Exam Limitations: No Limitations General Appearance: No Apparent Distress - INFECTION CONTROL TRAVEL OUTSIDE OF THE [place] IN LAST 30 DAYS: No - NECK Neck: Supple - MUSCULOSKELETAL/EXTREMETIES Musculoskeletal/Extremeties: MAEW, FROM, Non-Tender, No Edema. negative: Eccymosis Notes: No effusion, red, not warm - NEURO Level of Consciousness: Awake - DERM Integumentary: No Rash Course - Re-evaluation Re-evalutation: 12/26/17 13:24 X-rays negative per radiologist there is no fracture, the x-ray that was obtained December 06, 2016 showed bulky lateral compartment osteophytes high- grade lateral compartment joint space narrowing. The radiologist today did not mention this. I will refer the patient to an orthopedic doctor. Patient's pulse is 59 upon presentation and she has had pulses all the way down to 49 in previous ER visits - Vital Signs Vital signs: Temp Pulse Resp BP Pulse Ox 98.4 F 54 L 16 113/64 99 12/26/17 11:51 12/26/17 11:51 12/26/17 11:51 12/26/17 11:51 12/26/17 11:51 Discharge - Discharge Clinical Impression: chronic intermittent left knee pain Condition: Good Disposition: HOME, SELF-CARE Instructions: Acetaminophen, Arthralgia ([facility]) Additional Instructions: Take Tylenol 4 times a day for pain See your doctor for follow-up Referrals: MARLINE SOTO MD [ACTIVE STAFF] - 12/28/17 (Call Thursday for appointment as soon as possible)
--- NOTE | 2017-12-26 13:21 | RADIOLOGY REPORT (SQ) ---
EXAM DESCRIPTION: KNEE LEFT 4 VIEW COMPLETED DATE/TIME: 12/26/2017 1:05 pm REASON FOR STUDY: increased left knee pain COMPARISON: None. EXAM PARAMETERS: NUMBER OF VIEWS: Four views. TECHNIQUE: AP, lateral and both oblique radiographic images acquired of the left knee. LIMITATIONS: None. FINDINGS: MINERALIZATION: Osteopenia. BONES: No acute fracture or dislocation. No worrisome bone lesions. JOINTS: No effusion. SOFT TISSUES: No significant soft tissue swelling. No radiopaque foreign body. OTHER: No other significant finding. IMPRESSION: NO FRACTURE. TECHNICAL DOCUMENTATION: JOB ID: [id number] [employer]- All Rights Reserved Reading location - IP/workstation name: [email or web address]
[2017-12-26 14:02] VITALS: BP 112/62
== END 2017-12-26 13:53 | disposition home or self-care (01) ==
LOC: ER 11:45
DX: M25.562 Pain in left knee (principal); G89.29 Other chronic pain; E78.00 Pure hypercholesterolemia, unspecified; I10 Essential (primary) hypertension; Z90.710 Acquired absence of both cervix and uterus
CPT/HCPCS: 99283

== ENCOUNTER 2017-12-30 17:01 | Emergency (ER) | payer MEDICARE, MEDICAID ==
[2017-12-30] MEDS ORDERED: BUPIVACAINE HCL 0.75% INJ/PF (7.5 MG/1 ML) 10 ML SDV INJ ONE (17:47)
[2017-12-30] MEDS ORDERED: METHYLPREDNISOLONE ACETATE INJ 80 MG/1 ML VIAL IM ONE (17:58)
[2017-12-30] MEDS ORDERED: METHYLPREDNISOLONE ACETATE INJ 40 MG/1 ML ML ONE (18:00)
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
--- NOTE | 2017-12-30 18:31 | RADIOLOGY REPORT (SQ) ---
EXAM DESCRIPTION: KNEE LEFT 4 VIEW COMPLETED DATE/TIME: 12/30/2017 6:17 pm REASON FOR STUDY: pain left knee pain COMPARISON: None. NUMBER OF VIEWS: Four views. TECHNIQUE: AP, lateral, and both oblique radiographic images acquired of the left knee. LIMITATIONS: None. FINDINGS: MINERALIZATION: Osteopenia. BONES: No acute fracture or dislocation. No worrisome bone lesions. JOINT: There is joint space narrowing in all compartments this is most marked in the lateral compartm ent. There are prominent lateral osteophytes. SOFT TISSUES: No soft tissue swelling. No radio-opaque foreign body. OTHER: No other significant finding. IMPRESSION: Advanced osteoarthritic changes. No acute fracture or dislocation. TECHNICAL DOCUMENTATION: JOB ID: [id number] [employer]- All Rights Reserved Reading location - IP/workstation name: [email or web address]
[2017-12-30 18:54] VITALS: BP 129/89
== END 2017-12-30 18:54 | disposition home or self-care (01) ==
LOC: ER 17:01
PROC: 0M9P3ZZ Drainage of Left Knee Bursa and Ligament, Percutaneous Approach (ICD-10-PCS; principal; 2017-12-30)
DX: M25.462 Effusion, left knee (principal); M17.0 Bilateral primary osteoarthritis of knee; M25.562 Pain in left knee; M79.89 Other specified soft tissue disorders; I10 Essential (primary) hypertension; J45.909 Unspecified asthma, uncomplicated
CPT/HCPCS: 99283; 96372; 73564; 20610; J3490; J1040

== ENCOUNTER 2018-01-02 14:50 | Emergency (ER) | payer MEDICARE, MEDICAID ==
[2018-01-02 14:57] VITALS: BP 99/62
[2018-01-02] MEDS ORDERED: LIDOCAINE 5% (700 MG) TRANSDERMAL ADH..PATCH TP ONE (15:11)
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
== END 2018-01-02 15:28 | disposition home or self-care (01) ==
LOC: ER 14:50
DX: M17.12 Unilateral primary osteoarthritis, left knee (principal); M79.605 Pain in left leg; E78.00 Pure hypercholesterolemia, unspecified; I10 Essential (primary) hypertension; Z88.6 Allergy status to analgesic agent; Z88.2 Allergy status to sulfonamides; Z90.710 Acquired absence of both cervix and uterus
CPT/HCPCS: 99283

== ENCOUNTER 2018-01-04 12:26 | Emergency (ER) | payer MEDICARE, MEDICAID ==
[2018-01-04] MEDS ORDERED: IPRATROPIUM/ALBUTEROL 0.5-2.5 MG/3 ML AMPUL NEB ONE (13:09)
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
[2018-01-04 14:17] LABS: ABSOLUTE EOSINOPHILS # (AUTO) 0.1 10^3/uL (0.0-0.6); ABSOLUTE LYMPHOCYTES (AUTO) 1.3 10^3/uL (0.5-4.7); ABSOLUTE MONOCYTES (AUTO) 0.5 10^3/uL (0.1-1.4); ABSOLUTE NEUT (AUTO) 3.5 10^3/uL (1.7-8.2); BASOPHILS % (AUTO) 0.7 % (0-2); EOSINOPHILS % (AUTO) 1.7 % (0-6); HEMATOCRIT 39.7 % (36.0-47.0); HEMOGLOBIN 13.3 g/dL (12.0-15.5); LYMPHOCYTES % (AUTO) 23.9 % (13-45); MEAN CORPUSCULAR HEMOGLOBIN 30.5 pg (27.0-33.4); MEAN CORPUSCULAR HGB CONC 33.4 g/dL (32.0-36.0); MEAN CORPUSCULAR VOLUME 91 fl (80-97); PLATELET COUNT 227 10^3/uL (150-450); RED BLOOD COUNT 4.34 10^6/uL (3.72-5.28); RED CELL DISTRIBUTION WIDTH 14.9 % (11.5-14.0); SEGMENTED NEUTROPHILS % (AUTO) 64.7 % (42-78); TOTAL CELLS COUNTED % (AUTO) 100 %; WHITE BLOOD COUNT 5.4 10^3/uL (4.0-10.5)
[2018-01-04 14:30] LABS: ALANINE AMINOTRANSFERASE 20 U/L (9-52); ALBUMIN 4.1 g/dL (3.5-5.0); ALKALINE PHOSPHATASE 46 U/L (38-126); ANION GAP 9 (5-19); ASPARTATE AMINO TRANSFERASE 25 U/L (14-36); BILIRUBIN,DIRECT 0.1 mg/dL (0.0-0.4); BILIRUBIN,TOTAL 0.4 mg/dL (0.2-1.3); BLOOD UREA NITROGEN 21 mg/dL (7-20); CALCIUM 9.7 mg/dL (8.4-10.2); CARBON DIOXIDE 28 mmol/L (22-30); CHLORIDE 103 mmol/L (98-107); GLUCOSE 73 mg/dL (75-110); POTASSIUM 4.4 mmol/L (3.6-5.0); SODIUM 140.1 mmol/L (137-145); TOTAL PROTEIN 6.9 g/dL (6.3-8.2)
--- NOTE | 2018-01-04 14:30 | RADIOLOGY REPORT (SQ) ---
EXAM DESCRIPTION: CHEST SINGLE VIEW COMPLETED DATE/TIME: 01/04/2018 2:18 pm REASON FOR STUDY: cough COMPARISON: 12/09/2017 EXAM PARAMETERS: NUMBER OF VIEWS: One view. TECHNIQUE: Single frontal radiographic view of the chest acquired. RADIATION DOSE: NA LIMITATIONS: None. FINDINGS: LUNGS AND PLEURA: Hyperexpansion of the lungs. No infiltrate or effusion. No mass. MEDIASTINUM AND HILAR STRUCTURES: No masses. Contour normal. HEART AND VASCULAR STRUCTURES: Heart normal in size. Normal vasculature. BONES: No acute findings. HARDWARE: None in the chest. OTHER: No other significant finding. IMPRESSION: Chronic lung changes with no acute cardiopulmonary disease. TECHNICAL DOCUMENTATION: JOB ID: [id number] [employer]- All Rights Reserved Reading location - IP/workstation name: [email or web address]
[2018-01-04 18:38] LABS: A TYPE INFLUENZA AG NEGATIVE (NEGATIVE); B INFLUENZA AG NEGATIVE (NEGATIVE)
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
[2018-01-04 19:21] VITALS: BP 123/74
--- NOTE | 2018-01-05 08:27 | EKG REPORT ---
SEVERITY:- NORMAL ECG - SINUS RHYTHM : Confirmed by: Stu Gerard 05-Jan-2018 08:27:25
== END 2018-01-04 19:24 | disposition home or self-care (01) ==
LOC: ER 12:26
DX: B34.9 Viral infection, unspecified (principal); R53.1 Weakness; R11.0 Nausea; R10.13 Epigastric pain; R05 Cough; Z88.6 Allergy status to analgesic agent; Z88.2 Allergy status to sulfonamides; Z90.710 Acquired absence of both cervix and uterus
CPT/HCPCS: 93005; 94640; 99285; 36415; 85025; 80053; 84484; 87804; 71045; 93010; A9270; J7620

== ENCOUNTER 2018-02-05 09:35 | Emergency (ER) | payer MEDICARE, MEDICAID ==
[2018-02-05 09:47] VITALS: BP 126/66
--- NOTE | 2018-02-05 10:26 | ER Document Report ---
ED Extremity Problem, Lower - General Chief Complaint: Knee Pain Stated Complaint: KNEE PAIN Time Seen by Provider: 02/05/18 10:09 Mode of Arrival: Ambulatory Information source: Patient, [facility] Records Notes: 72-year-old female patient with chronic osteoarthritis problems in the left knee. She comes emergency room today complaining of the left knee hurting and swelling. It was hurting more this morning when she first got up when it was quite cold outside. It is not quite so painful now. TRAVEL OUTSIDE OF THE [place] IN LAST 30 DAYS: No - Related Data Allergies/Adverse Reactions: aluminum [Aluminum] Allergy (Intermediate, Verified 02/05/18 09:40) aspirin [Aspirin] Allergy (Intermediate, Verified 02/05/18 09:40) iodine Allergy (Verified 02/05/18 09:40) Sulfa (Sulfonamide Antibiotics) Allergy (Verified 02/05/18 09:40) Past Medical History - General Information source: Patient, [facility] Records - Social History Smoking Status: Never Smoker Cigarette use (# per day): No Chew tobacco use (# tins/day): No Smoking Education Provided: No Frequency of alcohol use: None Lives with: Alone Family History: Reviewed & Not Pertinent, Hypertension Patient has suicidal ideation: No Patient has homicidal ideation: No - Past Medical History Cardiac Medical History: Reports: Hx Hypercholesterolemia, Hx Hypertension Pulmonary Medical History: Reports: Hx Asthma, Hx Bronchitis GI Medical History: Reports: Hx Gastroesophageal Reflux Disease Musculoskeletal Medical History: Reports Hx Arthritis, Reports Hx Musculoskeletal Trauma Past Surgical History: Reports: Hx Hysterectomy, Hx Orthopedic Surgery - left foot - Immunizations Immunizations up to date: Yes Hx Diphtheria, Pertussis, Tetanus Vaccination: Yes Hx Pneumococcal Vaccination: 03/16/09 Review of Systems - Review of Systems Constitutional: No symptoms reported EENT: No symptoms reported Cardiovascular: No symptoms reported Respiratory: No symptoms reported Gastrointestinal: No symptoms reported Genitourinary: No symptoms reported Female Genitourinary: Post menopausal Musculoskeletal: Joint pain Skin: No symptoms reported Hematologic/Lymphatic: No symptoms reported Neurological/Psychological: No symptoms reported Physical Exam - Vital signs Vitals: Temp Pulse Resp BP Pulse Ox 97.4 F 60 16 126/66 H 98 02/05/18 09:44 02/05/18 09:44 02/05/18 09:44 02/05/18 09:44 02/05/18 09:44 Interpretation: Normal - General General appearance: Appears well, Alert - HEENT Head: Normocephalic, Atraumatic Eyes: Normal Pupils: PERRL Neck: Normal - Respiratory Respiratory status: No respiratory distress Breath sounds: Normal - Cardiovascular Rhythm: Regular Heart sounds: Normal auscultation Murmur: No - Abdominal Inspection: Normal - Back Back: Normal - Extremities General upper extremity: Normal inspection General lower extremity: Other - Left knee is a little swollen and tender to palpate. Patient reports it was worse earlier this morning. There is no erythema, or warmth noted. - Neurological Neuro grossly intact: Yes - Psychological Associated symptoms: Normal affect, Normal mood, Other - I have known this patient for many years through the emergency room. She has always been somewhat mentally slow. I cannot tell if she is really any different than her baseline over the last 30 years, or if she is perhaps becoming somewhat demented now. - Skin Skin Temperature: Warm Skin Moisture: Dry Skin Color: Normal Course - Vital Signs Vital signs: Temp Pulse Resp BP Pulse Ox 97.4 F 60 16 126/66 H 98 02/05/18 09:44 02/05/18 09:44 02/05/18 09:44 02/05/18 09:44 02/05/18 09:44 Discharge - Discharge Clinical Impression: Osteoarthritis of left knee Qualifiers: Osteoarthritis type: primary Qualified Code(s): M17.12 - Unilateral primary osteoarthritis, left knee Condition: Stable Disposition: HOME, SELF-CARE Additional Instructions: Osteoarthritis of The Left Knee: Your symptoms are due to osteoarthritis. Osteoarthritis is inflammation caused by "wear and tear" of the joints. There is no cure for osteoarthritis, but medicine can help the pain and stiffness. It's important to keep the joints moving. Move the joints through their full range daily. Light exercise helps, but if exercise hurts, switch to a non-impact exercise like swimming. Local warmth may help ease pain. Call or return if any joint becomes severely swollen or increasingly painful, or if you have fever or spreading redness. Call the [facility] for Surgery and asked to have an appointment scheduled with Dr. Soto to evaluate and treat your left knee arthritis. Referrals: MARLINE SOTO MD [ACTIVE STAFF] - Follow up in 3-5 days (Call the office on Thursday to schedule an appointment with Dr. Soto.)
== END 2018-02-05 10:28 | disposition home or self-care (01) ==
LOC: ER 09:35
DX: M17.12 Unilateral primary osteoarthritis, left knee (principal); M25.562 Pain in left knee; M79.89 Other specified soft tissue disorders; I10 Essential (primary) hypertension; J45.909 Unspecified asthma, uncomplicated
CPT/HCPCS: 99283

== ENCOUNTER 2018-02-28 15:28 | Emergency (ER) | payer MEDICARE, MEDICAID ==
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
--- NOTE | 2018-02-28 21:06 | RADIOLOGY REPORT (SQ) ---
EXAM DESCRIPTION: XR KNEE 4 OR MORE VIEWS COMPLETED DATE/TME: 02/28/2018 20:10 CLINICAL HISTORY: 72 years, Female, fall Findings: Bony alignment is anatomic. No fracture or dislocation. Severe lateral tibiofemoral compartment degenerative changes. No significant joint effusion. Bones are osteopenic. Soft tissues are unremarkable. IMPRESSION: No fracture. Severe degenerative changes.
--- NOTE | 2018-02-28 21:14 | RADIOLOGY REPORT (SQ) ---
EXAM DESCRIPTION: XR KNEE 4 OR MORE VIEWS COMPLETED DATE/TME: 02/28/2018 20:10 CLINICAL HISTORY: 72 years, Female, fall COMPARISON: Bilateral knee x-ray performed on 09/21/2015 NUMBER OF VIEWS: Four TECHNIQUE: One AP, two oblique and one lateral view of the right knee joint. LIMITATIONS: None. FINDINGS: Knee joint alignment is maintained. No fracture. Mild to moderate tricompartmental knee joint degenerative changes, worse on the lateral compartment with narrowing of the joint space and osteophyte formation. Findings are progressed when compared to previous x-ray on 09/21/2015. Are No suprapatellar joint effusion. Vascular calcifications are noted. IMPRESSION: 1. No acute osseous finding of the right knee joint. 2. Mild to moderate right knee joint degenerative changes, progressed when compared to x-ray performed back on 09/21/2015. copyright 2010 [employer]- All Rights Reserved
--- NOTE | 2018-02-28 21:19 | RADIOLOGY REPORT (SQ) ---
EXAM DESCRIPTION: XR FOOT 3 OR MORE VIEWS BILATERAL COMPLETED DATE/TME: 02/28/2018 20:11 CLINICAL HISTORY: 72 years, Female, fall Findings: Bony alignment is anatomic. No fracture or dislocation. Soft tissues are unremarkable. IMPRESSION: No fracture.
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
[2018-02-28 22:59] VITALS: BP 114/73
== END 2018-02-28 23:01 | disposition home or self-care (01) ==
LOC: ER 15:28
DX: M17.0 Bilateral primary osteoarthritis of knee (principal); J06.9 Acute upper respiratory infection, unspecified; M79.10 Myalgia, unspecified site; M79.672 Pain in left foot; M79.671 Pain in right foot; Z88.6 Allergy status to analgesic agent
CPT/HCPCS: 99283

== ENCOUNTER 2018-05-12 16:21 | Emergency (ER) | payer MEDICARE, MEDICAID ==
--- NOTE | 2018-05-12 16:54 | ER Document Report ---
ED Medical Screen (RME) - General Chief Complaint: Congestion Stated Complaint: BACK PAIN,SORE THROAT,EYE PAIN Time Seen by Provider: 05/12/18 16:54 TRAVEL OUTSIDE OF THE [place] IN LAST 30 DAYS: No - HPI Notes: 05/12/18 16:59 Patient is a 72-year-old female with no significant cardiopulmonary medical history presents the emergency department complaining of nasal congestion/discharge, sore throat, dry nonproductive cough, hoarseness in her voice over the last day. Denies any headache, fever, neck pain, chest pain, palpitations, syncope, shortness of breath, wheeze, dyspnea, abdominal pain, nausea/vomiting/diarrhea, urinary retention, dysuria, hematuria, or rash. I have treated and performed a rapid initial assessment of this patient. A comprehensive ED assessment and evaluation of the patient, analysis of test results and completion of medical decision making process will be conducted by additional ED providers. PHYSICAL EXAMINATION: GENERAL: Well-appearing, well-nourished and in no acute distress. A&Ox4. pt does not want to speak above a very soft whisper HEAD: Atraumatic, normocephalic. EYES: Pupils equal round and reactive to light, extraocular movements intact, sclera anicteric, conjunctiva are normal. ENT: Nares patent and with clear discharge. sounds congested in the nose. oropharynx no erythema without exudates. No tonsilar hypertrophy with mild erythema no exudate. No palatine shift. Uvula midline. No tongue protrusion. No drooling or airway compromise. Moist mucous membranes. No sinus tenderness. NECK: Normal range of motion, supple without lymphadenopathy. No rigidity/meningismus. LUNGS: Breath sounds clear to auscultation bilaterally and equal. No wheezes rales or rhonchi. No retractions HEART: Regular rate and rhythm without murmurs, rubs, gallops. PSYCH: Normal mood, normal affect. SKIN: Warm, Dry, normal turgor, no rashes or lesions noted. - Related Data Allergies/Adverse Reactions: aluminum [Aluminum] Allergy (Intermediate, Verified 05/12/18 16:26) aspirin [Aspirin] Allergy (Intermediate, Verified 05/12/18 16:26) iodine Allergy (Verified 05/12/18 16:26) Sulfa (Sulfonamide Antibiotics) Allergy (Verified 05/12/18 16:26) Past Medical History - Past Medical History Cardiac Medical History: Reports: Hx Hypercholesterolemia, Hx Hypertension Pulmonary Medical History: Reports: Hx Asthma, Hx Bronchitis Renal/ Medical History: Denies: Hx Peritoneal Dialysis GI Medical History: Reports: Hx Gastroesophageal Reflux Disease Musculoskeltal Medical History: Reports Hx Arthritis, Reports Hx Musculoskeletal Trauma Past Surgical History: Reports: Hx Hysterectomy, Hx Orthopedic Surgery - left foot - Immunizations Immunizations up to date: Yes Hx Diphtheria, Pertussis, Tetanus Vaccination: Yes History of Influenza Vaccine for 12/2016 - 05/2017 Season: No Physical Exam - Vital signs Vitals: Temp Pulse Resp BP Pulse Ox 98.9 F 70 16 124/77 100 05/12/18 16:42 05/12/18 16:42 05/12/18 16:42 05/12/18 16:42 05/12/18 16:42 Course - Vital Signs Vital signs: Temp Pulse Resp BP Pulse Ox 98.9 F 70 16 124/77 100 05/12/18 16:42 05/12/18 16:42 05/12/18 16:42 05/12/18 16:42 05/12/18 16:42
[2018-05-12] MEDS ORDERED: LIDOCAINE 2% VISCOUS SOLN 20 ML UDCUP PO ONE (17:29)
--- NOTE | 2018-05-12 17:31 | ER Document Report ---
HPI - HPI Patient complains to provider of: Sore throat, congestion Time Seen by Provider: 05/12/18 16:54 Onset: This morning Onset/Duration: Gradual Quality of pain: Achy Pain Level: 5 Context: Patient presents with sore throat, congestion dry cough that started today. Patient refuses to talk and is communicating only by writing down her symptoms on paperwork. Patient spitting out her saliva. Associated Symptoms: Body/muscle aches, Nonproductive cough, Rhinnorhea, Sore throat. denies: Fever, Nausea, Vomiting Exacerbated by: Denies Relieved by: Denies Similar symptoms previously: No Recently seen / treated by doctor: No - ROS ROS below otherwise negative: Yes Systems Reviewed and Negative: Yes All other systems reviewed and negative - CONSTITUTIONAL Constitutional: DENIES: Fever, Chills - EENT EENT: REPORTS: Sore Throat, Congestion - CARDIOVASCULAR Cardiovascular: DENIES: Chest pain - RESPIRATORY Respiratory: REPORTS: Coughing. DENIES: Trouble Breathing - GASTROINTESTINAL Gastrointestinal: DENIES: Nausea, Patient vomiting - REPRODUCTIVE Reproductive: DENIES: : - MUSCULOSKELETAL Musculoskeletal: DENIES: Back Pain - DERM Skin Color: Normal Skin Problems: None Past Medical History - General Information source: Patient - Social History Smoking Status: Never Smoker Chew tobacco use (# tins/day): No Frequency of alcohol use: None Drug Abuse: None Lives with: Alone Family History: Reviewed & Not Pertinent, Hypertension Patient has suicidal ideation: No Patient has homicidal ideation: No - Past Medical History Cardiac Medical History: Reports: Hx Hypercholesterolemia, Hx Hypertension Pulmonary Medical History: Reports: Hx Asthma, Hx Bronchitis Renal/ Medical History: Denies: Hx Peritoneal Dialysis GI Medical History: Reports: Hx Gastroesophageal Reflux Disease Musculoskeletal Medical History: Reports Hx Arthritis, Reports Hx Musculoskeletal Trauma Past Surgical History: Reports: Hx Hysterectomy, Hx Orthopedic Surgery - left foot - Immunizations Immunizations up to date: Yes Hx Diphtheria, Pertussis, Tetanus Vaccination: Yes Hx Pneumococcal Vaccination: 03/16/09 Vertical Provider Document - CONSTITUTIONAL Agree With Documented VS: Yes Exam Limitations: No Limitations General Appearance: WD/WN, No Apparent Distress - INFECTION CONTROL TRAVEL OUTSIDE OF THE [place] IN LAST 30 DAYS: No - HEENT HEENT: Atraumatic, Normocephalic, Pharyngeal Tenderness, Pharyngeal Erythema. negative: Pharyngeal Exudate - NECK Neck: Normal Inspection, Supple. negative: Lymphadenopathy-Left, Lymphadenopathy-Right - RESPIRATORY Respiratory: Breath Sounds Normal, No Respiratory Distress - CARDIOVASCULAR Cardiovascular: Regular Rate, Regular Rhythm - MUSCULOSKELETAL/EXTREMETIES Musculoskeletal/Extremeties: MAEW - NEURO Level of Consciousness: Awake, Alert, Appropriate Motor/Sensory: No Motor Deficit - DERM Integumentary: Warm, Dry, No Rash Course - Re-evaluation Re-evalutation: 05/12/18 17:30 Patient refuses to attempt speech. Patient continually spitting out saliva. Patient repeatedly writing that her throat hurts and that her nose is stuffed up and she wants treatment to relieve this. 05/12/18 18:03 Patient did answer a few short questions, speech sounded normal, patient managing oral secretions. 05/12/18 19:47 Patient reports feeling much better after Afrin nasal spray in addition to the oral lidocaine to help with her throat discomfort. Patient is talking with normal voice and managing oral secretions. Patient advised of incidental finding of a frontal lobe mass noted on CT scan. Patient will be given a copy of the scan report and encouraged to follow-up with her primary doctor who appears to be Dr. Garsia based on patient's previous visits. Patient lives alone and her emergency contact was unable to be reached as her number had been d isconnected. Consulted with Dr. Connolly guarding patient CT report. Does not recommend any additional testing here but recommends outpatient follow-up with patient's primary doctor. - Vital Signs Vital signs: Temp Pulse Resp BP Pulse Ox 98.9 F 70 16 124/77 100 05/12/18 16:42 05/12/18 16:42 05/12/18 16:42 05/12/18 16:42 05/12/18 16:42 - Laboratory Result Diagrams: 05/12/18 17:52 05/12/18 17:52 Laboratory results interpreted by me: 05/12/18 19:49 Labs- Entire Visit 05/12/18 05/12/18 05/12/18 17:52 17:52 17:52 WBC 6.3 RBC 4.50 Hgb 13.7 Hct 41.7 MCV 93 MCH 30.6 MCHC 33.0 RDW 14.2 H Plt Count 177 Seg Neutrophils % 78.2 H Lymphocytes % 12.0 L Monocytes % 7.6 Eosinophils % 1.7 Basophils % 0.5 Absolute Neutrophils 4.9 Absolute Lymphocytes 0.8 Absolute Monocytes 0.5 Absolute Eosinophils 0.1 Absolute Basophils 0.0 Sodium 143.4 Potassium 4.6 Chloride 106 Carbon Dioxide 30 Anion Gap 7 BUN 23 H Creatinine 0.66 Est GFR ( Amer) > 60 Est GFR (Non-Af Amer) > 60 Glucose 86 Calcium 9.6 Monotest NEGATIVE Influenza A (Rapid) Influenza B (Rapid) Group A Strep Rapid 05/12/18 05/12/18 17:52 17:52 WBC RBC Hgb Hct MCV MCH MCHC RDW Plt Count Seg Neutrophils % Lymphocytes % Monocytes % Eosinophils % Basophils % Absolute Neutrophils Absolute Lymphocytes Absolute Monocytes Absolute Eosinophils Absolute Basophils Sodium Potassium Chloride Carbon Dioxide Anion Gap BUN Creatinine Est GFR ( Amer) Est GFR (Non-Af Amer) Glucose Calcium Monotest Influenza A (Rapid) NEGATIVE Influenza B (Rapid) NEGATIVE Group A Strep Rapid NEGATIVE - Diagnostic Test Radiology reviewed: Image reviewed Discharge - Discharge Clinical Impression: Sore throat (viral), Nasal congestion, Left frontal lobe mass Condition: Stable Disposition: HOME, SELF-CARE Instructions: Acetaminophen, Growth or Mass, Pending Workup ([facility]), Sore Throat ([facility]), Upper Respiratory Illness ([facility]) Additional Instructions: Return immediately for any new or worsening symptoms Followup with your primary care provider, Dr Garsia, call tomorrow to make a followup appointment Your CT scan today showed that you have a mass in your brain on the left side. You should follow-up with your primary doctor so that they can further evaluate this and make referrals for you. It is important that you have timely follow-up regarding this finding. Throat culture is pending, we will call if you need any different treatment Only use the Afrin nasal spray 1 spray into each nostril twice a day for 3 days. Do not use the Afrin nasal spray after 3 days as it can cause nasal congestion symptoms at that time. You may take [id number] Coricidin HBP as directed to help with sinus congestion symptoms. Take Tylenol [id number] to help with your pain symptoms. A referral will be made toward assortment planner Rolando Munoz who will be in contact with you. Her office number is [phone]. Referrals: TRINA GARSIA MD [COMMUNITY BASED STAFF] - Follow up tomorrow
--- NOTE | 2018-05-12 17:37 | RADIOLOGY REPORT (SQ) ---
EXAM DESCRIPTION: CHEST 2 VIEWS COMPLETED DATE/TIME: 05/12/2018 5:23 pm REASON FOR STUDY: cough COMPARISON: 01/04/2018 EXAM PARAMETERS: NUMBER OF VIEWS: two views TECHNIQUE: Digital Frontal and Lateral radiographic views of the chest acquired. RADIATION DOSE: NA LIMITATIONS: none FINDINGS: LUNGS AND PLEURA: No opacities, masses or pneumothorax. No pleural effusion. MEDIASTINUM AND HILAR STRUCTURES: No masses or contour abnormalities. HEART AND VASCULAR STRUCTURES: Heart normal size. No evidence for failure. BONES: No acute findings. HARDWARE: None in the chest. OTHER: No other significant finding. IMPRESSION: NO ACUTE RADIOGRAPHIC FINDING IN THE CHEST. TECHNICAL DOCUMENTATION: JOB ID: [id number] [employer]- All Rights Reserved Reading location - IP/workstation name: [email or web address]
[2018-05-12] MEDS ORDERED: OXYMETAZOLINE HCL 0.05% NASAL SPRAY 15 ML BOTTLE NASL ONE (17:55)
[2018-05-12 18:12] LABS: ABSOLUTE EOSINOPHILS # (AUTO) 0.1 10^3/uL (0.0-0.6); ABSOLUTE LYMPHOCYTES (AUTO) 0.8 10^3/uL (0.5-4.7); ABSOLUTE MONOCYTES (AUTO) 0.5 10^3/uL (0.1-1.4); ABSOLUTE NEUT (AUTO) 4.9 10^3/uL (1.7-8.2); BASOPHILS % (AUTO) 0.5 % (0-2); EOSINOPHILS % (AUTO) 1.7 % (0-6); HEMATOCRIT 41.7 % (36.0-47.0); HEMOGLOBIN 13.7 g/dL (12.0-15.5); MEAN CORPUSCULAR HEMOGLOBIN 30.6 pg (27.0-33.4); MEAN CORPUSCULAR VOLUME 93 fl (80-97); MONOCYTES % (AUTO) 7.6 % (3-13); PLATELET COUNT 177 10^3/uL (150-450); RED CELL DISTRIBUTION WIDTH 14.2 % (11.5-14.0); SEGMENTED NEUTROPHILS % (AUTO) 78.2 % (42-78); TOTAL CELLS COUNTED % (AUTO) 100 %; WHITE BLOOD COUNT 6.3 10^3/uL (4.0-10.5)
[2018-05-12 18:25] LABS: ANION GAP 7 (5-19); BLOOD UREA NITROGEN 23 mg/dL (7-20); CALCIUM 9.6 mg/dL (8.4-10.2); CARBON DIOXIDE 30 mmol/L (22-30); CHLORIDE 106 mmol/L (98-107); GLUCOSE 86 mg/dL (75-110); POTASSIUM 4.6 mmol/L (3.6-5.0); SODIUM 143.4 mmol/L (137-145)
[2018-05-12 18:52] LABS: A TYPE INFLUENZA AG NEGATIVE (NEGATIVE); B INFLUENZA AG NEGATIVE (NEGATIVE)
--- NOTE | 2018-05-12 19:28 | RADIOLOGY REPORT (SQ) ---
EXAM DESCRIPTION: CT SOFT TISSUE NECK WITH COMPLETED DATE/TIME: 05/12/2018 7:05 pm REASON FOR STUDY: throat pain, diff speaking/swallowing COMPARISON: None. TECHNIQUE: Post IV contrasted scanning from skull base through lung apices with review of bone, soft tissue and lung windows. Reconstructed coronal and sagittal MPR images reviewed. All images stored on PACS. All CT scanners at this facility use dose modulation, iterative reconstruction, and/or weight based d osing when appropriate to reduce radiation dose to as low as reasonably achievable (ALARA). [facility]: Dose Right [facility]: CareDose [facility]: Dose Right [facility]: Teradose 4D [facility]: [employer] CONTRAST TYPE AND DOSE: contrast/concentration: Isovue 350.00 mg/ml; Total Contrast Delivered: 75.0 ml; Total Saline Delivered: 55.0 ml RENAL FUNCTION: BUN 23 creatinine 0.66 RADIATION DOSE: CT Rad equipment meets quality standard of care and radiation dose reduction techniq ues were employed. CTDIvol: 6.0 mGy. DLP: 180 mGy-cm. . LIMITATIONS: None. FINDINGS: SKULL BASE: There is a partially calcified 22 x 27 mm mass in the base of the left frontal lobe. There does not appear to be significant associated edema. MAJOR SALIVARY GLANDS: No solid or cystic masses. No inflammatory changes. LYMPHADENOPATHY: No adenopathy. MUCOSAL MASSES OR ASYMMETRY: No mucosal masses or asymmetry. LARYNX/CORDS: No abnormal findings. VASCULAR STRUCTURES: The major vessels are patent. LUNG APICES: Clear. BONES: Degenerative disc changes at C4-5 and C5-6. THYROID: Normal size. No masses. PARANASAL SINUSES: Clear. OTHER: No other significant finding. IMPRESSION: 1. 22 x 27 mm mass in the base of the left frontal lobe appears to be partially calcifi ed. May represent a meningioma. There does not appear to be peritumoral edema. Other neoplasms are not excluded. 2. No significant finding is seen in the neck. TECHNICAL DOCUMENTATION: JOB ID: [id number] Quality ID # [id number]: Final reports with documentation of one or more dose reduction techniques (e.g., Au tomated exposure control, adjustment of the mA and/or kV according to patient size, use of iterative reconstruction technique) 2010 [employer]- All Rights Reserved Reading location - IP/workstation name: [email or web address]
[2018-05-12 20:13] VITALS: BP 138/76
== END 2018-05-12 20:13 | disposition home or self-care (01) ==
LOC: ER 16:21
DX: J02.8 Acute pharyngitis due to other specified organisms (principal); B97.89 Other viral agents as the cause of diseases classified elsewhere; R22.0 Localized swelling, mass and lump, head; R09.81 Nasal congestion; R05 Cough; M79.10 Myalgia, unspecified site; J34.89 Other specified disorders of nose and nasal sinuses; I10 Essential (primary) hypertension; J45.909 Unspecified asthma, uncomplicated
CPT/HCPCS: 99284; 36415; 87070; 87880; 85025; 86308; 80048; 87804; 71046; 70491; J3490 ×2

== ENCOUNTER → 2018-06-08 | Outpatient (CLI) | payer MEDICARE, MEDICAID ==
[2018-06-08 11:11] LABS: ABSOLUTE EOSINOPHILS # (AUTO) 0.1 10^3/uL (0.0-0.6); ABSOLUTE MONOCYTES (AUTO) 0.4 10^3/uL (0.1-1.4); ABSOLUTE NEUT (AUTO) 2.6 10^3/uL (1.7-8.2); BASOPHILS % (AUTO) 0.7 % (0-2); EOSINOPHILS % (AUTO) 3.4 % (0-6); HEMATOCRIT 38.9 % (36.0-47.0); HEMOGLOBIN 13.1 g/dL (12.0-15.5); LYMPHOCYTES % (AUTO) 24.3 % (13-45); MEAN CORPUSCULAR HEMOGLOBIN 30.9 pg (27.0-33.4); MEAN CORPUSCULAR HGB CONC 33.8 g/dL (32.0-36.0); MEAN CORPUSCULAR VOLUME 91 fl (80-97); MONOCYTES % (AUTO) 10.5 % (3-13); PLATELET COUNT 212 10^3/uL (150-450); RED BLOOD COUNT 4.25 10^6/uL (3.72-5.28); RED CELL DISTRIBUTION WIDTH 14.4 % (11.5-14.0); SEGMENTED NEUTROPHILS % (AUTO) 61.1 % (42-78); TOTAL CELLS COUNTED % (AUTO) 100 %; WHITE BLOOD COUNT 4.2 10^3/uL (4.0-10.5)
--- NOTE | 2018-06-08 11:18 | RADIOLOGY REPORT (SQ) ---
EXAM DESCRIPTION: CHEST PA/LATERAL COMPLETED DATE/TIME: 06/08/2018 11:00 am REASON FOR STUDY: WHEEZING COMPARISON: 05/12/2018 EXAM PARAMETERS: NUMBER OF VIEWS: two views TECHNIQUE: Digital Frontal and Lateral radiographic views of the chest acquired. RADIATION DOSE: NA LIMITATIONS: none FINDINGS: LUNGS AND PLEURA: No opacities, masses or pneumothorax. No pleural effusion. MEDIASTINUM AND HILAR STRUCTURES: No masses or contour abnormalities. HEART AND VASCULAR STRUCTURES: Heart normal size. No evidence for failure. BONES: No acute findings. HARDWARE: None in the chest. OTHER: No other significant finding. IMPRESSION: NO SIGNIFICANT RADIOGRAPHIC FINDING IN THE CHEST. TECHNICAL DOCUMENTATION: JOB ID: [id number] [employer]- All Rights Reserved Reading location - IP/workstation name: [email or web address]
[2018-06-08 11:31] LABS: ALANINE AMINOTRANSFERASE 17 U/L (9-52); ALKALINE PHOSPHATASE 44 U/L (38-126); ANION GAP 9 (5-19); ASPARTATE AMINO TRANSFERASE 23 U/L (14-36); BILIRUBIN,DIRECT 0.2 mg/dL (0.0-0.4); BILIRUBIN,TOTAL 0.6 mg/dL (0.2-1.3); BLOOD UREA NITROGEN 24 mg/dL (7-20); CARBON DIOXIDE 28 mmol/L (22-30); CHLORIDE 104 mmol/L (98-107); GLUCOSE 67 mg/dL (75-110); POTASSIUM 4.4 mmol/L (3.6-5.0); SODIUM 140.9 mmol/L (137-145)
== END ==
LOC: OD 10:18
PROVIDERS: ATTEND Family Medicine Geriatric Medicine
DX: I10 Essential (primary) hypertension (principal); E78.5 Hyperlipidemia, unspecified; J30.9 Allergic rhinitis, unspecified; R06.2 Wheezing; Z79.899 Other long term (current) drug therapy
CPT/HCPCS: 36415; 71046; 80053; 84443; 85025

== ENCOUNTER → 2018-06-09 | Outpatient (CLI) | payer MEDICARE, MEDICAID ==
[2018-06-09 10:15] LABS: TRIGLYCERIDES 48 mg/dL (<150)
[2018-06-09 10:26] LABS: DIRECT LDL 114 mg/dL (<100)
== END ==
LOC: OD 08:44
PROVIDERS: ATTEND Family Medicine Geriatric Medicine
DX: I10 Essential (primary) hypertension (principal); E78.5 Hyperlipidemia, unspecified; J30.9 Allergic rhinitis, unspecified; Z79.899 Other long term (current) drug therapy
CPT/HCPCS: 80061

== ENCOUNTER 2018-09-03 11:19 | Emergency (ER) | payer MEDICARE, MEDICAID ==
--- NOTE | 2018-09-03 12:32 | ER Document Report ---
ED Medical Screen (RME) - General Chief Complaint: Dizziness Stated Complaint: DIZZINESS Time Seen by Provider: 09/03/18 12:15 Primary Care Provider: TRINA GARCIA MD [Primary Care Provider] - Follow up as needed Mode of Arrival: Ambulatory Information source: Patient Notes: Patient presents today complaining of cold symptoms that she has had for several months. Patient states today she developed dizziness. Patient had abdominal pain earlier today at home but states the abdominal pain is since resolved. Patient also reports right arm pain and headache. Patient denies any nausea or vomiting. Patient poor historian I have greeted and performed a rapid initial assessment of this patient. A comprehensive ED assessment and evaluation of the patient, analysis of test results and completion of the medical decision making process will be conducted by additional ED providers. TRAVEL OUTSIDE OF THE [place] IN LAST 30 DAYS: No - Related Data Allergies/Adverse Reactions: aluminum [Aluminum] Allergy (Intermediate, Verified 05/12/18 16:26) aspirin [Aspirin] Allergy (Intermediate, Verified 05/12/18 16:26) iodine Allergy (Verified 05/12/18 16:26) Sulfa (Sulfonamide Antibiotics) Allergy (Verified 05/12/18 16:26) Past Medical History - Past Medical History Cardiac Medical History: Reports: Hx Hypercholesterolemia, Hx Hypertension Pulmonary Medical History: Reports: Hx Asthma, Hx Bronchitis Renal/ Medical History: Denies: Hx Peritoneal Dialysis GI Medical History: Reports: Hx Gastroesophageal Reflux Disease Musculoskeltal Medical History: Reports Hx Arthritis, Reports Hx Musculoskeletal Trauma Past Surgical History: Reports: Hx Hysterectomy, Hx Orthopedic Surgery - left foot - Immunizations Immunizations up to date: Yes Hx Diphtheria, Pertussis, Tetanus Vaccination: Yes History of Influenza Vaccine for 12/2016 - 05/2017 Season: No Physical Exam - Vital signs Vitals: Temp Pulse Resp BP Pulse Ox 98.1 F 57 L 16 108/73 100 09/03/18 11:36 09/03/18 11:36 09/03/18 11:36 09/03/18 11:36 09/03/18 11:36 - General General appearance: Alert Notes: Patient with productive cough, respirations unlabored. Course - Vital Signs Vital signs: Temp Pulse Resp BP Pulse Ox 98.1 F 57 L 16 108/73 100 09/03/18 11:36 09/03/18 11:36 09/03/18 11:36 09/03/18 11:36 09/03/18 11:36 Doctor's Discharge - Discharge Referrals: TRINA GARCIA MD [Primary Care Provider] - Follow up as needed
--- NOTE | 2018-09-03 13:14 | RADIOLOGY REPORT (SQ) ---
EXAM DESCRIPTION: CHEST 2 VIEWS COMPLETED DATE/TIME: 09/03/2018 1:02 pm REASON FOR STUDY: cough COMPARISON: 06/08/2018 EXAM PARAMETERS: NUMBER OF VIEWS: two views TECHNIQUE: Digital Frontal and Lateral radiographic views of the chest acquired. RADIATION DOSE: NA LIMITATIONS: none FINDINGS: LUNGS AND PLEURA: Hyperexpansion of the lungs. No infiltrate, effusion, or mass. MEDIASTINUM AND HILAR STRUCTURES: No masses or contour abnormalities. HEART AND VASCULAR STRUCTURES: Heart normal size. No evidence for failure. BONES: No acute findings. HARDWARE: None in the chest. OTHER: No other significant finding. IMPRESSION: Chronic lung changes with no acute cardiopulmonary finding. TECHNICAL DOCUMENTATION: JOB ID: [id number] [employer]- All Rights Reserved Reading location - IP/workstation name: [email or web address]
--- NOTE | 2018-09-03 13:21 | RADIOLOGY REPORT (SQ) ---
EXAM DESCRIPTION: CT HEAD WITHOUT COMPLETED DATE/TIME: 09/03/2018 1:07 pm REASON FOR STUDY: LOO COMPARISON: None. TECHNIQUE: Axial images acquired through the brain without intravenous contrast. Images reviewed wi th bone, brain and subdural windows. Additional sagittal and coronal reconstructions were generated. Images stored on PACS. All CT scanners at this facility use dose modulation, iterative reconstruction, and/or weight based d osing when appropriate to reduce radiation dose to as low as reasonably achievable (ALARA). [facility]: Dose Right [facility]: CareDose [facility]: Dose Right [facility]: Teradose 4D [facility]: [employer] RADIATION DOSE: CT Rad equipment meets quality standard of care and radiation dose reduction techniq ues were employed. CTDIvol: 53.2 mGy. DLP: 1124 mGy-cm. mGy. LIMITATIONS: None. FINDINGS: VENTRICLES: Prominent ventricles secondary to involutional atrophy. CEREBRUM: Stable 26.9 mm calcified left basal meningioma. No hemorrhage. No midline shift. No evid ence for acute infarction. 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 Few scattered areas of low density in the wh ite matter most likely chronic small vessel ischemic changes. CEREBELLUM: No masses. No hemorrhage. No alteration of density. No evidence for acute infarction. EXTRAAXIAL SPACES: No fluid collections. No masses. ORBITS AND GLOBE: No intra- or extraconal masses. Normal contour of globe without masses. CALVARIUM: No fracture. PARANASAL SINUSES: No fluid or mucosal thickening. SOFT TISSUES: No mass or hematoma. OTHER: No other significant finding. IMPRESSION: Mild involutional changes with mild chronic microvascular ischemia. Stable calcified me ningioma. 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 No acute intracranial imaging findings. EVIDENCE OF ACUTE STROKE: NO. COMMENT: Quality ID # [id number]: Final reports with documentation of one or more dose reduction techniques (e.g., Automated exposure control, adjustment of the mA and/or kV according to patient size, use of iterative reconstruction technique) TECHNICAL DOCUMENTATION: JOB ID: [id number] [employer]- All Rights Reserved Reading location - IP/workstation name: [email or web address]
[2018-09-03 13:35] LABS: ABSOLUTE BASOPHILS # (AUTO) 0.1 10^3/uL (0.0-0.2); ABSOLUTE EOSINOPHILS # (AUTO) 0.2 10^3/uL (0.0-0.6); ABSOLUTE LYMPHOCYTES (AUTO) 1.2 10^3/uL (0.5-4.7); ABSOLUTE MONOCYTES (AUTO) 0.4 10^3/uL (0.1-1.4); ABSOLUTE NEUT (AUTO) 3.4 10^3/uL (1.7-8.2); BASOPHILS % (AUTO) 1.1 % (0-2); EOSINOPHILS % (AUTO) 3.9 % (0-6); HEMATOCRIT 40.8 % (36.0-47.0); HEMOGLOBIN 13.7 g/dL (12.0-15.5); LYMPHOCYTES % (AUTO) 22.7 % (13-45); MEAN CORPUSCULAR HGB CONC 33.6 g/dL (32.0-36.0); MEAN CORPUSCULAR VOLUME 92 fl (80-97); MONOCYTES % (AUTO) 7.7 % (3-13); PLATELET COUNT 265 10^3/uL (150-450); RED BLOOD COUNT 4.43 10^6/uL (3.72-5.28); RED CELL DISTRIBUTION WIDTH 14.4 % (11.5-14.0); SEGMENTED NEUTROPHILS % (AUTO) 64.6 % (42-78); TOTAL CELLS COUNTED % (AUTO) 100 %; WHITE BLOOD COUNT 5.2 10^3/uL (4.0-10.5)
[2018-09-03 15:49] LABS: ALANINE AMINOTRANSFERASE 26 U/L (9-52); ALBUMIN 4.2 g/dL (3.5-5.0); ALKALINE PHOSPHATASE 43 U/L (38-126); ANION GAP 6 (5-19); ASPARTATE AMINO TRANSFERASE 27 U/L (14-36); BILIRUBIN,DIRECT 0.2 mg/dL (0.0-0.4); BILIRUBIN,TOTAL 0.4 mg/dL (0.2-1.3); BLOOD UREA NITROGEN 22 mg/dL (7-20); CALCIUM 9.9 mg/dL (8.4-10.2); CARBON DIOXIDE 29 mmol/L (22-30); CHLORIDE 104 mmol/L (98-107); GLUCOSE 81 mg/dL (75-110); LIPASE 129.5 U/L (23-300); POTASSIUM 4.9 mmol/L (3.6-5.0); SODIUM 138.9 mmol/L (137-145); TOTAL PROTEIN 7.1 g/dL (6.3-8.2)
--- NOTE | 2018-09-03 16:48 | ER Document Report ---
ED General - General Chief Complaint: Dizziness Stated Complaint: DIZZINESS Time Seen by Provider: 09/03/18 12:15 Primary Care Provider: TRINA GARCIA MD [Primary Care Provider] - Follow up in 3-5 days Mode of Arrival: Ambulatory Information source: Patient Notes: This is a pleasant 73-year-old female who presents to the emergency room with dizziness and some nausea this morning. She states that her symptoms have resolved. She denies any fever, chills, dysuria or abdominal pain. She denies any headache. TRAVEL OUTSIDE OF THE [place] IN LAST 30 DAYS: No - HPI Onset: This morning Onset/Duration: Gradual Quality of pain: No pain Severity: None Pain Level: Denies Associated symptoms: denies: Chest pain, Fever, Nausea, Vomiting, Shortness of breath Exacerbated by: Denies Relieved by: Denies Similar symptoms previously: Yes Recently seen / treated by doctor: No - Related Data Allergies/Adverse Reactions: aluminum [Aluminum] Allergy (Intermediate, Verified 05/12/18 16:26) aspirin [Aspirin] Allergy (Intermediate, Verified 05/12/18 16:26) iodine Allergy (Verified 05/12/18 16:26) Sulfa (Sulfonamide Antibiotics) Allergy (Verified 05/12/18 16:26) Past Medical History - General Information source: Patient - Social History Smoking Status: Never Smoker Cigarette use (# per day): No Chew tobacco use (# tins/day): No Frequency of alcohol use: None Drug Abuse: None Lives with: Alone Family History: Reviewed & Not Pertinent, Hypertension Patient has suicidal ideation: No Patient has homicidal ideation: No - Past Medical History Cardiac Medical History: Reports: Hx Hypercholesterolemia, Hx Hypertension Pulmonary Medical History: Reports: Hx Asthma, Hx Bronchitis Renal/ Medical History: Denies: Hx Peritoneal Dialysis GI Medical History: Reports: Hx Gastroesophageal Reflux Disease Musculoskeletal Medical History: Reports Hx Arthritis, Reports Hx Musculoskeletal Trauma Past Surgical History: Reports: Hx Hysterectomy, Hx Orthopedic Surgery - left foot - Immunizations Immunizations up to date: Yes Hx Diphtheria, Pertussis, Tetanus Vaccination: Yes Hx Pneumococcal Vaccination: 03/16/09 Review of Systems - Review of Systems Constitutional: denies: Chills, Fever EENT: No symptoms reported Cardiovascular: No symptoms reported Respiratory: No symptoms reported Gastrointestinal: No symptoms reported Genitourinary: No symptoms reported Female Genitourinary: No symptoms reported Musculoskeletal: No symptoms reported Skin: No symptoms reported Hematologic/Lymphatic: No symptoms reported Neurological/Psychological: See HPI Physical Exam - Vital signs Vitals: Temp Pulse Resp BP Pulse Ox 98.1 F 57 L 16 108/73 100 09/03/18 11:36 09/03/18 11:36 09/03/18 11:36 09/03/18 11:36 09/03/18 11:36 Notes: Physical exam: GENERAL: She is alert and oriented x3, no acute distress HEAD: Atraumatic, normocephalic. EYES: Pupils equal round and reactive to light, extraocular movements intact, sclera anicteric, conjunctiva are normal. ENT: TMs normal, nares patent, oropharynx clear without exudates. Moist mucous membranes. NECK: Normal range of motion, supple without obvious mass or JVD. LUNGS: Breath sounds clear to auscultation bilaterally and equal. No wheezes rales or rhonchi. HEART: Regular rate and rhythm without murmurs, rubs or gallops. ABDOMEN: Soft, normoactive bowel sounds. No tenderness to palpation. No guarding, no rebound. No masses appreciated. EXTREMITIES: Normal range of motion, no pitting or edema. No clubbing or cyanosis. NEUROLOGICAL: Cranial nerves II through XII grossly intact. Normal speech, moving all extremities. PSYCH: Normal mood, normal affect. SKIN: Warm, Dry, normal turgor, no rashes or lesions noted. Course - Vital Signs Vital signs: Temp Pulse Resp BP Pulse Ox 98.1 F 57 L 16 108/73 100 09/03/18 11:36 09/03/18 11:36 09/03/18 11:36 09/03/18 11:36 09/03/18 11:36 - Laboratory Result Diagrams: 09/03/18 13:15 09/03/18 15:02 Laboratory results interpreted by me: 09/03/18 09/03/18 13:15 15:02 RDW 14.4 H BUN 22 H - Diagnostic Test Radiology reviewed: Image reviewed, Reports reviewed - CT the head shows chronic changes without acute change. - EKG Interpretation by Nv Rate: Normal Rhythm: NSR - EKG shows normal sinus rhythm with a ventricular rate of 57, no acute ST-T wave changes Discharge - Discharge Clinical Impression: Dizziness resolved Condition: Stable Disposition: HOME, SELF-CARE Additional Instructions: I want you to follow-up with your doctor in the next 3 to 5 days. Return to the ER for any worsening dizziness, nausea any abdominal pain or any concerns or getting worse. Referrals: TRINA GARCIA MD [Primary Care Provider] - Follow up in 3-5 days
[2018-09-03 17:06] VITALS: BP 143/85
--- NOTE | 2018-09-03 19:17 | EKG REPORT ---
SEVERITY:- BORDERLINE ECG - SINUS RHYTHM CONSIDER ANTERIOR INFARCT BORDERLINE T ABNORMALITIES, ANTERIOR LEADS : Confirmed by: Tea Foley MD 03-Sep-2018 19:17:03
== END 2018-09-03 16:53 | disposition home or self-care (01) ==
LOC: ER 11:19
DX: R42 Dizziness and giddiness (principal); R11.0 Nausea; I10 Essential (primary) hypertension; E78.00 Pure hypercholesterolemia, unspecified; Z88.6 Allergy status to analgesic agent; Z88.2 Allergy status to sulfonamides; Z90.710 Acquired absence of both cervix and uterus
CPT/HCPCS: 36415; 70450; 71046; 80053; 83690; 84484; 85025; 93005; 93010; 99284

== ENCOUNTER 2018-09-06 06:56 | Emergency (ER) | payer MEDICARE, MEDICAID ==
[2018-09-06 08:24] LABS: ABSOLUTE EOSINOPHILS # (AUTO) 0.1 10^3/uL (0.0-0.6); ABSOLUTE LYMPHOCYTES (AUTO) 0.8 10^3/uL (0.5-4.7); ABSOLUTE MONOCYTES (AUTO) 0.6 10^3/uL (0.1-1.4); ABSOLUTE NEUT (AUTO) 7.5 10^3/uL (1.7-8.2); BASOPHILS % (AUTO) 0.5 % (0-2); EOSINOPHILS % (AUTO) 1.6 % (0-6); HEMATOCRIT 40.4 % (36.0-47.0); HEMOGLOBIN 13.4 g/dL (12.0-15.5); LYMPHOCYTES % (AUTO) 8.5 % (13-45); MEAN CORPUSCULAR HEMOGLOBIN 30.8 pg (27.0-33.4); MEAN CORPUSCULAR HGB CONC 33.3 g/dL (32.0-36.0); MEAN CORPUSCULAR VOLUME 93 fl (80-97); MONOCYTES % (AUTO) 6.4 % (3-13); PLATELET COUNT 193 10^3/uL (150-450); RED BLOOD COUNT 4.36 10^6/uL (3.72-5.28); TOTAL CELLS COUNTED % (AUTO) 100 %; WHITE BLOOD COUNT 9.1 10^3/uL (4.0-10.5)
[2018-09-06 08:31] LABS: APPEARANCE,URINE SLIGHTLY-CLOUDY; BILIRUBIN,URINE NEGATIVE (NEGATIVE); COLOR,URINE YELLOW; GLUCOSE, URINE NEGATIVE (NEGATIVE); KETONES,URINE NEGATIVE (NEGATIVE); LEUKOCYTE ESTERASE,URINE NEGATIVE (NEGATIVE); NITRITE,URINE NEGATIVE (NEGATIVE); PROTEIN,URINE NEGATIVE (NEGATIVE); URINE SPECIFIC GRAVITY 1.021; UROBILINOGEN,URINE NEGATIVE mg/dL (<2.0)
--- NOTE | 2018-09-06 08:46 | RADIOLOGY REPORT (SQ) ---
EXAM DESCRIPTION: ACUTE ABDOMEN SERIES COMPLETED DATE/TIME: 09/06/2018 8:34 am REASON FOR STUDY: abd pain COMPARISON: None. NUMBER OF VIEWS: Three views. TECHNIQUE: Frontal chest, supine abdomen and upright/decubitus abdomen radiographic images acquired. LIMITATIONS: None. FINDINGS: CHEST: Lungs clear of infiltrates. FREE AIR: None. No abnormal gas collections. BOWEL GAS PATTERN: Abundant gas and fecal material throughout nondilated colon. CALCIFICATIONS: No suspicious calcifications. HARDWARE: None in the abdomen. SOFT TISSUES: No gross mass or suggestion of organomegaly. BONES: No acute fracture. No worrisome bone lesions. OTHER: No other significant finding. IMPRESSION: Fecal retention. No obstruction. TECHNICAL DOCUMENTATION: JOB ID: [id number] [employer]- All Rights Reserved Reading location - IP/workstation name: [email or web address]
[2018-09-06] MEDS ORDERED: MINERAL OIL 30 ML UDCUP PR ONE (08:50)
[2018-09-06] MEDS ORDERED: MAGNESIUM CITRATE 296 ML BOTTLE PO ONE (08:50)
[2018-09-06 08:52] LABS: ALANINE AMINOTRANSFERASE 24 U/L (9-52); ALKALINE PHOSPHATASE 48 U/L (38-126); ANION GAP 6 (5-19); ASPARTATE AMINO TRANSFERASE 23 U/L (14-36); BILIRUBIN,DIRECT 0.2 mg/dL (0.0-0.4); BILIRUBIN,TOTAL 0.5 mg/dL (0.2-1.3); BLOOD UREA NITROGEN 19 mg/dL (7-20); CALCIUM 9.3 mg/dL (8.4-10.2); CARBON DIOXIDE 29 mmol/L (22-30); CHLORIDE 106 mmol/L (98-107); GLUCOSE 78 mg/dL (75-110); POTASSIUM 4.2 mmol/L (3.6-5.0); SODIUM 140.9 mmol/L (137-145)
[2018-09-06 13:59] VITALS: BP 128/71
--- NOTE | 2018-09-06 14:25 | ER Document Report ---
Entered by KIERRA FERNÁNDEZ SCRIBE 09/06/18 0758 Acting as scribe for:DEANDRA ARCHULETA MD ED General - General Chief Complaint: Abdominal Pain Stated Complaint: ABDOMINAL PAIN Time Seen by Provider: 09/06/18 07:49 Primary Care Provider: TRINA GARCIA MD [Primary Care Provider] - Follow up as needed Notes: Patient is a 73-year-old female presenting to the emergency department complaining of abdominal pain with associated nausea. Patient states that the pain began late last night. Patient states that her last bowel movement was yesterday. TRAVEL OUTSIDE OF THE [place] IN LAST 30 DAYS: No - Related Data Allergies/Adverse Reactions: aluminum [Aluminum] Allergy (Intermediate, Verified 05/12/18 16:26) aspirin [Aspirin] Allergy (Intermediate, Verified 05/12/18 16:26) iodine Allergy (Verified 05/12/18 16:26) Sulfa (Sulfonamide Antibiotics) Allergy (Verified 05/12/18 16:26) Past Medical History - General Information source: Patient - Social History Smoking Status: Never Smoker Cigarette use (# per day): No Chew tobacco use (# tins/day): No Frequency of alcohol use: None Drug Abuse: None Family History: Reviewed & Not Pertinent, Hypertension - Past Medical History Cardiac Medical History: Reports: Hx Hypercholesterolemia, Hx Hypertension Pulmonary Medical History: Reports: Hx Asthma, Hx Bronchitis GI Medical History: Reports: Hx Gastroesophageal Reflux Disease Musculoskeletal Medical History: Reports Hx Arthritis, Reports Hx Musculoskeletal Trauma Past Surgical History: Reports: Hx Hysterectomy, Hx Orthopedic Surgery - left foot - Immunizations Immunizations up to date: Yes Hx Diphtheria, Pertussis, Tetanus Vaccination: Yes Hx Pneumococcal Vaccination: 03/16/09 Review of Systems - Review of Systems Constitutional: No symptoms reported EENT: No symptoms reported Cardiovascular: No symptoms reported Respiratory: No symptoms reported Gastrointestinal: See HPI, Abdominal pain, Nausea Genitourinary: No symptoms reported Female Genitourinary: No symptoms reported Musculoskeletal: No symptoms reported Skin: No symptoms reported Hematologic/Lymphatic: No symptoms reported Neurological/Psychological: No symptoms reported -: Yes All other systems reviewed and negative Physical Exam - Vital signs Vitals: Temp Pulse Resp BP Pulse Ox 97.9 F 60 16 124/72 99 09/06/18 07:05 09/06/18 07:05 09/06/18 07:05 09/06/18 07:05 09/06/18 07:05 - Notes Notes: Physical Exam: General: Alert, appears well. HEENT: Normocephalic. Atraumatic. PERRL. Extraocular movements intact. Oropharynx clear. Neck: Supple. Non-tender. Respiratory: No respiratory distress. Clear and equal breath sounds bilaterally. Cardiovascular: Regular rate and rhythm. Abdominal: Diffuse abdominal tenderness to palpation. No distension. Normal Bowel Sounds. Back: Non-tender. No deformity or step off. Extremities: Moves all four extremities. Upper extremities: Normal inspection. Normal ROM. Lower extremities: Normal inspection. No edema. Normal ROM. Neurological: Normal cognition. AAOx4. Normal speech. Psychological: Normal affect. Normal Mood. Skin: Warm. Dry. Normal color. Course - Re-evaluation Re-evalutation: 09/06/18 13:12 The patient has had a bottle of mag citrate, and a soapsuds with mineral oil enema. She reports she has had good results from the enema and her abdomen is feeling better. - Vital Signs Vital signs: Temp Pulse Resp BP Pulse Ox 97.9 F 60 16 124/72 99 09/06/18 07:05 09/06/18 07:05 09/06/18 07:05 09/06/18 07:05 09/06/18 07:05 - Laboratory Result Diagrams: 09/06/18 08:16 09/06/18 08:16 Laboratory results interpreted by me: 09/06/18 09/06/18 08:16 08:16 Seg Neutrophils % 83.0 H Lymphocytes % 8.5 L Urine Ascorbic Acid 40 H Discharge - Discharge Clinical Impression: Abdominal pain Qualifiers: Abdominal location: generalized Qualified Code(s): R10.84 - Generalized abdominal pain Constipation Qualifiers: Constipation type: unspecified constipation type Qualified Code(s): K59.00 - Constipation, unspecified Condition: Stable Disposition: HOME, SELF-CARE Additional Instructions: Abdominal Pain There are many causes of abdominal pain. Pain can mean a serious problem requiring surgery (such as appendicitis). It can also be an innocent problem that goes away on its own (such as a viral infection). Often, time must pass to determine the cause of pain. The physician does not feel that hospitalization is necessary, at present. Things may change within the next 24 hours. Call the doctor or come back for re- examination if any problems occur, such as: (1) Pain that becomes more severe, steady, or becomes concentrated in one specific area. Also, pain that is more severe with movement or coughing. (2) Vomiting that persists or becomes more frequent. (3) Blood in the vomitus, urine, or bowel movements. Blood in the stool may have a tarry or black appearance. (4) Shaking chills or fever greater than 100 degrees F. (5) The abdomen becomes more distended or swollen. (6) Bowel movements cease. (7) Failure to improve as expected. Constipation Constipation is a common problem. It is especially likely as you get older. Constipation is a common cause of abdominal pain, but sometimes causes no symptoms at all. Causes of constipation include certain medications, de hydration, diets, inactivity, and low-fiber intake. Rarely, it can be a symptom of underlying disease. The physician has evaluated you for this. Avoid constipation by eating a diet high in fiber, fruits, and vegetables. Drink plenty of liquids. Get regular exercise. If possible, avoid constipating medicines like narcotic pain medication. Some vitamin tablets can cause constipation. Stool softeners may be needed for difficult cases. An excellent stool softener is Konsyl which is available at [employer], and [employer] drug store. Just add a teaspoon to a glass of pineapple or orange juice daily or twice a day if needed. Laxatives are useful for occasional constipation. You should use them only when necessary. Too-frequent use can make your bowels dependent on them. Some over the counter laxatives available without prescription are: Milk of Magnesia, 1-2 tablespoons twice a day Dulcolax, 5 mg pill or 10 mg suppository. Citrate of Magnesia, 4-5 ounces a day for a day or two For acute constipation, Fleet's Enemas and Dulcolax suppositories are helpful. Chronic, [employer]modal customer [employer] use of laxatives or enemas is not a good idea. Your bowel may become dependant on them. You do not need to have a bowel movement every day. Many people do fine with a bowel movement every three or four days. You should call your doctor or return for re-evaluation if you pass blood in the stool, or if you develop fever or increasing abdominal pain. Your evaluation today suggests that your abdominal discomfort is most likely due to some degree of constipation. Take 1 dose of MiraLAX every day with a large glass of water to help prevent constipation. Drink plenty of fluids throughout the day in the evening. Follow-up with your primary care provider if not improving. RETURN TO THE EMERGENCY ROOM IF ANY NEW OR WORSENING SYMPTOMS. Referrals: TRINA GARCIA MD [Primary Care Provider] - Follow up as needed Scribe Attestation: 09/06/18 08:33 I personally performed the services described in the documentation, reviewed and edited the documentation which was dictated to the scribe in my presence, and it accurately records my words and actions. I personally performed the services described in the documentation, reviewed and edited the documentation which was dictated to the scribe in my presence, and it accurately records my words and actions.
== END 2018-09-06 14:15 | disposition home or self-care (01) ==
LOC: ER 06:56
DX: K59.00 Constipation, unspecified (principal); R10.84 Generalized abdominal pain; R10.817 Generalized abdominal tenderness; R11.0 Nausea; I10 Essential (primary) hypertension; J45.909 Unspecified asthma, uncomplicated; Z91.048 Other nonmedicinal substance allergy status; Z88.8 Allergy status to other drugs, medicaments and biological substances; Z88.2 Allergy status to sulfonamides
CPT/HCPCS: 99284; 36415; 85025; 80053; 81001; 74022; J3490 ×2

== ENCOUNTER 2018-09-07 11:28 | Emergency (ER) | payer MEDICARE, MEDICAID ==
[2018-09-07] MEDS ORDERED: HYDROCORTISONE ACETATE 25 MG SUPP.RECT PR ONE (12:21)
--- NOTE | 2018-09-07 12:27 | ER Document Report ---
ED General - General Chief Complaint: Constipation Stated Complaint: URINARY PROBLEM Time Seen by Provider: 09/07/18 12:11 Primary Care Provider: TRINA GARCIA MD [Primary Care Provider] - Follow up tomorrow Mode of Arrival: Ambulatory Information source: Patient, [facility] Records Notes: 73-year-old female with hypertension, hyperlipidemia, reflux presents with rectal pain. Patient was seen yesterday for constipation and was administered a soapsuds enema and mag citrate and states that she has had rectal pain since that time. Patient had resolution of her constipation and reports 2 nonbloody bowel movements this morning. She states her abdominal pain has resolved but she feels sore in her rectal area. She denies any blood from the rectum. TRAVEL OUTSIDE OF THE [place] IN LAST 30 DAYS: No - HPI Onset: Yesterday Onset/Duration: Gradual Quality of pain: Burning Severity: Mild Pain Level: 1 Associated symptoms: None. denies: Chest pain, Nausea, Vomiting, Shortness of breath Exacerbated by: Other - Bowel movement Relieved by: Denies Similar symptoms previously: No Recently seen / treated by doctor: No - Related Data Allergies/Adverse Reactions: aluminum [Aluminum] Allergy (Intermediate, Verified 09/07/18 11:34) aspirin [Aspirin] Allergy (Intermediate, Verified 09/07/18 11:34) iodine Allergy (Verified 09/07/18 11:34) Sulfa (Sulfonamide Antibiotics) Allergy (Verified 09/07/18 11:34) Past Medical History - General Information source: Patient - Social History Smoking Status: Never Smoker Frequency of alcohol use: None Drug Abuse: None Lives with: Alone Family History: Reviewed & Not Pertinent, Hypertension - Past Medical History Cardiac Medical History: Reports: Hx Hypercholesterolemia, Hx Hypertension Pulmonary Medical History: Reports: Hx Asthma, Hx Bronchitis Renal/ Medical History: Denies: Hx Peritoneal Dialysis GI Medical History: Reports: Hx Gastroesophageal Reflux Disease Musculoskeletal Medical History: Reports Hx Arthritis, Reports Hx Musculoskeletal Trauma Past Surgical History: Reports: Hx Hysterectomy, Hx Orthopedic Surgery - left foot - Immunizations Immunizations up to date: Yes Hx Diphtheria, Pertussis, Tetanus Vaccination: Yes Hx Pneumococcal Vaccination: 03/16/09 Review of Systems - Review of Systems Notes: REVIEW OF SYSTEMS: CONSTITUTIONAL : Denies fever, chills, or sweats. Denies recent illness. Denies weight loss, recent hospitalizations. EENT: Denies visual changes, eye pain. Denies sore throat, oral lesions, difficulty swallowing. CARDIOVASCULAR: Denies chest pain. Denies palpitations. Denies lower extremity edema. RESPIRATORY: Denies cough. Denies shortness of breath, wheezing. GASTROINTESTINAL: Denies abdominal pain or distention. Denies nausea, vomiting, or diarrhea. Denies blood in vomitus, stools, or per rectum. Denies black, tarry stools. Denies constipation. GENITOURINARY: Denies difficulty urinating, painful urination, frequency, blood in urine, or vaginal discharge. MUSCULOSKELETAL: Denies back or neck pain or stiffness. Denies joint pain or swelling. SKIN: Denies rash, lesions or sores. HEMATOLOGIC : Denies easy bruising or bleeding. LYMPHATIC: Denies swollen glands. NEUROLOGICAL: Denies confusion or altered mental status. Denies loss of consciousness. Denies dizziness or lightheadedness. Denies headache. Denies weakness or paralysis. Denies problems difficulty with ambulation, slurred speech. Denies sensory loss, numbness, or tingling. Denies seizures. PSYCHIATRIC: Denies anxiety or stress. Denies depression, suicidal ideation, or homicidal ideation. Denies visual or auditory hallucinations. Physical Exam - Vital signs Vitals: Temp Pulse Resp BP Pulse Ox 98.1 F 57 L 16 108/73 96 09/07/18 11:50 09/07/18 11:50 09/07/18 11:50 09/07/18 11:50 09/07/18 11:50 - Notes Notes: PHYSICAL EXAMINATION: GENERAL: Well-appearing, well-nourished and in no acute distress. HEAD: Atraumatic, normocephalic. EYES: Pupils equal round and reactive to light, extraocular movements intact, conjunctiva are normal. ENT: Nares patent, oropharynx clear without exudates. Moist mucous membranes. NECK: Normal range of motion, supple without lymphadenopathy LUNGS: Breath sounds clear to auscultation bilaterally and equal. No wheezes rales or rhonchi. HEART: Regular rate and rhythm without murmurs ABDOMEN: Soft, nontender, nondistended abdomen. No guarding, no rebound. No masses appreciated. Female rectal: Small external hemorrhoid, no perianal tenderness, fluctuance no masses on rectal exam no active bleeding. Musculoskeletal: Normal range of motion, no pitting or edema. No cyanosis. NEUROLOGICAL: Cranial nerves grossly intact. Normal speech, normal gait. Normal sensory, motor exams PSYCH: Normal mood, normal affect. SKIN: Warm, Dry, normal turgor, no rashes or lesions noted. Course - Re-evaluation Re-evalutation: Temp Pulse Resp BP Pulse Ox 98.1 F 57 L 16 108/73 96 09/07/18 11:50 09/07/18 11:50 09/07/18 11:50 09/07/18 11:50 09/07/18 11:50 09/07/18 12:26 73-year-old female presents with rectal pain. Was seen yesterday for constipation and did receive a soapsuds enema and mag citrate. No significant findings on rectal exam. Patient has a soft abdominal exam. we will give the patient Anusol for rectal irritation. 09/07/18 17:37 Patient was evaluated and treated as appropriate for the patient's presenting symptoms and complaint, with consideration of any critical or life threatening conditions that may be associated with their obtained history and exam as noted above. All results were discussed with patient. Patient provided the opportunity to ask questions, and express concerns. Patient was educated on treatments based on their presumed diagnosis as noted above. At this time we will discharge the patient with return precautions and follow-up recommendations. Verbal discharge instructions given a the bedside. Medication warnings reviewed. Patient is in agreement with this plan and has verbalized understanding of return precautions. After careful consideration I feel that that patient can be safely discharged fr om the emergency department, they were advised to followup with a primary care physician in 2-3 days. Dictation on this chart was performed using voice recognition software and may result in unintended grammatical, spelling, syntax or errors. - Vital Signs Vital signs: Temp Pulse Resp BP Pulse Ox 98.5 F 77 16 152/81 H 98 09/07/18 14:57 09/07/18 14:57 09/07/18 14:57 09/07/18 14:57 09/07/18 14:57 Discharge - Discharge Clinical Impression: Rectal pain Condition: Good Disposition: HOME, SELF-CARE Additional Instructions: Your pain is likely due to the enema that you received yesterday. Please follow-up with your primary care physician if pain does not resolve within the next 24 to 48 hours. Follow up with your [id number] hours for further care or return to the ED IMMEDIATELY if symptoms worsen or you have any concerns. If you cannot afford to follow up with your primary care physician a list of low cost clinics have been provided at the end of your discharge papers as well. Most prescribed medications have multiple side effects. The safest thing to do is when filling your prescription speak to your pharmacist regarding possible interactions with your normal home medications and over the counter medications such as Ibuprofen, Tylenol, Benadryl. If you experience any symptoms that cause you discomfort or concern you should discontinue the medication immediately and return to the emergency room or call your primary care physician. Prescriptions: Phenylephrine HCl/Witch Shara [Preparation H Cooling Gel] 51 gm TP BID #1 g el..gm. Forms: Elevated Blood Pressure Referrals: TRINA GARCIA MD [Primary Care Provider] - Follow up tomorrow
[2018-09-07 14:58] VITALS: BP 152/81
== END 2018-09-07 15:28 | disposition home or self-care (01) ==
LOC: ER 11:28
DX: K64.4 Residual hemorrhoidal skin tags (principal); K62.89 Other specified diseases of anus and rectum; I10 Essential (primary) hypertension; J45.909 Unspecified asthma, uncomplicated; Z91.048 Other nonmedicinal substance allergy status; Z88.8 Allergy status to other drugs, medicaments and biological substances; Z88.2 Allergy status to sulfonamides
CPT/HCPCS: 99283; J3490

== ENCOUNTER 2018-11-08 16:07 | Emergency (ER) | payer MEDICARE, MEDICAID ==
--- NOTE | 2018-11-08 17:29 | ER Document Report ---
ED Medical Screen (RME) - General Chief Complaint: Abdominal Pain Stated Complaint: BACK/HIP/FOOT PAIN Time Seen by Provider: 11/08/18 17:20 TRAVEL OUTSIDE OF THE [place] IN LAST 30 DAYS: No - HPI Notes: 11/08/18 17:31 73-year-old female to the emergency department with complaints of pain from her head down to her feet. She states that this is been ongoing for the past 2 weeks. She states that she will get headache and that her neck will start to hurt and that she has left-sided breast pain and then it goes into her hips all the way down to the soles of her feet. She states that she is taken over-the- counter medicine but it has not helped. She admits that she also feels weak. She states that her left breast pain does not increase with big deep breath or movement. She states that she has not been short of breath or diaphoretic. She has not seen a primary care physician in a very long time. She lives alone. She admits that she has been having some difficulty with her memory lately. She admits that she has been urinating more frequently. She denies any frequent falls. I performed a medical screening exam on this patient. Will obtain labs to evaluate her pain. On exam she has no tenderness to palpation in any of the areas that she says she is hurting. She is eccentrically dressed. We will have her bedded and followed by mainside provider. - Related Data Allergies/Adverse Reactions: aluminum [Aluminum] Allergy (Intermediate, Verified 09/07/18 11:34) aspirin [Aspirin] Allergy (Intermediate, Verified 09/07/18 11:34) iodine Allergy (Verified 09/07/18 11:34) Sulfa (Sulfonamide Antibiotics) Allergy (Verified 09/07/18 11:34) Past Medical History - Past Medical History Cardiac Medical History: Reports: Hx Hypercholesterolemia, Hx Hypertension Pulmonary Medical History: Reports: Hx Asthma, Hx Bronchitis Renal/ Medical History: Denies: Hx Peritoneal Dialysis GI Medical History: Reports: Hx Gastroesophageal Reflux Disease Musculoskeltal Medical History: Reports Hx Arthritis, Reports Hx Musculoskeletal Trauma Past Surgical History: Reports: Hx Hysterectomy, Hx Orthopedic Surgery - left foot - Immunizations Immunizations up to date: Yes Hx Diphtheria, Pertussis, Tetanus Vaccination: Yes History of Influenza Vaccine for 12/2016 - 05/2017 Season: No Physical Exam - Vital signs Vitals: Temp Pulse Resp BP Pulse Ox 98.6 F 67 16 113/78 95 11/08/18 16:30 11/08/18 16:30 11/08/18 16:30 11/08/18 16:30 11/08/18 16:30 Course - Vital Signs Vital signs: Temp Pulse Resp BP Pulse Ox 98.6 F 67 16 113/78 95 11/08/18 16:30 11/08/18 16:30 11/08/18 16:30 11/08/18 16:30 11/08/18 16:30
[2018-11-08 18:01] LABS: APPEARANCE,URINE CLEAR; BILIRUBIN,URINE NEGATIVE (NEGATIVE); COLOR,URINE YELLOW; GLUCOSE, URINE NEGATIVE (NEGATIVE); KETONES,URINE NEGATIVE (NEGATIVE); LEUKOCYTE ESTERASE,URINE NEGATIVE (NEGATIVE); NITRITE,URINE NEGATIVE (NEGATIVE); PROTEIN,URINE NEGATIVE (NEGATIVE); URINE SPECIFIC GRAVITY 1.016; UROBILINOGEN,URINE NEGATIVE mg/dL (<2.0)
[2018-11-08 18:34] LABS: ABSOLUTE EOSINOPHILS # (AUTO) 0.1 10^3/uL (0.0-0.6); ABSOLUTE LYMPHOCYTES (AUTO) 1.1 10^3/uL (0.5-4.7); ABSOLUTE MONOCYTES (AUTO) 0.6 10^3/uL (0.1-1.4); ABSOLUTE NEUT (AUTO) 3.4 10^3/uL (1.7-8.2); BASOPHILS % (AUTO) 0.9 % (0-2); EOSINOPHILS % (AUTO) 1.7 % (0-6); HEMATOCRIT 37.1 % (36.0-47.0); HEMOGLOBIN 12.4 g/dL (12.0-15.5); LYMPHOCYTES % (AUTO) 21.2 % (13-45); MEAN CORPUSCULAR HEMOGLOBIN 30.5 pg (27.0-33.4); MEAN CORPUSCULAR HGB CONC 33.4 g/dL (32.0-36.0); MEAN CORPUSCULAR VOLUME 91 fl (80-97); PLATELET COUNT 197 10^3/uL (150-450); RED BLOOD COUNT 4.06 10^6/uL (3.72-5.28); SEGMENTED NEUTROPHILS % (AUTO) 64.2 % (42-78); TOTAL CELLS COUNTED % (AUTO) 100 %; WHITE BLOOD COUNT 5.3 10^3/uL (4.0-10.5)
[2018-11-08 18:52] LABS: ALKALINE PHOSPHATASE 37 U/L (38-126); ANION GAP 5 (5-19); ASPARTATE AMINO TRANSFERASE 26 U/L (14-36); BILIRUBIN,DIRECT 0.2 mg/dL (0.0-0.4); BILIRUBIN,TOTAL 0.3 mg/dL (0.2-1.3); BLOOD UREA NITROGEN 24 mg/dL (7-20); CALCIUM 9.5 mg/dL (8.4-10.2); CARBON DIOXIDE 29 mmol/L (22-30); CHLORIDE 103 mmol/L (98-107); GLUCOSE 86 mg/dL (75-110); POTASSIUM 4.7 mmol/L (3.6-5.0); TOTAL PROTEIN 6.7 g/dL (6.3-8.2)
--- NOTE | 2018-11-08 18:54 | RADIOLOGY REPORT (SQ) ---
EXAM DESCRIPTION: CHEST 2 VIEWS COMPLETED DATE/TIME: 11/08/2018 6:44 pm REASON FOR STUDY: cough COMPARISON: 09/03/2018 EXAM PARAMETERS: NUMBER OF VIEWS: two views TECHNIQUE: Digital Frontal and Lateral radiographic views of the chest acquired. RADIATION DOSE: NA LIMITATIONS: none FINDINGS: LUNGS AND PLEURA: No opacities, masses or pneumothorax. No pleural effusion. Hyperinflati on with flattening of the hemidiaphragm. MEDIASTINUM AND HILAR STRUCTURES: No masses or contour abnormalities. HEART AND VASCULAR STRUCTURES: Heart normal size. No evidence for failure. Aortic atherosclerosis. BONES: No acute findings. HARDWARE: None in the chest. OTHER: No other significant finding. IMPRESSION: No focal consolidation or other evidence of acute cardiopulmonary process. Emphysematou s change. TECHNICAL DOCUMENTATION: JOB ID: [id number] [employer]- All Rights Reserved Reading location - IP/workstation name: [email or web address]
--- NOTE | 2018-11-08 18:55 | RADIOLOGY REPORT (SQ) ---
EXAM DESCRIPTION: T SPINE AP/LAT COMPLETED DATE/TIME: 11/08/2018 6:44 pm REASON FOR STUDY: back pain COMPARISON: None. NUMBER OF VIEWS: Two views. TECHNIQUE: AP and lateral radiographic images acquired of the thoracic spine. LIMITATIONS: None. FINDINGS: MINERALIZATION: Normal. ALIGNMENT: Exaggerated thoracic kyphosis. VERTEBRAE: No fracture or bone lesion. Maintained height, normal segmentation. Mild stable anterior wedging of the thoracolumbar junction, likely physiologic. DISCS: Mild multilevel disc height loss and endplate change. HARDWARE: None in the spine. MEDIASTINUM AND SOFT TISSUES: Normal heart size and aortic contour. No soft tissue abnormality. VISUALIZED LUNG BURTON: Clear. OTHER: No other significant finding. IMPRESSION: 1. No evidence of acute bony abnormality. 2. Multilevel thoracic spondylosis TECHNICAL DOCUMENTATION: JOB ID: [id number] [email or web address]- All Rights Reserved Reading location - IP/workstation name: [email or web address]
--- NOTE | 2018-11-08 19:59 | ER Document Report ---
ED General - General Chief Complaint: Abdominal Pain Stated Complaint: BACK/HIP/FOOT PAIN Time Seen by Provider: 11/08/18 17:20 Mode of Arrival: Ambulatory Information source: Patient TRAVEL OUTSIDE OF THE [place] IN LAST 30 DAYS: No - HPI Notes: Patient presents with multiple complaints. These include back pain chest pain abdominal pain hip pain and leg pain. She states she is unsure what makes them better but it does seem to get worse with movement. She denies any known falls or trauma. She does have multiple visits to the emergency department. She states she has had a nonproductive cough. She is also had some runny nose. She has had no fevers or rashes. Patient states the pain is mild to moderate. Is intermittent. It radiates throughout the left side of her body. She also has had some weakness. - Related Data Allergies/Adverse Reactions: aluminum [Aluminum] Allergy (Intermediate, Verified 09/07/18 11:34) aspirin [Aspirin] Allergy (Intermediate, Verified 09/07/18 11:34) iodine Allergy (Verified 09/07/18 11:34) Sulfa (Sulfonamide Antibiotics) Allergy (Verified 09/07/18 11:34) Past Medical History - General Information source: Patient - Social History Smoking Status: Never Smoker Frequency of alcohol use: None Drug Abuse: None Family History: Reviewed & Not Pertinent, Hypertension Patient has suicidal ideation: No Patient has homicidal ideation: No - Past Medical History Cardiac Medical History: Reports: Hx Hypercholesterolemia, Hx Hypertension Pulmonary Medical History: Reports: Hx Asthma, Hx Bronchitis Renal/ Medical History: Denies: Hx Peritoneal Dialysis GI Medical History: Reports: Hx Gastroesophageal Reflux Disease Musculoskeletal Medical History: Reports Hx Arthritis, Reports Hx Musculos keletal Trauma Past Surgical History: Reports: Hx Hysterectomy, Hx Orthopedic Surgery - left foot - Immunizations Immunizations up to date: Yes Hx Diphtheria, Pertussis, Tetanus Vaccination: Yes Hx Pneumococcal Vaccination: 03/16/09 Review of Systems - Review of Systems Constitutional: Malaise, Weakness Cardiovascular: Chest pain. denies: Dyspnea Respiratory: Cough. denies: Short of breath Neurological/Psychological: Weakness. denies: Dementia -: Yes All other systems reviewed and negative Physical Exam - Vital signs Vitals: Temp Pulse Resp BP Pulse Ox 98.6 F 67 16 113/78 95 11/08/18 16:30 11/08/18 16:30 11/08/18 16:30 11/08/18 16:30 11/08/18 16:30 Interpretation: Normal - General General appearance: Appears well, Alert - HEENT Head: Normocephalic, Atraumatic Eyes: Normal Pupils: PERRL - Respiratory Respiratory status: No respiratory distress Chest status: Nontender Breath sounds: Normal Chest palpation: Normal - Cardiovascular Rhythm: Regular Heart sounds: Normal auscultation Murmur: No - Abdominal Inspection: Normal Distension: No distension Bowel sounds: Normal Tenderness: Nontender Organomegaly: No organomegaly - Back Back: Normal, Tender - Mild tenderness to palpation of the thoracic spine. No step-offs or deformities. - Extremities General upper extremity: Normal inspection, Nontender, Normal color, Normal ROM, Normal temperature General lower extremity: Normal inspection, Nontender, Normal color, Normal ROM, Normal temperature, Normal weight bearing. No: Lizyz's sign - Neurological Neuro grossly intact: Yes Cognition: Normal Orientation: AAOx4 [place] Coma Scale Eye Opening: Spontaneous [place] Coma Scale Verbal: Oriented [place] Coma Scale Motor: Obeys Commands [place] Coma Scale Total: 15 Speech: Normal Motor strength normal: LUE, RUE, LLE, RLE Sensory: Normal - Psychological Associated symptoms: Normal affect, Normal mood - Skin Skin Temperature: Warm Skin Moisture: Dry Skin Color: Normal Course - Vital Signs Vital signs: Temp Pulse Resp BP Pulse Ox 98.6 F 67 16 113/78 95 11/08/18 16:30 11/08/18 16:30 11/08/18 16:30 11/08/18 16:30 11/08/18 16:30 - Laboratory Result Diagrams: 11/08/18 18:15 11/08/18 18:15 Laboratory results interpreted by me: 11/08/18 18:15 BUN 24 H Alkaline Phosphatase 37 L 11/08/18 19:56 Laboratory 11/08/18 11/08/18 11/08/18 17:49 18:15 18:15 WBC 5.3 RBC 4.06 Hgb 12.4 Hct 37.1 MCV 91 MCH 30.5 MCHC 33.4 RDW 14.0 Plt Count 197 Lymph % (Auto) 21.2 [place] % (Auto) 12.0 Eos % (Auto) 1.7 Baso % (Auto) 0.9 Absolute Neuts (auto) 3.4 Absolute Lymphs (auto) 1.1 Absolute Monos (auto) 0.6 Absolute Eos (auto) 0.1 Absolute Basos (auto) 0.0 Seg Neutrophils % 64.2 Sodium 137.3 Potassium 4.7 Chloride 103 Carbon Dioxide 29 Anion Gap 5 BUN 24 H Creatinine 0.68 Est GFR ( Amer) > 60 Est GFR (MDRD) Non-Af > 60 Glucose 86 Calcium 9.5 Magnesium 2.1 Total Bilirubin 0.3 Direct Bilirubin 0.2 Neonat Total Bilirubin Not Reportable Neonat Direct Bilirubin Not Reportable Neonat Indirect Bili Not Reportable AST 26 ALT 16 Alkaline Phosphatase 37 L Troponin I Total Protein 6.7 Albumin 4.0 Urine Color YELLOW Urine Appearance CLEAR Urine pH 6.0 Ur Specific [place] 1.016 Urine Protein NEGATIVE Urine Glucose (UA) NEGATIVE Urine Ketones NEGATIVE Urine Blood NEGATIVE Urine Nitrite NEGATIVE Urine Bilirubin NEGATIVE Urine Urobilinogen NEGATIVE Ur Leukocyte Esterase NEGATIVE Urine WBC (Auto) 1 Urine RBC (Auto) 1 Urine Mucus (Auto) RARE Urine Ascorbic Acid NEGATIVE 11/08/18 18:15 WBC RBC Hgb Hct MCV MCH MCHC RDW Plt Count Lymph % (Auto) [place] % (Auto) Eos % (Auto) Baso % (Auto) Absolute Neuts (auto) Absolute Lymphs (auto) Absolute Monos (auto) Absolute Eos (auto) Absolute Basos (auto) Seg Neutrophils % Sodium Potassium Chloride Carbon Dioxide Anion Gap BUN Creatinine Est GFR ( Amer) Est GFR (MDRD) Non-Af Glucose Calcium Magnesium Total Bilirubin Direct Bilirubin Neonat Total Bilirubin Neonat Direct Bilirubin Neonat Indirect Bili AST ALT Alkaline Phosphatase Troponin I < 0.012 Total Protein Albumin Urine Color Urine Appearance Urine pH Ur Specific [place] Urine Protein Urine Glucose (UA) Urine Ketones Urine Blood Urine Nitrite Urine Bilirubin Urine Urobilinogen Ur Leukocyte Esterase Urine WBC (Auto) Urine RBC (Auto) Urine Mucus (Auto) Urine Ascorbic Acid Laboratory 11/08/18 11/08/18 11/08/18 17:49 18:15 18:15 WBC 5.3 RBC 4.06 Hgb 12.4 Hct 37.1 MCV 91 MCH 30.5 MCHC 33.4 RDW 14.0 Plt Count 197 Lymph % (Auto) 21.2 [place] % (Auto) 12.0 Eos % (Auto) 1.7 Baso % (Auto) 0.9 Absolute Neuts (auto) 3.4 Absolute Lymphs (auto) 1.1 Absolute Monos (auto) 0.6 Absolute Eos (auto) 0.1 Absolute Basos (auto) 0.0 Seg Neutrophils % 64.2 Sodium 137.3 Potassium 4.7 Chloride 103 Carbon Dioxide 29 Anion Gap 5 BUN 24 H Creatinine 0.68 Est GFR ( Amer) > 60 Est GFR (MDRD) Non-Af > 60 Glucose 86 Calcium 9.5 Magnesium 2.1 Total Bilirubin 0.3 Direct Bilirubin 0.2 Neonat Total Bilirubin Not Reportable Neonat Direct Bilirubin Not Reportable Neonat Indirect Bili Not Reportable AST 26 ALT 16 Alkaline Phosphatase 37 L Troponin I Total Protein 6.7 Albumin 4.0 Urine Color YELLOW Urine Appearance CLEAR Urine pH 6.0 Ur Specific [place] 1.016 Urine Protein NEGATIVE Urine Glucose (UA) NEGATIVE Urine Ketones NEGATIVE Urine Blood NEGATIVE Urine Nitrite NEGATIVE Urine Bilirubin NEGATIVE Urine Urobilinogen NEGATIVE Ur Leukocyte Esterase NEGATIVE Urine WBC (Auto) 1 Urine RBC (Auto) 1 Urine Mucus (Auto) RARE Urine Ascorbic Acid NEGATIVE 11/08/18 18:15 WBC RBC Hgb Hct MCV MCH MCHC RDW Plt Count Lymph % (Auto) [place] % (Auto) Eos % (Auto) Baso % (Auto) Absolute Neuts (auto) Absolute Lymphs (auto) Absolute Monos (auto) Absolute Eos (auto) Absolute Basos (auto) Seg Neutrophils % Sodium Potassium Chloride Carbon Dioxide Anion Gap BUN Creatinine Est GFR ( Amer) Est GFR (MDRD) Non-Af Glucose Calcium Magnesium Total Bilirubin Direct Bilirubin Neonat Total Bilirubin Neonat Direct Bilirubin Neonat Indirect Bili AST ALT Alkaline Phosphatase Troponin I < 0.012 Total Protein Albumin Urine Color Urine Appearance Urine pH Ur Specific [place] Urine Protein Urine Glucose (UA) Urine Ketones Urine Blood Urine Nitrite Urine Bilirubin Urine Urobilinogen Ur Leukocyte Esterase Urine WBC (Auto) Urine RBC (Auto) Urine Mucus (Auto) Urine Ascorbic Acid - Diagnostic Test Radiology reviewed: Image reviewed, Reports reviewed Radiology results interpreted by me: 11/08/18 19:56 Chest X-Ray 11/08/18 18:16 IMPRESSION: No focal consolidation or other evidence of acute cardiopulmonary process. Emphysematous change. Thoracic Spine X-Ray 11/08/18 18:16 IMPRESSION: 1. No evidence of acute bony abnormality. 2. Multilevel thoracic spondylosis - EKG Interpretation by Me EKG shows normal: Sinus rhythm Rate: Bradycardia - 52 Rhythm: NSR When compared to previous EKG there are: No significant change Discharge - Discharge Clinical Impression: Weakness Condition: Stable Disposition: HOME, SELF-CARE Instructions: Abdominal Pain ([facility]), Weakness ([facility]) Additional Instructions: Please call your primary doctor as soon as possible to arrange follow-up
[2018-11-08 20:08] VITALS: BP 110/71
--- NOTE | 2018-11-09 07:11 | EKG REPORT ---
SEVERITY:- BORDERLINE ECG - SINUS BRADYCARDIA BORDERLINE R WAVE PROGRESSION, ANTERIOR LEADS BORDERLINE T ABNORMALITIES, DIFFUSE LEADS POSSIBLE OLD ANTERIOR INFARCT. : Confirmed by: Fabrice Figueroa MD 09-Nov-2018 07:10:52
== END 2018-11-08 20:08 | disposition home or self-care (01) ==
LOC: ER 16:07
DX: R53.1 Weakness (principal); R10.9 Unspecified abdominal pain; M54.9 Dorsalgia, unspecified; R07.9 Chest pain, unspecified; M25.559 Pain in unspecified hip; R09.89 Other specified symptoms and signs involving the circulatory and respiratory systems; R05 Cough
CPT/HCPCS: 36415; 71046; 72070; 80053; 81001; 83735; 84484; 85025; 93005; 93010; 99284

== ENCOUNTER 2018-11-12 17:07 | Emergency (ER) | payer MEDICARE, MEDICAID ==
--- NOTE | 2018-11-12 18:16 | ER Document Report ---
ED Medical Screen (RME) - General Chief Complaint: Abdominal Pain Stated Complaint: ABDOMINAL PAIN Time Seen by Provider: 11/12/18 18:03 Mode of Arrival: Ambulatory Information source: Patient Notes: Patient is a 73-year-old female presented to the emergency department with multiple symptoms today. Patient reports abdominal pain over the last 3 months. She denies any nausea, vomiting or diarrhea with this. She also reports complaints of productive cough. She denies any fever or chills. Exam: Lung sounds clear and equal bilaterally. Heart sounds S1-S2 present with no ectopy noted. I have greeted and performed a rapid initial assessment of this patient. A comprehensive ED assessment and evaluation of the patient, analysis of test results and completion of the medical decision making process will be conducted by additional ED providers. I have specifically instructed the patient or family members with the patient to immediately return to any nursing staff should anything change in the patient's condition or with their chief complaint. This medical record was dictated with voice recognizing software. There may be grammatical, syntax errors that are unintended. TRAVEL OUTSIDE OF THE [place] IN LAST 30 DAYS: No - Related Data Allergies/Adverse Reactions: aluminum [Aluminum] Allergy (Intermediate, Verified 11/12/18 17:11) aspirin [Aspirin] Allergy (Intermediate, Verified 11/12/18 17:11) iodine Allergy (Verified 11/12/18 17:11) Sulfa (Sulfonamide Antibiotics) Allergy (Verified 11/12/18 17:11) Past Medical History - Past Medical History Cardiac Medical History: Reports: Hx Hypercholesterolemia, Hx Hypertension Pulmonary Medical History: Reports: Hx Asthma, Hx Bronchitis Renal/ Medical History: Denies: Hx Peritoneal Dialysis GI Medical History: Reports: Hx Gastroesophageal Reflux Disease Musculoskeltal Medical History: Reports Hx Arthritis, Reports Hx Musculoskeletal Trauma Past Surgical History: Reports: Hx Hysterectomy, Hx Orthopedic Surgery - left foot - Immunizations Immunizations up to date: Yes Hx Diphtheria, Pertussis, Tetanus Vaccination: Yes History of Influenza Vaccine for 12/2016 - 05/2017 Season: No Physical Exam - Vital signs Vitals: Temp Pulse Resp BP Pulse Ox 99.5 F 79 18 105/66 99 11/12/18 17:13 11/12/18 17:13 11/12/18 17:13 11/12/18 17:13 11/12/18 17:13 Course - Vital Signs Vital signs: Temp Pulse Resp BP Pulse Ox 99.5 F 79 18 105/66 99 11/12/18 17:13 11/12/18 17:13 11/12/18 17:13 11/12/18 17:13 11/12/18 17:13
--- NOTE | 2018-11-12 19:16 | RADIOLOGY REPORT (SQ) ---
EXAM DESCRIPTION: ACUTE ABDOMEN SERIES COMPLETED DATE/TIME: 11/12/2018 6:49 pm REASON FOR STUDY: abd pain, cough COMPARISON: 09/06/2018 NUMBER OF VIEWS: Three views. TECHNIQUE: Frontal chest, supine abdomen and upright/decubitus abdomen radiographic images acquired. LIMITATIONS: None. FINDINGS: CHEST: Lungs clear of infiltrates. FREE AIR: None. No abnormal gas collections. BOWEL GAS PATTERN: Nonobstructive pattern. No dilated loops or air fluid levels. CONSTIPATION: moderate. CALCIFICATIONS: No suspicious calcifications. HARDWARE: None in the abdomen. SOFT TISSUES: No gross mass or suggestion of organomegaly. BONES: No acute fracture. No worrisome bone lesions. OTHER: No other significant finding. IMPRESSION: NO RADIOGRAPHIC EVIDENCE FOR ACUTE ABDOMINAL DISEASE. CONSTIPATION. TECHNICAL DOCUMENTATION: JOB ID: [id number] [place]-72 2010 [employer]- All Rights Reserved Reading location - IP/workstation name: [email or web address]
[2018-11-12 19:43] LABS: APPEARANCE,URINE SLIGHTLY-CLOUDY; BILIRUBIN,URINE NEGATIVE (NEGATIVE); COLOR,URINE YELLOW; GLUCOSE, URINE NEGATIVE (NEGATIVE); KETONES,URINE NEGATIVE (NEGATIVE); LEUKOCYTE ESTERASE,URINE LARGE (NEGATIVE); NITRITE,URINE NEGATIVE (NEGATIVE); PROTEIN,URINE NEGATIVE (NEGATIVE); URINE SPECIFIC GRAVITY 1.019; UROBILINOGEN,URINE NEGATIVE mg/dL (<2.0)
[2018-11-12 20:22] LABS: ABSOLUTE EOSINOPHILS # (AUTO) 0.1 10^3/uL (0.0-0.6); ABSOLUTE LYMPHOCYTES (AUTO) 0.6 10^3/uL (0.5-4.7); ABSOLUTE MONOCYTES (AUTO) 0.9 10^3/uL (0.1-1.4); ABSOLUTE NEUT (AUTO) 3.9 10^3/uL (1.7-8.2); BASOPHILS % (AUTO) 0.5 % (0-2); EOSINOPHILS % (AUTO) 2.1 % (0-6); HEMATOCRIT 36.8 % (36.0-47.0); HEMOGLOBIN 12.2 g/dL (12.0-15.5); LYMPHOCYTES % (AUTO) 10.5 % (13-45); MEAN CORPUSCULAR HEMOGLOBIN 30.4 pg (27.0-33.4); MEAN CORPUSCULAR HGB CONC 33.1 g/dL (32.0-36.0); MEAN CORPUSCULAR VOLUME 92 fl (80-97); MONOCYTES % (AUTO) 16.5 % (3-13); PLATELET COUNT 180 10^3/uL (150-450); RED BLOOD COUNT 4.01 10^6/uL (3.72-5.28); RED CELL DISTRIBUTION WIDTH 14.1 % (11.5-14.0); SEGMENTED NEUTROPHILS % (AUTO) 70.4 % (42-78); TOTAL CELLS COUNTED % (AUTO) 100 %; WHITE BLOOD COUNT 5.6 10^3/uL (4.0-10.5)
[2018-11-12 20:36] LABS: ALKALINE PHOSPHATASE 42 U/L (38-126); ANION GAP 6 (5-19); ASPARTATE AMINO TRANSFERASE 32 U/L (14-36); BILIRUBIN,DIRECT 0.2 mg/dL (0.0-0.4); BILIRUBIN,TOTAL 0.5 mg/dL (0.2-1.3); BLOOD UREA NITROGEN 17 mg/dL (7-20); CALCIUM 9.2 mg/dL (8.4-10.2); CARBON DIOXIDE 30 mmol/L (22-30); CHLORIDE 102 mmol/L (98-107); GLUCOSE 88 mg/dL (75-110); POTASSIUM 4.4 mmol/L (3.6-5.0); TOTAL PROTEIN 7.1 g/dL (6.3-8.2)
[2018-11-12] MEDS ORDERED: DICYCLOMINE HCL 20 MG TABLET PO ONE (20:56)
[2018-11-12] MEDS ORDERED: ACETAMINOPHEN 325 MG TABLET PO ONE (20:56)
[2018-11-12] MEDS ORDERED: MINERAL OIL ENEMA 133 ML PR ONE (20:56)
[2018-11-12] MEDS ORDERED: NITROFURANTOIN MONOHYD/M-CRYST 100 MG CAPSULE PO ONE (21:26)
--- NOTE | 2018-11-12 21:41 | ER Document Report ---
ED General - General Chief Complaint: Abdominal Pain Stated Complaint: ABDOMINAL PAIN Time Seen by Provider: 11/12/18 18:03 Mode of Arrival: Ambulatory Information source: Patient, [facility] Records Notes: 73-year-old female with hypertension, hyperlipidemia, reflux presents with multiple complaints including 3 months of intermittent abdominal pain, upper back pain, cough. Patient's abdominal pain is generalized, described as an aching pain. She reports that she had 2 bowel movements today and denies any black or bloody stools. Patient's back pain is reproducible with palpation to the paraspinal musculature of the thoracic spine. Patient's cough is reported as intermittent, nonproductive. She denies any fever, chills, nausea, vomiting, chest pain, shortness of breath. TRAVEL OUTSIDE OF THE [place] IN LAST 30 DAYS: No - HPI Onset: Other Onset/Duration: Intermittent Quality of pain: Achy Severity: Mild Associated symptoms: Nonproductive cough, Other - Abdominal pain, back pain. denies: Chest pain, Diarrhea, Fever, Headache, Nausea, Vomiting, Shortness of breath Exacerbated by: Denies Relieved by: Denies Similar symptoms previously: Yes Recently seen / treated by doctor: Yes - Related Data Allergies/Adverse Reactions: aluminum [Aluminum] Allergy (Intermediate, Verified 11/12/18 17:11) aspirin [Aspirin] Allergy (Intermediate, Verified 11/12/18 17:11) iodine Allergy (Verified 11/12/18 17:11) Sulfa (Sulfonamide Antibiotics) Allergy (Verified 11/12/18 17:11) Past Medical History - General Information source: Patient - Social History Smoking Status: Never Smoker Frequency of alcohol use: None Drug Abuse: None Lives with: Family Family History: Reviewed & Not Pertinent, Hypertension Patient has suicidal ideation: No Patient has homicidal ideation: No - Past Medical History Cardiac Medical History: Reports: Hx Hypercholesterolemia, Hx Hypertension Pulmonary Medical History: Reports: Hx Asthma, Hx Bronchitis Renal/ Medical History: Denies: Hx Peritoneal Dialysis GI Medical History: Reports: Hx Gastroesophageal Reflux Disease Musculoskeletal Medical History: Reports Hx Arthritis, Reports Hx Musculoskeletal Trauma Past Surgical History: Reports: Hx Hysterectomy, Hx Orthopedic Surgery - left foot - Immunizations Immunizations up to date: Yes Hx Diphtheria, Pertussis, Tetanus Vaccination: Yes Hx Pneumococcal Vaccination: 03/16/09 Review of Systems - Review of Systems Notes: REVIEW OF SYSTEMS: CONSTITUTIONAL : Denies fever, chills, or sweats. Denies recent illness. Denies weight loss, recent hospitalizations. EENT: Denies visual changes, eye pain. Denies sore throat, oral lesions, difficulty swallowing. CARDIOVASCULAR: Denies chest pain. Denies palpitations. Denies lower extremity edema. RESPIRATORY: + cough. Denies shortness of breath, wheezing. GASTROINTESTINAL: Denies abdominal distention. Denies nausea, vomiting, or diarrhea. Denies blood in vomitus, stools, or per rectum. Denies black, tarry stools. Denies constipation. GENITOURINARY: Denies difficulty urinating, painful urination, frequency, blood in urine, or vaginal discharge. MUSCULOSKELETAL: Denies neck pain or stiffness. Denies joint pain or swelling. SKIN: Denies rash, lesions or sores. HEMATOLOGIC : Denies easy bruising or bleeding. LYMPHATIC: Denies swollen glands. NEUROLOGICAL: Denies confusion or altered mental status. Denies loss of consciousness. Denies dizziness or lightheadedness. Denies headache. Denies weakness or paralysis. Denies problems difficulty with ambulation, slurred speech. Denies sensory loss, numbness, or tingling. Denies seizures. PSYCHIATRIC: Denies anxiety or stress. Denies depression, suicidal ideation, or homicidal ideation. Denies visual or auditory hallucinations. Physical Exam - Vital signs Vitals: Temp Pulse Resp BP Pulse Ox 99.5 F 79 18 105/66 99 11/12/18 17:13 11/12/18 17:13 11/12/18 17:13 11/12/18 17:13 11/12/18 17:13 - Notes Notes: PHYSICAL EXAMINATION: GENERAL: Well-appearing, well-nourished and in no acute distress. HEAD: Atraumatic, normocephalic. EYES: Pupils equal round and reactive to light, extraocular movements intact, conjunctiva are normal. ENT: Nares patent, oropharynx clear without exudates. Moist mucous membranes. NECK: Normal range of motion, supple without lymphadenopathy LUNGS: Breath sounds clear to auscultation bilaterally and equal. No wheezes rales or rhonchi. HEART: Regular rate and rhythm without murmurs ABDOMEN: Soft, nontender, nondistended abdomen. No guarding, no rebound. No masses appreciated. Female : deferred Musculoskeletal: Normal range of motion, no pitting or edema. No cyanosis. Tenderness with palpation to the paraspinal musculature of the thoracic spine. NEUROLOGICAL: Cranial nerves grossly intact. Normal speech, normal gait. Normal sensory, motor exams PSYCH: Normal mood, normal affect. SKIN: Warm, Dry, normal turgor, no rashes or lesions noted. Course - Re-evaluation Re-evalutation: 11/13/18 03:24 Laboratory 11/12/18 11/12/18 11/12/18 19:26 20:06 20:06 WBC 5.6 RBC 4.01 Hgb 12.2 Hct 36.8 MCV 92 MCH 30.4 MCHC 33.1 RDW 14.1 H Plt Count 180 Lymph % (Auto) 10.5 L [place] % (Auto) 16.5 H Eos % (Auto) 2.1 Baso % (Auto) 0.5 Absolute Neuts (auto) 3.9 Absolute Lymphs (auto) 0.6 Absolute Monos (auto) 0.9 Absolute Eos (auto) 0.1 Absolute Basos (auto) 0.0 Seg Neutrophils % 70.4 Sodium 137.7 Potassium 4.4 Chloride 102 Carbon Dioxide 30 Anion Gap 6 BUN 17 Creatinine 0.72 Est GFR ( Amer) > 60 Est GFR (MDRD) Non-Af > 60 Glucose 88 Calcium 9.2 Total Bilirubin 0.5 Direct Bilirubin 0.2 Neonat Total Bilirubin Not Reportable Neonat Direct Bilirubin Not Reportable Neonat Indirect Bili Not Reportable AST 32 ALT 16 Alkaline Phosphatase 42 Total Protein 7.1 Albumin 4.0 Lipase 113.9 Urine Color YELLOW Urine Appearance SLIGHTLY-CLOUDY Urine pH 6.0 Ur Specific [place] 1.019 Urine Protein NEGATIVE Urine Glucose (UA) NEGATIVE Urine Ketones NEGATIVE Urine Blood NEGATIVE Urine Nitrite NEGATIVE Urine Bilirubin NEGATIVE Urine Urobilinogen NEGATIVE Ur Leukocyte Esterase LARGE H Urine WBC (Auto) 2 Urine RBC (Auto) 1 Squamous Epi Cells Auto 1 Urine Mucus (Auto) OCC Urine Ascorbic Acid 40 H Acute Abdomen Series 11/12/18 18:13 IMPRESSION: NO RADIOGRAPHIC EVIDENCE FOR ACUTE ABDOMINAL DISEASE. CONSTIPATION. Temp Pulse Resp BP Pulse Ox 98.8 F 63 16 116/73 100 11/12/18 23:22 11/12/18 23:22 11/12/18 23:22 11/12/18 23:22 11/12/18 23:22 ED Course History: 73-year-old female with multiple complaints including cough, abdominal pain and back pain. Patient evaluated. Vital signs were reviewed. Patient is within normal limits. Previous medical records and nursing notes reviewed. Patient does not appear toxic or dehydrated they are in no acuted distress Exam Findings: Benign abdominal exam. Tenderness with palpation to the paraspinal musculature of the thoracic spine. Lab Findings: CBC is without leukocytosis or anemia. CMP shows no electrolte a bnormalities and normal renal function. Urinalysis consistent with urinary tract infection. Urine culture pending. Abdominal series consistent with constipation. No evidence of pneumonia. Patient Interventions/Monitor: Tylenol, fleets enema. Revaluation: Reports resolution of all pain. MDM: Patient presents with symptoms consistent with an acute cystitis. Vitals wnl. No history of fever, flank pain, or constitution symptoms to suggest ascending infection at this time. Patient is well in appearance, tolerating oral intake without difficulty. No focal abdominal tenderness to suggest acute a ppendicitis, biliary pathology, acute pancreatitis, tubo-ovarian abscesses, or pelvic inflammatory disease. Patient will be started on antibiotics at this time. A culture has been sent. They will be discharged with return precautions and follow-up recommendations. Disposition: Discharge home with Macrobid 11/13/18 03:25 - Vital Signs Vital signs: Temp Pulse Resp BP Pulse Ox 98.8 F 63 16 116/73 100 11/12/18 23:22 11/12/18 23:22 11/12/18 23:22 11/12/18 23:22 11/12/18 23:22 - Laboratory Result Diagrams: 11/12/18 20:06 11/12/18 20:06 Laboratory results interpreted by me: 11/12/18 11/12/18 19:26 20:06 RDW 14.1 H Lymph % (Auto) 10.5 L [place] % (Auto) 16.5 H Ur Leukocyte Esterase LARGE H Urine Ascorbic Acid 40 H - Diagnostic Test Radiology reviewed: Image reviewed, Reports reviewed Discharge - Discharge Clinical Impression: Constipation Qualifiers: Constipation type: unspecified constipation type Qualified Code(s): K59.00 - Constipation, unspecified Thoracic back pain Qualifiers: Chronicity: chronic Back pain laterality: left Qualified Code(s): M54.6 - Pain in thoracic spine Urinary tract infection Qualifiers: Urinary tract infection type: site unspecified Hematuria presence: without hematuria Qualified Code(s): N39.0 - Urinary tract infection, site not specified Condition: Good Disposition: HOME, SELF-CARE Instructions: Abdominal Pain ([facility]), Chronic Back Pain ([facility]), Constipation ([facility]), Nitrofurantoin ([facility]), Urinary Tract Infection ([facility]) Additional Instructions: Your urine shows findings consistent with a urinary tract infection. Please take all the antibiotics as directed even if your symptoms have improved. Please follow-up with your primary care physician as needed. Return to emergency room if you develop fever >101F, persistent vomiting, become lethargic, have severe pain in your sides, or any other symptoms that are concerning to you. Follow up with your [id number] hours for further care or return to the ED IMMEDIATELY if symptoms worsen or you have any concerns. If you cannot afford to follow up with your primary care physician a list of low cost clinics have been provided at the end of your discharge papers as well. Most prescribed medications have multiple side effects. The safest thing to do is when filling your prescription speak to your pharmacist regarding possible interactions with your normal home medications and over the counter medications such as Ibuprofen, Tylenol, Benadryl. If you experience any symptoms that cause you discomfort or concern you should discontinue the medication immediately and return to the emergency room or call your primary care physician. Recommendations: It is recommended to followup with a primary care doctor within the next 2 days. If you do not have a primary care doctor or you are unable to get an apointment during that time, I left the number for some internal medicine physicians that are affiliated with this [facility]. Dr. Ruth Kovacs [address], [place] [address] [phone] Dr Rutherford Address: [address] , [place] [address] Dr Ji Address: [address] , [place] [address] Prescriptions: Nitrofurantoin Macrocrystal [Macrodantin] 100 mg PO BID #10 capsule
[2018-11-12 23:31] VITALS: BP 116/73
== END 2018-11-12 23:31 | disposition home or self-care (01) ==
LOC: ER 17:07
DX: K59.00 Constipation, unspecified (principal); M54.6 Pain in thoracic spine; N39.0 Urinary tract infection, site not specified; E78.00 Pure hypercholesterolemia, unspecified; E78.5 Hyperlipidemia, unspecified; I10 Essential (primary) hypertension; Z90.710 Acquired absence of both cervix and uterus; Z88.2 Allergy status to sulfonamides
CPT/HCPCS: 99284; 36415; 87086; 83690; 85025; 80053; 81001; 74022; A9270 ×3; J3490; J8499

== ENCOUNTER 2018-12-22 12:38 | Emergency (ER) | payer MEDICARE, MEDICAID ==
[2018-12-22 13:12] VITALS: BP 125/75
--- NOTE | 2018-12-22 13:27 | ER Document Report ---
ED Medical Screen (RME) - General Chief Complaint: Urinary Frequency Stated Complaint: URINARY FREQUENCY Time Seen by Provider: 12/22/18 13:22 Notes: Patient is a 73-year-old female presents emergency department with urinary frequency. She denies any dysuria, but states that after her abdominal exam, she ended up having some pain. She has had her symptoms for the past 2 to 3 weeks. Denies any fever, body aches, or chills. Denies any back pain. Exam: Soft mildly tender abdomen. I have greeted and performed a rapid initial assessment of this patient. A comprehensive ED assessment and evaluation of the patient, analysis of test resu lts and completion of medical decision making process will be conducted by an additional ED providers. TRAVEL OUTSIDE OF THE [place] IN LAST 30 DAYS: No - Related Data Allergies/Adverse Reactions: aluminum [Aluminum] Allergy (Intermediate, Verified 11/12/18 17:11) aspirin [Aspirin] Allergy (Intermediate, Verified 11/12/18 17:11) iodine Allergy (Verified 11/12/18 17:11) Sulfa (Sulfonamide Antibiotics) Allergy (Verified 11/12/18 17:11) Past Medical History - Social History Frequency of alcohol use: None Drug Abuse: None - Past Medical History Cardiac Medical History: Reports: Hx Hypercholesterolemia, Hx Hypertension Pulmonary Medical History: Reports: Hx Asthma, Hx Bronchitis Renal/ Medical History: Denies: Hx Peritoneal Dialysis GI Medical History: Reports: Hx Gastroesophageal Reflux Disease Musculoskeltal Medical History: Reports Hx Arthritis, Reports Hx Musculoskeletal Trauma Past Surgical History: Reports: Hx Hysterectomy, Hx Orthopedic Surgery - left foot - Immunizations Immunizations up to date: Yes Hx Diphtheria, Pertussis, Tetanus Vaccination: Yes Physical Exam - Vital signs Vitals: Temp Pulse Resp BP Pulse Ox 97.6 F 60 20 125/75 98 12/22/18 13:10 12/22/18 13:10 12/22/18 13:10 12/22/18 13:10 12/22/18 13:10 Course - Vital Signs Vital signs: Temp Pulse Resp BP Pulse Ox 97.6 F 60 20 125/75 98 12/22/18 13:10 12/22/18 13:10 12/22/18 13:10 12/22/18 13:10 12/22/18 13:10
[2018-12-22 14:03] LABS: APPEARANCE,URINE TURBID; BILIRUBIN,URINE NEGATIVE (NEGATIVE); COLOR,URINE YELLOW; GLUCOSE, URINE NEGATIVE (NEGATIVE); KETONES,URINE TRACE mg/dL (NEGATIVE); PROTEIN,URINE NEGATIVE (NEGATIVE); URINE SPECIFIC GRAVITY 1.028; UROBILINOGEN,URINE NEGATIVE mg/dL (<2.0)
[2018-12-22 14:30] LABS: ABSOLUTE MONOCYTES (AUTO) 0.4 10^3/uL (0.1-1.4); ABSOLUTE NEUT (AUTO) 2.5 10^3/uL (1.7-8.2); BASOPHILS % (AUTO) 0.9 % (0-2); EOSINOPHILS % (AUTO) 0.8 % (0-6); HEMATOCRIT 37.7 % (36.0-47.0); HEMOGLOBIN 12.7 g/dL (12.0-15.5); LYMPHOCYTES % (AUTO) 24.7 % (13-45); MEAN CORPUSCULAR HEMOGLOBIN 31.1 pg (27.0-33.4); MEAN CORPUSCULAR HGB CONC 33.7 g/dL (32.0-36.0); MEAN CORPUSCULAR VOLUME 92 fl (80-97); PLATELET COUNT 182 10^3/uL (150-450); RED BLOOD COUNT 4.08 10^6/uL (3.72-5.28); RED CELL DISTRIBUTION WIDTH 14.7 % (11.5-14.0); SEGMENTED NEUTROPHILS % (AUTO) 63.6 % (42-78); TOTAL CELLS COUNTED % (AUTO) 100 %
[2018-12-22 14:48] LABS: ALKALINE PHOSPHATASE 44 U/L (38-126); ANION GAP 5 (5-19); ASPARTATE AMINO TRANSFERASE 24 U/L (14-36); BILIRUBIN,DIRECT 0.1 mg/dL (0.0-0.4); BILIRUBIN,TOTAL 0.7 mg/dL (0.2-1.3); BLOOD UREA NITROGEN 22 mg/dL (7-20); CALCIUM 9.3 mg/dL (8.4-10.2); CARBON DIOXIDE 28 mmol/L (22-30); CHLORIDE 107 mmol/L (98-107); GLUCOSE 84 mg/dL (75-110)
--- NOTE | 2018-12-22 17:05 | ER Document Report ---
ED General - General TRAVEL OUTSIDE OF THE [place] IN LAST 30 DAYS: No - Related Data Home Medications: Multivitamins <TERESO HARVEY - Last Filed: 12/22/18 16:59> <ALEXIS MATAMOROS - Last Filed: 12/22/18 17:30> - General Chief Complaint: Urinary Frequency Stated Complaint: URINARY FREQUENCY Time Seen by Provider: 12/22/18 13:22 - HPI Notes: Patient is a 73-year-old female who presents to the emergency department for evaluation of urinary urgency. She states that she feels like she has to urinate frequently. Is been ongoing for about the last 4 to 6 weeks. She denies any fevers or chills. No nausea or vomiting. She states that she had some abdominal pain after her initial exam in triage, but states that that is gone now. She has not had any abdominal pain otherwise. She denies any gross hematuria. No vaginal discharge. No other acute complaints or concerns. (TERESO HARVEY) - Related Data Allergies/Adverse Reactions: aluminum [Aluminum] Allergy (Intermediate, Verified 11/12/18 17:11) aspirin [Aspirin] Allergy (Intermediate, Verified 11/12/18 17:11) iodine Allergy (Verified 11/12/18 17:11) Sulfa (Sulfonamide Antibiotics) Allergy (Verified 11/12/18 17:11) Past Medical History - General Information source: Patient - Social History Smoking Status: Never Smoker Frequency of alcohol use: None Drug Abuse: None Family History: Reviewed & Not Pertinent, Hypertension Patient has suicidal ideation: No Patient has homicidal ideation: No - Past Medical History Cardiac Medical History: Reports: Hx Hypercholesterolemia, Hx Hypertension Pulmonary Medical History: Reports: Hx Asthma, Hx Bronchitis Renal/ Medical History: Denies: Hx Peritoneal Dialysis GI Medical History: Reports: Hx Gastroesophageal Reflux Disease Musculoskeletal Medical History: Reports Hx Arthritis, Reports Hx Musculoskeletal Trauma Past Surgical History: Reports: Hx Hysterectomy, Hx Orthopedic Surgery - left foot - Immunizations Immunizations up to date: Yes Hx Diphtheria, Pertussis, Tetanus Vaccination: Yes Hx Pneumococcal Vaccination: 03/16/09 <TERESO HARVEY - Last Filed: 12/22/18 16:59> Review of Systems - Review of Systems Constitutional: No symptoms reported EENT: No symptoms reported Cardiovascular: No symptoms reported Respiratory: No symptoms reported Gastrointestinal: No symptoms reported Genitourinary: See HPI Female Genitourinary: No symptoms reported Musculoskeletal: No symptoms reported Skin: No symptoms reported Neurological/Psychological: No symptoms reported <TERESO HARVEY - Last Filed: 12/22/18 16:59> Physical Exam <MACKATTERESO Stout - Last Filed: 12/22/18 16:59> - Vital signs Vitals: Temp Pulse Resp BP Pulse Ox 97.6 F 60 20 125/75 98 12/22/18 13:10 12/22/18 13:10 12/22/18 13:10 12/22/18 13:10 12/22/18 13:10 - Notes Notes: Vital signs reviewed, please refer to chart. Head is normocephalic, atraumatic. Pupils equal round, reactive to light. Neck is supple without meningismus. Heart is regular rate and rhythm. Lungs are clear to auscultation bilaterally. Abdomen is soft, nontender, normoactive bowel sounds throughout. Extremities without cyanosis, clubbing. Posterior calves are nontender. Peripheral pulses are equal. Skin is warm and dry. (TERESO HARVEY) Course - Laboratory Result Diagrams: 12/22/18 14:20 12/22/18 14:20 <TERESO HARVEY - Last Filed: 12/22/18 16:59> - Laboratory Result Diagrams: 12/22/18 14:20 12/22/18 14:20 <ALEXIS MATAMOROS - Last Filed: 12/22/18 17:30> - Re-evaluation Re-evalutation: 12/22/18 17:03 Patient presents emergency department for evaluation. She had initial examinati on through triage, laboratory investigations obtained. Her urine failed to reveal any signs of significant infection. Given her symptoms, I did go ahead and order culture. Her labs reveal no leukocytosis, normal renal function. My suspicion at this point is that the patient may be suffering from some urge incontinence. I strongly encouraged her to follow-up with primary care, there are medications that might be able to help her symptoms. She voiced understanding to this. She was told that she would be contacted if her urine culture became positive and she voiced understanding to this as well. She will return to the emergency department for worsening or new concerning symptoms of any sort. (TERESO HARVEY) - Vital Signs Vital signs: Temp Pulse Resp BP Pulse Ox 97.6 F 60 20 125/75 98 12/22/18 13:10 12/22/18 13:10 12/22/18 13:10 12/22/18 13:10 12/22/18 13:10 - Laboratory Laboratory results interpreted by me: 12/22/18 12/22/18 12/22/18 12:48 14:20 14:20 RDW 14.7 H BUN 22 H Urine Ketones TRACE H Discharge <TERESO HARVEY - Last Filed: 12/22/18 16:59> <ALEXIS MATAMOROS - Last Filed: 12/22/18 17:30> - Discharge Clinical Impression: Urinary urgency Condition: Stable Disposition: HOME, SELF-CARE Instructions: Family Physicians / Practices Additional Instructions: There are no signs of infection in your urine today. It has been sent for culture, and you will be contacted if any bacteria grow. Otherwise, I suspect you have urinary urge incontinence. There are medications that may be helpful. You should follow-up with primary care and inquire about these. If you develop fevers, vomiting, abdominal pain, or any other new or concerning symptoms, return immediately to the emergency department for repeat evaluation.
== END 2018-12-22 17:15 | disposition home or self-care (01) ==
LOC: ER 12:38
DX: R39.15 Urgency of urination (principal); R35.0 Frequency of micturition; E78.00 Pure hypercholesterolemia, unspecified; I10 Essential (primary) hypertension; Z88.6 Allergy status to analgesic agent; Z88.2 Allergy status to sulfonamides; Z90.710 Acquired absence of both cervix and uterus
CPT/HCPCS: 36415; 80053; 81001; 85025; 87086; 99283

== ENCOUNTER 2019-04-08 10:40 | Emergency (ER) | payer MEDICARE, MEDICAID ==
--- NOTE | 2019-04-08 11:10 | ER Document Report ---
ED Medical Screen (RME) - General Chief Complaint: Foot Pain Stated Complaint: FOOT PAIN - LEFT/OVERALL PAIN Time Seen by Provider: 04/08/19 11:03 Mode of Arrival: Ambulatory Information source: Patient Notes: Patient presents complaining of bilateral foot pain off and on. Patient also complains of left knee joint pain. Patient states that she has migrating pain to the lower extremities. Patient also reports abdominal tenderness that just started today. Patient denies any nausea vomiting or diarrhea. Patient denies any fever. Patient denies any significant medical history. I have greeted and performed a rapid initial assessment of this patient. A comprehensive ED assessment and evaluation of the patient, analysis of test results and completion of the medical decision making process will be conducted by additional ED providers. TRAVEL OUTSIDE OF THE [place] IN LAST 30 DAYS: No - Related Data Allergies/Adverse Reactions: aluminum [Aluminum] Allergy (Intermediate, Verified 04/08/19 11:04) aspirin [Aspirin] Allergy (Intermediate, Verified 04/08/19 11:04) iodine Allergy (Verified 04/08/19 11:04) Sulfa (Sulfonamide Antibiotics) Allergy (Verified 04/08/19 11:04) Past Medical History - Past Medical History Cardiac Medical History: Reports: Hx Hypercholesterolemia, Hx Hypertension Pulmonary Medical History: Reports: Hx Asthma, Hx Bronchitis Renal/ Medical History: Denies: Hx Peritoneal Dialysis GI Medical History: Reports: Hx Gastroesophageal Reflux Disease Musculoskeltal Medical History: Reports Hx Arthritis, Reports Hx Musculoskeletal Trauma Past Surgical History: Reports: Hx Hysterectomy, Hx Orthopedic Surgery - left foot - Immunizations Immunizations up to date: Yes Hx Diphtheria, Pertussis, Tetanus Vaccination: Yes Physical Exam - Vital signs Vitals: Temp Pulse Resp BP Pulse Ox 98.3 F 72 16 104/70 100 04/08/19 10:58 04/08/19 10:58 04/08/19 10:58 04/08/19 10:58 04/08/19 10:58 - General General appearance: Appears well, Alert Notes: Left knee joint tenderness - Abdominal Tenderness: Tender - Generalized abdomen Course - Vital Signs Vital signs: Temp Pulse Resp BP Pulse Ox 98.3 F 72 16 104/70 100 04/08/19 10:58 04/08/19 10:58 04/08/19 10:58 04/08/19 10:58 04/08/19 10:58
[2019-04-08 11:48] LABS: ABSOLUTE EOSINOPHILS # (AUTO) 0.1 10^3/uL (0.0-0.6); ABSOLUTE MONOCYTES (AUTO) 0.4 10^3/uL (0.1-1.4); ABSOLUTE NEUT (AUTO) 2.9 10^3/uL (1.7-8.2); EOSINOPHILS % (AUTO) 2.8 % (0-6); HEMATOCRIT 38.2 % (36.0-47.0); HEMOGLOBIN 12.9 g/dL (12.0-15.5); LYMPHOCYTES % (AUTO) 22.4 % (13-45); MEAN CORPUSCULAR HEMOGLOBIN 31.2 pg (27.0-33.4); MEAN CORPUSCULAR HGB CONC 33.8 g/dL (32.0-36.0); MEAN CORPUSCULAR VOLUME 92 fl (80-97); MONOCYTES % (AUTO) 9.7 % (3-13); PLATELET COUNT 216 10^3/uL (150-450); RED BLOOD COUNT 4.14 10^6/uL (3.72-5.28); RED CELL DISTRIBUTION WIDTH 14.1 % (11.5-14.0); SEGMENTED NEUTROPHILS % (AUTO) 64.1 % (42-78); TOTAL CELLS COUNTED % (AUTO) 100 %; WHITE BLOOD COUNT 4.5 10^3/uL (4.0-10.5)
[2019-04-08 11:56] LABS: APPEARANCE,URINE CLEAR; BILIRUBIN,URINE NEGATIVE (NEGATIVE); COLOR,URINE YELLOW; GLUCOSE, URINE NEGATIVE (NEGATIVE); KETONES,URINE NEGATIVE (NEGATIVE); LEUKOCYTE ESTERASE,URINE SMALL (NEGATIVE); NITRITE,URINE NEGATIVE (NEGATIVE); PROTEIN,URINE NEGATIVE (NEGATIVE); URINE SPECIFIC GRAVITY 1.021; UROBILINOGEN,URINE NEGATIVE mg/dL (<2.0)
[2019-04-08 12:17] LABS: ALBUMIN 3.8 g/dL (3.5-5.0); ALKALINE PHOSPHATASE 43 U/L (38-126); ANION GAP 8 (5-19); ASPARTATE AMINO TRANSFERASE 26 U/L (14-36); BILIRUBIN,DIRECT 0.2 mg/dL (0.0-0.4); BILIRUBIN,TOTAL 0.4 mg/dL (0.2-1.3); BLOOD UREA NITROGEN 18 mg/dL (7-20); CALCIUM 9.3 mg/dL (8.4-10.2); CARBON DIOXIDE 30 mmol/L (22-30); CHLORIDE 103 mmol/L (98-107); POTASSIUM 4.3 mmol/L (3.6-5.0); TOTAL PROTEIN 6.8 g/dL (6.3-8.2)
[2019-04-08 12:20] LABS: GLUCOSE 59 mg/dL (75-110)
[2019-04-08 15:18] VITALS: BP 117/67
--- NOTE | 2019-04-08 18:06 | ER Document Report ---
Entered by JENNIFER CRANE SCRIBE 04/08/19 [id number] Acting as scribe for:DEANDRA ARCHULETA MD ED General - General Chief Complaint: Abdominal Pain Stated Complaint: FOOT PAIN - LEFT/OVERALL PAIN Time Seen by Provider: 04/08/19 11:03 Mode of Arrival: Ambulatory Information source: Patient Notes: 73 year old female presents to the ED with generalized pain. She stated "her whole body is bothering her" and that "it all stopped as soon as you walked in" referring to the pain. Patient complained of right big toe pain, neck pain, abdominal pain, foot pain and knee pain, however all pain reported is better now. TRAVEL OUTSIDE OF THE [place] IN LAST 30 DAYS: No - Related Data Allergies/Adverse Reactions: aluminum [Aluminum] Allergy (Intermediate, Verified 04/08/19 11:04) aspirin [Aspirin] Allergy (Intermediate, Verified 04/08/19 11:04) iodine Allergy (Verified 04/08/19 11:04) Sulfa (Sulfonamide Antibiotics) Allergy (Verified 04/08/19 11:04) Home Medications: pt denies Rx medication Past Medical History - General Information source: Patient - Social History Smoking Status: Never Smoker Chew tobacco use (# tins/day): No Frequency of alcohol use: None Drug Abuse: None Family History: Reviewed & Not Pertinent, Hypertension Patient has suicidal ideation: No Patient has homicidal ideation: No - Past Medical History Cardiac Medical History: Reports: Hx Hypercholesterolemia, Hx Hypertension Pulmonary Medical History: Reports: Hx Asthma, Hx Bronchitis GI Medical History: Reports: Hx Gastroesophageal Reflux Disease Musculoskeletal Medical History: Reports Hx Arthritis, Reports Hx Musculoskel etal Trauma Past Surgical History: Reports: Hx Hysterectomy, Hx Orthopedic Surgery - left foot - Immunizations Immunizations up to date: Yes Hx Diphtheria, Pertussis, Tetanus Vaccination: Yes Hx Pneumococcal Vaccination: 03/16/09 Review of Systems - Review of Systems Constitutional: No symptoms reported EENT: No symptoms reported Cardiovascular: No symptoms reported Respiratory: No symptoms reported Gastrointestinal: See HPI, Abdominal pain Genitourinary: No symptoms reported Female Genitourinary: No symptoms reported Musculoskeletal: See HPI, Muscle pain, Neck pain, Other - Foot pain Skin: No symptoms reported Hematologic/Lymphatic: No symptoms reported Neurological/Psychological: No symptoms reported -: Yes All other systems reviewed and negative Physical Exam - Vital signs Vitals: Temp Pulse Resp BP Pulse Ox 98.3 F 72 16 104/70 100 04/08/19 10:58 04/08/19 10:58 04/08/19 10:58 04/08/19 10:58 04/08/19 10:58 - Notes Notes: General: Alert, appears well. HEENT: Normocephalic. Atraumatic. PERRL. Extraocular movements intact. Oropharynx clear. Neck: Supple. Non-tender. Respiratory: No respiratory distress. Clear and equal breath sounds bilaterally. Cardiovascular: Regular rate and rhythm. Abdominal: Normal Inspection. Non-tender. No distension. Normal Bowel Sounds. Back: No gross abnormalities. Extremities: Moves all four extremities. Upper extremities: Normal inspection. Normal ROM. Lower extremities: Normal inspection. No peripheral edema. Normal ROM. Neurological: Normal cognition. AAOx4. Normal speech. Psychological: Normal affect. Normal Mood. Skin: Warm. Dry. Normal color. Course - Vital Signs Vital signs: Temp Pulse Resp BP Pulse Ox 98.3 F 68 18 117/67 97 04/08/19 15:16 04/08/19 15:16 04/08/19 15:16 04/08/19 15:16 04/08/19 15:16 - Laboratory Result Diagrams: 04/08/19 11:30 04/08/19 11:30 Laboratory results interpreted by me: 04/08/19 04/08/19 04/08/19 11:15 11:30 11:30 RDW 14.1 H Glucose 59 L POC Glucose Ur Leukocyte Esterase SMALL H Urine Ascorbic Acid 40 H 04/08/19 14:25 RDW Glucose POC Glucose 134 H Ur Leukocyte Esterase Urine Ascorbic Acid Discharge - Discharge Clinical Impression: Generalized pain Condition: Stable Disposition: HOME, SELF-CARE Additional Instructions: Your examination today did not find any serious abnormalities. As we discussed, if you do decide to trim your toenails you should soak your feet in warm water to soften up the nails before you try to cut them. Follow-up with your primary care provider as needed. RETURN TO THE EMERGENCY ROOM IF ANY NEW OR WORSENING SYMPTOMS. Scribe Attestation: 04/08/19 15:10 I personally performed the services described in the documentation, reviewed and edited the documentation which was dictated to the scribe in my presence, and it accurately records my words and actions. I personally performed the services described in the documentation, reviewed and edited the documentation which was dictated to the scribe in my presence, and it accurately records my words and actions.
== END 2019-04-08 15:28 | disposition home or self-care (01) ==
LOC: ER 10:40
DX: R10.9 Unspecified abdominal pain (principal); M79.672 Pain in left foot; M79.674 Pain in right toe(s); M54.2 Cervicalgia; Z88.2 Allergy status to sulfonamides; Z88.8 Allergy status to other drugs, medicaments and biological substances; I10 Essential (primary) hypertension
CPT/HCPCS: 36415; 80053; 81001; 82962; 83690; 85025; 99283

== ENCOUNTER 2019-05-01 18:36 | Emergency (ER) | payer MEDICARE, MEDICAID ==
--- NOTE | 2019-05-01 19:00 | ER Document Report ---
ED Medical Screen (RME) - General Chief Complaint: Cough Stated Complaint: COUGH,CONGESTION Time Seen by Provider: 05/01/19 18:56 Mode of Arrival: Ambulatory Information source: Patient Notes: 73-year-old female presented to ED for complaint of cough cold congestion body aches all over. She states the body aches are much worse. She states is been much worse for the last couple days. She states she has had body aches cough and congestion for about 2 months. States she does not have a primary doctor she states she lives by herself. I have greeted and performed a rapid initial assessment of this patient. A comprehensive ED assessment and evaluation of the patient, analysis of test results and completion of medical decision making process will be conducted by an additional ED providers. TRAVEL OUTSIDE OF THE [place] IN LAST 30 DAYS: No - Related Data Allergies/Adverse Reactions: aluminum [Aluminum] Allergy (Intermediate, Verified 04/08/19 11:04) aspirin [Aspirin] Allergy (Intermediate, Verified 04/08/19 11:04) iodine Allergy (Verified 04/08/19 11:04) Sulfa (Sulfonamide Antibiotics) Allergy (Verified 04/08/19 11:04) Past Medical History - Past Medical History Cardiac Medical History: Reports: Hx Hypercholesterolemia, Hx Hypertension Pulmonary Medical History: Reports: Hx Asthma, Hx Bronchitis Renal/ Medical History: Denies: Hx Peritoneal Dialysis GI Medical History: Reports: Hx Gastroesophageal Reflux Disease Musculoskeltal Medical History: Reports Hx Arthritis, Reports Hx Musculoskeletal Trauma Past Surgical History: Reports: Hx Hysterectomy, Hx Orthopedic Surgery - left foot - Immunizations Immunizations up to date: Yes Hx Diphtheria, Pertussis, Tetanus Vaccination: Yes Physical Exam - Vital signs Vitals: Temp Pulse Resp BP Pulse Ox 98 F 64 16 130/82 H 100 05/01/19 18:54 05/01/19 18:54 05/01/19 18:54 05/01/19 18:54 05/01/19 18:54 Course - Vital Signs Vital signs: Temp Pulse Resp BP Pulse Ox 98 F 64 16 130/82 H 100 05/01/19 18:54 05/01/19 18:54 05/01/19 18:54 05/01/19 18:54 05/01/19 18:54
--- NOTE | 2019-05-01 19:42 | RADIOLOGY REPORT (SQ) ---
EXAM DESCRIPTION: CHEST 2 VIEWS COMPLETED DATE/TIME: 05/01/2019 7:31 pm REASON FOR STUDY: Cough cold congestion COMPARISON: None. TECHNIQUE: Frontal and lateral radiographic views of the chest acquired. NUMBER OF VIEWS: Two view. LIMITATIONS: None. FINDINGS: LUNGS AND PLEURA: Chronic hyperinflation suggestive of COPD. No suspicious opacities or a cute infiltrate. No evidence of congestive failure. MEDIASTINUM AND HILAR STRUCTURES: No masses or contour abnormalities. HEART AND VASCULAR STRUCTURES: Heart normal size. No evidence for failure. BONES: Osteopenic. HARDWARE: None in the chest. OTHER: No other significant finding. IMPRESSION: Chronic changes of COPD. No acute cardiopulmonary disease or suspicious abnormality. TECHNICAL DOCUMENTATION: JOB ID: [id number] 2010 [employer]- All Rights Reserved Reading location - IP/workstation name: [email or web address]
[2019-05-01 20:12] LABS: ABSOLUTE BASOPHILS # (AUTO) 0.1 10^3/uL (0.0-0.2); ABSOLUTE EOSINOPHILS # (AUTO) 0.1 10^3/uL (0.0-0.6); ABSOLUTE LYMPHOCYTES (AUTO) 1.3 10^3/uL (0.5-4.7); ABSOLUTE MONOCYTES (AUTO) 0.5 10^3/uL (0.1-1.4); ABSOLUTE NEUT (AUTO) 2.9 10^3/uL (1.7-8.2); BASOPHILS % (AUTO) 1.2 % (0-2); EOSINOPHILS % (AUTO) 2.9 % (0-6); HEMATOCRIT 37.4 % (36.0-47.0); LYMPHOCYTES % (AUTO) 26.6 % (13-45); MEAN CORPUSCULAR HEMOGLOBIN 31.6 pg (27.0-33.4); MEAN CORPUSCULAR HGB CONC 34.8 g/dL (32.0-36.0); MEAN CORPUSCULAR VOLUME 91 fl (80-97); MONOCYTES % (AUTO) 10.3 % (3-13); PLATELET COUNT 235 10^3/uL (150-450); RED BLOOD COUNT 4.12 10^6/uL (3.72-5.28); RED CELL DISTRIBUTION WIDTH 14.4 % (11.5-14.0); TOTAL CELLS COUNTED % (AUTO) 100 %
[2019-05-01 20:14] LABS: APPEARANCE,URINE SLIGHTLY-CLOUDY; BILIRUBIN,URINE NEGATIVE (NEGATIVE); COLOR,URINE YELLOW; GLUCOSE, URINE NEGATIVE (NEGATIVE); KETONES,URINE NEGATIVE (NEGATIVE); PROTEIN,URINE NEGATIVE (NEGATIVE); URINE SPECIFIC GRAVITY 1.014; UROBILINOGEN,URINE NEGATIVE mg/dL (<2.0)
[2019-05-01 20:17] LABS: PROTHROMBIN TIME 13.2 SEC (11.4-15.4)
[2019-05-01 20:18] LABS: PARTIAL THROMBOPLASTIN TIME 38.5 SEC (23.5-35.8)
--- NOTE | 2019-05-01 20:26 | ER Document Report ---
ED General - General Chief Complaint: Cold Symptoms Stated Complaint: COUGH,CONGESTION Time Seen by Provider: 05/01/19 18:56 Mode of Arrival: Ambulatory TRAVEL OUTSIDE OF THE [place] IN LAST 30 DAYS: No - HPI Notes: 73-year-old non-smoking female taking no prescription medications with no primary care doctor now presenting with a chief complaint of cough of several weeks duration. This started out as nonproductive and within the last week she is now bringing up green sputum intermittently. She denies fever chills or vomiting. She denies chest pain. Patient says she has had bronchitis in the past and when she was younger was told that she had asthma. She is on no specific treatment for this. Allergy to sulfa drugs. - Related Data Allergies/Adverse Reactions: aluminum [Aluminum] Allergy (Intermediate, Verified 04/08/19 11:04) aspirin [Aspirin] Allergy (Intermediate, Verified 04/08/19 11:04) iodine Allergy (Verified 04/08/19 11:04) Sulfa (Sulfonamide Antibiotics) Allergy (Verified 04/08/19 11:04) Past Medical History - General Information source: Patient - Social History Smoking Status: Never Smoker Chew tobacco use (# tins/day): No Frequency of alcohol use: None Drug Abuse: None Family History: Reviewed & Not Pertinent, Hypertension Patient has suicidal ideation: No Patient has homicidal ideation: No - Past Medical History Cardiac Medical History: Reports: Hx Hypercholesterolemia, Hx Hypertension Pulmonary Medical History: Reports: Hx Asthma, Hx Bronchitis Renal/ Medical History: Denies: Hx Peritoneal Dialysis GI Medical History: Reports: Hx Gastroesophageal Reflux Disease Musculoskeletal Medical History: Reports Hx Arthritis, Reports Hx Musculoskeletal Trauma Past Surgical History: Reports: Hx Hysterectomy, Hx Orthopedic Surgery - left foot - Immunizations Immunizations up to date: Yes Hx Diphtheria, Pertussis, Tetanus Vaccination: Yes Hx Pneumococcal Vaccination: 03/16/09 Review of Systems - Review of Systems Notes: Constitutional: Negative for fever. HENT: Negative for sore throat. Eyes: Negative for visual changes. Cardiovascular: Negative for chest pain. Respiratory: As per HPI. Gastrointestinal: Negative for abdominal pain, vomiting or diarrhea. Genitourinary: Negative for dysuria. Musculoskeletal: Negative for back pain. Skin: Negative for rash. Neurological: Negative for headaches, weakness or numbness. 10 point ROS negative except as marked above and in HPI. Physical Exam - Vital signs Vitals: Temp Pulse Resp BP Pulse Ox 98 F 64 16 130/82 H 100 05/01/19 18:54 05/01/19 18:54 05/01/19 18:54 05/01/19 18:54 05/01/19 18:54 - Notes Notes: GENERAL: Elderly female in no acute distress. SKIN: Good turgor no rashes. HEAD: Normocephalic atraumatic. EYES: PERRLA. EOMI. Conjunctivae and sclerae clear. EARS: CANALS AND TMS CLEAR. NOSE: CLEAR. MOUTH: Moist mucosa. Good dentition. No stridor or edema. No drooling. NECK: Supple. No masses or thyromegaly. No adenopathy. Carotids 2+ without bruits. No JVD. BACK: Symmetrical without tenderness. CHEST: Rattling cough respirations unlabored. Breath sounds symmetrical with a few scattered rhonchi bilaterally. HEART: Regular rhythm. No murmur gallop or rub. ABDOMEN: Soft nontender without masses, organomegaly or rebound. Bowel sounds normally active. No bruits. GENITALIA: Deferred. EXTREMITIES: No edema. No calf tenderness. Cap refill less than 1.5 seconds. Dorsalis pedis and posterior tibial pulses 3+ and symmetrical. NEUROLOGICAL: GCS 15. Alert and oriented x3. Normal gait. Fluent speech. Cranial nerves II through XII intact. Sensorimotor and cerebellar normal. Normal tone. PSYCHIATRIC: Appropriate affect. Course - Re-evaluation Re-evalutation: 05/01/19 21:50 Patient remained stable. Chest x-ray did not show any focal infiltrate. Influenza screen was negative. Clinically she has bronchitis and has gotten progressively worse over several weeks now bringing up some green sputum. She also has evidence of a bladder infection. I am going to treat her with an oral antibiotic at home and she is referred to her primary care physician for follow- up. - Vital Signs Vital signs: Temp Pulse Resp BP Pulse Ox 98 F 64 16 130/82 H 100 05/01/19 18:54 05/01/19 18:54 05/01/19 18:54 05/01/19 18:54 05/01/19 18:54 - Laboratory Result Diagrams: 05/01/19 19:57 05/01/19 19:57 Laboratory results interpreted by me: 0205/01/19 05/01/19 19:57 19:57 19:57 RDW 14.4 H APTT 38.5 H Leukocyte Esterase Rfl SMALL H - Diagnostic Test Radiology reviewed: Reports reviewed - PA lateral chest x-ray normal per r adiologist. Discharge - Discharge Clinical Impression: Acute bronchitis Qualifiers: Bronchitis organism: unspecified organism Qualified Code(s): J20.9 - Acute bronchitis, unspecified Urinary tract infection Qualifiers: Urinary tract infection type: site unspecified Hematuria presence: without hematuria Qualified Code(s): N39.0 - Urinary tract infection, site not specified Condition: Stable Disposition: HOME, SELF-CARE Instructions: Amoxicillin ([facility]), Urinary Tract Infection ([facility]) Additional Instructions: Bronchitis You have acute bronchitis. This disease is an infection or inflammation of the air passageways in your lungs. Symptoms usually include cough, low grade fever, shortness of breath, and wheezing. The cough usually persists for a couple of weeks. Most cases of bronchitis get better without antibiotics. We prescribe antibiotics when we believe bacteria are damaging your airways, or if there's high risk the bronchitis will worsen into pneumonia. Increase your fluid intake. A cool mist humidifier may make your lungs more comfortable. An expectorant (cough medicine that loosens phlegm) can help. If you smoke, STOP!!! Recovery from bronchitis can be somewhat slow, but you should see improvement within a day or two. Repeated episodes of bronchitis may result in lung damage -- for example, chronic bronchitis, recurrent pneumonias, or emphysema. Call the doctor if you develop increasing fever, shortness of breath, chest pain, bloody sputum, or otherwise worsen. If you have not improved at all after several days, contact the physician. You may take DayQuil as per label instructions. Follow-up with referral physician if you are not showing improvement in next 3 to 5 days. Return here as needed for new or worsening symptoms: Pain that is worsening or unimproved Uncontrolled vomiting High fever or shaking chills Overall worsening Prescriptions: Amoxicillin 1 tab PO TID #30 tab Referrals: [facility] [Provider Group] - Follow up as needed
[2019-05-01 20:38] LABS: ALKALINE PHOSPHATASE 57 U/L (38-126); ANION GAP 6 (5-19); ASPARTATE AMINO TRANSFERASE 27 U/L (14-36); BILIRUBIN,TOTAL 0.4 mg/dL (0.2-1.3); BLOOD UREA NITROGEN 15 mg/dL (7-20); CALCIUM 9.4 mg/dL (8.4-10.2); CARBON DIOXIDE 30 mmol/L (22-30); CHLORIDE 102 mmol/L (98-107); GLUCOSE 87 mg/dL (75-110); POTASSIUM 4.4 mmol/L (3.6-5.0); TOTAL PROTEIN 7.3 g/dL (6.3-8.2)
[2019-05-01 20:42] LABS: A TYPE INFLUENZA AG NEGATIVE (NEGATIVE); B INFLUENZA AG NEGATIVE (NEGATIVE)
[2019-05-01 22:08] VITALS: BP 123/69
== END 2019-05-01 22:37 | disposition home or self-care (01) ==
LOC: ER 18:36
DX: N39.0 Urinary tract infection, site not specified (principal); J45.909 Unspecified asthma, uncomplicated; R05 Cough; R09.81 Nasal congestion; Z88.2 Allergy status to sulfonamides; Z88.8 Allergy status to other drugs, medicaments and biological substances; I10 Essential (primary) hypertension
CPT/HCPCS: 36415; 71046; 80053; 81001; 85025; 85610; 85730; 87086; 87804; 99283

== ENCOUNTER 2019-06-24 15:55 | Emergency (ER) | payer MEDICARE, MEDICAID ==
--- NOTE | 2019-06-24 16:18 | ER Document Report ---
ED Medical Screen (RME) - General Chief Complaint: Leg Pain Stated Complaint: RIGHT LEG PAIN Time Seen by Provider: 06/24/19 16:12 Mode of Arrival: Wheelchair Information source: Patient Notes: 73-year-old female patient presenting to the emergency department with multiple vague complaints. Patient's primary complaint is right leg pain that began 2 hours prior to arrival however patient now reporting bilateral leg pain. She states she does not have a primary care provider, she states she chooses to come to the hospital because she thinks will take better care of her. She is not on any prescription drugs. She has not had any history of DVT or blood clot. She denies any chest pain, shortness of breath or fever. She is spitting up clear s spit into a napkin in triage. No obvious swelling or erythema noted to right leg. I have greeted and performed a rapid initial assessment of this patient. A comprehensive ED assessment and evaluation of the patient, analysis of test resu lts and completion of the medical decision making process will be conducted by additional ED providers. I have specifically instructed the patient or family members with the patient to immediately return to any nursing staff should anything change in the patient's condition or with their chief complaint. TRAVEL OUTSIDE OF THE [place] IN LAST 30 DAYS: No - Related Data Allergies/Adverse Reactions: aluminum [Aluminum] Allergy (Intermediate, Verified 04/08/19 11:04) aspirin [Aspirin] Allergy (Intermediate, Verified 04/08/19 11:04) iodine Allergy (Verified 04/08/19 11:04) Sulfa (Sulfonamide Antibiotics) Allergy (Verified 04/08/19 11:04) Past Medical History - Past Medical History Cardiac Medical History: Reports: Hx Hypercholesterolemia, Hx Hypertension Pulmonary Medical History: Reports: Hx Asthma, Hx Bronchitis Renal/ Medical History: Denies: Hx Peritoneal Dialysis GI Medical History: Reports: Hx Gastroesophageal Reflux Disease Musculoskeltal Medical History: Reports Hx Arthritis, Reports Hx Musculoskeletal Trauma Past Surgical History: Reports: Hx Hysterectomy, Hx Orthopedic Surgery - left foot - Immunizations Immunizations up to date: Yes Hx Diphtheria, Pertussis, Tetanus Vaccination: Yes Physical Exam - Vital signs Vitals: Temp Pulse Resp BP Pulse Ox 98.2 F 77 20 114/61 98 06/24/19 15:59 06/24/19 15:59 06/24/19 15:59 06/24/19 15:59 06/24/19 15:59 Course - Vital Signs Vital signs: Temp Pulse Resp BP Pulse Ox 98.2 F 77 20 114/61 98 06/24/19 15:59 06/24/19 15:59 06/24/19 15:59 06/24/19 15:59 06/24/19 15:59
--- NOTE | 2019-06-24 16:30 | ER Document Report ---
ED Extremity Problem, Lower - General Chief Complaint: Leg Pain Stated Complaint: RIGHT LEG PAIN Time Seen by Provider: 06/24/19 16:12 Primary Care Provider: [facility] [Provider Group] - Follow up as needed [facility] [Provider Group] - Follow up as needed [facility] [Provider Group] - Follow up as needed [facility] [Provider Group] - Follow up as needed CAIT YAO MD [ACTIVE STAFF] - Follow up as needed JACOBO ALEMAN MD [ACTIVE STAFF] - Follow up as needed RASHAD PEREZ MD [ACTIVE STAFF] - Follow up as needed Mode of Arrival: Wheelchair Information source: Patient Notes: 73-year-old female presented to ED for complaint of pain to her right leg and now to her left leg also. She states she does not go to her primary care doctor because she does not think they will take good care of her. She does not take any medications at home. She does have a history of high blood pressure high cholesterol asthma bronchitis reflux arthritis musculoskeletal problems with a hysterectomy and a left foot surgery. She states the pain started in her right leg about 2 hours ago and now her left leg hurts too. TRAVEL OUTSIDE OF THE [place] IN LAST 30 DAYS: No - HPI Patient complains to provider of: Pain Location: Leg Occurred: Just prior to arrival Where: Home Onset/Duration: Sudden Quality of pain: Sharp Severity: Moderate Pain Level: 3 Context: Other Recent injury: No - Weakness Associated symptoms: Painful ambulation Exacerbated by: Movement, Walking Relieved by: Nothing - Related Data Allergies/Adverse Reactions: aluminum [Aluminum] Allergy (Intermediate, Verified 04/08/19 11:04) aspirin [Aspirin] Allergy (Intermediate, Verified 04/08/19 11:04) iodine Allergy (Verified 04/08/19 11:04) Sulfa (Sulfonamide Antibiotics) Allergy (Verified 04/08/19 11:04) Past Medical History - General Information source: Patient - Social History Smoking Status: Never Smoker Frequency of alcohol use: None Drug Abuse: None Family History: Reviewed & Not Pertinent, Hypertension Patient has suicidal ideation: No Patient has homicidal ideation: No - Past Medical History Cardiac Medical History: Reports: Hx Hypercholesterolemia, Hx Hypertension Pulmonary Medical History: Reports: Hx Asthma, Hx Bronchitis EENT Medical History: Reports: None Neurological Medical History: Reports: None Endocrine Medical History: Reports: None Renal/ Medical History: Reports: None Malignancy Medical History: Reports: None GI Medical History: Reports: Hx Gastroesophageal Reflux Disease Musculoskeletal Medical History: Reports Hx Arthritis, Reports Hx Musculoskeletal Trauma Skin Medical History: Reports None Psychiatric Medical History: Reports: None Traumatic Medical History: Reports: None Infectious Medical History: Reports: None Past Surgical History: Reports: Hx Hysterectomy, Hx Orthopedic Surgery - left foot - Immunizations Immunizations up to date: Yes Hx Diphtheria, Pertussis, Tetanus Vaccination: Yes Hx Pneumococcal Vaccination: 03/16/09 Review of Systems - Review of Systems Constitutional: No symptoms reported EENT: No symptoms reported Cardiovascular: No symptoms reported Respiratory: No symptoms reported Gastrointestinal: No symptoms reported Genitourinary: No symptoms reported Female Genitourinary: No symptoms reported Musculoskeletal: Other Skin: No symptoms reported Hematologic/Lymphatic: No symptoms reported Neurological/Psychological: No symptoms reported Physical Exam - Vital signs Vitals: Temp Pulse Resp BP Pulse Ox 98.2 F 77 20 114/61 98 06/24/19 15:59 06/24/19 15:59 06/24/19 15:59 06/24/19 15:59 06/24/19 15:59 Course - Re-evaluation Re-evalutation: 06/24/19 20:07 X-ray, venous Doppler, and urinalysis negative for any acute processes. Patient does have chronic pain problems for both legs. There is no acute abnormalities at this time. Will treat with Tylenol and discharged home to follow-up with primary care. I have given her multiple primary care doctors to follow-up with. - Vital Signs Vital signs: Temp Pulse Resp BP Pulse Ox 97.4 F 61 20 116/86 H 99 06/24/19 20:20 06/24/19 20:20 06/24/19 20:20 06/24/19 20:20 06/24/19 20:20 - Laboratory Laboratory results interpreted by me: 06/24/19 16:55 Urine Ascorbic Acid 40 H - Diagnostic Test Radiology reviewed: Image reviewed, Reports reviewed Discharge - Discharge Clinical Impression: Chronic pain of lower extremity, bilateral Condition: Stable Disposition: HOME, SELF-CARE Additional Instructions: Chronic Pain Control Stress, inactivity, and depression make pain more severe regardless of the cause of the pain. Stress and poor physical condition can cause pain such as headaches and backache. Relaxation: Rest in a quiet place with your eyes closed for 20 minutes twice daily. Concentrate on a pleasant image, or simply "feel" your breathing. Clear your mind. Stress management: Deal with your "stressors." Either take action, or eliminate the stressor from your life. Don't let things hang over you. Accept those things you can't change. Nutrition: Eat small, balanced meals -- don't skip, don't overeat. Meals should be high-carbohydrate, low-sugar, low-fat. Exercise: Exercise helps painful conditions and eases stress. Get 30 minutes of moderate exercise, five days a week. Do an activity that does not flare your pain. Precautions: Pain which continues to disrupt daily activities, or which changes in nature, requires a medical evaluation. Pain Clinic referral is available. We do not manage chronic pain in the Emergency Department. We will try to appropriately help you through an acute flare of your chronic painful condition, but for on-going chronic pain that does not improve, you will need to see your private doctor or paint mixer. We do not provide repeated medication management of chronic painful conditions. If you wish, we can pro vide the name of local pain management physicians. Leg Pain, Nonspecific We did not find an obvious cause for your leg pain. There's no sign of blood clot, infection, or other serious disease. Possible causes of vague leg pain include muscle or joint inflammation, disc disease in the lower back, pressure on the nerves in the back, or reduced blood flow through the arteries of the leg. Rest the leg. Pain can be eased with an antiinflammatory pain medicine such as ibuprofen. If the pain involves a small area, a heating pad might help. Call the doctor or return if the leg becomes swollen, weak, discolored, or increasingly painful, or if you develop any other significant change in your health. Acetaminophen Acetaminophen may be taken for pain relief or fever control. It's much safer than aspirin, offering a wider range of "safe" dosages. It is safe during . Some brand names are Tylenol, Panadol, Datril, Anacin 3, Tempra, and Liquiprin. Acetaminophen can be repeated every four hours. The following are maximum recommended dosages: WEIGHT Dose Drops Elixir Chewable(8 0mg) (LBS.) drprs=droppers tsp=teaspoon 6 40 mg .4 ml (1/2) 6-11 80 mg .8 ml (full) 1/2 tsp 1 tab 12-16 120 mg 1 1/2 drprs 3/4 tsp 1 1/2 tabs 17-23 160 mg 2 drprs 1 tsp 2 tabs 24-30 240 mg 3 drprs 1 1/2 tsp 3 tabs 30-35 320 mg 2 tsp 4 tabs 36-41 360 mg 2 1/4 tsp 4 1/2 tabs 42-47 400 mg 2 1/2 tsp 5 tabs 48-53 480 mg 3 tsp 6 tabs 54-59 520 mg 3 1/4 tsp 6 1/2 tabs 60-64 560 mg 3 1/2 tsp 7 tabs 65-70 600 mg 3 3/4 tsp 7 1/2 tabs 71-76 640 mg 4 tsp 8 tabs 77-82 720 mg 4 1/2 tsp 9 tabs 83-88 800 mg 5 tsp 10 tabs >89 pounds or adults 650 mg to 900 mg Acetaminophen can be repeated every four hours. Maximum daily dose not to exceed 4000 mg. These maximum recommended dosages are slightly higher than the dosages written on the product container, but these dosages are very safe and well below the toxic dosage for acetaminophen. FOLLOW-UP CARE: If you have been referred to a physician for follow-up care, call the physicians office for an appointment as you were instructed or within the next two days. If you experience worsening or a significant change in your symptoms, notify the physician immediately or return to the Emergency Department at any time for re-evaluation. Referrals: [facility] [Provider Group] - Follow up as needed [facility] [Provider Group] - Follow up as needed [facility] [Provider Group] - Follow up as needed [facility] [Provider Group] - Follow up as needed JACOBO ALEMAN MD [ACTIVE STAFF] - Follow up as needed CAIT YAO MD [ACTIVE STAFF] - Follow up as needed RASHAD PEREZ MD [ACTIVE STAFF] - Follow up as needed
--- NOTE | 2019-06-24 17:18 | RADIOLOGY REPORT (SQ) ---
EXAM DESCRIPTION: FEMUR RIGHT IMAGES COMPLETED DATE/TIME: 06/24/2019 4:50 pm REASON FOR STUDY: leg pain COMPARISON: None. NUMBER OF VIEWS: Two views. TECHNIQUE: Two radiographic images acquired of the right femur to include hip and knee in at least o ne projection. LIMITATIONS: None. FINDINGS: MINERALIZATION: Normal. BONES: No acute fracture. No worrisome bone lesions. SOFT TISSUES: No obvious swelling or foreign body. OTHER: No other significant finding. IMPRESSION: NEGATIVE STUDY OF THE RIGHT FEMUR. NO RADIOGRAPHIC EVIDENCE OF ACUTE INJURY. TECHNICAL DOCUMENTATION: JOB ID: [id number] 2010 [employer]- All Rights Reserved Reading location - IP/workstation name: [email or web address]
--- NOTE | 2019-06-24 17:19 | RADIOLOGY REPORT (SQ) ---
EXAM DESCRIPTION: TIBIA FIBULA RIGHT IMAGES COMPLETED DATE/TIME: 06/24/2019 4:50 pm REASON FOR STUDY: leg pain COMPARISON: None. NUMBER OF VIEWS: Two views. TECHNIQUE: Two radiographic images acquired of the right tibia and fibula to include the knee and an kle in at least one projection. LIMITATIONS: None. FINDINGS: MINERALIZATION: Normal. BONES: No acute fracture or dislocation. No worrisome bone lesions. SOFT TISSUES: No obvious swelling or foreign body. OTHER: Degenerative changes of the knee with chondrocalcinosis. IMPRESSION: No acute fracture. Degenerative changes of the knee with chondrocalcinosis. TECHNICAL DOCUMENTATION: JOB ID: [id number] 2010 [employer]- All Rights Reserved Reading location - IP/workstation name: [email or web address]
[2019-06-24 17:23] LABS: APPEARANCE,URINE SLIGHTLY-CLOUDY; BILIRUBIN,URINE NEGATIVE (NEGATIVE); COLOR,URINE YELLOW; GLUCOSE, URINE NEGATIVE (NEGATIVE); KETONES,URINE NEGATIVE (NEGATIVE); PROTEIN,URINE NEGATIVE (NEGATIVE); URINE SPECIFIC GRAVITY 1.024; UROBILINOGEN,URINE NEGATIVE mg/dL (<2.0)
[2019-06-24] MEDS ORDERED: ACETAMINOPHEN 325 MG TABLET PO ONE (19:57)
--- NOTE | 2019-06-24 20:10 | RADIOLOGY REPORT (SQ) ---
EXAM DESCRIPTION: ULTRASOUND- right lower extremity venous Doppler ultrasound CLINICAL HISTORY: Right leg pain COMPARISON: None TECHNIQUE: Bates scale, color and Doppler sonographic evaluation of the right lower extremity was performed. FINDINGS: There is no evidence of acute/chronic deep venous thrombosis in the right common femoral through proximal calf veins, including the popliteal, posterior tibial veins and right greater saphenous vein/common femoral vein junction. Normal color/phasic flow, augmentation, compressibility and lack of filling defects, is demonstrated in these visualized vessels. IMPRESSION: Negative for deep vein thrombosis in the evaluated right lower extremity deep venous system.
[2019-06-24 20:21] VITALS: BP 116/86
== END 2019-06-24 20:18 | disposition home or self-care (01) ==
LOC: ER 15:55
DX: G89.29 Other chronic pain (principal); M79.604 Pain in right leg; M79.605 Pain in left leg; E78.00 Pure hypercholesterolemia, unspecified; I10 Essential (primary) hypertension; Z88.2 Allergy status to sulfonamides; Z88.6 Allergy status to analgesic agent; Z90.710 Acquired absence of both cervix and uterus
CPT/HCPCS: 99284; 81001; 93971; 73552; 73590; A9270

== ENCOUNTER 2019-06-29 18:08 | Emergency (ER) | payer MEDICARE, MEDICAID ==
[2019-06-29 18:16] VITALS: BP 136/88
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
== END 2019-06-29 18:37 | disposition home or self-care (01) ==
LOC: ER 18:08
DX: H57.9 Unspecified disorder of eye and adnexa (principal); Z77.098 Contact with and (suspected) exposure to other hazardous, chiefly nonmedicinal, chemicals; E78.00 Pure hypercholesterolemia, unspecified; I10 Essential (primary) hypertension; Z90.710 Acquired absence of both cervix and uterus
CPT/HCPCS: 99283

== ENCOUNTER 2019-07-10 12:55 | Emergency (ER) | payer MEDICARE, MEDICAID ==
[2019-07-10 13:01] VITALS: BP 115/78
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
== END 2019-07-10 13:37 | disposition home or self-care (01) ==
LOC: ER 12:55
DX: T49.0X1A Poisoning by local antifungal, anti-infective and anti-inflammatory drugs, accidental (unintentional), initial encounter (principal); T26.91XA Corrosion of right eye and adnexa, part unspecified, initial encounter; Y92.239 Unspecified place in hospital as the place of occurrence of the external cause
CPT/HCPCS: 99283

== ENCOUNTER 2019-10-01 14:53 | Emergency (ER) | payer MEDICARE, MEDICAID ==
--- NOTE | 2019-10-01 15:07 | ER Document Report ---
ED Medical Screen (RME) - General Chief Complaint: Leg Pain Stated Complaint: LEG PAIN Time Seen by Provider: 10/01/19 15:01 Mode of Arrival: Wheelchair Information source: Patient Notes: 74-year-old female presented to ED for right upper quadrant abdominal pain abdominal distention bilateral knee pain bilateral leg swelling and left breast pain. She states she has multiple other pains and aches but the main thing she is here for today is the abdominal pain and the swelling to both legs. Patient is alert and rambling. She states she lives by herself and only comes to the emergency room does not go to her primary care doctor. I have greeted and performed a rapid initial assessment of this patient. A comprehensive ED assessment and evaluation of the patient, analysis of test res ults and completion of medical decision making process will be conducted by an additional ED providers. TRAVEL OUTSIDE OF THE [place] IN LAST 30 DAYS: No - Related Data Allergies/Adverse Reactions: aluminum [Aluminum] Allergy (Intermediate, Verified 07/10/19 13:00) aspirin [Aspirin] Allergy (Intermediate, Verified 07/10/19 13:00) iodine Allergy (Verified 07/10/19 13:00) Sulfa (Sulfonamide Antibiotics) Allergy (Verified 07/10/19 13:00) Past Medical History - Past Medical History Cardiac Medical History: Reports: Hx Hypercholesterolemia, Hx Hypertension Pulmonary Medical History: Reports: Hx Asthma, Hx Bronchitis Renal/ Medical History: Denies: Hx Peritoneal Dialysis GI Medical History: Reports: Hx Gastroesophageal Reflux Disease Musculoskeltal Medical History: Reports Hx Arthritis, Reports Hx Musculoskeletal Trauma Past Surgical History: Reports: Hx Hysterectomy, Hx Orthopedic Surgery - left foot - Immunizations Immunizations up to date: Yes Hx Diphtheria, Pertussis, Tetanus Vaccination: Yes Physical Exam - Vital signs Vitals: Temp Pulse Resp BP Pulse Ox 99.1 F 81 16 111/69 100 10/01/19 14:56 10/01/19 14:56 10/01/19 14:56 10/01/19 14:56 10/01/19 14:56 Course - Vital Signs Vital signs: Temp Pulse Resp BP Pulse Ox 99.1 F 81 16 111/69 100 10/01/19 14:56 10/01/19 14:56 10/01/19 14:56 10/01/19 14:56 10/01/19 14:56
[2019-10-01 15:49] LABS: ABSOLUTE EOSINOPHILS # (AUTO) 0.1 10^3/uL (0.0-0.6); ABSOLUTE LYMPHOCYTES (AUTO) 0.8 10^3/uL (0.5-4.7); ABSOLUTE MONOCYTES (AUTO) 0.5 10^3/uL (0.1-1.4); ABSOLUTE NEUT (AUTO) 2.4 10^3/uL (1.7-8.2); BASOPHILS % (AUTO) 0.6 % (0-2); EOSINOPHILS % (AUTO) 2.6 % (0-6); HEMATOCRIT 36.7 % (36.0-47.0); HEMOGLOBIN 12.4 g/dL (12.0-15.5); LYMPHOCYTES % (AUTO) 20.7 % (13-45); MEAN CORPUSCULAR HEMOGLOBIN 31.2 pg (27.0-33.4); MEAN CORPUSCULAR HGB CONC 33.7 g/dL (32.0-36.0); MEAN CORPUSCULAR VOLUME 92 fl (80-97); MONOCYTES % (AUTO) 11.9 % (3-13); PLATELET COUNT 185 10^3/uL (150-450); RED BLOOD COUNT 3.97 10^6/uL (3.72-5.28); RED CELL DISTRIBUTION WIDTH 14.5 % (11.5-14.0); SEGMENTED NEUTROPHILS % (AUTO) 64.2 % (42-78); TOTAL CELLS COUNTED % (AUTO) 100 %; WHITE BLOOD COUNT 3.8 10^3/uL (4.0-10.5)
[2019-10-01 15:52] LABS: ALBUMIN 3.7 g/dL (3.5-5.0); ALKALINE PHOSPHATASE 49 U/L (38-126); ANION GAP 6 (5-19); ASPARTATE AMINO TRANSFERASE 25 U/L (14-36); BILIRUBIN,TOTAL 0.3 mg/dL (0.2-1.3); BLOOD UREA NITROGEN 23 mg/dL (7-20); CALCIUM 9.1 mg/dL (8.4-10.2); CARBON DIOXIDE 26 mmol/L (22-30); CHLORIDE 109 mmol/L (98-107); GLUCOSE 105 mg/dL (75-110); TOTAL PROTEIN 6.6 g/dL (6.3-8.2)
--- NOTE | 2019-10-01 16:08 | RADIOLOGY REPORT (SQ) ---
EXAM DESCRIPTION: KNEE LEFT 4 VIEW IMAGES COMPLETED DATE/TIME: 10/01/2019 3:48 pm REASON FOR STUDY: Pain and swelling COMPARISON: Left knee x-ray 02/28/2018, 12/30/2017. NUMBER OF VIEWS: Four views. TECHNIQUE: AP, lateral, and both oblique radiographic images acquired of the left knee. LIMITATIONS: None. FINDINGS: MINERALIZATION: Normal. BONES: No acute fracture or dislocation. There are tricompartmental degenerative changes, worse at t he lateral tibiofemoral compartment with joint space narrowing and osteophytosis. JOINT: Small effusion. SOFT TISSUES: No significant soft tissue swelling. IMPRESSION: No radiographic evidence for acute fracture at the left knee. Small joint effusion. De generative changes. TECHNICAL DOCUMENTATION: JOB ID: [id number] 2010 [employer]- All Rights Reserved Reading location - IP/workstation name: [email or web address]
--- NOTE | 2019-10-01 16:10 | RADIOLOGY REPORT (SQ) ---
EXAM DESCRIPTION: CHEST 2 VIEWS IMAGES COMPLETED DATE/TIME: 10/01/2019 3:48 pm REASON FOR STUDY: Bilateral pedal edema COMPARISON: Chest x-ray 05/01/2019, 11/08/2018. EXAM PARAMETERS: NUMBER OF VIEWS: two views TECHNIQUE: Digital Frontal and Lateral radiographic views of the chest acquired. RADIATION DOSE: NA LIMITATIONS: none FINDINGS: LUNGS AND PLEURA: No consolidation, pneumothorax or pleural effusion. MEDIASTINUM AND HILAR STRUCTURES: No masses or contour abnormalities. HEART AND VASCULAR STRUCTURES: Heart normal size. No evidence for failure. BONES: Multilevel degenerative changes at the spine. HARDWARE: None in the chest. IMPRESSION: No acute radiographic finding in the chest. TECHNICAL DOCUMENTATION: JOB ID: [id number] 2010 [employer]- All Rights Reserved Reading location - IP/workstation name: [email or web address]
--- NOTE | 2019-10-01 16:11 | RADIOLOGY REPORT (SQ) ---
EXAM DESCRIPTION: KNEE RIGHT 4 VIEWS IMAGES COMPLETED DATE/TIME: 10/01/2019 3:48 pm REASON FOR STUDY: Pain and swelling COMPARISON: None. NUMBER OF VIEWS: Four views. TECHNIQUE: AP, lateral, and both oblique radiographic images acquired of the right knee. LIMITATIONS: None. FINDINGS: MINERALIZATION: Osteopenia. BONES: No acute fracture or dislocation. No worrisome bone lesions. 3 compartment osteophytes most ma rked lateral. JOINT: No effusion. No chondrocalcinosis. OTHER: No other significant finding. IMPRESSION: Osteoarthritis most marked lateral. TECHNICAL DOCUMENTATION: JOB ID: [id number] 2010 [employer]- All Rights Reserved Reading location - IP/workstation name: [email or web address]
--- NOTE | 2019-10-01 17:40 | RADIOLOGY REPORT (SQ) ---
EXAM DESCRIPTION: U/S ABDOMEN LIMITED W/O DOP IMAGES COMPLETED DATE/TIME: 10/01/2019 5:22 pm REASON FOR STUDY: Upper abdominal pain with abdominal distention COMPARISON: Right upper quadrant ultrasound 05/19/2015, 05/31/2013 TECHNIQUE: Grayscale images acquired of the right upper quadrant and recorded on PACS. Additional se lected color Doppler and spectral images recorded. LIMITATIONS: Overlying bowel gas. FINDINGS: PANCREAS: Partially obscured by overlying bowel gas. The visualized pancreas in the midli ne is unremarkable. LIVER: The liver measures 17.7 cm. Echotexture normal. LIVER VASCULATURE: Normal directional flow of the main portal vein and hepatic veins. GALLBLADDER: No stones. Normal wall thickness. No pericholecystic fluid. ULTRASOUND-DETECTED DODGE'S SIGN: Negative. INTRAHEPATIC DUCTS AND COMMON DUCT: CBD and intrahepatic ducts normal caliber. INFERIOR VENA CAVA: Patent. AORTA: No aneurysm at the visualized segments. RIGHT KIDNEY: The right kidney measures 10.3 x 3.2 x 5.2 cm. Normal echogenicity. There is a 7 mm c yst at the superior pole of the right kidney No hydronephrosis. No calcifications. PERITONEAL AND RIGHT PLEURAL SPACE: No ascites or effusions. IMPRESSION: No cholelithiasis or biliary ductal dilation. TECHNICAL DOCUMENTATION: JOB ID: [id number] 2010 [employer]- All Rights Reserved Reading location - IP/workstation name: [email or web address]
--- NOTE | 2019-10-01 18:36 | ER Document Report ---
ED General - General Chief Complaint: Leg Pain Stated Complaint: LEG PAIN Time Seen by Provider: 10/01/19 15:01 Mode of Arrival: Wheelchair TRAVEL OUTSIDE OF THE [place] IN LAST 30 DAYS: No - HPI Notes: Patient is a 74-year-old female who presents to the emergency department for lizzeth luation of multiple complaints. She complains of knee pain. She complains of pain in her abdomen, and her lower back. She states that nearly all of her symptoms have been going on for about a year. She admits she did have a bowel movement today, is unsure if she had one yesterday. She states that she is had no fevers or chills. No nausea or vomiting. Her pain is unchanged by food. She states her pain is really a sharp pain that comes and goes. She really cannot predict what brings it on or makes it go away. This is in response to all of the pain that she has. She admits she just does not go to see a primary care doctor, would prefer to just come here because she does not have to make an appointment. She denies any bowel or bladder incontinence, no saddle anesthesia, no focal numbness or weakness. - Related Data Allergies/Adverse Reactions: aluminum [Aluminum] Allergy (Intermediate, Verified 07/10/19 13:00) aspirin [Aspirin] Allergy (Intermediate, Verified 07/10/19 13:00) iodine Allergy (Verified 07/10/19 13:00) Sulfa (Sulfonamide Antibiotics) Allergy (Verified 07/10/19 13:00) Home Medications: otc medications Past Medical History - General Information source: Patient - Social History Smoking Status: Never Smoker Chew tobacco use (# tins/day): No Frequency of alcohol use: None Drug Abuse: None Family History: Reviewed & Not Pertinent, Hypertension Patient has homicidal ideation: No - Past Medical History Cardiac Medical History: Reports: Hx Hypercholesterolemia, Hx Hypertension Pulmonary Medical History: Reports: Hx Asthma, Hx Bronchitis Renal/ Medical History: Denies: Hx Peritoneal Dialysis GI Medical History: Reports: Hx Gastroesophageal Reflux Disease Musculoskeletal Medical History: Reports Hx Arthritis, Reports Hx Musculoskeletal Trauma Past Surgical History: Reports: Hx Hysterectomy, Hx Orthopedic Surgery - left foot - Immunizations Immunizations up to date: Yes Hx Diphtheria, Pertussis, Tetanus Vaccination: Yes Hx Pneumococcal Vaccination: 03/16/09 Review of Systems - Review of Systems Gastrointestinal: See HPI Musculoskeletal: See HPI -: Yes All other systems reviewed and negative Physical Exam - Vital signs Vitals: Temp Pulse Resp BP Pulse Ox 99.1 F 81 16 111/69 100 10/01/19 14:56 10/01/19 14:56 10/01/19 14:56 10/01/19 14:56 10/01/19 14:56 - Notes Notes: This is a very pleasant 74-year-old female who appears her stated age, no acute distress. She is soft-spoken and appears slightly frail, but is calm and cooperative with examiner. She exhibits good hygiene. Vital signs reviewed, please refer to chart. Head is normocephalic, atraumatic. Pupils equal round, reactive to light. Neck is supple without meningismus. Heart is regular rate and rhythm. Lungs are clear to auscultation bilaterally. Abdomen is mildly distended but nontender, normoactive bowel sounds throughout. Extremities without cyanosis, clubbing. Posterior calves are nontender. Peripheral pulses are equal. Skin is warm and dry. Patient is awake, alert, neurological exam is nonfocal. Examination of the right knee yields a very mild amount of swelling without any associated calor. She has full active and passive range of motion. Positive Josselyn sign. Mild ligamentous laxity appreciated, but it is appreciated bilaterally. Patient is awake and alert, oriented x3. She moves all 4 extremity spontaneously. No gross facial asymmetry. Course - Re-evaluation Re-evalutation: 10/01/19 18:35 Patient presents to the emergency department for evaluation. She complains of multiple pains and aches that are in fact chronic. I explained to the patient that she needs to follow-up with her primary care provider. That primary care provider can offer much more in the way of services to follow-up with these issues, and she needs more care than an emergency room can offer. She voiced understanding to this. Otherwise her laboratory investigations and imaging are largely unremarkable. She has degenerative changes and a small effusion, not surprising in a 74-year-old female with osteoarthritis, she had in her right knee. Her ultrasound is unremarkable. I suspect she has some mild constipation. She states she is able to have a bowel movement here, and plans to do so. Still awaiting her urinalysis but otherwise labs are unremarkable. She is currently stable, we will wait for further information. - Vital Signs Vital signs: Temp Pulse Resp BP Pulse Ox 99.1 F 81 16 111/69 100 10/01/19 14:56 10/01/19 14:56 10/01/19 14:56 10/01/19 14:56 10/01/19 14:56 - Laboratory Result Diagrams: 10/01/19 15:25 10/01/19 15:25 Laboratory results interpreted by me: 10/01/19 10/01/19 10/01/19 15:25 15:25 19:01 WBC 3.8 L RDW 14.5 H Chloride 109 H BUN 23 H Urine Protein 100 H Urine Ascorbic Acid 40 H Discharge - Discharge Clinical Impression: Right knee pain Qualifiers: Chronicity: chronic Qualified Code(s): M25.561 - Pain in right knee; G89.29 - Other chronic pain Abdominal pain Qualifiers: Abdominal location: generalized Qualified Code(s): R10.84 - Generalized abdominal pain Back pain Qualifiers: Back pain location: low back pain Chronicity: chronic Back pain laterality: unspecified Sciatica presence: without sciatica Qualified Code(s): M54.5 - Low back pain; G89.29 - Other chronic pain Condition: Stable Disposition: HOME, SELF-CARE Instructions: Abdominal Pain ([facility]), Low Back Pain ([facility]), Suspected Internal Knee Injury ([facility]) Additional Instructions: No acute emergency was found in evaluating your pain today. You need to establish care with a primary care doctor. You may have some internal injury to your right knee. This should be further evaluated by an orthopedic surgeon. Tylenol as needed for severe pain. Follow-up with primary care next week. Return to the emergency department with worsening or new concerning symptoms of any sort.
[2019-10-01 19:18] LABS: APPEARANCE,URINE SLIGHTLY-CLOUDY; BILIRUBIN,URINE NEGATIVE (NEGATIVE); COLOR,URINE YELLOW; GLUCOSE, URINE NEGATIVE (NEGATIVE); KETONES,URINE NEGATIVE (NEGATIVE); LEUKOCYTE ESTERASE,URINE NEGATIVE (NEGATIVE); NITRITE,URINE NEGATIVE (NEGATIVE); PROTEIN,URINE 100 mg/dL (NEGATIVE); URINE SPECIFIC GRAVITY 1.032; UROBILINOGEN,URINE NEGATIVE mg/dL (<2.0)
[2019-10-01 19:54] VITALS: BP 110/64
== END 2019-10-01 19:54 | disposition home or self-care (01) ==
LOC: ER 14:53
DX: R10.84 Generalized abdominal pain (principal); M54.5 Low back pain; M25.561 Pain in right knee; G89.29 Other chronic pain; Z88.2 Allergy status to sulfonamides; Z88.8 Allergy status to other drugs, medicaments and biological substances; I10 Essential (primary) hypertension
CPT/HCPCS: 36415; 71046; 76705; 80053; 81001; 83690; 83880; 85025; 99284

== ENCOUNTER 2019-10-27 12:08 | Emergency (ER) | payer MEDICARE, MEDICAID ==
[2019-10-27] MEDS ORDERED: ACETAMINOPHEN 325 MG TABLET PO ONE (13:47)
--- NOTE | 2019-10-27 13:47 | ER Document Report ---
ED General Pain - General Chief Complaint: Pain All Over Stated Complaint: PAIN ALL OVER Time Seen by Provider: 10/27/19 13:10 Information source: Patient Notes: 74-year-old female presents to the emergency room with persistent chronic pain that has gotten worse over the past 2 to 3 weeks. Describes it as an overall generalized burning sensation to her body. She has been seen in the ER multiple times for the same symptoms. Patient states she will rub her body down with rubbing alcohol which alleviates her symptoms but then they come back. Denies any fevers, no nausea, no vomiting, no recent travel. No COVID-19 exposure. Has not seen a primary care physician for her symptoms. Does not take any medications for her symptoms. Eating and drinking normally. Normal urinary output. Denies any chest pain, shortness of breath, no difficulty breathing. TRAVEL OUTSIDE OF THE [place] IN LAST 30 DAYS: No - Related Data Allergies/Adverse Reactions: aluminum [Aluminum] Allergy (Intermediate, Verified 07/10/19 13:00) aspirin [Aspirin] Allergy (Intermediate, Verified 07/10/19 13:00) iodine Allergy (Verified 07/10/19 13:00) Sulfa (Sulfonamide Antibiotics) Allergy (Verified 07/10/19 13:00) Past Medical History - General Information source: Patient - Social History Smoking Status: Never Smoker Chew tobacco use (# tins/day): No Frequency of alcohol use: None Drug Abuse: None Family History: Reviewed & Not Pertinent, Hypertension - Past Medical History Cardiac Medical History: Reports: Hx Hypercholesterolemia, Hx Hypertension Pulmonary Medical History: Reports: Hx Asthma, Hx Bronchitis Renal/ Medical History: Denies: Hx Peritoneal Dialysis GI Medical History: Reports: Hx Gastroesophageal Reflux Disease Musculoskeletal Medical History: Reports Hx Arthritis, Reports Hx Musculoskelet al Trauma Past Surgical History: Reports: Hx Hysterectomy, Hx Orthopedic Surgery - left foot - Immunizations Immunizations up to date: Yes Hx Diphtheria, Pertussis, Tetanus Vaccination: Yes Hx Pneumococcal Vaccination: 03/16/09 Review of Systems - Review of Systems Constitutional: No symptoms reported Cardiovascular: No symptoms reported Respiratory: No symptoms reported Gastrointestinal: No symptoms reported Musculoskeletal: Muscle pain Skin: No symptoms reported Neurological/Psychological: No symptoms reported -: Yes All other systems reviewed and negative Physical Exam - Vital signs Vitals: Temp Pulse Resp BP Pulse Ox 97.6 F 55 L 16 131/75 H 100 10/27/19 13:16 10/27/19 13:16 10/27/19 13:16 10/27/19 13:16 10/27/19 13:16 - Notes Notes: VITAL SIGNS: Within normal limits. GENERAL: No acute distress, non-toxic appearance. HEAD: Normal with no signs of head trauma. EYES: PERRLA, EOMI, conjunctiva normal, no discharge. EARS: Hearing grossly intact. NOSE: Normal. THROAT: Oropharynx is normal. NECK: Normal range of motion, no tenderness, supple, no lymphadenopathy, No adenopathy, no JVD. CHEST: Clear breath sounds bilaterally. No wheezes, rales, or rhonchi. CARDIAC: Regular rate and rhythm. S1 and S2, without murmurs, gallops, or rubs. VASCULAR: No Edema. Peripheral pulses normal and equal in all extremities. ABDOMEN: Normal and soft with no tenderness, no masses or pulsatile masses. GASTROINTESTINAL: Bowel sounds normal GENITOURINARY: Normal, No tenderness LYMPATHTIC: No lymphadenopathy noted. MUSCULOSKELETAL: Good range of motion of all major joints. Extremities without clubbing, cyanosis or edema. NEUROLOGICAL: Alert and oriented x 3. No focal sensory or strength deficits. Speech normal. Follows commands appropriately. PSYCHIATRIC: Normal Affect, judgement and mood. SKIN: Normal appearance with no rashes or lesions. Course - Re-evaluation Re-evalutation: 10/27/19 14:05 Patient with chronic pain no new trauma no new injury. Has not seen primary care physician for her symptoms. No meds for symptoms. Will give Tylenol, check labs and reevaluate. 10/27/19 14:45 Patient is resting comfortably pain-free at this time. Reviewed all test results with patient. Counseled on the importance of following up outpatient with her primary care physician take Tylenol as needed for pain. Counseled patient that chronic pain should be followed up as an outpatient as there is more testing available through her primary care office in the emergency room. Patient was given strict return to the emergency room guidelines. Return for any new or worsening symptoms. All questions were answered. Patient verbalized understanding and agrees with plan of care. - Vital Signs Vital signs: Temp Pulse Resp BP Pulse Ox 97.6 F 55 L 16 131/75 H 100 10/27/19 13:16 10/27/19 13:16 10/27/19 13:16 10/27/19 13:16 10/27/19 13:16 - Laboratory Result Diagrams: 10/27/19 14:00 10/27/19 14:00 Laboratory results interpreted by me: 10/27/19 10/27/19 10/27/19 14:00 14:00 14:00 WBC 3.4 L RDW 14.3 H Sodium 136.5 L Anion Gap 3 L Total Protein 6.1 L Urine Protein 30 H Ur Leukocyte Esterase SMALL H Urine Ascorbic Acid 40 H Discharge - Discharge Clinical Impression: Chronic pain Qualifiers: Chronic pain type: other chronic pain Qualified Code(s): G89.29 - Other chronic pain Condition: Stable Disposition: HOME, SELF-CARE Instructions: Chronic Pain Control ([facility]), Myalagia (Muscle Pain) ([facility]) Additional Instructions: Take Tylenol as needed for pain. You need to call your primary care physician today for an outpatient follow-up appointment for further evaluation of your chronic pain. Return to the emergency room for any new or worsening symptoms.
[2019-10-27 14:20] LABS: ABSOLUTE EOSINOPHILS # (AUTO) 0.1 10^3/uL (0.0-0.6); ABSOLUTE MONOCYTES (AUTO) 0.4 10^3/uL (0.1-1.4); ABSOLUTE NEUT (AUTO) 1.9 10^3/uL (1.7-8.2); BASOPHILS % (AUTO) 1.1 % (0-2); HEMATOCRIT 36.3 % (36.0-47.0); HEMOGLOBIN 12.1 g/dL (12.0-15.5); MEAN CORPUSCULAR HEMOGLOBIN 30.5 pg (27.0-33.4); MEAN CORPUSCULAR HGB CONC 33.3 g/dL (32.0-36.0); MEAN CORPUSCULAR VOLUME 92 fl (80-97); MONOCYTES % (AUTO) 11.5 % (3-13); PLATELET COUNT 187 10^3/uL (150-450); RED BLOOD COUNT 3.96 10^6/uL (3.72-5.28); RED CELL DISTRIBUTION WIDTH 14.3 % (11.5-14.0); SEGMENTED NEUTROPHILS % (AUTO) 56.4 % (42-78); TOTAL CELLS COUNTED % (AUTO) 100 %; WHITE BLOOD COUNT 3.4 10^3/uL (4.0-10.5)
[2019-10-27 14:22] LABS: APPEARANCE,URINE SLIGHTLY-CLOUDY; BILIRUBIN,URINE NEGATIVE (NEGATIVE); COLOR,URINE YELLOW; GLUCOSE, URINE NEGATIVE (NEGATIVE); KETONES,URINE NEGATIVE (NEGATIVE); LEUKOCYTE ESTERASE,URINE SMALL (NEGATIVE); NITRITE,URINE NEGATIVE (NEGATIVE); PROTEIN,URINE 30 mg/dL (NEGATIVE); URINE SPECIFIC GRAVITY 1.028; UROBILINOGEN,URINE NEGATIVE mg/dL (<2.0)
[2019-10-27 14:36] LABS: ALBUMIN 3.7 g/dL (3.5-5.0); ALKALINE PHOSPHATASE 41 U/L (38-126); ASPARTATE AMINO TRANSFERASE 20 U/L (14-36); BILIRUBIN,TOTAL 0.4 mg/dL (0.2-1.3); BLOOD UREA NITROGEN 18 mg/dL (7-20); CALCIUM 8.6 mg/dL (8.4-10.2); CARBON DIOXIDE 28 mmol/L (22-30); CHLORIDE 106 mmol/L (98-107); GLUCOSE 79 mg/dL (75-110); POTASSIUM 4.5 mmol/L (3.6-5.0); TOTAL PROTEIN 6.1 g/dL (6.3-8.2)
[2019-10-27 14:41] LABS: ANION GAP 3 (5-19)
[2019-10-27 14:44] LABS: A TYPE INFLUENZA AG NEGATIVE (NEGATIVE); B INFLUENZA AG NEGATIVE (NEGATIVE)
[2019-10-27 15:17] VITALS: BP 128/71
== END 2019-10-27 15:10 | disposition home or self-care (01) ==
LOC: ER 12:08
DX: G89.29 Other chronic pain (principal); M79.10 Myalgia, unspecified site; Z91.048 Other nonmedicinal substance allergy status; I10 Essential (primary) hypertension; J45.909 Unspecified asthma, uncomplicated; Z88.8 Allergy status to other drugs, medicaments and biological substances; Z88.2 Allergy status to sulfonamides
CPT/HCPCS: 99283; 36415; 85025; 80053; 81001; 87804; A9270

== ENCOUNTER 2019-11-06 13:20 | Emergency (ER) | payer MEDICARE, MEDICAID ==
[2019-11-06 13:42] VITALS: BP 122/78
[2019-11-06] MEDS ORDERED: ACETAMINOPHEN 325 MG TABLET PO ONE (14:18)
--- NOTE | 2019-11-06 14:23 | ER Document Report ---
HPI - HPI Time Seen by Provider: 11/06/19 14:09 Pain Level: Denies Notes: 74-year-old female presenting to the emergency department bilateral feet pain, bilateral knee pain and rash to both of her hands. She states this is been going on for several years. She has not seen her primary care provider for this. She states she came to the hospital to visit her brother who is on the third floor. He would not allow her to visit so she decided to come to the emergency department to have her feet checked. She has not taken any medications for her symptoms. - ROS Systems Reviewed and Negative: Yes All other systems reviewed and negative - REPRODUCTIVE Reproductive: DENIES: : - MUSCULOSKELETAL Musculoskeletal: REPORTS: Extremity pain Past Medical History - General Information source: Patient - Social History Smoking Status: Never Smoker Chew tobacco use (# tins/day): No Frequency of alcohol use: None Drug Abuse: None Family History: Reviewed & Not Pertinent, Hypertension Patient has homicidal ideation: No - Past Medical History Cardiac Medical History: Reports: Hx Hypercholesterolemia, Hx Hypertension Pulmonary Medical History: Reports: Hx Asthma, Hx Bronchitis Renal/ Medical History: Denies: Hx Peritoneal Dialysis GI Medical History: Reports: Hx Gastroesophageal Reflux Disease Musculoskeletal Medical History: Reports Hx Arthritis, Reports Hx Musculoskelet al Trauma Past Surgical History: Reports: Hx Hysterectomy, Hx Orthopedic Surgery - left foot - Immunizations Immunizations up to date: Yes Hx Diphtheria, Pertussis, Tetanus Vaccination: Yes Hx Pneumococcal Vaccination: 03/16/09 Vertical Provider Document - CONSTITUTIONAL Notes: PHYSICAL EXAMINATION: GENERAL: Well-appearing, well-nourished and in no acute distress. HEAD: Atraumatic, normocephalic. EYES: Pupils equal round extraocular movements intact, conjunctiva are normal. ENT: Nares patent NECK: Normal range of motion LUNGS: No respiratory distress Musculoskeletal: Normal range of motion no abnormality noted to extremities. NEUROLOGICAL: Normal speech, normal gait. PSYCH: Normal mood, normal affect. SKIN: Warm, Dry, normal turgor, no rashes or lesions noted. - INFECTION CONTROL TRAVEL OUTSIDE OF THE [place] IN LAST 30 DAYS: No Course - Re-evaluation Re-evalutation: Pt appears well, chronic joint discomfort. Gave tylenol, pt thankful. No PCP, gave info for PCP encouraged pt to establish care. - Vital Signs Vital signs: Temp Pulse Resp BP Pulse Ox 98.5 F 59 L 16 122/78 98 11/06/19 13:40 11/06/19 13:40 11/06/19 13:40 11/06/19 13:40 11/06/19 13:40 Discharge - Discharge Clinical Impression: Bilateral foot pain Condition: Stable Disposition: HOME, SELF-CARE Additional Instructions: Please call Dr. Yao's office to schedule an appointment as a new patient. Take Tylenol 650 mg as needed for your pain. Referrals: CAIT YAO MD [ACTIVE STAFF] - Follow up as needed
== END 2019-11-06 14:25 | disposition home or self-care (01) ==
LOC: ER 13:20
DX: M79.671 Pain in right foot (principal); M79.672 Pain in left foot; M25.561 Pain in right knee; M25.562 Pain in left knee; I10 Essential (primary) hypertension; J45.909 Unspecified asthma, uncomplicated
CPT/HCPCS: 99282; A9270

== ENCOUNTER 2019-12-11 09:13 | Emergency (ER) | payer MEDICARE, MEDICAID ==
--- NOTE | 2019-12-11 09:54 | ER Document Report ---
ED General - General Chief Complaint: Urinary Problem Stated Complaint: URINARY ISSUE Time Seen by Provider: 12/11/19 09:23 TRAVEL OUTSIDE OF THE [place] IN LAST 30 DAYS: No - HPI Notes: Chief complaint: Dysuria and urinary frequency History of present illness: 74-year-old female with history of mild dementia, osteoarthritis and recurrent UTIs taking no long-term medications now presents with 3-day history intermittent burning with urination and frequency. She denies back pain. She denies nausea vomiting. She denies fever chills. Reports allergy to sulfa drugs. Currently does not have a primary care provider. - Related Data Allergies/Adverse Reactions: aluminum [Aluminum] Allergy (Intermediate, Verified 11/06/19 13:50) aspirin [Aspirin] Allergy (Intermediate, Verified 11/06/19 13:50) iodine Allergy (Verified 11/06/19 13:50) Sulfa (Sulfonamide Antibiotics) Allergy (Verified 11/06/19 13:50) Past Medical History - General Information source: Patient, [facility] Records - Social History Smoking Status: Never Smoker Frequency of alcohol use: None Drug Abuse: None Family History: Reviewed & Not Pertinent, Hypertension - Past Medical History Cardiac Medical History: Reports: Hx Hypercholesterolemia, Hx Hypertension Pulmonary Medical History: Reports: Hx Asthma, Hx Bronchitis Renal/ Medical History: Denies: Hx Peritoneal Dialysis GI Medical History: Reports: Hx Gastroesophageal Reflux Disease Musculoskeletal Medical History: Reports Hx Arthritis, Reports Hx Musculoskeletal Trauma Past Surgical History: Reports: Hx Hysterectomy, Hx Orthopedic Surgery - left foot - Immunizations Immunizations up to date: Yes Hx Diphtheria, Pertussis, Tetanus Vaccination: Yes Hx Pneumococcal Vaccination: 03/16/09 Review of Systems - Review of Systems Notes: Constitutional: Negative for fever. HENT: Negative for sore throat. Eyes: Negative for visual changes. Cardiovascular: Negative for chest pain. Respiratory: Negative for shortness of breath. Gastrointestinal: Negative for abdominal pain, vomiting or diarrhea. Genitourinary: As per HPI. Musculoskeletal: Negative for back pain. Skin: Negative for rash. Neurological: Negative for headaches, weakness or numbness. 10 point ROS negative except as marked above and in HPI. Physical Exam - Vital signs Vitals: Temp Pulse Resp BP Pulse Ox 98.2 F 56 L 16 151/77 H 98 12/11/19 09:44 12/11/19 09:44 12/11/19 09:44 12/11/19 09:44 12/11/19 09:44 - Notes Notes: GENERAL: Frail somewhat chronically ill-appearing elderly female in no acute distress. SKIN: Good turgor no rashes. HEAD: Normocephalic atraumatic. EYES: PERRLA. EOMI. Conjunctivae and sclerae clear. EARS: CANALS AND TMS CLEAR. NOSE: CLEAR. MOUTH: Moist mucosa. Good dentition. No stridor or edema. No drooling. NECK: Supple. No masses or thyromegaly. No adenopathy. Carotids 2+ without bruits. No JVD. BACK: Symmetrical without tenderness. CHEST: Respirations unlabored. Breath sounds clear and symmetrical. HEART: Regular rhythm. No murmur gallop or rub. ABDOMEN: Mild suprapubic tenderness. Soft without masses, organomegaly or rebound. Bowel sounds normally active. No bruits. GENITALIA: Deferred. EXTREMITIES: No edema. No calf tenderness. Cap refill less than 1.5 seconds. Dorsalis pedis and posterior tibial pulses 3+ and symmetrical. NEUROLOGICAL: GCS 15. Alert and oriented x3. Fluent speech. Cranial nerves II through XII intact. Sensorimotor and cerebellar normal. Normal tone. PSYCHIATRIC: Appropriate affect. Course - Re-evaluation Re-evalutation: 12/11/19 14:21 Elderly lady with lower urinary tract symptoms. She is afebrile here. She does not appear toxic. She has no CVA tenderness or back pain. She is complaining of urinary urgency. She is having to urinate constantly. Her urinalysis shows significant pyuria and positive leukocyte esterase. I have given 1 dose of IV Rocephin here and also some oral Pyridium. She symptomatically improved and appears stable for outpatient management. Findings, clinical impression and plan of treatment have been discussed with patient/family. Understanding of current findings and recommendations has been acknowledged by them and there is agreement regarding disposition and follow-up. - Vital Signs Vital signs: Temp Pulse Resp BP Pulse Ox 98.2 F 56 L 16 151/77 H 98 12/11/19 09:44 12/11/19 09:44 12/11/19 09:44 12/11/19 09:44 12/11/19 09:44 - Laboratory Laboratory results interpreted by me: 12/11/19 10:37 Urine Protein 100 H Urine Blood LARGE H Urine Nitrite (Reflex) POSITIVE H Leukocyte Esterase Rfl LARGE H Discharge - Discharge Clinical Impression: Urinary tract infection Qualifiers: Urinary tract infection type: site unspecified Hematuria presence: without hematuria Qualified Code(s): N39.0 - Urinary tract infection, site not specified Condition: Stable Disposition: HOME, SELF-CARE Instructions: Nitrofurantoin ([facility]), Urinary Tract Infection ([facility]) Prescriptions: Nitrofurantoin Monohyd/M-Cryst [Macrobid 100 mg Capsule] 100 mg PO BID 10 Days #20 cap Phenazopyridine HCl [Pyridium 100 Mg Tablet] 100 mg PO TID 4 Days #12 tablet
[2019-12-11 10:54] LABS: APPEARANCE,URINE SLIGHTLY-CLOUDY; BILIRUBIN,URINE NEGATIVE (NEGATIVE); COLOR,URINE YELLOW; GLUCOSE, URINE NEGATIVE (NEGATIVE); KETONES,URINE NEGATIVE (NEGATIVE); PROTEIN,URINE 100 mg/dL (NEGATIVE); URINE SPECIFIC GRAVITY 1.013; UROBILINOGEN,URINE NEGATIVE mg/dL (<2.0)
[2019-12-11] MEDS ORDERED: CEFTRIAXONE INJ 1000 MG VIAL IV ONE (11:28)
[2019-12-11] MEDS ORDERED: PHENAZOPYRIDINE HCL 200 MG TABLET PO ONE (11:30)
[2019-12-11 15:59] LABS: ABSOLUTE MONOCYTES (AUTO) 0.6 10^3/uL (0.1-1.4); ABSOLUTE NEUT (AUTO) 4.1 10^3/uL (1.7-8.2); BASOPHILS % (AUTO) 0.7 % (0-2); EOSINOPHILS % (AUTO) 0.8 % (0-6); HEMATOCRIT 36.2 % (36.0-47.0); HEMOGLOBIN 12.3 g/dL (12.0-15.5); LYMPHOCYTES % (AUTO) 16.8 % (13-45); MEAN CORPUSCULAR HEMOGLOBIN 31.4 pg (27.0-33.4); MEAN CORPUSCULAR VOLUME 92 fl (80-97); MONOCYTES % (AUTO) 10.4 % (3-13); PLATELET COUNT 191 10^3/uL (150-450); RED BLOOD COUNT 3.93 10^6/uL (3.72-5.28); RED CELL DISTRIBUTION WIDTH 14.6 % (11.5-14.0); SEGMENTED NEUTROPHILS % (AUTO) 71.3 % (42-78); TOTAL CELLS COUNTED % (AUTO) 100 %; WHITE BLOOD COUNT 5.7 10^3/uL (4.0-10.5)
[2019-12-11 16:05] LABS: ALBUMIN 3.7 g/dL (3.5-5.0); ALKALINE PHOSPHATASE 52 U/L (38-126); ANION GAP 8 (5-19); ASPARTATE AMINO TRANSFERASE 23 U/L (14-36); BILIRUBIN,TOTAL 0.7 mg/dL (0.2-1.3); BLOOD UREA NITROGEN 17 mg/dL (7-20); CALCIUM 9.4 mg/dL (8.4-10.2); CARBON DIOXIDE 27 mmol/L (22-30); CHLORIDE 104 mmol/L (98-107); GLUCOSE 87 mg/dL (75-110); POTASSIUM 3.9 mmol/L (3.6-5.0); TOTAL PROTEIN 6.4 g/dL (6.3-8.2)
[2019-12-11 20:07] VITALS: BP 134/73
== END 2019-12-11 19:10 | disposition home or self-care (01) ==
LOC: ER 09:13
DX: N39.0 Urinary tract infection, site not specified (principal); F03.90 Unspecified dementia, unspecified severity, without behavioral disturbance, psychotic disturbance, mood disturbance, and anxiety; E78.00 Pure hypercholesterolemia, unspecified; I10 Essential (primary) hypertension; Z87.440 Personal history of urinary (tract) infections
CPT/HCPCS: 99284; 96365; 36415; 87086; 85025; 87088; 80053; 81001; A9270; J0696; 87186; J3490

== ENCOUNTER 2020-01-18 10:53 | Emergency (ER) | payer MEDICARE, MEDICAID ==
[2020-01-18 13:29] LABS: ABSOLUTE LYMPHOCYTES (AUTO) 0.8 10^3/uL (0.5-4.7); ABSOLUTE MONOCYTES (AUTO) 0.5 10^3/uL (0.1-1.4); ABSOLUTE NEUT (AUTO) 3.7 10^3/uL (1.7-8.2); BASOPHILS % (AUTO) 0.4 % (0-2); EOSINOPHILS % (AUTO) 0.4 % (0-6); HEMATOCRIT 39.7 % (36.0-47.0); HEMOGLOBIN 13.3 g/dL (12.0-15.5); LYMPHOCYTES % (AUTO) 15.5 % (13-45); MEAN CORPUSCULAR HEMOGLOBIN 30.7 pg (27.0-33.4); MEAN CORPUSCULAR HGB CONC 33.6 g/dL (32.0-36.0); MEAN CORPUSCULAR VOLUME 91 fl (80-97); MONOCYTES % (AUTO) 9.8 % (3-13); PLATELET COUNT 270 10^3/uL (150-450); RED BLOOD COUNT 4.35 10^6/uL (3.72-5.28); RED CELL DISTRIBUTION WIDTH 14.5 % (11.5-14.0); SEGMENTED NEUTROPHILS % (AUTO) 73.9 % (42-78); TOTAL CELLS COUNTED % (AUTO) 100 %
[2020-01-18 13:35] LABS: INTERNATIONAL RATION (INR) 1.04; PROTHROMBIN TIME 13.9 SEC (11.4-15.4)
[2020-01-18 13:36] LABS: PARTIAL THROMBOPLASTIN TIME 37.6 SEC (23.5-35.8)
[2020-01-18 13:48] LABS: ALBUMIN 4.2 g/dL (3.5-5.0); ALKALINE PHOSPHATASE 52 U/L (38-126); ANION GAP 8 (5-19); ASPARTATE AMINO TRANSFERASE 30 U/L (14-36); BILIRUBIN,TOTAL 0.6 mg/dL (0.2-1.3); BLOOD UREA NITROGEN 25 mg/dL (7-20); CALCIUM 10.2 mg/dL (8.4-10.2); CARBON DIOXIDE 28 mmol/L (22-30); CHLORIDE 100 mmol/L (98-107); GLUCOSE 82 mg/dL (75-110); POTASSIUM 5.1 mmol/L (3.6-5.0); TOTAL PROTEIN 7.3 g/dL (6.3-8.2)
[2020-01-18 13:53] LABS: ALCOHOL < 10 mg/dL (NONE DETECTED)
[2020-01-18 14:50] LABS: APPEARANCE,URINE CLOUDY; BILIRUBIN,URINE NEGATIVE (NEGATIVE); COLOR,URINE YELLOW; GLUCOSE, URINE NEGATIVE (NEGATIVE); KETONES,URINE TRACE mg/dL (NEGATIVE); PROTEIN,URINE NEGATIVE (NEGATIVE); URINE SPECIFIC GRAVITY 1.008; UROBILINOGEN,URINE NEGATIVE mg/dL (<2.0)
[2020-01-18 15:07] LABS: URINE AMPHETAMINES SCREEN NEGATIVE; URINE BARBITURATES SCREEN NEGATIVE; URINE BENZODIAZEPINES SCREEN NEGATIVE; URINE COCAINE SCREEN NEGATIVE; URINE MARIJUANA (THC) SCREEN NEGATIVE; URINE METHADONE SCREEN NEGATIVE; URINE PHENCYCLIDINE SCREEN NEGATIVE
--- NOTE | 2020-01-18 15:26 | ER Document Report ---
ED General - General Chief Complaint: Fall Stated Complaint: FALL/HEAD PAIN Time Seen by Provider: 01/18/20 12:31 TRAVEL OUTSIDE OF THE [place] IN LAST 30 DAYS: No - HPI Notes: Chief complaint: Fall with head injury History of present illness: Yu is a 74-year-old lady who lives alone independently now seen for evaluation of a head injury. Patient says she was standing outside next to her automobile last night when she suddenly felt dizzy and fell forward striking right orbital area on the body of the car. She did not fall all the way to the ground. She says she did not lose consciousness but felt very "lightheaded". She has had some slight dull headache since then. She has been slightly nauseated intermittently but has not vomited. Patient initially told me that she had had some "heart problems" in past years but says she currently does not have a doctor and has not seen a doctor in quite some time. She indicates she is not currently taking any prescription medications. She notes multiple allergies to medications including aluminum, aspirin, iodine, penicillin and sulfa drugs. Further questioning reveals that this lady has not eaten in the last 2 days. She apparently does her own grocery shopping and indicates that her car is not currently working and she was looking at car last night see if she could get started. This is when the episode of head injury occurred as noted above. She still has not eaten. - Related Data Allergies/Adverse Reactions: aluminum [Aluminum] Allergy (Intermediate, Verified 11/06/19 13:50) aspirin [Aspirin] Allergy (Intermediate, Verified 11/06/19 13:50) iodine Allergy (Verified 11/06/19 13:50) Penicillins Allergy (Verified 01/18/20 11:04) Sulfa (Sulfonamide Antibiotics) Allergy (Verified 11/06/19 13:50) Past Medical History - General Information source: Patient, [facility] Records - Social History Smoking Status: Never Smoker Chew tobacco use (# tins/day): No Frequency of alcohol use: None Drug Abuse: None Family History: Reviewed & Not Pertinent, Hypertension Patient has homicidal ideation: No - Past Medical History Cardiac Medical History: Reports: Hx Coronary Artery Disease, Hx Hype rcholesterolemia, Hx Hypertension Pulmonary Medical History: Reports: Hx Asthma, Hx Bronchitis Endocrine Medical History: Denies: Hx Diabetes Mellitus Type 1, Hx Diabetes Mellitus Type 2 Renal/ Medical History: Denies: Hx Peritoneal Dialysis GI Medical History: Reports: Hx Gastroesophageal Reflux Disease Musculoskeletal Medical History: Reports Hx Arthritis, Reports Hx M usculoskeletal Trauma Past Surgical History: Reports: Hx Hysterectomy, Hx Orthopedic Surgery - left foot - Immunizations Immunizations up to date: Yes Hx Diphtheria, Pertussis, Tetanus Vaccination: Yes Hx Pneumococcal Vaccination: 03/16/09 Review of Systems - Review of Systems Notes: Constitutional: Negative for fever. HENT: Negative for sore throat. Eyes: Negative for visual changes. Cardiovascular: Negative for chest pain. Respiratory: Negative for shortness of breath. Gastrointestinal: As per HPI. Genitourinary: Negative for dysuria. Musculoskeletal: Negative for back pain. Skin: Negative for rash. Neurological: As per HPI. 10 point ROS negative except as marked above and in HPI. Physical Exam - Vital signs Vitals: Temp Pulse Resp BP Pulse Ox 98.4 F 79 18 110/77 99 01/18/20 11:10 01/18/20 11:10 01/18/20 11:10 01/18/20 11:10 01/18/20 11:10 - Notes Notes: GENERAL: Frail elderly female appearing in no acute distress. The patient is well-dressed. SKIN: Good turgor no rashes. HEAD: Normocephalic. Patient has no soft tissue swelling along the lateral margin of the right orbit with some tenderness in this area. There is no crepitus or step-off noted. EYES: PERRLA. EOMI. Conjunctivae and sclerae clear. EARS: CANALS AND TMS CLEAR. NOSE: CLEAR. MOUTH: Moist mucosa. Good dentition. No stridor or edema. No drooling. NECK: Supple. No masses or thyromegaly. No adenopathy. Carotids 2+ without bruits. No JVD. BACK: Symmetrical without tenderness. CHEST: Respirations unlabored. Breath sounds clear and symmetrical. HEART: Regular rhythm. No murmur gallop or rub. ABDOMEN: Soft nontender without masses, organomegaly or rebound. Bowel sounds n ormally active. No bruits. GENITALIA: Deferred. EXTREMITIES: No edema. No calf tenderness. Cap refill less than 1.5 seconds. Dorsalis pedis and posterior tibial pulses 3+ and symmetrical. NEUROLOGICAL: GCS 15. Alert and oriented x3. Fluent speech. Cranial nerves II through XII intact. Sensorimotor and cerebellar normal. Normal tone. PSYCHIATRIC: Appropriate affect. Course - Re-evaluation Re-evalutation: 01/18/20 15:26 Urinalysis shows pyuria and positive nitrite. Patient has some mild prerenal azotemia on her comprehensive metabolic profile which is otherwise unremarkable. CBC is normal. Chest x-ray showed no infiltrates. She had a noncontrast CT of the C-spine that showed no acute changes per radiologist. She also has CT of the facial bones read as negative by the radiologist. Noncontrast head CT show s stable meningioma which appears to be old. Patient is receiving some Macrobid orally. She is taking oral fluids very well here. We are feeding this lady. I have also gotten a consult from social work/discharge planning regarding disposition for the patient. 01/18/20 16:36 Discharge planning has made arrangements for family to take this patient home and there will be further evaluation by school social worker. - Vital Signs Vital signs: Temp Pulse Resp BP Pulse Ox 98.4 F 79 18 110/77 99 01/18/20 11:10 01/18/20 11:10 01/18/20 11:10 01/18/20 11:10 01/18/20 11:10 - Laboratory Result Diagrams: 01/18/20 13:15 01/18/20 13:15 Laboratory results interpreted by me: 01/18/20 01/18/20 01/18/20 13:15 13:15 13:15 RDW 14.5 H APTT 37.6 H Sodium 135.7 L Potassium 5.1 H BUN 25 H Urine Ketones Urine Blood Urine Nitrite (Reflex) Leukocyte Esterase Rfl 01/18/20 13:57 RDW APTT Sodium Potassium BUN Urine Ketones TRACE H Urine Blood SMALL H Urine Nitrite (Reflex) POSITIVE H Leukocyte Esterase Rfl LARGE H - EKG Interpretation by Me Additional EKG results interpreted by me: 01/18/20 15:31 Twelve-lead EKG reviewed by me contemporaneously: 1333 hrs. Indication for study: Near syncope Rhythm: Normal sinus Rate: 66 Intervals: Normal QRS axis: -[address]/T wave changes: Nonspecific Comparison with prior tracing: No significant interval change since prior study 11/08/2018 Interpretation: Normal sinus rhythm with nonspecific T wave changes. Discharge - Discharge Clinical Impression: Near syncope Fall Qualifiers: Encounter type: initial encounter Qualified Code(s): W19.XXXA - Unspecified fall, initial encounter Urinary tract infection Qualifiers: Urinary tract infection type: acute cystitis Hematuria presence: without hematuria Qualified Code(s): N30.00 - Acute cystitis without hematuria Facial contusion Qualifiers: Encounter type: initial encounter Qualified Code(s): S00.83XA - Contusion of other part of head, initial encounter Condition: Stable Disposition: HOME, SELF-CARE Additional Instructions: Urinary Tract Infection Your evaluation indicates that you have a urinary tract infection. This is due to germs growing in the bladder. This is a common problem. This infection usually responds quickly to antibiotics. Your antibiotic should be taken exactly as prescribed. Drink plenty of fluids -- three to four quarts a day. Occasionally, a bladder anesthetic will be prescribed to help stop the feeling of urgency until the antibiotic has a chance to clear the infection. This may cause your urine to be dark orange. Certain urine infections require a culture. If the doctor obtained a culture, the results will be back in two days. You should call to see if a change in treatment is needed. A repeat urinalysis after you finish treatment is often recommended. The physician will let you know if further testing is required. Call the doctor if you develop fever, chills, flank pain, inability to urinate, or blood in the urine. Return here as needed for new or worsening symptoms. Prescriptions: Nitrofurantoin Monohyd/M-Cryst [Macrobid 100 mg Capsule] 100 mg PO BID 10 Days #20 cap Referrals: [facility] [Provider Group] - Follow up as needed
--- NOTE | 2020-01-18 15:40 | RADIOLOGY REPORT (SQ) ---
EXAM DESCRIPTION: CT CERVICAL SPINE WITHOUT IMAGES COMPLETED DATE/TIME: 01/18/2020 1:55 pm REASON FOR STUDY: trauma COMPARISON: 12/06/2016 TECHNIQUE: Axial images acquired through the cervical spine without intravenous contrast. Images re viewed with lung, soft tissue and bone windows. Reconstructed coronal and sagittal MPR images review ed. Images stored on PACS. All CT scanners at this facility use dose modulation, iterative reconstruction, and/or weight based d osing when appropriate to reduce radiation dose to as low as reasonably achievable (ALARA). [facility]: Dose Right [facility]: CareDose [facility]: Dose Right [facility]: Teradose 4D [facility]: Luminetx RADIATION DOSE: mGy. LIMITATIONS: None. FINDINGS: ALIGNMENT: Mild malalignment C5-6. MINERALIZATION: Normal. VERTEBRAL BODIES: No fractures or dislocation. DISCS: Multilevel disc space narrowing with osteophytes. FACETS, LATERAL MASSES, POSTERIOR ELEMENTS: Facet arthropathy. No fractures. No dislocation. No ac tyonek findings. HARDWARE: None in the spine. VISUALIZED RIBS: No fractures. LUNG APICES AND SOFT TISSUES: No significant or acute findings. OTHER: No other significant finding. IMPRESSION: CHRONIC DEGENERATIVE CHANGES. NO ACUTE FINDINGS. TECHNICAL DOCUMENTATION: JOB ID: [id number] Quality ID # [id number]: Final reports with documentation of one or more dose reduction techniques (e.g., Au tomated exposure control, adjustment of the mA and/or kV according to patient size, use of iterative reconstruction technique) 2010 [employer]- All Rights Reserved Reading location - IP/workstation name: [email or web address]
--- NOTE | 2020-01-18 15:40 | RADIOLOGY REPORT (SQ) ---
EXAM DESCRIPTION: CT FACIAL AREA WITHOUT IMAGES COMPLETED DATE/TIME: 01/18/2020 1:55 pm REASON FOR STUDY: facial injury COMPARISON: None. TECHNIQUE: Noncontrasted images through the facial bones and orbits windowed for bone and soft tissu e. Additional coronal and sagittal reconstructed images reviewed. All images stored on PACS. All CT scanners at this facility use dose modulation, iterative reconstruction, and/or weight based d osing when appropriate to reduce radiation dose to as low as reasonably achievable (ALARA). [facility]: Dose Right [facility]: CareDose [facility]: Dose Right [facility]: Teradose 4D [facility]: hiogi RADIATION DOSE: mGy. LIMITATIONS: None. FINDINGS: FACIAL BONES: No fracture or bone lesion. ORBITS: Intact. No fracture. Symmetric intact globes and retroorbital soft tissues. PARANASAL SINUSES: No fluid levels. SOFT TISSUES: No mass or edema. INFERIOR BRAIN: See separate report of the same date. OTHER: No other significant finding. IMPRESSION: NO ACUTE FINDINGS. TECHNICAL DOCUMENTATION: JOB ID: [id number] Quality ID # [id number]: Final reports with documentation of one or more dose reduction techniques (e.g., Au tomated exposure control, adjustment of the mA and/or kV according to patient size, use of iterative reconstruction technique) 2010 [employer]- All Rights Reserved Reading location - IP/workstation name: [email or web address]
--- NOTE | 2020-01-18 15:42 | RADIOLOGY REPORT (SQ) ---
EXAM DESCRIPTION: CT HEAD WITHOUT IMAGES COMPLETED DATE/TIME: 01/18/2020 1:55 pm REASON FOR STUDY: trauma COMPARISON: 09/03/2018 TECHNIQUE: Axial images acquired through the brain without intravenous contrast. Images reviewed wi th bone, brain and subdural windows. Additional sagittal and coronal reconstructions were generated. Images stored on PACS. All CT scanners at this facility use dose modulation, iterative reconstruction, and/or weight based d osing when appropriate to reduce radiation dose to as low as reasonably achievable (ALARA). [facility]: Dose Right [facility]: CareDose [facility]: Dose Right [facility]: Teradose 4D [facility]: [employer] RADIATION DOSE: mGy. LIMITATIONS: None. FINDINGS: VENTRICLES: Prominent. CEREBRUM: Stable 3 cm partially calcified meningioma left frontotemporal lobe. No hemorrhage. No mi dline shift. Areas of low density in the white matter most likely due to chronic micro-vascular isch emic change. No evidence for acute infarction. CEREBELLUM: No masses. No hemorrhage. No alteration of density. No evidence for acute infarction. EXTRAAXIAL SPACES: Age-related involutional change. No fluid collections. No masses. ORBITS AND GLOBE: No intra- or extraconal masses. Normal contour of globe without masses. CALVARIUM: No fracture. PARANASAL SINUSES: No fluid or mucosal thickening. SOFT TISSUES: No mass or hematoma. OTHER: No other significant finding. IMPRESSION: Stable chronic changes. Stable meningioma. EVIDENCE OF ACUTE STROKE: NO. TECHNICAL DOCUMENTATION: JOB ID: [id number] Quality ID # [id number]: Final reports with documentation of one or more dose reduction techniques (e.g., Au tomated exposure control, adjustment of the mA and/or kV according to patient size, use of iterative reconstruction technique) 2010 [employer]- All Rights Reserved Reading location - IP/workstation name: [email or web address]
[2020-01-18] MEDS ORDERED: NITROFURANTOIN MONOHYD/M-CRYST 100 MG CAPSULE PO ONE (15:52)
--- NOTE | 2020-01-18 16:01 | RADIOLOGY REPORT (SQ) ---
EXAM DESCRIPTION: CHEST SINGLE VIEW IMAGES COMPLETED DATE/TIME: 01/18/2020 2:23 pm REASON FOR STUDY: trauma COMPARISON: 10/01/2019 EXAM PARAMETERS: NUMBER OF VIEWS: One view. TECHNIQUE: Single frontal radiographic view of the chest acquired. RADIATION DOSE: NA LIMITATIONS: None. FINDINGS: LUNGS AND PLEURA: There is hyperexpansion. No consolidation or pleural effusions. No pne umothorax. MEDIASTINUM AND HILAR STRUCTURES: No masses. Contour normal. HEART AND VASCULAR STRUCTURES: Heart normal in size. Normal vasculature. BONES: No acute findings. HARDWARE: None in the chest. OTHER: No other significant finding. IMPRESSION: Hyperexpansion otherwise negative chest. TECHNICAL DOCUMENTATION: JOB ID: [id number] 2010 [employer]- All Rights Reserved Reading location - IP/workstation name: [email or web address]
[2020-01-18] MEDS ORDERED: NITROFURANTOIN MONOHYD/M-CRYST 100 MG CAPSULE PO SCH (18:00)
[2020-01-18 18:21] VITALS: BP 128/81
--- NOTE | 2020-01-18 19:02 | EKG REPORT ---
SEVERITY:- BORDERLINE ECG - SINUS RHYTHM BORDERLINE LEFT AXIS DEVIATION BORDERLINE R WAVE PROGRESSION, ANTERIOR LEADS BORDERLINE T ABNORMALITIES, DIFFUSE LEADS : Confirmed by: Oh Welsh MD 18-Jan-2020 19:01:18
== END 2020-01-18 18:21 | disposition home or self-care (01) ==
LOC: ER 10:53
DX: S00.83XA Contusion of other part of head, initial encounter (principal); W22.8XXA Striking against or struck by other objects, initial encounter; Y93.89 Activity, other specified; N30.00 Acute cystitis without hematuria; R42 Dizziness and giddiness; R55 Syncope and collapse; R51.9 Headache, unspecified; R11.0 Nausea; I25.10 Atherosclerotic heart disease of native coronary artery without angina pectoris; I10 Essential (primary) hypertension; J45.909 Unspecified asthma, uncomplicated; Z91.048 Other nonmedicinal substance allergy status; Z88.8 Allergy status to other drugs, medicaments and biological substances; Z88.0 Allergy status to penicillin; Z88.2 Allergy status to sulfonamides
CPT/HCPCS: 93005; 99285; 36415; 87086; 80307 ×2; 83735; 85025; 85610; 85730; 87088; 80053; 81001; 84484; 71045; 70450; 70486; 72125; 93010; A9270; J8499

== ENCOUNTER 2020-01-19 10:44 | Emergency (ER) | payer MEDICARE, MEDICAID ==
[2020-01-19 11:51] LABS: ABSOLUTE LYMPHOCYTES (AUTO) 0.6 10^3/uL (0.5-4.7); ABSOLUTE MONOCYTES (AUTO) 0.6 10^3/uL (0.1-1.4); ABSOLUTE NEUT (AUTO) 6.6 10^3/uL (1.7-8.2); BASOPHILS % (AUTO) 0.6 % (0-2); EOSINOPHILS % (AUTO) 0.2 % (0-6); HEMATOCRIT 39.8 % (36.0-47.0); HEMOGLOBIN 13.5 g/dL (12.0-15.5); LYMPHOCYTES % (AUTO) 7.9 % (13-45); MEAN CORPUSCULAR HGB CONC 33.8 g/dL (32.0-36.0); MEAN CORPUSCULAR VOLUME 92 fl (80-97); MONOCYTES % (AUTO) 7.9 % (3-13); PLATELET COUNT 247 10^3/uL (150-450); RED BLOOD COUNT 4.34 10^6/uL (3.72-5.28); RED CELL DISTRIBUTION WIDTH 14.3 % (11.5-14.0); SEGMENTED NEUTROPHILS % (AUTO) 83.4 % (42-78); TOTAL CELLS COUNTED % (AUTO) 100 %; WHITE BLOOD COUNT 7.9 10^3/uL (4.0-10.5)
[2020-01-19 13:01] LABS: ALBUMIN 3.9 g/dL (3.5-5.0); ALKALINE PHOSPHATASE 51 U/L (38-126); ANION GAP 9 (5-19); ASPARTATE AMINO TRANSFERASE 24 U/L (14-36); BILIRUBIN,TOTAL 0.4 mg/dL (0.2-1.3); BLOOD UREA NITROGEN 24 mg/dL (7-20); CALCIUM 9.7 mg/dL (8.4-10.2); CARBON DIOXIDE 26 mmol/L (22-30); CHLORIDE 106 mmol/L (98-107); GLUCOSE 97 mg/dL (75-110); POTASSIUM 4.7 mmol/L (3.6-5.0); TOTAL PROTEIN 6.9 g/dL (6.3-8.2)
--- NOTE | 2020-01-19 13:47 | ER Document Report ---
ED General - General Chief Complaint: General Weakness Stated Complaint: ALTERED MENTAL STATUS Time Seen by Provider: 01/19/20 13:14 Mode of Arrival: Medic Information source: Patient TRAVEL OUTSIDE OF THE [place] IN LAST 30 DAYS: No - HPI Notes: Patient is brought in by ambulance for generalized weakness. Patient states she was aching all over. Patient states that she "feels much better now". Patient has a hard time describing the characteristics of the pain to me. She does tell me that it was mainly in the arms but generalized as well. Nothing appears make it better or worse. It appears to have been moderate to severe at the time but she currently denies any pain. Patient is well-known to the emergency department and was seen here yesterday. Social work did consult on the patient yesterday and apparently talked to family he was going to help the patient. - Related Data Allergies/Adverse Reactions: aluminum [Aluminum] Allergy (Intermediate, Verified 01/19/20 12:37) aspirin [Aspirin] Allergy (Intermediate, Verified 01/19/20 12:37) iodine Allergy (Verified 01/19/20 12:37) Penicillins Allergy (Verified 01/19/20 12:37) Sulfa (Sulfonamide Antibiotics) Allergy (Verified 01/19/20 12:37) Past Medical History - General Information source: Patient - Social History Smoking Status: Never Smoker Chew tobacco use (# tins/day): No Frequency of alcohol use: None Drug Abuse: None Family History: Reviewed & Not Pertinent, Hypertension - Past Medical History Cardiac Medical History: Reports: Hx Coronary Artery Disease, Hx Hypercholesterolemia, Hx Hypertension Pulmonary Medical History: Reports: Hx Asthma, Hx Bronchitis Endocrine Medical History: Denies: Hx Diabetes Mellitus Type 1, Hx Diabetes Mellitus Type 2 Renal/ Medical History: Denies: Hx Peritoneal Dialysis GI Medical History: Reports: Hx Gastroesophageal Reflux Disease Musculoskeletal Medical History: Reports Hx Arthritis, Reports Hx Musculoskeletal Trauma Past Surgical History: Reports: Hx Hysterectomy, Hx Orthopedic Surgery - left foot - Immunizations Immunizations up to date: Yes Hx Diphtheria, Pertussis, Tetanus Vaccination: Yes Hx Pneumococcal Vaccination: 03/16/09 Review of Systems - Review of Systems Constitutional: denies: Chills, Fever Cardiovascular: denies: Chest pain, Palpitations Respiratory: denies: Cough, Short of breath -: Yes All other systems reviewed and negative Physical Exam - Vital signs Vitals: Temp Pulse Resp BP Pulse Ox 97.5 F 87 16 100/63 96 01/19/20 11:14 01/19/20 11:14 01/19/20 11:14 01/19/20 11:14 01/19/20 11:14 Interpretation: Normal - General General appearance: Appears well, Alert - HEENT Head: Normocephalic, Atraumatic Eyes: Normal Pupils: PERRL - Respiratory Respiratory status: No respiratory distress Chest status: Nontender Breath sounds: Normal Chest palpation: Normal - Cardiovascular Rhythm: Regular Heart sounds: Normal auscultation Murmur: No - Abdominal Inspection: Normal Distension: No distension Bowel sounds: Normal Tenderness: Nontender Organomegaly: No organomegaly - Back Back: Normal, Nontender - Extremities General upper extremity: Normal inspection, Nontender, Normal color, Normal ROM, Normal temperature General lower extremity: Normal inspection, Nontender, Normal color, Normal ROM, Normal temperature, Normal weight bearing. No: Lizzy's sign - Neurological Neuro grossly intact: Yes Cognition: Normal Speech: Normal Cerebellar coordination: Other - Patient ambulated about the emergency department without problem and unassisted. No: Gait ataxia Motor strength normal: LUE, RUE, LLE, RLE Sensory: Normal - Psychological Associated symptoms: Normal affect, Normal mood - Skin Skin Temperature: Warm Skin Moisture: Dry Skin Color: Normal Course - Re-evaluation Re-evalutation: 01/19/20 13:46 EMS reports that patient lives alone and has very minimal food in the house. Nathan epstein did report that her car has not been working and she is not able to get to the grocery store to get food. There is a note yesterday saying that social work saw the patient and family was going to help assist the patient. At this time I do not feel that the patient would benefit from further work-up as she had quite an extensive work-up yesterday did not reveal any acute pathology that needed addressed. I do feel that we will need to consult social work again to clarify that family is going to assist this patient and help her obtain some food. - Vital Signs Vital signs: Temp Pulse Resp BP Pulse Ox 97.5 F 87 16 100/63 96 01/19/20 11:14 01/19/20 11:14 01/19/20 11:14 01/19/20 11:14 01/19/20 11:14 - Laboratory Result Diagrams: 01/19/20 11:20 01/19/20 12:30 Laboratory results interpreted by me: 01/19/20 01/19/20 11:20 12:30 RDW 14.3 H Lymph % (Auto) 7.9 L Seg Neutrophils % 83.4 H BUN 24 H Discharge - Discharge Clinical Impression: Weakness Condition: Stable Disposition: HOME, SELF-CARE Instructions: Weakness ([facility]) Referrals: TRINA GARCIA MD [COMMUNITY BASED STAFF] - Follow up tomorrow
[2020-01-19 17:50] VITALS: BP 108/62
== END 2020-01-19 17:05 | disposition home or self-care (01) ==
LOC: ER 10:44
DX: R53.1 Weakness (principal); R41.82 Altered mental status, unspecified; E78.00 Pure hypercholesterolemia, unspecified; I10 Essential (primary) hypertension; Z88.6 Allergy status to analgesic agent; Z88.0 Allergy status to penicillin
CPT/HCPCS: 36415; 80053; 85025; 99283

== ENCOUNTER 2020-02-26 16:08 | Emergency (ER) | payer MEDICARE, MEDICAID ==
--- NOTE | 2020-02-26 16:42 | ER Document Report ---
ED Medical Screen (RME) - General Chief Complaint: Hip Pain Stated Complaint: HIP PAIN,LEG AND KNEE PAIN Time Seen by Provider: 02/26/20 16:24 TRAVEL OUTSIDE OF THE [place] IN LAST 30 DAYS: No - HPI Notes: Patient is a 74 y/o female who presents with low back pain that began three weeks ago after a fall. She also reports bilateral leg pain and diffuse abdominal pain. She denies saddle numbness, urinary and bowel incontinence. She denies chest pain, shortness of breath, vomiting and fever. She denies any medical problems. - Related Data Allergies/Adverse Reactions: aluminum [Aluminum] Allergy (Intermediate, Verified 01/19/20 12:37) aspirin [Aspirin] Allergy (Intermediate, Verified 01/19/20 12:37) iodine Allergy (Verified 01/19/20 12:37) Penicillins Allergy (Verified 01/19/20 12:37) Sulfa (Sulfonamide Antibiotics) Allergy (Verified 01/19/20 12:37) Past Medical History - Past Medical History Cardiac Medical History: Reports: Hx Coronary Artery Disease, Hx Hypercholesterolemia, Hx Hypertension Pulmonary Medical History: Reports: Hx Asthma, Hx Bronchitis Endocrine Medical History: Denies: Hx Diabetes Mellitus Type 1, Hx Diabetes Mellitus Type 2 Renal/ Medical History: Denies: Hx Peritoneal Dialysis GI Medical History: Reports: Hx Gastroesophageal Reflux Disease Musculoskeltal Medical History: Reports Hx Arthritis, Reports Hx Musculoskeletal Trauma Past Surgical History: Reports: Hx Hysterectomy, Hx Orthopedic Surgery - left foot - Immunizations Immunizations up to date: Yes Hx Diphtheria, Pertussis, Tetanus Vaccination: Yes Physical Exam - Abdominal Distension: No distension Tenderness: Tender - diffusely Notes: Exam limited due to patient seated position in triage. Course - Re-evaluation Re-evalutation: I have greeted and performed a rapid initial assessment of this patient. A comprehensive ED assessment and evaluation of the patient, analysis of test res ults and completion of medical decision making process will be conducted by an additional ED providers.
[2020-02-26 17:35] LABS: ABSOLUTE LYMPHOCYTES (AUTO) 0.7 10^3/uL (0.5-4.7); ABSOLUTE MONOCYTES (AUTO) 0.9 10^3/uL (0.1-1.4); ABSOLUTE NEUT (AUTO) 5.4 10^3/uL (1.7-8.2); BASOPHILS % (AUTO) 0.5 % (0-2); EOSINOPHILS % (AUTO) 0.2 % (0-6); HEMATOCRIT 36.8 % (36.0-47.0); HEMOGLOBIN 12.4 g/dL (12.0-15.5); LYMPHOCYTES % (AUTO) 10.1 % (13-45); MEAN CORPUSCULAR HEMOGLOBIN 30.6 pg (27.0-33.4); MEAN CORPUSCULAR HGB CONC 33.7 g/dL (32.0-36.0); MEAN CORPUSCULAR VOLUME 91 fl (80-97); MONOCYTES % (AUTO) 13.3 % (3-13); PLATELET COUNT 215 10^3/uL (150-450); RED BLOOD COUNT 4.05 10^6/uL (3.72-5.28); RED CELL DISTRIBUTION WIDTH 14.4 % (11.5-14.0); SEGMENTED NEUTROPHILS % (AUTO) 75.9 % (42-78); TOTAL CELLS COUNTED % (AUTO) 100 %; WHITE BLOOD COUNT 7.1 10^3/uL (4.0-10.5)
[2020-02-26 17:40] LABS: APPEARANCE,URINE SLIGHTLY-CLOUDY; BILIRUBIN,URINE NEGATIVE (NEGATIVE); COLOR,URINE YELLOW; GLUCOSE, URINE NEGATIVE (NEGATIVE); KETONES,URINE NEGATIVE (NEGATIVE); LEUKOCYTE ESTERASE,URINE LARGE (NEGATIVE); NITRITE,URINE NEGATIVE (NEGATIVE); PROTEIN,URINE 30 mg/dL (NEGATIVE); URINE SPECIFIC GRAVITY 1.023
[2020-02-26 17:52] LABS: ALBUMIN 4.1 g/dL (3.5-5.0); ALKALINE PHOSPHATASE 52 U/L (38-126); ANION GAP 7 (5-19); ASPARTATE AMINO TRANSFERASE 22 U/L (14-36); BILIRUBIN,DIRECT 0.1 mg/dL (0.0-0.4); BILIRUBIN,TOTAL 0.4 mg/dL (0.2-1.3); BLOOD UREA NITROGEN 19 mg/dL (7-20); CALCIUM 9.6 mg/dL (8.4-10.2); CARBON DIOXIDE 28 mmol/L (22-30); CHLORIDE 103 mmol/L (98-107); GLUCOSE 109 mg/dL (75-110); POTASSIUM 4.3 mmol/L (3.6-5.0); TOTAL PROTEIN 7.4 g/dL (6.3-8.2)
--- NOTE | 2020-02-26 18:07 | RADIOLOGY REPORT (SQ) ---
EXAM DESCRIPTION: CT ABD/PELVIS NO ORAL OR IV IMAGES COMPLETED DATE/TIME: 02/26/2020 5:49 pm REASON FOR STUDY: abdominal pain COMPARISON: CT abdomen pelvis 08/21/2017. TECHNIQUE: CT scan of the abdomen and pelvis performed without intravenous or oral contrast. Images reviewed with lung, soft tissue, and bone windows. Reconstructed coronal and sagittal MPR images revi ewed. All images stored on PACS. All CT scanners at this facility use dose modulation, iterative reconstruction, and/or weight based d osing when appropriate to reduce radiation dose to as low as reasonably achievable (ALARA). [facility]: Dose Right [facility]: CareDose [facility]: Dose Right [facility]: Teradose 4D [facility]: Smart Cloud[employer] RADIATION DOSE: CT Rad equipment meets quality standard of care and radiation dose reduction techniq ues were employed. CTDIvol: 5.0 mGy. DLP: 226 mGy-cm.mGy. LIMITATIONS: None. FINDINGS: LOWER CHEST: No significant findings. No nodules or infiltrates. NON-CONTRASTED LIVER, SPLEEN, ADRENALS: Evaluation limited by lack of IV contrast. No identified sign ificant masses. PANCREAS: No masses. No peripancreatic inflammatory changes. GALLBLADDER: No identified stones by CT criteria. No inflammatory changes to suggest cholecystitis. RIGHT KIDNEY AND URETER: No suspicious masses. Assessment limited by lack of IV contrast. No signif icant calcifications. No hydronephrosis or hydroureter. LEFT KIDNEY AND URETER: No suspicious masses. Assessment limited by lack of IV contrast. No signifi cant calcifications. No hydronephrosis or hydroureter. AORTA AND RETROPERITONEUM: Heavy calcified atherosclerotic changes of the abdominal aorta and common iliac arteries. No aneurysm. No retroperitoneal masses or adenopathy. BOWEL AND PERITONEAL CAVITY: Large amount of stool throughout the colon. No obvious masses or inflam matory changes. No free fluid. APPENDIX: Not visualized. PELVIS, BLADDER, AND ABDOMINAL WALL:No abnormal masses. No free fluid. Bladder normal. BONES: Unchanged grade 1 degenerative anterolisthesis L4 on L5. OTHER: No other significant finding. IMPRESSION: No identifiable acute intra-abdominal findings. Large amount of stool throughout the colon. COMMENT: Quality ID # [id number]: Final reports with documentation of one or more dose reduction techniques (e.g., Automated exposure control, adjustment of the mA and/or kV according to patient size, use of iterative reconstruction technique) TECHNICAL DOCUMENTATION: JOB ID: [id number] 2010 [employer]- All Rights Reserved Reading location - IP/workstation name: [email or web address]
[2020-02-26] MEDS ORDERED: MINERAL OIL 30 ML UDCUP PR ONE (21:29)
[2020-02-26] MEDS ORDERED: CEPHALEXIN 500 MG CAPSULE PO ONE (21:30)
--- NOTE | 2020-02-26 21:32 | ER Document Report ---
ED General - General Chief Complaint: Low Back Pain Stated Complaint: HIP PAIN,LEG AND KNEE PAIN Time Seen by Provider: 02/26/20 16:24 Notes: Patient is a 74-year-old female who comes emergency department for chief complaint of abdominal pain and lower back pain. She states she fell after she lost her balance and landed hitting her lower back on the ground almost 3 weeks ago, she states she wonders if this is why she is having pain. She denies numbness, incontinence, nausea/vomiting, fever/chills, dysuria. She states she had a bowel movement this morning that was unremarkable. Patient is able to ambulate without difficulty. She states she is eating less because her abdomen hurts. She states she lives at home by herself. Patient denies any other complaints on my evaluation. Past medical history of hypertension, hyperlipidemia, asthma, GERD, hysterectomy. TRAVEL OUTSIDE OF THE [place] IN LAST 30 DAYS: No - Related Data Allergies/Adverse Reactions: aluminum [Aluminum] Allergy (Intermediate, Verified 01/19/20 12:37) aspirin [Aspirin] Allergy (Intermediate, Verified 01/19/20 12:37) iodine Allergy (Verified 01/19/20 12:37) Penicillins Allergy (Verified 01/19/20 12:37) Sulfa (Sulfonamide Antibiotics) Allergy (Verified 01/19/20 12:37) Past Medical History - General Information source: Patient - Social History Smoking Status: Never Smoker Frequency of alcohol use: None Drug Abuse: None Lives with: Alone Family History: Reviewed & Not Pertinent, Hypertension - Past Medical History Cardiac Medical History: Reports: Hx Hypercholesterolemia, Hx Hypertension Pulmonary Medical History: Reports: Hx Asthma, Hx Bronchitis Endocrine Medical History: Denies: Hx Diabetes Mellitus Type 1, Hx Diabetes Mellitus Type 2 Renal/ Medical History: Denies: Hx Peritoneal Dialysis GI Medical History: Reports: Hx Gastroesophageal Reflux Disease Musculoskeletal Medical History: Reports Hx Arthritis, Reports Hx Musculoskeletal Trauma Past Surgical History: Reports: Hx Hysterectomy, Hx Orthopedic Surgery - left foot - Immunizations Immunizations up to date: Yes Hx Diphtheria, Pertussis, Tetanus Vaccination: Yes Hx Pneumococcal Vaccination: 03/16/09 Review of Systems - Review of Systems Constitutional: No symptoms reported EENT: No symptoms reported Cardiovascular: No symptoms reported Respiratory: No symptoms reported Gastrointestinal: See HPI Genitourinary: No symptoms reported Female Genitourinary: No symptoms reported Musculoskeletal: See HPI Skin: No symptoms reported Hematologic/Lymphatic: No symptoms reported Neurological/Psychological: No symptoms reported Physical Exam - Vital signs Vitals: Temp Pulse Resp BP Pulse Ox 99.3 F 90 18 110/67 99 02/26/20 16:22 02/26/20 16:22 02/26/20 16:22 02/26/20 16:22 02/26/20 16:22 - Notes Notes: GENERAL: Alert, interacts well. No acute distress. HEAD: Normocephalic, atraumatic. EYES: Pupils equal, round, and reactive to light. Extraocular movements intact. ENT: Oral mucosa moist, tongue midline. Oropharynx unremarkable. Airway patent. NECK: Full range of motion. Supple. Trachea midline. No lymphadenopathy. LUNGS: Clear to auscultation bilaterally, no wheezes, rales, or rhonchi. No respiratory distress. Non-tender chest wall. HEART: Regular rate and rhythm. No murmur ABDOMEN: Generalized abdominal tenderness, borderline questionable distention but no severe distention. No guarding or rigidity. Bowel sounds present throughout. EXTREMITIES: Moves all 4 extremities spontaneously. No edema, normal radial and dorsalis pedis pulses bilaterally. No cyanosis. BACK: There is some generalized tenderness over the mid to lower back in the paralumbar areas. No signs of trauma. No cervical, thoracic, lumbar midline tenderness. No saddle anesthesia, normal distal neurovascular exam. Moves all extremities in full range of motion. Ambulates without difficulty. NEUROLOGICAL: Alert and oriented x3. Normal speech. Cranial nerves II through XII grossly intact. Strength 5/5 in all extremities. PSYCH: Normal affect, normal mood. SKIN: Warm, dry, normal turgor. No rashes or lesions noted. Course - Re-evaluation Re-evalutation: Patient is alert and well-appearing. She ambulates without any difficulty. Vital signs are unremarkable. She has some generalized tenderness over the abdomen but no severe distention, guarding, or rigidity. CBC unremarkable, chemistry unremarkable, urinalysis shows potentially developing UTI. CAT scan from triage reviewed and shows no acute bony abnormality, no acute abdominal pathology, large amount of constipation. I discussed details and options with patient. After discussion of options patient requested an enema. This was performed, patient actually had 2 good bowel movements from this. She was given Keflex for UTI. Patient with no other complaints, continues to be very well-appearing. I discussed follow-up and return precautions. Patient states understanding and agreement. 02/27/20 Nursing staff came to me and stated patient now tells us that she has no heat at home, she lives alone, she has no local family or friends, she is afraid to go home. As result in case management will be consulted and patient will remain as a social hold for now. Discussed with Dr. Mcgill. - Vital Signs Vital signs: Temp Pulse Resp BP Pulse Ox 99.3 F 68 15 128/78 H 100 02/26/20 16:22 02/27/20 02:05 02/27/20 02:05 02/27/20 02:05 02/27/20 02:05 - Laboratory Results Result Diagrams: 02/26/20 17:19 02/26/20 17:19 Laboratory Results Interpreted: 02/26/20 02/26/20 17:05 17:19 RDW 14.4 H Lymph % (Auto) 10.1 L [place] % (Auto) 13.3 H Urine Protein 30 H Urine Urobilinogen 2.0 H Ur Leukocyte Esterase LARGE H Critical Laboratory Results Reviewed: No Critical Results - Radiology Results Critical Radiology Results Reviewed: No Critical Results Discharge - Discharge Clinical Impression: Lower back pain Qualifiers: Chronicity: acute Back pain laterality: bilateral Sciatica presence: without sciatica Qualified Code(s): M54.5 - Low back pain Abdominal pain Qualifiers: Abdominal location: generalized Qualified Code(s): R10.84 - Generalized abdominal pain Condition: Stable Disposition: HOME, SELF-CARE Additional Instructions: Your imaging shows constipation but no other concerning findings, your back does not show any fractures or new abnormality. Take Tylenol for pain complicate your back, rest. I recommend the stool softener as prescribed for the constipation for the next couple of days. Also take the Keflex antibiotics for the urinary tract infection as we discussed. Follow-up with primary care. Return if you worsen including severe worsening pain, vomiting, developing numbness, inability to control your bowel or bladder, fever, or any other concerning symptoms. Prescriptions: Cephalexin Monohydrate [Keflex 500 mg Capsule] 500 mg PO BID 7 Days #14 capsule Polyethylene Glycol 3350 [Miralax Powder 17 gm/Packet] 1 packet PO DAILY PRN #1 pkg PRN Reason:
[2020-02-27 10:25] VITALS: BP 132/74
== END 2020-02-27 10:07 | disposition home or self-care (01) ==
LOC: ER 16:08
DX: K59.00 Constipation, unspecified (principal); M54.5 Low back pain; R10.84 Generalized abdominal pain; R10.817 Generalized abdominal tenderness; I10 Essential (primary) hypertension; J45.909 Unspecified asthma, uncomplicated; Z59.1 Inadequate housing; Z88.8 Allergy status to other drugs, medicaments and biological substances; Z88.0 Allergy status to penicillin; Z88.2 Allergy status to sulfonamides
CPT/HCPCS: 99284; 36415; 87086; 83690; 85025; 87088; 80053; 81001; 74176; A9270 ×2; 87186; J3490

== ENCOUNTER 2020-03-10 10:03 | Emergency (ER) | payer MEDICARE, MEDICAID ==
[2020-03-10 11:09] VITALS: BP 118/77
--- NOTE | 2020-03-10 11:17 | ER Document Report ---
ED Medical Screen (RME) - General Chief Complaint: Medical Complaint Stated Complaint: SHAKING Time Seen by Provider: 03/10/20 11:15 Mode of Arrival: Wheelchair Information source: Patient Notes: 74-year-old female presents to ED because she states she is here because her he is out at home and she is shaking and she cannot get warm. She needs somebody to come and fix her he will make it so she can get warm. I have greeted and performed a rapid initial assessment of this patient. A comprehensive ED assessment and evaluation of the patient, analysis of test results and completion of medical decision making process will be conducted by an additional ED providers. TRAVEL OUTSIDE OF THE [place] IN LAST 30 DAYS: No - Related Data Allergies/Adverse Reactions: aluminum [Aluminum] Allergy (Intermediate, Verified 01/19/20 12:37) aspirin [Aspirin] Allergy (Intermediate, Verified 01/19/20 12:37) iodine Allergy (Verified 01/19/20 12:37) Penicillins Allergy (Verified 01/19/20 12:37) Sulfa (Sulfonamide Antibiotics) Allergy (Verified 01/19/20 12:37) Past Medical History - Past Medical History Cardiac Medical History: Reports: Hx Coronary Artery Disease, Hx Hypercholesterolemia, Hx Hypertension Pulmonary Medical History: Reports: Hx Asthma, Hx Bronchitis Endocrine Medical History: Denies: Hx Diabetes Mellitus Type 1, Hx Diabetes Mellitus Type 2 Renal/ Medical History: Denies: Hx Peritoneal Dialysis GI Medical History: Reports: Hx Gastroesophageal Reflux Disease Musculoskeltal Medical History: Reports Hx Arthritis, Reports Hx Musculoskeletal Trauma Past Surgical History: Reports: Hx Hysterectomy, Hx Orthopedic Surgery - left foot - Immunizations Immunizations up to date: Yes Hx Diphtheria, Pertussis, Tetanus Vaccination: Yes Physical Exam - Vital signs Vitals: Temp Pulse Resp BP Pulse Ox 97.7 F 52 L 18 118/77 98 03/10/20 11:03 03/10/20 11:03 03/10/20 11:03 03/10/20 11:03 03/10/20 11:03 Course - Vital Signs Vital signs: Temp Pulse Resp BP Pulse Ox 97.7 F 52 L 18 118/77 98 03/10/20 11:03 03/10/20 11:03 03/10/20 11:03 03/10/20 11:03 03/10/20 11:03
== END 2020-03-10 16:00 | disposition left against medical advice (07) ==
LOC: ER 10:03
DX: R25.1 Tremor, unspecified (principal); Z88.8 Allergy status to other drugs, medicaments and biological substances; Z88.0 Allergy status to penicillin; Z88.2 Allergy status to sulfonamides; I25.10 Atherosclerotic heart disease of native coronary artery without angina pectoris; I10 Essential (primary) hypertension; J45.909 Unspecified asthma, uncomplicated; Z53.20 Procedure and treatment not carried out because of patient's decision for unspecified reasons
CPT/HCPCS: 99281